=== PATIENT | male | born 1975 | race Caucasian/White ===

== ENCOUNTER 2017-04-06 12:29 | Inpatient (IN) ==
[2017-04-06 13:14] LABS: Basophils # 0.1 K/mcL (0.0-0.2); Basophils % 0.3 %; Eosinophils # 0.9 K/mcL (0.0-0.6); Eosinophils % 5.1 %; Hematocrit 31.3 % (37.5-50.1); Immature Granulocytes % 0.3 % (0-4); Lymphocytes # 0.6 K/mcL (0.6-4.6); Lymphocytes % 3.3 %; Mean Corpuscular HGB Conc 35.1 g/dL (31.6-35.5); Mean Corpuscular Hemoglobin 30.3 pg (28.0-33.3); Mean Corpuscular Volume 86.2 fL (83.0-100.0); Mean Platelet Volume 8.9 fL (9.4-12.4); Monocytes # 0.9 K/mcL (0.0-1.3); Monocytes % 5.2 %; Neutrophils # 14.6 K/mcL (1.6-8.9); Platelet Count 361 K/mcL (140-400); Red Blood Count 3.63 M/mcL (4.19-5.50); Segmented Neutrophils % 85.8 %
[2017-04-06 13:18] LABS: Bilirubin,Urine Negative (Negative); Blood,Urine Negative (Negative); Clarity,Urine Clear (Clear); Color,Urine Yellow (Yellow); Glucose,Urine (UA) Normal (Normal); Ketones,Urine Negative (Negative); Nitrite,Urine Negative (Negative); Protein,Urine 30 mg/dL (Neg-Trace); Specific Gravity,Urine 1.023 (1.010-1.025); Urobilinogen,Urine Normal (Normal)
[2017-04-06 13:19] LABS: Leukocyte Esterase,Urine Negative (Negative)
[2017-04-06] MEDS ORDERED: methylPREDNISolone 125 MG/2 ML VIAL IM ONE (13:25)
[2017-04-06 13:26] LABS: Hyaline Casts,Urine Few per lpf (None-Few)
[2017-04-06] MEDS ORDERED: Ipratropium/Albuterol Neb 3 ML IH ONE (13:26)
[2017-04-06 13:27] LABS: Alanine Aminotransferase 25 Units/L (0-55); Albumin 2.5 g/dL (3.5-5.0); Albumin/Globulin Ratio 0.7 (1.1-2.2); Alkaline Phosphatase 87 Units/L (38-126); Aspartate Amino Transferase 40 Units/L (5-34); BUN/Creatinine Ratio 19 (6-26); Bilirubin,Total 0.3 mg/dL (0.2-1.2); Blood Urea Nitrogen 21 mg/dL (8-26); Calcium 11.5 mg/dL (8.6-10.8); Carbon Dioxide 15 mEq/L (19-29); Chloride 114 mEq/L (98-109); Globulin 3.8 g/dL (2.4-3.5); Glucose 115 mg/dL (70-99); Osmolality,Calculated 290 (280-300); Potassium 2.6 mEq/L (3.5-4.5); Sodium 138 mEq/L (136-145); Total Protein 6.3 g/dL (6.0-8.3); eGFR For African Americans > 60 (> 60); eGFR For Non-African Americans > 60 (> 60)
[2017-04-06 13:27] LABS: Squamous Epithelial Cell,Urine Few per lpf (None-Few)
--- NOTE | 2017-04-06 13:28 | Emergency Department Note ---
Disposition Clinical Impression: Smoker, Wheezing, Dyspnea, Bilateral pneumonia, Hypoxemia, Hypokalemia, Anemia , Hypercalcemia, Abnormal EKG, Sepsis Disposition: Admitted As Inpatient Referrals: NONE,PCP [Primary Care Provider] - Forms: ED Satisfaction Letter General Adult HPI - General Chief complaint: ED Shortness of Breath/Dyspnea Stated complaint: LARS Time Seen by Provider: 04/06/17 13:13 Source: patient Limitations: no limitations - History of Present Illness HPI Narrative: 41-year-old male reports emergency department complaining of a cough and wheezing. The patient reports he feels weak and short of breath. He has had a sore throat runny nose and some slight ear pain and had productive sputum but no bloody sputum. 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 There is no history of leg swelling or pain or coughing up blood no syncope. No acute abdominal pain vomiting or diarrhea. There is no history of fever, no acute back pain. No chest pain. The patient denies a previous history of asthma but is a smoker. He states he had a heart attack in the past but never had any cardiac stents or particular evaluation. The patient has had no difficulty moving the arms or legs independently. He reports he has been working, he works physically, but has felt to poorly to go to work today. Pain Scale: 8 - Related Data Home Medications Medication Instructions Recorded Confirmed Ibuprofen [Motrin] 400 - 600 mg PO Q6H PRN 04/06/17 04/06/17 Allergies Allergy/AdvReac Type Severity Reaction Status Date / Time No Known Allergies Allergy Verified 04/06/17 12:49 All systems ED: reviewed and negative except as stated. Past Medical History - Past Medical History Medical history: Reports: no medical history Psychiatric history: Reports: anxiety, depression - Social History Smoking Status: Current every day smoker Smokeless Tobacco Status: Yes Alcohol use: Reports: none Drug use: Reports: marijuana Physical Exam - General Limitations: no limitations General appearance: alert, in no apparent distress - Head Head exam: atraumatic, normocephalic, normal inspection - Eye Eye exam: Present: normal appearance, PERRL, EOMI. Absent: scleral icterus - ENT ENT exam: normal exam, normal oropharynx, mucous membranes moist, TM's normal bilaterally, normal external ear exam, other (Light-colored material on the tongue, possibly thrush) - Neck Neck exam: Present: normal inspection, full ROM, trachea midline - Chest Chest inspection: Present: normal inspection, symmetric chest wall rise - Respiratory Respiratory exam: Present: wheezes, prolonged expiratory phase. Absent: respiratory distress, stridor, accessory muscle use - Cardiovascular Cardiovascular exam: Present: regular rate, normal rhythm, normal heart sounds - Abdominal Exam Abdominal exam: Present: soft, Non-Tender, normal bowel sounds. Absent: tenderness, distention, guarding, rebound, rigidity - Extremities Exam Extremities exam: Present: normal inspection, full ROM, normal capillary refill. Absent: tenderness, pedal edema, joint swelling, calf tenderness - Expanded Lower Extremity Exam Neurovascular/Tendon exam: Present: normal capillary refill. Absent: motor deficit, sensory deficit, tendon deficit, extremity cold to touch, pallor - Back Exam Back exam: Present: normal inspection, full ROM. Absent: tenderness, CVA tenderness (R), CVA tenderness (L), vertebral tenderness - Neurological Exam Neurological exam: Present: alert, oriented X3, CN II-XII intact. Absent: motor sensory deficit - Psychiatric Psychiatric exam: Present: normal affect, normal mood - Skin Skin exam: Present: warm, dry, intact, normal color. Absent: rash, cyanosis, diaphoresis, erythema, pallor, mottled Course Vital Signs Temperature 98.4 F 04/06/17 12:49 Pulse Rate 75 04/06/17 12:49 Respiratory Rate 24 04/06/17 12:49 Blood Pressure 105/49 04/06/17 12:49 O2 Sat by Pulse Oximetry 91 04/06/17 12:49 Temperature 98.4 F 04/06/17 12:49 Pulse Rate 75 04/06/17 12:49 Respiratory Rate 24 04/06/17 12:49 Blood Pressure 105/49 04/06/17 12:49 O2 Sat by Pulse Oximetry 91 04/06/17 12:49 Oxygen Delivery Oxygen Delivery Room Air Medical Decision Making - MDM Narrative Medical decision making narrative: Patient complains of dyspnea, his chest x-ray suggests bilateral pneumonitis, the patient's white blood cell count is significantly elevated, he was given a breathing treatment in the emergency department and his room air oxygen saturation remained about 89%, oxygen was ordered. Blood cultures were ordered as well as Levaquin. The patient has what appears to be some thrush on his tongue, HIV testing is been ordered. Solu-Medrol was given the ED. Based on the patient's hypoxemia, bilateral pneumonitis, symptomatic dyspnea, wheezing, notably elevated white count, hypokalemia, and general weakness, I thought it would be appropriate to admit the patient to hospital. D-dimer pending, urine tox pending. I discussed the case with the hospitalist on-call who has accepted the patient to their care. - Lab Data Lab results reviewed: Yes I reviewed the patient's lab results. Result diagrams: 04/06/17 13:05 04/06/17 13:05 Lab Results 04/06/17 04/06/17 04/06/17 Range/Units 12:38 13:05 13:05 WBC 17.0 H (4.3-11.1) K/mcL RBC 3.63 L (4.19-5.50) M/mcL Hgb 11.0 L (12.9-16.9) g/dL Hct 31.3 L (37.5-50.1) % MCV 86.2 (83.0-100.0) fL MCH 30.3 (28.0-33.3) pg MCHC 35.1 (31.6-35.5) g/dL RDW 15.0 H (11.5-14.5) % Plt Count 361 (140-400) K/mcL MPV 8.9 L (9.4-12.4) fL Immature Gran % 0.3 (0-4) % Seg Neutrophils % 85.8 % Lymphocytes % 3.3 % Monocytes % 5.2 % Eosinophils % 5.1 % Basophils % 0.3 % Neutrophils # 14.6 H (1.6-8.9) K/mcL Lymphocytes # 0.6 (0.6-4.6) K/mcL Monocytes # 0.9 (0.0-1.3) K/mcL Eosinophils # 0.9 H (0.0-0.6) K/mcL Basophils # 0.1 (0.0-0.2) K/mcL Platelet Estimate Normal (Normal) Sodium 138 (136-145) mEq/L Potassium 2.6 L (3.5-4.5) mEq/L Chloride 114 H (98-109) mEq/L Carbon Dioxide 15 L (19-29) mEq/L BUN 21 (8-26) mg/dL Creatinine 1.10 (0.72-1.25) mg/dL Est GFR ( Amer) > 60 (> 60) Est GFR (Non-Af Amer) > 60 (> 60) BUN/Creatinine Ratio 19 (6-26) Glucose 115 H (70-99) mg/dL Calculated Osmolality 290 (280-300) Lactic Acid (0.5-2.2) mmol/L Calcium 11.5 H (8.6-10.8) mg/dL Total Bilirubin 0.3 (0.2-1.2) mg/dL AST 40 H (5-34) Units/L ALT 25 (0-55) Units/L Alkaline Phosphatase 87 (38-126) Units/L Troponin I (0-0.03) ng/mL C-Reactive Protein (Less than 5) mg/L B-Natriuretic Peptide (0-100) pg/mL Serum Total Protein 6.3 (6.0-8.3) g/dL Albumin 2.5 L (3.5-5.0) g/dL Globulin 3.8 H (2.4-3.5) g/dL Albumin/Globulin Ratio 0.7 L (1.1-2.2) Urine Color Yellow (Yellow) Urine Clarity Clear (Clear) Urine pH 6.0 (5.0-8.0) pH Units Ur Specific [place] 1.023 (1.010-1.025) Urine Protein 30 H (Neg-Trace) mg/dL Urine Glucose (UA) Normal (Normal) mg/dL Urine Ketones Negative (Negative) mg/dL Urine Blood Negative (Negative) Urine Nitrite Negative (Negative) Urine Bilirubin Negative (Negative) Urine Urobilinogen Normal (Normal) mg/dL Ur Leukocyte Esterase Negative (Negative) Urine Microscopic RBC 0-3 (0-3) per hpf Urine Microscopic WBC 3-5 H (0-3) per hpf Ur Squamous Epith Cells Few (None-Few) per lpf Ur Renal Epithelial Cell Few (None-Few) per hpf Urine Bacteria Moderate H (None-Few) per hpf Hyaline Casts Few (None-Few) per lpf Ur Culture Indicated? NO (NO) HIV Ag/Ab Combo Qual (Nonreactive) 04/06/17 04/06/17 04/06/17 Range/Units 13:05 14:36 14:36 WBC (4.3-11.1) K/mcL RBC (4.19-5.50) M/mcL Hgb (12.9-16.9) g/dL Hct (37.5-50.1) % MCV (83.0-100.0) fL MCH (28.0-33.3) pg MCHC (31.6-35.5) g/dL RDW (11.5-14.5) % Plt Count (140-400) K/mcL MPV (9.4-12.4) fL Immature Gran % (0-4) % Seg Neutrophils % % Lymphocytes % % Monocytes % % Eosinophils % % Basophils % % Neutrophils # (1.6-8.9) K/mcL Lymphocytes # (0.6-4.6) K/mcL Monocytes # (0.0-1.3) K/mcL Eosinophils # (0.0-0.6) K/mcL Basophils # (0.0-0.2) K/mcL Platelet Estimate (Normal) Sodium (136-145) mEq/L Potassium (3.5-4.5) mEq/L Chloride (98-109) mEq/L Carbon Dioxide (19-29) mEq/L BUN (8-26) mg/dL Creatinine (0.72-1.25) mg/dL Est GFR ( Amer) (> 60) Est GFR (Non-Af Amer) (> 60) BUN/Creatinine Ratio (6-26) Glucose (70-99) mg/dL Calculated Osmolality (280-300) Lactic Acid 1.9 (0.5-2.2) mmol/L Calcium (8.6-10.8) mg/dL Total Bilirubin (0.2-1.2) mg/dL AST (5-34) Units/L ALT (0-55) Units/L Alkaline Phosphatase (38-126) Units/L Troponin I 0.00 (0-0.03) ng/mL C-Reactive Protein 225 H (Less than 5) mg/L B-Natriuretic Peptide (0-100) pg/mL Serum Total Protein (6.0-8.3) g/dL Albumin (3.5-5.0) g/dL Globulin (2.4-3.5) g/dL Albumin/Globulin Ratio (1.1-2.2) Urine Color (Yellow) Urine Clarity (Clear) Urine pH (5.0-8.0) pH Units Ur Specific [place] (1.010-1.025) Urine Protein (Neg-Trace) mg/dL Urine Glucose (UA) (Normal) mg/dL Urine Ketones (Negative) mg/dL Urine Blood (Negative) Urine Nitrite (Negative) Urine Bilirubin (Negative) Urine Urobilinogen (Normal) mg/dL Ur Leukocyte Esterase (Negative) Urine Microscopic RBC (0-3) per hpf Urine Microscopic WBC (0-3) per hpf Ur Squamous Epith Cells (None-Few) per lpf Ur Renal Epithelial Cell (None-Few) per hpf Urine Bacteria (None-Few) per hpf Hyaline Casts (None-Few) per lpf Ur Culture Indicated? (NO) HIV Ag/Ab Combo Qual (Nonreactive) 04/06/17 04/06/17 Range/Units 14:36 14:36 WBC (4.3-11.1) K/mcL RBC (4.19-5.50) M/mcL Hgb (12.9-16.9) g/dL Hct (37.5-50.1) % MCV (83.0-100.0) fL MCH (28.0-33.3) pg MCHC (31.6-35.5) g/dL RDW (11.5-14.5) % Plt Count (140-400) K/mcL MPV (9.4-12.4) fL Immature Gran % (0-4) % Seg Neutrophils % % Lymphocytes % % Monocytes % % Eosinophils % % Basophils % % Neutrophils # (1.6-8.9) K/mcL Lymphocytes # (0.6-4.6) K/mcL Monocytes # (0.0-1.3) K/mcL Eosinophils # (0.0-0.6) K/mcL Basophils # (0.0-0.2) K/mcL Platelet Estimate (Normal) Sodium (136-145) mEq/L Potassium (3.5-4.5) mEq/L Chloride (98-109) mEq/L Carbon Dioxide (19-29) mEq/L BUN (8-26) mg/dL Creatinine (0.72-1.25) mg/dL Est GFR ( Amer) (> 60) Est GFR (Non-Af Amer) (> 60) BUN/Creatinine Ratio (6-26) Glucose (70-99) mg/dL Calculated Osmolality (280-300) Lactic Acid (0.5-2.2) mmol/L Calcium (8.6-10.8) mg/dL Total Bilirubin (0.2-1.2) mg/dL AST (5-34) Units/L ALT (0-55) Units/L Alkaline Phosphatase (38-126) Units/L Troponin I (0-0.03) ng/mL C-Reactive Protein (Less than 5) mg/L B-Natriuretic Peptide 85 (0-100) pg/mL Serum Total Protein (6.0-8.3) g/dL Albumin (3.5-5.0) g/dL Globulin (2.4-3.5) g/dL Albumin/Globulin Ratio (1.1-2.2) Urine Color (Yellow) Urine Clarity (Clear) Urine pH (5.0-8.0) pH Units Ur Specific [place] (1.010-1.025) Urine Protein (Neg-Trace) mg/dL Urine Glucose (UA) (Normal) mg/dL Urine Ketones (Negative) mg/dL Urine Blood (Negative) Urine Nitrite (Negative) Urine Bilirubin (Negative) Urine Urobilinogen (Normal) mg/dL Ur Leukocyte Esterase (Negative) Urine Microscopic RBC (0-3) per hpf Urine Microscopic WBC (0-3) per hpf Ur Squamous Epith Cells (None-Few) per lpf Ur Renal Epithelial Cell (None-Few) per hpf Urine Bacteria (None-Few) per hpf Hyaline Casts (None-Few) per lpf Ur Culture Indicated? (NO) HIV Ag/Ab Combo Qual Nonreactive (Nonreactive) - Radiology Data Radiology results reviewed: Yes I reviewed the patient's radiology results. Critical Care Time Critical Care Time: Yes Total Critical Care Time: 31 Attestation: 10 minutes initial evaluation 10 minutes documenting the medical record and interpreting data 5 minutes reevaluation 6 minutes revealed with the hospitalist and arranging for admission
[2017-04-06 13:29] LABS: Bacteria,Urine Moderate per hpf (None-Few); Renal Epithelial Cells,Urine Few per hpf (None-Few)
[2017-04-06 13:30] LABS: Platelet Estimate Normal (Normal)
[2017-04-06 13:30] LABS: RBC,Urine 0-3 per hpf (0-3)
[2017-04-06] MEDS ORDERED: 0.9 % Sodium Chloride 1,000 ML IVC ONE (14:21)
[2017-04-06] MEDS ORDERED: Levofloxacin 750 MG/150 ML 750 MG/150 ML BAG IVPB ONE (14:22)
[2017-04-06] MEDS ORDERED: Naloxone 0.4 MG/ML INJ IVP PRN (21:01)
[2017-04-06] MEDS ORDERED: *HR* Morphine 2 MG/ML SYRINGE IVP PRN (21:01)
[2017-04-06] MEDS ORDERED: Ondansetron 4 MG/2 ML VIAL IVP PRN (21:01)
[2017-04-06] MEDS ORDERED: *HR* HYDROcodone/Acet 5/325 mg TABLET PO PRN (21:01)
[2017-04-06] MEDS ORDERED: Benzonatate 100 MG CAPSULE PO PRN (21:08)
[2017-04-06] MEDS ORDERED: D5% in Water 1,000 ML IVC PRN (21:12)
[2017-04-06] MEDS ORDERED: Dextrose Gel 15 GM PO PRN ×2 (21:12)
[2017-04-06] MEDS ORDERED: *HR* Dextrose 50 % in Water (Syg) 50 ML SYRINGE IVP PRN (21:12)
--- NOTE | 2017-04-06 21:13 | Electrocardiograph Report ---
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
[2017-04-06] MEDS ORDERED: Insulin LISPRO 300 UNITS/3 ML VIAL SQ SCH (21:15)
[2017-04-06] MEDS: Pantoprazole 40 MG VIAL IVP SCH (21:39)
[2017-04-06] MEDS: Aspirin Enteric Coated 81 MG Tablet PO SCH (21:42)
[2017-04-06] MEDS: Ipratropium/Albuterol Neb 3 ML IH SCH (22:24)
[2017-04-06] MEDS: *HR* Heparin 5,000 UNIT/ML VIAL SQ SCH (22:59)
--- NOTE | 2017-04-06 23:11 | Event Note ---
Date of Encounter: 04/06/17 Time of Encounter: 23:11 Patient seen and examined with nurse practitioner. Agree with assessment and plan
[2017-04-06 23:19] LABS: Magnesium 1.8 mg/dL (1.6-2.6)
[2017-04-06 23:28] LABS: Potassium 2.5 mEq/L (3.5-4.5)
[2017-04-06] MEDS ORDERED: Magnesium Sulfate 1 GM in D5% in Water 100 ML IVPB ONE (23:34)
--- NOTE | 2017-04-06 23:35 | Internal Med History&Physical ---
Date of Encounter: 04/07/17 Time of Encounter: 20:00 Assessment and Plan (1) Sepsis Current visit: Yes Status: Acute Patient presents with sepsis criteria of WBC of 17.0, respiratory rate of 24, and infection from suspected pneumonia from unknown organism. 2-View CXR today shows diffuse bilateral patchy interstitial opacities may represent multifocal pneumonia or pulmonary edema. Patient reports cough with sputum production. Blood cultures x2 and sputum culture ordered. Initial lactic acid 1.9. Repeat lactic acid. IV 0.9 NS bolus administered in ED followed by 100 mL/HR to continue. IVPB levaquin 750 mg daily ordered for infection coverage. Will adjust abx coverage based on culture results if needed. Supplemental O2 with titration and continuous SpO2 monitoring. Continuous cardiac telemetry. Monitor f/u labs for WBC. Monitor patient for signs of increasing infection, cardiac, and/or respiratory distress. Qualifiers: Sepsis type: sepsis due to unspecified organism Qualified Code(s): A41.9 - Sepsis, unspecified organism (2) Pneumonia Current visit: Yes Status: Acute 2-View CXR today shows diffuse bilateral patchy interstitial opacities may represent multifocal pneumonia or pulmonary edema. Patient reports SOB, nausea, vomiting, weakness, and dizziness over the past three days. Reports N/V has resolved. Also reports cough with white sputum production. Sputum culture ordered. IVPB levaquin 750 mg daily ordered for infection coverage. Supplemental O2 with titration and SpO2 monitoring. DuoNebs Q6 scheduled. Monitor f/u labs for infection status. Will adjust abx coverage based on blood/ sputum culture results. Qualifiers: Pneumonia type: due to unspecified organism Laterality: bilateral Lung location: unspecified part of lung Qualified Code(s): J18.9 - Pneumonia, unspecified organism (3) Dyspnea Current visit: Yes Status: Acute Patient presents with SOB related to current pneumonia status. Supplemental O2 with titration and continuous SpO2 monitoring. DuoNebs Q6 scheduled. Qualifiers: Qualified Code(s): R06.02 - Shortness of breath; R06.00 - Dyspnea, unspecified; R06.01 - Orthopnea (4) Anemia Current visit: Yes Status: Acute Hgb of 11.0 and Hct of 31.3 on admission. B12 and folic acid ordered daily. Fecal hemoccult ordered. Monitor H/H in f/u labs. Qualifiers: Anemia type: unspecified type Qualified Code(s): D64.9 - Anemia, unspecified (5) Hypercalcemia Current visit: Yes Status: Acute 11.5 calcium on admission. Patient receiving IV fluids per sepsis protocol. Monitor calcium status in f/u labs. Continuous cardiac telemetry. (6) Hypokalemia Current visit: Yes Status: Acute Potassium of 2.6 on admission. 40 mEq PO potassium and 10 mEq IVPB administered in ED. Will f/u with IVPB potassium 10 mEq x4 and monitor patient's potassium level during administration. (7) DVT prophylaxis Current visit: Yes Status: Acute Heparin 5,000 units SQ Q8 ordered for DVT prophylaxis. Monitor patient for signs of bleeding. Internal Medicine - H&P: HPI Chief complaint: SOB/Dyspnea Admitted From: Emergency Dept Plans for Post Hospital Care: Home History of present illness: Mr. Barlow is a 41 year old male with medical history of heart murmur since childhood presents from the ED with chief complaint of shortness of breath and dyspnea which began 3 days ago and was accompanied with nausea and vomiting. Patient reports weakness and dizziness accompanying symptoms which became worse. He also reports cough with white sputum production. Patient denies recent contact with sick people, fever, chills, chest pain, limitations, changes in vision, abdominal pain, diarrhea, constipation, unusual bleeding, presyncope, or syncope. Patient denies history of asthma, DVT, and PE. Patient reports he had a heart attack at the age of 32 but never sought treatment or had heart catheterization or stent placement. Patient reports he is occurring every day smoker smoking 2 packs per day and has no interest in quitting. Patient also has psychiatric history of anxiety and depression without pharmacologic intervention. He reports occasional marijuana use. 2- view CXR today shows diffuse bilateral patchy interstitial opacities which may represent multifocal pneumonia or pulmonary edema. On admission, patient's vital signs include temperature of 98.4F, heart rate 75 beats per minutes, respiratory rate of 24, repeat of 105 49, and SPO2 91% on room air. Abnormal lab values include WBC was 17.0, Hgb of 11.0, HCT of 31.3, potassium of 2.6, chloride of 114, CO2 of 15, glucose of 115, calcium of 11.5 AST of 40 and CRP at 225. Initial lactic acid is 1.9 and initial troponin 0.00. Upon assessment , patient is alert and oriented 3 and states he is mildly short of breath. HR is RRR and patient is mildly tachypneic with diminished breath sounds bilaterally on auscultation. Patient is hemodynamically stable and reports mild SOB. Information obtained from patient, chart reviewed previous medical records. Mr. Barlow currently meet sepsis criteria based on WBC of 17.0, respiratory rate of 24, and infection of unknown organism related to current pneumonia status and is at high risk for further morbidity based on current symptoms and will be placed as inpatient status. Time spent with patient >40 minutes. Past Med Surg Social Fam HX - Past Medical History Source: patient Medical history: no medical history, myocardial infarction (Patient states he had [place] at age 32 due to alcohol abuse w/o intervention, cath, or stents) Psychiatric history: anxiety, depression - Social History Smoking Status: Current every day smoker Packs per day: 2 PPD Smokeless Tobacco Status: Yes Alcohol use: none Drug use: marijuana Occupational status: employed Current living situation: Home Activity Level: Independent ambulation Recent Out of Country Travel Within the Last 8 Weeks: No Exposure or Possible Exposure to Illness During Travel: No - Family History Father Race: Family Member Ethnicity: Non- Living Status: Still Living Hx Family Medical Disorders: No Mother Race: Family Member Ethnicity: Non- Living Status: Still Living Hx Family Medical Disorders: No Internal Medicine - H&P: Meds Ibuprofen [Motrin] 400 - 600 mg PO Q6H PRN 04/06/17 [History] 3 Allergy/AdvReac Type Severity Reaction Status Date / Time No Known Allergies Allergy Verified 04/06/17 12:49 All Systems PM: A 10-system review of systems was performed and is negative for pertinent findings except as documented above in the HPI. - Constitutional Constitutional: as per HPI, weakness, no chills, no fever(s), no night sweats - EENT Eyes: no change in vision, no discharge, no pain, no photophobia Ears: no ear discharge, no ear pain, no tinnitus Nose, mouth and throat: no dysphagia, no nasal discharge, no neck pain, no sore throat - Breasts Breasts: as per HPI - Cardiovascular Cardiovascular ROS IM: dyspnea, dyspnea on exertion, no chest pain, no diaphoresis, no lightheadedness, no palpitations, no syncope - Respiratory Respiratory: as per HPI, cough, dyspnea, dyspnea on exertion - Gastrointestinal Gastrointestinal: no abdominal pain, no diarrhea, no hematemesis, no hematochezia, no melena, no nausea, no vomiting - Genitourinary Genitourinary ROS male: as per HPI - Musculoskeletal Musculoskeletal ROS IM: no numbness, no tingling - Integumentary Integumentary IM: no rash, no unusual bruising - Neurological Neurological ROS: no confusion, no convulsions, no focal weakness, no numbness, no tingling, no tremor(s) - Psychiatric Psychiatric: as per HPI - Endocrine Endocrine IM: as per HPI - Hematologic/Lymphatic Hematologic/Lymphatic: no easy bruising - Allergic/Immunologic Allergic/Immunologic: as per HPI - Constitutional Vitals: Temp Pulse Resp BP Pulse Ox 98.3 F 72 18 99/52 93 04/06/17 23:32 04/06/17 23:32 04/06/17 23:32 04/06/17 23:32 04/06/17 23:32 General appearance: Present: cooperative, mild distress, A&O X 3, pleasant, answers questions appropriately - Head Head exam: Present: atraumatic, normocephalic - Eye Eye exam: Present: PERRL, conjuntiva pink, sclera anicteric Pupils: Present: PERRL - ENT ENT exam: Present: normal exam, normal external ear exam - Neck Neck exam general surgery: Present: normal inspection, supple, trachea midline. Absent: lymphadenopathy - Respiratory Respiratory exam: Present: decreased breath sounds. Absent: accessory muscle use, rales, rhonchi, wheezes - Cardiovascular Cardiovascular exam: Present: RRR, +S1, +S2. Absent: diastolic murmur, gallop, rubs, systolic murmur - GI/Abdominal GI/Abdominal exam: Present: normal bowel sounds, soft, no peritoneal signs. Absent: distended, tenderness - Rectal Rectal exam: Present: deferred - Additional comments: exam deferred. - Extremities Exam Extremities exam: Present: warm, radial pulses palpable and symmetrical. Absent : calf tenderness, cyanotic, pedal edema - Back Exam Back exam: Present: normal inspection - Neurological Exam Neurological exam: Present: CN II-XII intact, oriented X3, no focal deficits. Absent: pronater drift, facial droop, speech deficit - Psychiatric Psychiatric exam: Present: normal affect, normal mood - Skin Skin exam: Present: dry, intact Internal Med - H&P Results - Labs CBC & Chem 7: 04/06/17 13:05 04/06/17 23:01 Labs: BMP 04/06/17 23:01 Potassium 2.5 L* - Impressions ITS Impressions Chest CTA 04/06/17 18:20 IMPRESSION: Mediastinal and right hilar lymphadenopathy. This may be reactive; however, the bulkiness of the lymph nodes does question underlying sarcoidosis despite asymmetry of hilar involvement or possible lymphoma. Bilateral ground-glass infiltrates, which are nonspecific. This may reflect pulmonary edema versus atypical pneumonia or hypersensitivity pneumonitis. Alveolar hemorrhage or eosinophilic pneumonia can give a similar radiographic appearance. D/ / 04/06/2017 20:24:12 Vimal Bonilla MD / ana Interpreting Provider: Vimal Bonilla MD - Diagnostic Studies Chest x-ray Additional comments: Impressions Chest X-Ray 04/06/17 13:14 IMPRESSION: Diffuse bilateral patchy interstitial opacities may represent multifocal pneumonia or pulmonary edema. D/ / Mikel Wood MD / Mikel Wood MD Interpreting Provider: Mikel Wood MD Other Images Additional comments: Impressions Chest CTA 04/06/17 18:20 IMPRESSION: Mediastinal and right hilar lymphadenopathy. This may be reactive; however, the bulkiness of the lymph nodes does question underlying sarcoidosis despite asymmetry of hilar involvement or possible lymphoma. Bilateral ground-glass infiltrates, which are nonspecific. This may reflect pulmonary edema versus atypical pneumonia or hypersensitivity pneumonitis. Alveolar hemorrhage or eosinophilic pneumonia can give a similar radiographic appearance. D/ / 04/06/2017 20:24:12 Vimal Bonilla MD / earnas Interpreting Provider: Vimal Bonilla MD
[2017-04-07] MEDS: 0.9 % Sodium Chloride 1,000 ML IVC SCH ×3 (00:10→19:31)
[2017-04-07] MEDS: Ipratropium/Albuterol Neb 3 ML IH SCH ×4 (03:43→21:14)
[2017-04-07 05:26] LABS: Hematocrit 28.6 % (37.5-50.1); Hemoglobin 10.3 g/dL (12.9-16.9); Mean Corpuscular Hemoglobin 30.7 pg (28.0-33.3); Mean Corpuscular Volume 85.1 fL (83.0-100.0); Platelet Count 370 K/mcL (140-400); Red Blood Count 3.36 M/mcL (4.19-5.50)
[2017-04-07 05:41] LABS: INR 1.1; Prothrombin Time 11.7 Seconds (9.4-12.1)
[2017-04-07 05:43] LABS: Activated Partial Thrombo Time 28.4 Seconds (26.0-36.0)
[2017-04-07 05:54] LABS: Hemoglobin A1C 4.7 %
[2017-04-07 05:57] LABS: Cholesterol 98 mg/dL (< 200); HDL Cholesterol 14 mg/dL (40-59); LDL Cholesterol,Calculated 59 mg/dL (0-99); Triglycerides 126 mg/dL (< 150)
[2017-04-07 06:12] LABS: Lymphocytes # 0.7 K/mcL (0.6-4.6); Monocytes # 2.5 K/mcL (0.0-1.3); Neutrophils # 14.5 K/mcL (1.6-8.9); Platelet Estimate Normal (Normal)
[2017-04-07 06:22] LABS: BUN/Creatinine Ratio 24 (6-26); Blood Urea Nitrogen 19 mg/dL (8-26); Calcium 10.7 mg/dL (8.6-10.8); Carbon Dioxide 13 mEq/L (19-29); Chloride 117 mEq/L (98-109); Glucose 127 mg/dL (70-99); Osmolality,Calculated 290 (280-300); Potassium 2.9 mEq/L (3.5-4.5); Sodium 138 mEq/L (136-145); eGFR For African Americans > 60 (> 60); eGFR For Non-African Americans > 60 (> 60)
[2017-04-07 07:05] LABS: Amphetamine Screen,Urine Negative ng/mL (Cutoff=1000); Barbiturate Screen,Urine Positive ng/mL (Cutoff=200); Benzodiazepines Screen,Urine Negative ng/mL (Cutoff=200); Cannabinoid Screen,Urine Positive ng/mL (Cutoff = 50); Cocaine Screen,Urine Negative ng/mL (Cutoff= 300); Opiate Screen,Urine Negative ng/mL (Cutoff=300); Phencyclidine Screen,Urine Negative ng/mL (Cutoff=25)
[2017-04-07] MEDS ORDERED: Insulin LISPRO 300 UNITS/3 ML VIAL SQ SCH (07:30)
[2017-04-07] MEDS: Folic Acid 1 MG TABLET PO SCH (08:29)
[2017-04-07] MEDS: *HR* Heparin 5,000 UNIT/ML VIAL SQ SCH ×2 (08:29→16:49)
[2017-04-07] MEDS: Aspirin Enteric Coated 81 MG Tablet PO SCH (08:29)
[2017-04-07] MEDS: Cyanocobalamin (B-12) 1,000 MCG TABLET PO SCH (08:29)
[2017-04-07] MEDS: Pantoprazole 40 MG VIAL IVP SCH (08:30)
[2017-04-07] MEDS: Levofloxacin 750 MG/150 ML 750 MG/150 ML BAG IVPB SCH (08:30)
--- NOTE | 2017-04-07 09:27 | Internal Med Progress Note ---
<Ham Neumann T - Last Filed: 04/07/17 13:00> Date of Encounter: 04/07/17 - Constitutional Vitals: Temp Pulse Resp BP Pulse Ox 98.2 F 76 12 124/72 97 04/07/17 10:39 04/07/17 10:39 04/07/17 11:05 04/07/17 10:39 04/07/17 11:05 Internal Medicine: Result - Labs CBC & Chem 7: 04/07/17 05:10 04/07/17 05:10 Labs: Short CBC 04/07/17 Range/Units 05:10 WBC 17.7 H (4.3-11.1) K/mcL Hgb 10.3 L (12.9-16.9) g/dL Hct 28.6 L (37.5-50.1) % Plt Count 370 (140-400) K/mcL Neutrophils # 14.5 H (1.6-8.9) K/mcL BMP 04/06/17 04/07/17 23:01 05:10 Sodium 138 Potassium 2.5 L* 2.9 L Chloride 117 H Carbon Dioxide 13 L BUN 19 Creatinine 0.80 Glucose 127 H Calcium 10.7 - ABG Interpretation ABG results: PT/INR, D-dimer PT 11.7 Seconds (9.4-12.1) 04/07/17 05:10 D-Dimer 2585 ng/mLFEU (0-500) H 04/06/17 15:20 - Impressions Impressions Echocardiogram 04/07/17 07:00 Impressions: Normal LV systolic function, LVEF 60-65%. Normal left ventricular diastolic function. Normal right ventricular size and function. No significant valvular dysfunction. Left Ventricular Wall Motion: Rest Echo Findings All wall segments showed normal motion. Findings: Study Quality * Technically adequate exam. ECG Findings * Normal sinus rhythm. Left Ventricle * Normal LV systolic function, LVEF 60-65%. * Normal LV chamber size and wall thickness. * Normal left ventricular diastolic function. Right Ventricle * Normal right ventricular size and function. Left Atrium * Normal left atrial size. Right Atrium * Normal right atrial size. Aorta * Normally sized aortic root. Pericardium * There is no pericardial effusion present. IVC * Normal IVC dimensions and inspiratory collapse. Aortic Valve * Trileaflet aortic valve. * No aortic stenosis. * No aortic regurgitation. Mitral Valve * Normal mitral valve structure. * No mitral stenosis. * No mitral regurgitation. Tricuspid Valve * Normal tricuspid valve structure. * No tricuspid stenosis. * Trace tricuspid regurgitation. * Unable to estimate RVSP due to lack of TR jet. Pulmonic Valve * Normal pulmonic valve structure. * No pulmonic stenosis. * Trace pulmonic regurgitation. Consult Discharge Plan - Plan Referrals: NONE,PCP [Primary Care Provider] - - Attending Attestation I independently saw and examined this patient on 04/07/2017, I have reviewed EMR. Diagnoses and management plan was discussed with the patient, and the resident physician. 41 M with PMH of Tobacco abuse with 2PPD use, THC use. He is admitted and being managed for hypoxia and Pneumonia, he also has a finding of Hilar adenopathy on CT scan Patient is seen sitting comfortably in bed, denies new complains, reports improvement in his breathing, he is still requiring O2 supplements On examination: VSS, speaks full sentences, flat affect. HEENT: Not cyanotic, moist oral mucosa. He has bilateral rhonchi and wheezing. He has no crackles. Abdomen is soft and not tender, no pedal edema, extremities are well perfused Labs and Imaging reviewed: Leukocytosis, hypokalemia, Chest CT with bilateral ground glass opacities and hilar adenopathy. ECHO is normal Assessment/Plan #Community acquired pneumonia: Organism unknown, atypical picture, continue Levaquin, send sputum culture #Hilar adenopathy suspicious for sarcoidosis: Send ALEXSANDRA, consult pulmonology, monitor closely #Hypoxia: Continue O2 supplementation, 4L per minute, continue same. ECHO is normal #Tobacco abuse: Declines NRT. Rest of details as in resident physician's documentation <Maricruz Das - Last Filed: 04/07/17 15:29> Date of Encounter: 04/07/17 Time of Encounter: 09:15 - Assessment and plan (1) Community acquired pneumonia Current Visit: Yes Status: Acute Assessment and plan: Patient reports that his breathing has improved. He is currently on room air 97 % O2, afebrile WBC increased, now 17.7. Admission it was 17.0 patient is a current smoker of 2ppd/ 20yr -Chest x-ray showed diffuse bilateral patchy opacities consistent with pneumonia or pulmonary edema -Chest CTA showed mediastinal and right hilar lymphadenopathy. May be reactive or underlined sarcoidosis or possible lymphoma. Bilateral ground glass infiltrates, either pulmonary edema versus atypical pneumonia or hypersensitivity pneumonitis. Alveolar hemorrhage or use an affiliate pneumonia can get a similar radiographic appearance. -Echocardiogram: normal LVEF 60-65%, normal diastolic function. HIV nonreactive -Continue Levaquin day 2 -patient has been tapered off oxygen in this tolerating room air -supplemental oxygen PRN -ALEXSANDRA ordered -blood culture pending -sputum culture pending -consulted pulmonology -ordering respiratory panel, legionella, strep pneumper Pulmonology Qualifiers: Qualified Code(s): J18.9 - Pneumonia, unspecified organism (2) Hilar adenopathy Current Visit: Yes Status: Acute Assessment and plan: Please see plan above (3) Smoker Current Visit: Yes Status: Acute Assessment and plan: Current smoker of 20ppd/20yr (4) Hypokalemia Current Visit: Yes Status: Acute Assessment and plan: Potassium is 2.9, improvement from admission magnesium is normal 2.0 -supplement potassium 80mg -continue to monitor (5) DVT prophylaxis Current Visit: Yes Status: Acute Assessment and plan: SQ heparin - Subjective Interval history: Patient is sitting up in bed watching television he stated that he is breathing has improved he is currently not on any oxygen he has no complaints at this time - Constitutional Vitals: Temp Pulse Resp BP Pulse Ox 98.2 F 69 17 112/64 96 04/07/17 07:03 04/07/17 07:03 04/07/17 07:03 04/07/17 07:03 04/07/17 07:03 General appearance: Present: cooperative, mild distress, A&O X 3, pleasant, answers questions appropriately Exam: Gen.: Vitals noted. No acute distress. AAOx3 HEENT: oropharynx clear, Normocephalic, atraumatic Neck: Supple. No adenopathy. Cardiac: RRR, systolic murmur, or rubs Pulmonary: bilaterally wheezes and rhonchi Abdomen: soft, nontender, Bowel sounds noted, no guarding MSK: ROM intact Extremities: no BLE edema, nontender calf, no cyanosis or clubbing Neuro: A&Ox3, moves all extremities Psych: Appropriate mood and behavior Internal Medicine: Result - Labs CBC & Chem 7: 04/07/17 05:10 04/07/17 05:10 Labs: Short CBC 04/07/17 Range/Units 05:10 WBC 17.7 H (4.3-11.1) K/mcL Hgb 10.3 L (12.9-16.9) g/dL Hct 28.6 L (37.5-50.1) % Plt Count 370 (140-400) K/mcL Neutrophils # 14.5 H (1.6-8.9) K/mcL BMP 04/06/17 04/07/17 23:01 05:10 Sodium 138 Potassium 2.5 L* 2.9 L Chloride 117 H Carbon Dioxide 13 L BUN 19 Creatinine 0.80 Glucose 127 H Calcium 10.7 - ABG Interpretation ABG results: PT/INR, D-dimer PT 11.7 Seconds (9.4-12.1) 04/07/17 05:10 D-Dimer 2585 ng/mLFEU (0-500) H 04/06/17 15:20
[2017-04-07] MEDS ORDERED: Potassium Chloride Elixir 20 MEQ/15 ML UDC PO ONE ×2 (09:36→10:20)
--- NOTE | 2017-04-07 14:47 | Pulmonology Consult Note ---
Date of Encounter: 04/07/17 Time of Encounter: 14:46 Assessment and Plan (1) Bilateral pneumonia Current Visit: Yes Status: Acute 41-year-old gentleman who is a relatively heavy smoker for his age who presents with acute hypoxic respiratory failure secondary to community acquired pneumonia. His chest x-ray and CT scan are notable for bilateral groundglass opacities which in this context I believe represent an infection (espcially given bandemia to 30%)possibly an atypical infection such as mycoplasma however viral pneumonia would also be in the differential. I suspect that this is triggered a flare of as of yet undiagnosed obstructive lung disease. With regards to the hilar adenopathy this may be reactive in nature related to acute infection however this will need radiographic follow-up to make sure that this is resolved. Clinically I have low suspicion for lymphoma however this remains in the differential diagnosis and would think that sarcoidosis is also less likely but would need further follow-up in both cases. 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 none of which are clearly present with discussion with the patient. Given the radiographic findings I think it would be safest to proceed with bronchoscopy with bronchoalveolar lavage however patient declined this procedure citing his fear of "being knocked out" I did reinforce that this was a very safe procedure and that the sedatives that were going to be used were very temporary in nature however this did not assuage his concern and he opted for a more conservative approach. Recs: -Please wean FiO2 to keep saturation greater than 88%. Looks like this has been achieved he will need a walking pulse oximetry study prior to discharge he may qualify for home-going oxygen although it doubt this would be the case -I agree with obtaining sputum and blood cultures and urine antigens for Legionella and strep pneumoniae if not obtained -Please send a respiratory infectious panel -Agree with antimicrobials the respiratory fluoroquinolone he is on for community-acquired pathogens is reasonable empiric treatment. I would treat for approximately 7 days potentially longer based upon clinical course -Recommend steroid burst start with by mouth prednisone 40 mg to complete 5 day course -Schedule bronchodilators every 4-6 hours -At discharge he should be sent home with at least a short acting beta agonist "rescue inhaler" -He will need follow-up pulmonary clinic in 4-6 weeks with repeat imaging at that time discussion can be had regarding the safety of bronchoscopy if this remains clinically necessary -I gave him tobacco cessation counseling in the room he is not actively having any cravings at present but may benefit from a nicotine patch and/or prescription at discharge -If patient changes his mind could keep nothing by mouth and consider bronchoscopy tomorrow when I will reevaluate his case Qualifiers: Pneumonia type: due to unspecified organism Lung location: unspecified part of lung Qualified Code(s): J18.9 - Pneumonia, unspecified organism (2) Smoker Current Visit: Yes Status: Acute (3) DVT prophylaxis Current Visit: Yes Status: Acute (4) Community acquired pneumonia Current Visit: Yes Status: Acute Qualifiers: Qualified Code(s): J18.9 - Pneumonia, unspecified organism (5) Hilar adenopathy Current Visit: Yes Status: Acute History of Present Illness Consult date: 04/07/17 Requesting physician: Maricruz Das Reason for consult: pneumonia Chief complaint: Shortness of Breath History of present illness: 41-year-old gentleman with with a history of tobacco abuse and formerly polysubstance abuse who presented with wheezing shortness of breath and cough found to have acute hypoxic respiratory failure. Per the patient he developed a flulike illness about a week ago that was manifested with fevers chills or malaise weight loss and back pain for which he was treating himself with over- the-counter ibuprofen. On presentation to the ED a CTA was performed after significantly elevated d-dimer was noted which was significant for bilateral groundglass opacities and a hilar adenopathy. There was no filling defect was seen. He has been treated with a respiratory fluoroquinolone since admission however he has had an oxygen requirement at least up until the time I talked with the patient when I was in the room he was not requiring oxygen therapy. Part of workup a echocardiogram was also obtained which was essentially normal. He is smoked for the last 20 years approximately 2 packs a day. 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 No exposure to birds including chickens no significant sick contacts although apparently when he was telling me there has been several cases like his in the community where he lives. He has not traveled recently. He does not have any relevant hobbies or other industrial exposures. Past Med Surg Social Fam HX - Past Medical History Medical history: no medical history, myocardial infarction (Patient states he had GA at age 32 due to alcohol abuse w/o intervention, cath, or stents) Psychiatric history: anxiety, depression - Social History Smoking Status: Current every day smoker Packs per day: 2 PPD Smokeless Tobacco Status: Yes Alcohol use: none Drug use: marijuana - Family History Father Race: Family Member Ethnicity: Non- Living Status: Still Living Hx Family Medical Disorders: No Mother Race: Family Member Ethnicity: Non- Living Status: Still Living Hx Family Medical Disorders: No Medications and Allergies Ibuprofen [Motrin] 400 - 600 mg PO Q6H PRN 04/06/17 [History] 3 Allergy/AdvReac Type Severity Reaction Status Date / Time No Known Allergies Allergy Verified 04/06/17 12:49 All Systems: A 10-system review of systems was performed and is negative for pertinent findings except as documented above in the HPI. Physical Examination Vital Signs: Vital Signs, Last 4 Hours Resp Pulse Ox 04/07/17 11:05 12 97 General appearance: no acute distress ENT: oropharynx dry Neck: no lymphadenopathy, no JVD Auscultation: bilateral: diminished breath sounds, wheezes (Faint expiratory), rhonchi (Scattered throughout lung moore) Cardiovascular: regular rate and rhythm Gastrointestinal: normoactive bowel sounds Integumentary: normal Extremities: no cyanosis Musculoskeletal: no deformities normal mental status, non-focal exam mood appropriate Results - Laboratory Findings CBC and BMP: 04/07/17 05:10 04/07/17 05:10 PT/INR, D-dimer PT 11.7 Seconds (9.4-12.1) 04/07/17 05:10 D-Dimer 2585 ng/mLFEU (0-500) H 04/06/17 15:20 Abnormal lab findings: Abnormal lab results WBC 17.7 K/mcL (4.3-11.1) H 04/07/17 05:10 RBC 3.36 M/mcL (4.19-5.50) L 04/07/17 05:10 Hgb 10.3 g/dL (12.9-16.9) L 04/07/17 05:10 Hct 28.6 % (37.5-50.1) L 04/07/17 05:10 MCHC 36.0 g/dL (31.6-35.5) H 04/07/17 05:10 RDW 15.0 % (11.5-14.5) H 04/07/17 05:10 MPV 9.0 fL (9.4-12.4) L 04/07/17 05:10 Band Neutrophils % 30.0 % (0-4) H 04/07/17 05:10 Neutrophils # 14.5 K/mcL (1.6-8.9) H 04/07/17 05:10 Monocytes # 2.5 K/mcL (0.0-1.3) H 04/07/17 05:10 Eosinophils # 0.9 K/mcL (0.0-0.6) H 04/06/17 13:05 D-Dimer 2585 ng/mLFEU (0-500) H 04/06/17 15:20 Potassium 2.9 mEq/L (3.5-4.5) L 04/07/17 05:10 Chloride 117 mEq/L (98-109) H 04/07/17 05:10 Carbon Dioxide 13 mEq/L (19-29) L 04/07/17 05:10 Glucose 127 mg/dL (70-99) H 04/07/17 05:10 POC Glucose 169 (58-89) H 04/06/17 21:46 AST 40 Units/L (5-34) H 04/06/17 13:05 C-Reactive Protein 225 mg/L (Less than 5) H 04/06/17 14:36 Albumin 2.5 g/dL (3.5-5.0) L 04/06/17 13:05 Globulin 3.8 g/dL (2.4-3.5) H 04/06/17 13:05 Albumin/Globulin Ratio 0.7 (1.1-2.2) L 04/06/17 13:05 HDL Cholesterol 14 mg/dL (40-59) L 04/07/17 05:10 Cholesterol/HDL Ratio 7.0 (0-4.9) H 04/07/17 05:10 Urine Protein 30 mg/dL (Neg-Trace) H 04/06/17 12:38 Urine Microscopic WBC 3-5 per hpf (0-3) H 04/06/17 12:38 Urine Bacteria Moderate per hpf (None-Few) H 04/06/17 12:38 Ur Barbiturates Screen Positive ng/mL (Zzdtgi=126) H 04/06/17 12:38 U Marijuana (THC) Screen Positive ng/mL (Cutoff = 50) H 04/06/17 12:38 - Diagnostic Findings Chest x-ray: report reviewed, image reviewed CT scan - chest: report reviewed, image reviewed - Clinical Findings Intake & Output: Intake & Output 04/06/17 04/07/17 04/07/17 23:59 07:59 15:59 Intake Total 150 / 370 1002 / 1002 1510 / 1510 Output Total 700 / 700 0 / 0 Balance 150 / 370 302 / 302 1510 / 1510 Weight 74.48 kg Consult Discharge Plan - Plan Referrals: NONE,PCP [Primary Care Provider] -
[2017-04-07] MEDS: Acetaminophen 325 MG TABLET PO PRN (19:29)
[2017-04-07 20:04] LABS: BUN/Creatinine Ratio 20 (6-26); Blood Urea Nitrogen 16 mg/dL (8-26); Carbon Dioxide 15 mEq/L (19-29); Chloride 118 mEq/L (98-109); Glucose 107 mg/dL (70-99); Potassium 2.8 mEq/L (3.5-4.5); Sodium 140 mEq/L (136-145); eGFR For African Americans > 60 (> 60); eGFR For Non-African Americans > 60 (> 60)
[2017-04-07 20:05] LABS: Calcium 10.8 mg/dL (8.6-10.8); Osmolality,Calculated 292 (280-300)
[2017-04-07] MEDS ORDERED: 0.9 % Sodium Chloride 500 ML IVC ONE ×2 (20:50→21:16)
[2017-04-08] MEDS: Ibuprofen 600 MG TABLET PO PRN ×2 (00:13→20:22)
[2017-04-08] MEDS: *HR* Heparin 5,000 UNIT/ML VIAL SQ SCH ×3 (00:13→16:40)
[2017-04-08] MEDS: Piperacillin/Tazobactam 3.375 GM in D5% in Water (Mini-Bag+) 100 ML IVPB SCH ×3 (00:14→16:40)
[2017-04-08] MEDS: Ipratropium/Albuterol Neb 3 ML IH SCH ×4 (04:28→22:45)
[2017-04-08] MEDS: 0.9 % Sodium Chloride 1,000 ML IVC SCH ×4 (05:06→21:44)
[2017-04-08 05:07] LABS: Basophils # 0.1 K/mcL (0.0-0.2); Basophils % 0.4 %; Eosinophils # 0.6 K/mcL (0.0-0.6); Eosinophils % 4.4 %; Hematocrit 27.9 % (37.5-50.1); Hemoglobin 9.8 g/dL (12.9-16.9); Immature Granulocytes % 1.5 % (0-4); Lymphocytes # 0.7 K/mcL (0.6-4.6); Lymphocytes % 5.3 %; Mean Corpuscular HGB Conc 35.1 g/dL (31.6-35.5); Mean Corpuscular Hemoglobin 30.2 pg (28.0-33.3); Mean Corpuscular Volume 86.1 fL (83.0-100.0); Mean Platelet Volume 8.9 fL (9.4-12.4); Monocytes # 0.9 K/mcL (0.0-1.3); Monocytes % 7.1 %; Neutrophils # 10.7 K/mcL (1.6-8.9); Platelet Count 335 K/mcL (140-400); Red Blood Count 3.24 M/mcL (4.19-5.50); Red Cell Distribution Width 15.1 % (11.5-14.5); Segmented Neutrophils % 81.3 %
[2017-04-08 05:18] LABS: BUN/Creatinine Ratio 20 (6-26); Blood Urea Nitrogen 17 mg/dL (8-26); Carbon Dioxide 15 mEq/L (19-29); Chloride 117 mEq/L (98-109); Glucose 94 mg/dL (70-99); Osmolality,Calculated 289 (280-300); Potassium 2.8 mEq/L (3.5-4.5); Sodium 139 mEq/L (136-145); eGFR For African Americans > 60 (> 60); eGFR For Non-African Americans > 60 (> 60)
[2017-04-08 05:24] LABS: Platelet Estimate Normal (Normal)
[2017-04-08 05:25] LABS: Polychromasia 1+ (Not Present)
[2017-04-08 07:59] LABS: Adenovirus Not Detected (Not Detect); Bordetella Pertussis Not Detected (Not Detect); Chlamydophila pneumoniae Not Detected (Not Detect); Coronavirus 229E Not Detected (Not Detect); Coronavirus HKU1 Not Detected (Not Detect); Coronavirus NL63 Not Detected (Not Detect); Coronavirus OC43 Not Detected (Not Detect); Human Metapneumovirus Not Detected (Not Detect); Human Rhinovirus/Enterovirus Not Detected (Not Detect); Influenza A Subtype 2009 H1 Not Detected (Not Detect); Influenza A Untypeable Not Detected (Not Detect); Influenza B Not Detected (Not Detect); Mycoplasma pneumoniae Not Detected (Not Detect); Parainfluenza Virus 1 Not Detected (Not Detect); Parainfluenza Virus 2 Not Detected (Not Detect); Parainfluenza Virus 3 Not Detected (Not Detect); Parainfluenza Virus 4 Not Detected (Not Detect); Respiratory Syncytial Virus Not Detected (Not Detect)
[2017-04-08] MEDS: Cyanocobalamin (B-12) 1,000 MCG TABLET PO SCH (08:05)
[2017-04-08] MEDS: Levofloxacin 750 MG/150 ML 750 MG/150 ML BAG IVPB SCH (08:05)
[2017-04-08] MEDS: Folic Acid 1 MG TABLET PO SCH (08:05)
[2017-04-08] MEDS: Aspirin Enteric Coated 81 MG Tablet PO SCH (08:05)
--- NOTE | 2017-04-08 08:59 | Internal Med Progress Note ---
<Ham Neumann T - Last Filed: 04/08/17 15:52> Date of Encounter: 04/08/17 - Assessment and plan (1) Hypoxemia Current Visit: Yes Status: Acute (2) Hypokalemia Current Visit: Yes Status: Acute (3) Sepsis Current Visit: Yes Status: Acute Qualifiers: Sepsis type: sepsis due to unspecified organism Qualified Code(s): A41.9 - Sepsis, unspecified organism (4) Community acquired pneumonia Current Visit: Yes Status: Acute Qualifiers: Qualified Code(s): J18.9 - Pneumonia, unspecified organism (5) Hilar adenopathy Current Visit: Yes Status: Acute - Constitutional Vitals: Temp Pulse Resp BP Pulse Ox 98.3 F 80 20 146/80 98 04/08/17 15:18 04/08/17 15:18 04/08/17 15:18 04/08/17 15:18 04/08/17 15:18 Internal Medicine: Result - Labs CBC & Chem 7: 04/08/17 04:58 04/08/17 04:58 Labs: Short CBC 04/08/17 Range/Units 04:58 WBC 13.2 H (4.3-11.1) K/mcL Hgb 9.8 L (12.9-16.9) g/dL Hct 27.9 L (37.5-50.1) % Plt Count 335 (140-400) K/mcL Neutrophils # 10.7 H (1.6-8.9) K/mcL BMP 04/07/17 04/08/17 19:45 04:58 Sodium 140 139 Potassium 2.8 L 2.8 L Chloride 118 H 117 H Carbon Dioxide 15 L 15 L BUN 16 17 Creatinine 0.81 0.83 Glucose 107 H 94 Calcium 10.8 10.0 Urine 04/08/17 Range/Units 15:25 Urine Color Yellow (Yellow) Urine Clarity Clear (Clear) Urine pH 7.0 (5.0-8.0) pH Units Ur Specific [place] 1.011 (1.010-1.025) Urine Protein Trace (Neg-Trace) mg/dL Urine Glucose (UA) Normal (Normal) mg/dL - ABG Interpretation ABG results: PT/INR, D-dimer PT 11.7 Seconds (9.4-12.1) 04/07/17 05:10 D-Dimer 2585 ng/mLFEU (0-500) H 04/06/17 15:20 Consult Discharge Plan - Plan Referrals: NONE,PCP [Primary Care Provider] - - Attending Attestation I independently saw and examined this patient on 04/08/2017, I have reviewed his chart as well. Diagnoses and management plan was discussed with the patient, and the resident physician. 41 M with PMH of Tobacco abuse with 2PPD use, THC use. He is admitted and being managed for hypoxia and Pneumonia, he also has a finding of Hilar adenopathy on CT scan Overnight, patient developed multiple episodes of fever with tachycardia and elevated blood pressure. EMR also reveals he was tachycardic and hypoxic at that time. He however reports clinical improvement in his breathing. He denies illicit drug use from which he may be withdrawing On examination: VSS, speaks full sentences, flat affect. HEENT: Not cyanotic, moist oral mucosa. He has bilateral rhonchi and wheezing. He has no crackles. Abdomen is soft and not tender, no pedal edema, extremities are well perfused Labs and Imaging reviewed: Leukocytosis improving, hypokalemia, Chest CT with bilateral ground glass opacities and hilar adenopathy. ECHO is normal Assessment/Plan #Sepsis: patient now meets sepsis criteria with his fever, tachycardia and leuocytosis: Source is possibly his pneumonia. We will send a new sepsis work up including Urineanalysis and culture, blood culture and repeat CXR for parapneumonic effusion. # Community acquired pneumonia: Organism unknown, atypical picture, continue Levaquin and Zosyn. Sputum culture is negative, respiratory panel is negative. #Hilar adenopathy suspicious for sarcoidosis: Follow ALEXSANDRA, Pulm eval appreciated , patient refused bronchoscopy. #Hypoxia: Improved.. ECHO is normal #Tobacco abuse: Declines NRT. Rest of details as in resident physician's documentation <Maricruz Das - Last Filed: 04/08/17 18:44> Date of Encounter: 04/08/17 Time of Encounter: 08:57 - Assessment and plan (1) Community acquired pneumonia Current Visit: Yes Status: Acute Assessment and plan: Patient reports that his breathing has improved. He is currently on room air 97 % O2, afebrile WBC increased, now 17.7. Admission it was 17.0 patient is a current smoker of 2ppd/ 20yr -Repeat Chest x-ray showed b/l pulmonary infiltrates and hilar and mediastinal adenopathy. -Chest CTA showed mediastinal and right hilar lymphadenopathy. May be reactive or underlined sarcoidosis or possible lymphoma. Bilateral ground glass infiltrates, either pulmonary edema versus atypical pneumonia or hypersensitivity pneumonitis. Alveolar hemorrhage or use an affiliate pneumonia can get a similar radiographic appearance. -Echocardiogram: normal LVEF 60-65%, normal diastolic function. HIV nonreactive Patient denied bronchoscopy -sputum culture- does not meet criteria -blood culture preliminary- no growth -legionella and strep pneum- no growth -Continue Levaquin day 3 (7 days total) -zosyn day 2 -prednisone 40mg day 1 (total 5 days) -patient has been tapered off oxygen in this tolerating room air -supplemental oxygen PRN -ALEXSANDRA ordered -pulmonology following -ordering respiratory panel Pulmonology -patient is to follow up with pulmonology outpatient and 46 weeks for repeat chest CT (2) Hilar adenopathy Current Visit: Yes Status: Acute Assessment and plan: Please see plan above (3) Smoker Current Visit: Yes Status: Acute Assessment and plan: Current smoker of 20ppd/20yr (4) Hypokalemia Current Visit: Yes Status: Acute Assessment and plan: Potassium is 2.8, improvement from admission magnesium is normal 2.0 -supplement potassium IV -continue to monitor (5) DVT prophylaxis Current Visit: Yes Status: Acute Assessment and plan: SQ heparin - Subjective Interval history: Patient is laying in bed comfortably he stated that his breathing has improved from yesterday however he was placed back on 2L oxygen due to shortness of breath while walking to the bathroom he has no complaints at this time - Constitutional Vitals: Temp Pulse Resp BP Pulse Ox 99.6 F 82 22 169/79 95 04/08/17 07:22 04/08/17 07:22 04/08/17 07:22 04/08/17 07:22 04/08/17 07:22 General appearance: Present: cooperative, mild distress, A&O X 3, pleasant, answers questions appropriately Exam: Gen.: Vitals noted. No acute distress. AAOx3 HEENT: PERRL/EOMI, oropharynx clear, Normocephalic, atraumatic Neck: Supple. No adenopathy. Cardiac: RRR, systolic murmur, +S1/S2 Pulmonary: course breath sounds, +rhonchi bilateral lower lobes, no wheezes, rales, equal chest expansion Abdomen: soft, nontender, Bowel sounds noted, no guarding MSK: ROM intact, no joint swelling noted Extremities: no BLE edema, nontender calf, no cyanosis or clubbing Neuro: A&Ox3, moves all extremities Psych: Appropriate mood and behavior Internal Medicine: Result - Labs CBC & Chem 7: 04/08/17 04:58 04/08/17 04:58 Labs: Short CBC 04/08/17 Range/Units 04:58 WBC 13.2 H (4.3-11.1) K/mcL Hgb 9.8 L (12.9-16.9) g/dL Hct 27.9 L (37.5-50.1) % Plt Count 335 (140-400) K/mcL Neutrophils # 10.7 H (1.6-8.9) K/mcL BMP 04/07/17 04/08/17 19:45 04:58 Sodium 140 139 Potassium 2.8 L 2.8 L Chloride 118 H 117 H Carbon Dioxide 15 L 15 L BUN 16 17 Creatinine 0.81 0.83 Glucose 107 H 94 Calcium 10.8 10.0 - ABG Interpretation ABG results: PT/INR, D-dimer PT 11.7 Seconds (9.4-12.1) 04/07/17 05:10 D-Dimer 2585 ng/mLFEU (0-500) H 04/06/17 15:20 - Impressions Impressions Echocardiogram 04/07/17 07:00 Impressions: Normal LV systolic function, LVEF 60-65%. Normal left ventricular diastolic function. Normal right ventricular size and function. No significant valvular dysfunction. Left Ventricular Wall Motion: Rest Echo Findings All wall segments showed normal motion. Findings: Study Quality * Technically adequate exam. ECG Findings * Normal sinus rhythm. Left Ventricle * Normal LV systolic function, LVEF 60-65%. * Normal LV chamber size and wall thickness. * Normal left ventricular diastolic function. Right Ventricle * Normal right ventricular size and function. Left Atrium * Normal left atrial size. Right Atrium * Normal right atrial size. Aorta * Normally sized aortic root. Pericardium * There is no pericardial effusion present. IVC * Normal IVC dimensions and inspiratory collapse. Aortic Valve * Trileaflet aortic valve. * No aortic stenosis. * No aortic regurgitation. Mitral Valve * Normal mitral valve structure. * No mitral stenosis. * No mitral regurgitation. Tricuspid Valve * Normal tricuspid valve structure. * No tricuspid stenosis. * Trace tricuspid regurgitation. * Unable to estimate RVSP due to lack of TR jet. Pulmonic Valve * Normal pulmonic valve structure. * No pulmonic stenosis. * Trace pulmonic regurgitation.
[2017-04-08] MEDS ORDERED: Potassium Chloride 40 MEQ, Lidocaine 1% 2 ML in D5% in Water 500 ML IVPB ONE (09:14)
--- NOTE | 2017-04-08 09:15 | Pulmonology Progress Note ---
Date of Encounter: 04/08/17 Time of Encounter: 09:12 Assessment and Plan (1) Bilateral pneumonia Current Visit: Yes Status: Acute 41-year-old [place] past medical history of tobacco abuse who presented with evidence of bilateral pneumonia hilar adenopathy and hypoxemia. Overall clinical course is improving with antimicrobials steroids. He continues to refuse bronchoscopy. Cultures as far negative including serological panel for respiratory infections Recs: Wean FiO2 to keep saturation greater than 89% Continue antimicrobials (respiratory fluoroquinolone) 7 days Steroid burst 5 days Bronchodilators as needed discharge with at least a short acting beta agonist Tobacco cessation Follow-up pulmonary clinic within [address] scan Pulmonary will sign off please call with any questions Qualifiers: Pneumonia type: due to unspecified organism Lung location: unspecified part of lung Qualified Code(s): J18.9 - Pneumonia, unspecified organism (2) Smoker Current Visit: Yes Status: Acute (3) DVT prophylaxis Current Visit: Yes Status: Acute (4) Community acquired pneumonia Current Visit: Yes Status: Acute Qualifiers: Qualified Code(s): J18.9 - Pneumonia, unspecified organism (5) Hilar adenopathy Current Visit: Yes Status: Acute Subjective Principal diagnosis: Pnemonia Interval history: Physical low but better. Still having some cough denies hemoptysis. Denies fevers chills or any body aches today. Blood pressures been on the higher side. Objective PUL Vital signs: Last Vital Signs Temp 99.6 F 04/08/17 07:22 Pulse 82 04/08/17 07:22 Resp 22 04/08/17 07:22 BP 169/79 04/08/17 07:22 Pulse Ox 95 04/08/17 07:22 General appearance: no acute distress ENT: oropharynx moist Auscultation: bilateral: rhonchi (He is a few scattered rhonchi otherwise lung moore are much more clear than yesterday) Cardiovascular: regular rate and rhythm Gastrointestinal: normoactive bowel sounds Extremities: no cyanosis, no edema, no clubbing Results - Laboratory Findings CBC and BMP: 04/08/17 04:58 04/08/17 04:58 PT/INR, D-dimer PT 11.7 Seconds (9.4-12.1) 04/07/17 05:10 D-Dimer 2585 ng/mLFEU (0-500) H 04/06/17 15:20 Abnormal lab findings: Abnormal lab results WBC 13.2 K/mcL (4.3-11.1) H 04/08/17 04:58 RBC 3.24 M/mcL (4.19-5.50) L 04/08/17 04:58 Hgb 9.8 g/dL (12.9-16.9) L 04/08/17 04:58 Hct 27.9 % (37.5-50.1) L 04/08/17 04:58 RDW 15.1 % (11.5-14.5) H 04/08/17 04:58 MPV 8.9 fL (9.4-12.4) L 04/08/17 04:58 Band Neutrophils % 30.0 % (0-4) H 04/07/17 05:10 Neutrophils # 10.7 K/mcL (1.6-8.9) H 04/08/17 04:58 Polychromasia 1+ (Not Present) A 04/08/17 04:58 D-Dimer 2585 ng/mLFEU (0-500) H 04/06/17 15:20 Potassium 2.8 mEq/L (3.5-4.5) L 04/08/17 04:58 Chloride 117 mEq/L (98-109) H 04/08/17 04:58 Carbon Dioxide 15 mEq/L (19-29) L 04/08/17 04:58 POC Glucose 169 (58-89) H 04/06/17 21:46 AST 40 Units/L (5-34) H 04/06/17 13:05 C-Reactive Protein 225 mg/L (Less than 5) H 04/06/17 14:36 Albumin 2.5 g/dL (3.5-5.0) L 04/06/17 13:05 Globulin 3.8 g/dL (2.4-3.5) H 04/06/17 13:05 Albumin/Globulin Ratio 0.7 (1.1-2.2) L 04/06/17 13:05 HDL Cholesterol 14 mg/dL (40-59) L 04/07/17 05:10 Cholesterol/HDL Ratio 7.0 (0-4.9) H 04/07/17 05:10 Urine Protein 30 mg/dL (Neg-Trace) H 04/06/17 12:38 Urine Microscopic WBC 3-5 per hpf (0-3) H 04/06/17 12:38 Urine Bacteria Moderate per hpf (None-Few) H 04/06/17 12:38 Ur Barbiturates Screen Positive ng/mL (Rvoydo=149) H 04/06/17 12:38 U Marijuana (THC) Screen Positive ng/mL (Cutoff = 50) H 04/06/17 12:38 - Microbiology Findings Microbiology Findings: Microbiology, Last 48 Hours 04/08/17 06:14 Sputum Culture - Final Sputum - Clinical Findings Intake & Output: Intake & Output 04/07/17 04/08/17 04/08/17 23:59 07:59 15:59 Intake Total 2232 / 2232 100 / 100 385 / 385 Output Total 600 / 600 800 / 800 Balance 1632 / 1632 -700 / -700 385 / 385 Weight 74.389 kg Consult Discharge Plan - Plan Referrals: NONE,PCP [Primary Care Provider] -
[2017-04-08] MEDS: predniSONE 20 MG TABLET PO SCH (10:02)
[2017-04-08] MEDS: Acetaminophen 325 MG TABLET PO PRN (10:44)
[2017-04-08 15:37] LABS: Bilirubin,Urine Negative (Negative); Blood,Urine Trace (Negative); Clarity,Urine Clear (Clear); Color,Urine Yellow (Yellow); Glucose,Urine (UA) Normal (Normal); Ketones,Urine Negative (Negative); Leukocyte Esterase,Urine Negative (Negative); Nitrite,Urine Negative (Negative); Protein,Urine Trace mg/dL (Neg-Trace); Specific Gravity,Urine 1.011 (1.010-1.025); Urobilinogen,Urine Normal (Normal)
[2017-04-08 15:40] LABS: Bacteria,Urine None Seen per hpf (None-Few); Hyaline Casts,Urine None Seen per lpf (None-Few); Squamous Epithelial Cell,Urine None Seen per lpf (None-Few); WBC,Urine 0-3 per hpf (0-3)
[2017-04-09] MEDS: *HR* Heparin 5,000 UNIT/ML VIAL SQ SCH ×3 (00:52→17:49)
[2017-04-09] MEDS: Piperacillin/Tazobactam 3.375 GM in D5% in Water (Mini-Bag+) 100 ML IVPB SCH ×3 (00:53→17:50)
[2017-04-09] MEDS: Ipratropium/Albuterol Neb 3 ML IH SCH ×4 (03:54→22:29)
[2017-04-09] MEDS: Ibuprofen 600 MG TABLET PO PRN ×2 (04:38→20:30)
[2017-04-09 04:53] LABS: Basophils % 0.4 %; Eosinophils # 0.9 K/mcL (0.0-0.6); Eosinophils % 8.4 %; Hemoglobin 9.2 g/dL (12.9-16.9); Immature Granulocytes % 4.5 % (0-4); Lymphocytes # 0.5 K/mcL (0.6-4.6); Lymphocytes % 4.7 %; Mean Corpuscular HGB Conc 35.4 g/dL (31.6-35.5); Mean Corpuscular Hemoglobin 30.6 pg (28.0-33.3); Mean Corpuscular Volume 86.4 fL (83.0-100.0); Monocytes # 0.6 K/mcL (0.0-1.3); Monocytes % 5.8 %; Neutrophils # 8.2 K/mcL (1.6-8.9); Platelet Count 289 K/mcL (140-400); Red Blood Count 3.01 M/mcL (4.19-5.50); Red Cell Distribution Width 14.8 % (11.5-14.5); Segmented Neutrophils % 76.2 %
[2017-04-09 05:04] LABS: BUN/Creatinine Ratio 19 (6-26); Blood Urea Nitrogen 14 mg/dL (8-26); Calcium 9.1 mg/dL (8.6-10.8); Carbon Dioxide 16 mEq/L (19-29); Chloride 114 mEq/L (98-109); Glucose 99 mg/dL (70-99); Magnesium 1.6 mg/dL (1.6-2.6); Osmolality,Calculated 285 (280-300); Potassium 2.7 mEq/L (3.5-4.5); Sodium 137 mEq/L (136-145); eGFR For African Americans > 60 (> 60); eGFR For Non-African Americans > 60 (> 60)
[2017-04-09] MEDS: Aspirin Enteric Coated 81 MG Tablet PO SCH (08:00)
[2017-04-09] MEDS: predniSONE 20 MG TABLET PO SCH (08:00)
[2017-04-09] MEDS: Cyanocobalamin (B-12) 1,000 MCG TABLET PO SCH (08:00)
[2017-04-09] MEDS: Folic Acid 1 MG TABLET PO SCH (08:01)
[2017-04-09] MEDS: Levofloxacin 750 MG/150 ML 750 MG/150 ML BAG IVPB SCH (08:02)
[2017-04-09] MEDS ORDERED: Potassium Chloride 40 MEQ, Lidocaine 1% 2 ML in D5% in Water 500 ML IVPB ONE (08:33)
[2017-04-09] MEDS ORDERED: Potassium Chloride Elixir 20 MEQ/15 ML UDC PO ONE (09:23)
[2017-04-09] MEDS ORDERED: Magnesium Sulfate 2 GM in D5% in Water 100 ML IVPB ONE (09:24)
--- NOTE | 2017-04-09 13:20 | Internal Med Progress Note ---
<Maricruz Das - Last Filed: 04/09/17 13:17> Date of Encounter: 04/09/17 Time of Encounter: 11:30 - Assessment and plan (1) Community acquired pneumonia Current Visit: Yes Status: Acute Assessment and plan: Patient reports that his breathing has improved. He is currently on room air 97 % O2, afebrile WBC increased, now 10.8 Admission it was 17.0 patient is a current smoker of 2ppd/ 20yr -Repeat Chest x-ray showed b/l pulmonary infiltrates and hilar and mediastinal adenopathy. -Chest CTA showed mediastinal and right hilar lymphadenopathy. May be reactive or underlined sarcoidosis or possible lymphoma. Bilateral ground glass infiltrates, either pulmonary edema versus atypical pneumonia or hypersensitivity pneumonitis. Alveolar hemorrhage or use an affiliate pneumonia can get a similar radiographic appearance. -Echocardiogram: normal LVEF 60-65%, normal diastolic function. HIV nonreactive Patient denied bronchoscopy -sputum culture- does not meet criteria due to contamination -blood culture preliminary- no growth -legionella and strep pneum- no growth -respiratory panel- was negative -Continue Levaquin day 3 (7 days total) -zosyn day 2 -prednisone 40mg day 1 (total 5 days) -patient has been tapered off oxygen in this tolerating room air -supplemental oxygen PRN -ALEXSANDRA ordered -pulmonology following -patient is to follow up with pulmonology outpatient and 4-6 weeks for repeat chest CT Qualifiers: Qualified Code(s): J18.9 - Pneumonia, unspecified organism (2) Anemia Current Visit: Yes Status: Acute Assessment and plan: Patient has a low hemoglobin of 9.2. Normocytic anemia most likely and anemia of chronic disease patient denies melena, hematochezia, hematemesis. There is no active bleeding. -Order ferritin, iron, B12 -fecal occult Qualifiers: Anemia type: unspecified type Qualified Code(s): D64.9 - Anemia, unspecified (3) Sepsis Current Visit: Yes Status: Acute Assessment and plan: Patient is no longer septic. His afebrile had a low-grade fever earlier this morning. His normotensive, not tachycardic. WBC 10.8 -Repeat chest x-ray was unchanged -continue Levaquin and zosyn Qualifiers: Sepsis type: sepsis due to unspecified organism Qualified Code(s): A41.9 - Sepsis, unspecified organism (4) Hilar adenopathy Current Visit: Yes Status: Acute Assessment and plan: Please see plan above (5) Smoker Current Visit: Yes Status: Acute Assessment and plan: Current smoker of 20ppd/20yr (6) Hypokalemia Current Visit: Yes Status: Acute Assessment and plan: Hypokalemia of unknown origin -patient does not have diarrhea or vomiting Potassium is 2.7 low magnesium is 1.6 low -Check spot urine potassium -check spot urine creatinine -supplement potassium IV and oral -supplement magnesium -continue to monitor -calculate TTC (7) DVT prophylaxis Current Visit: Yes Status: Acute Assessment and plan: SQ heparin - Subjective Interval history: Patient is laying in bed comfortably he stated that his breathing has improved from yesterday and is no longer on supplemental oxygen he has no complaints at this time he stated that he feels better today than he did yesterday - Constitutional Vitals: Temp Pulse Resp BP Pulse Ox 98.4 F 76 20 154/85 100 04/09/17 10:51 04/09/17 10:51 04/09/17 10:51 04/09/17 10:51 04/09/17 10:51 General appearance: Present: cooperative, mild distress, A&O X 3, pleasant, answers questions appropriately Exam: Gen.: Vitals noted. No acute distress. AAOx3 HEENT: oropharynx clear, Normocephalic, atraumatic Neck: Supple. No adenopathy. Cardiac: RRR, systolic murmur, +S1/S2 Pulmonary: CTA bilaterally, +wheezes and rhonchi, equal chest expansion Abdomen: soft, nontender, Bowel sounds noted, no guarding Extremities: no BLE edema, nontender calf, no cyanosis or clubbing Neuro: A&Ox3, moves all extremities, no focal deficits Psych: Appropriate mood and behavior Internal Medicine: Result - Labs CBC & Chem 7: 04/09/17 04:34 04/09/17 04:34 Labs: Short CBC 04/09/17 Range/Units 04:34 WBC 10.8 (4.3-11.1) K/mcL Hgb 9.2 L (12.9-16.9) g/dL Hct 26.0 L (37.5-50.1) % Plt Count 289 (140-400) K/mcL Neutrophils # 8.2 (1.6-8.9) K/mcL BMP 04/09/17 04:34 Sodium 137 Potassium 2.7 L Chloride 114 H Carbon Dioxide 16 L BUN 14 Creatinine 0.75 Glucose 99 Calcium 9.1 Urine 04/08/17 Range/Units 15:25 Urine Color Yellow (Yellow) Urine Clarity Clear (Clear) Urine pH 7.0 (5.0-8.0) pH Units Ur Specific [place] 1.011 (1.010-1.025) Urine Protein Trace (Neg-Trace) mg/dL Urine Glucose (UA) Normal (Normal) mg/dL - ABG Interpretation ABG results: PT/INR, D-dimer PT 11.7 Seconds (9.4-12.1) 04/07/17 05:10 D-Dimer 2585 ng/mLFEU (0-500) H 04/06/17 15:20 - Impressions Impressions Chest X-Ray 04/08/17 15:42 IMPRESSION: Bilateral pulmonary infiltrates with hilar and mediastinal adenopathy. D/ / Benigno Connell MD / Benigno Connell MD Interpreting Provider: Benigno Connell MD Consult Discharge Plan - Plan Referrals: NONE,PCP [Primary Care Provider] - <Ham Neumann T - Last Filed: 04/09/17 14:30> Date of Encounter: 04/09/17 - Assessment and plan (1) Hypoxemia Current Visit: Yes Status: Acute (2) Hypokalemia Current Visit: Yes Status: Acute (3) Sepsis Current Visit: Yes Status: Acute Qualifiers: Sepsis type: sepsis due to unspecified organism Qualified Code(s): A41.9 - Sepsis, unspecified organism (4) Community acquired pneumonia Current Visit: Yes Status: Acute Qualifiers: Qualified Code(s): J18.9 - Pneumonia, unspecified organism (5) Hilar adenopathy Current Visit: Yes Status: Acute - Constitutional Vitals: Temp Pulse Resp BP Pulse Ox 98.4 F 76 20 154/85 100 04/09/17 10:51 04/09/17 10:51 04/09/17 10:51 04/09/17 10:51 04/09/17 10:51 Internal Medicine: Result - Labs CBC & Chem 7: 04/09/17 04:34 04/09/17 04:34 Labs: Short CBC 04/09/17 Range/Units 04:34 WBC 10.8 (4.3-11.1) K/mcL Hgb 9.2 L (12.9-16.9) g/dL Hct 26.0 L (37.5-50.1) % Plt Count 289 (140-400) K/mcL Neutrophils # 8.2 (1.6-8.9) K/mcL BMP 04/09/17 04:34 Sodium 137 Potassium 2.7 L Chloride 114 H Carbon Dioxide 16 L BUN 14 Creatinine 0.75 Glucose 99 Calcium 9.1 Urine 04/08/17 Range/Units 15:25 Urine Color Yellow (Yellow) Urine Clarity Clear (Clear) Urine pH 7.0 (5.0-8.0) pH Units Ur Specific [place] 1.011 (1.010-1.025) Urine Protein Trace (Neg-Trace) mg/dL Urine Glucose (UA) Normal (Normal) mg/dL - ABG Interpretation ABG results: PT/INR, D-dimer PT 11.7 Seconds (9.4-12.1) 04/07/17 05:10 D-Dimer 2585 ng/mLFEU (0-500) H 04/06/17 15:20 - Impressions Impressions Chest X-Ray 04/08/17 15:42 IMPRESSION: Bilateral pulmonary infiltrates with hilar and mediastinal adenopathy. D/ / Benigno Connell MD / Benigno Connell MD Interpreting Provider: Benigno Connell MD - Attending Attestation I independently saw and examined this patient on 04/09/2017, I have reviewed his chart as well. Diagnoses and management plan was discussed with the patient, and the resident physician. 41 M with PMH of Tobacco abuse with 2PPD use, THC use. He is admitted and being managed for hypoxia and Pneumonia, he also has a finding of Hilar adenopathy on CT scan He developed sepsis in-patient with high grade fever with tachcyardia and tachypnea. Sepsis work up was sent 04/08. There is also concern for possible withdrawal Patient is seen at bedside this morning and is looking clinically improved He denies any complains and states he feels better He declined bronchoscopy by Pulm. On examination: VSS, speaks full sentences, flat affect. HEENT: Not cyanotic, moist oral mucosa. He has bilateral rhonchi, he is not wheezing today and his chest sounds better. He has no crackles. Abdomen is soft and not tender, no pedal edema, extremities are well perfused Labs and Imaging reviewed: Leukocytosis resolved. , Hb downtrending, persistent hypokalemia with normal Mag. CXR unchanged. Sputum culture unremarkable. Blood culture preliminary no growth.ECHO is normal Assessment/Plan #Sepsis: Improving, possibly secondary to Pneumonia, last fever 100.0 this morning, continue current antibiotics. BP is WNL, d/c IVF # Community acquired pneumonia: Organism unknown, atypical picture, continue Levaquin and Zosyn. Sputum culture is negative, respiratory panel is negative. #Hilar adenopathy suspicious for sarcoidosis: ALEXSANDRA negative, Pulm eval appreciated, patient refused bronchoscopy. #Hypoxia: Improved.. ECHO is normal #Tobacco abuse: Declines NRT. #Hypokalemia: Send urine work up, suspect potassium wasting from a renal source #Anemia: Send anemia work up, no evidence of bleeding Rest of details as in resident physician's documentation
[2017-04-09 14:31] LABS: % Iron Saturation 12 % (20-55); Iron 26 mcg/dL (65-175); Transferrin 150 mg/dL (174-364)
[2017-04-09 14:55] LABS: Folate 8.3 ng/mL (7.0-31.4)
[2017-04-09 15:10] LABS: Ferritin 1838 ng/ml (22-275)
[2017-04-09] MEDS: 0.9 % Sodium Chloride 1,000 ML IVC SCH (19:28)
[2017-04-10] MEDS: Piperacillin/Tazobactam 3.375 GM in D5% in Water (Mini-Bag+) 100 ML IVPB SCH ×2 (00:34→09:19)
[2017-04-10] MEDS: *HR* Heparin 5,000 UNIT/ML VIAL SQ SCH ×3 (00:35→17:49)
[2017-04-10] MEDS: Ipratropium/Albuterol Neb 3 ML IH SCH ×4 (03:29→22:00)
[2017-04-10 06:22] LABS: Hematocrit 27.1 % (37.5-50.1); Hemoglobin 9.5 g/dL (12.9-16.9); Lymphocytes # 0.6 K/mcL (0.6-4.6); Mean Corpuscular HGB Conc 35.1 g/dL (31.6-35.5); Mean Corpuscular Hemoglobin 30.1 pg (28.0-33.3); Mean Corpuscular Volume 85.8 fL (83.0-100.0); Mean Platelet Volume 9.2 fL (9.4-12.4); Platelet Count 325 K/mcL (140-400); Red Blood Count 3.16 M/mcL (4.19-5.50); Red Cell Distribution Width 14.6 % (11.5-14.5)
[2017-04-10 06:46] LABS: BUN/Creatinine Ratio 19 (6-26); Blood Urea Nitrogen 13 mg/dL (8-26); Calcium 8.6 mg/dL (8.6-10.8); Carbon Dioxide 18 mEq/L (19-29); Chloride 112 mEq/L (98-109); Glucose 95 mg/dL (70-99); Magnesium 1.8 mg/dL (1.6-2.6); Osmolality,Calculated 288 (280-300); Potassium 2.7 mEq/L (3.5-4.5); Sodium 139 mEq/L (136-145); eGFR For African Americans > 60 (> 60); eGFR For Non-African Americans > 60 (> 60)
[2017-04-10 06:50] LABS: Eosinophils # 2.4 K/mcL (0.0-0.6); Monocytes # 0.4 K/mcL (0.0-1.3); Neutrophils # 5.9 K/mcL (1.6-8.9)
[2017-04-10 06:51] LABS: Macrocytosis Present (Not Present); Platelet Estimate Normal (Normal); Polychromasia 1+ (Not Present)
[2017-04-10] MEDS ORDERED: Potassium Chloride 40 MEQ, Lidocaine 1% 2 ML in D5% in Water 500 ML IVPB ONE (08:04)
[2017-04-10] MEDS ORDERED: Magnesium Sulfate 2 GM in D5% in Water 100 ML IVPB ONE (08:05)
[2017-04-10] MEDS ORDERED: Potassium Chloride Elixir 20 MEQ/15 ML UDC GTUBE SCH (09:00)
[2017-04-10] MEDS: predniSONE 20 MG TABLET PO SCH (09:18)
[2017-04-10] MEDS: Folic Acid 1 MG TABLET PO SCH (09:18)
[2017-04-10] MEDS: Aspirin Enteric Coated 81 MG Tablet PO SCH (09:18)
[2017-04-10] MEDS: Cyanocobalamin (B-12) 1,000 MCG TABLET PO SCH (09:19)
[2017-04-10] MEDS: Levofloxacin 750 MG/150 ML 750 MG/150 ML BAG IVPB SCH (09:20)
--- NOTE | 2017-04-10 10:25 | Discharge Summary ---
<Maricruz Das - Last Filed: 04/10/17 10:34> Date of Encounter: 04/10/17 Time of Encounter: 10:23 - Discharge Diagnosis (1) Community acquired pneumonia Priority: Primary Status: Acute (2) Anemia Priority: Secondary Status: Acute Qualifiers: Anemia type: unspecified type Qualified Code(s): D64.9 - Anemia, unspecified (3) Sepsis Priority: Secondary Status: Acute Qualifiers: Sepsis type: sepsis due to unspecified organism Qualified Code(s): A41.9 - Sepsis, unspecified organism (4) Hilar adenopathy Priority: Secondary Status: Acute (5) Smoker Priority: Secondary Status: Acute (6) Hypokalemia Priority: Secondary Status: Acute (7) DVT prophylaxis Priority: Secondary Status: Acute - Discharge Medications Prescriptions: Calcium Carbonate [Tums] 1,000 mg PO Q4HR PRN #20 tab.chew PRN Reason: Heartburn Benzonatate [Tessalon] 200 mg PO TID #10 capsule Levofloxacin [Levaquin] 750 mg PO DAILY #4 tablet Potassium Chloride 40 meq PO DAILY #15 tab.er.prt predniSONE [PredniSONE] 40 mg PO DAILY #4 tablet Home Medications: Benzonatate [Tessalon] 200 mg PO TID #10 capsule 04/11/17 [Rx] Calcium Carbonate [Tums] 1,000 mg PO Q4HR PRN #20 tab.chew 04/11/17 [Rx] Levofloxacin [Levaquin] 750 mg PO DAILY #4 tablet 04/11/17 [Rx] Potassium Chloride 40 meq PO DAILY #15 tab.er.prt 04/11/17 [Rx] predniSONE [PredniSONE] 40 mg PO DAILY #4 tablet 04/11/17 [Rx] Allergies/Adverse Reactions: 3 Allergy/AdvReac Type Severity Reaction Status Date / Time No Known Allergies Allergy Verified 04/06/17 12:49 Procedures/tests Complete & Pending: Procedures Performed prior 72 hours Category Date Time Status EKG [ECG 12 lead ECG] [ECG] Routine Y 04/07/17 20:56 Ordered Date of admission: 04/06/17 21:01 Primary care physician: PCP NONE Consults: 04/07/17 07:57 Consult to Pulmonology [CONS] Routine Consulting Provider: Pulm [facility] [place] Reason for Consult: R hilar adenopathy, atypical pneumonia/pneumonitis Call Completed: No 04/10/17 07:44 Consult to Nephrology [CONS] Routine Consulting Provider: Kidney [facility] HTN Franchesca BRITO Reason for Consult: Persistent hypokalemia, suspect renal loss. Call Completed: No 04/10/17 08:49 Consult to Nutrition [CONS] Routine Comment: Consulting Provider: NUTRITION Reason for Dietary Consult: Other Other:: patient not eating, low potassium and magnesium Discharging clinician: Ham Neumann - Patient Status Disposition: Home, Self-Care Condition: Good - Discharge Instructions Follow Up With: NONE,PCP [Primary Care Provider] - Additional Instructions: COMPLETE YOUR ANTIBIOTICS AND STEROIDS AT HOME FOLLOW UP WITH DR. NOEL FOR YOUR HYPOKALEMIA WORK UP FOLLOW UP WITH PULMONOLOGY ESTABLISH PCP AND FOLLOW UP WITH THEM Hospital course: Mr. Barlow is a 41 year old male with medical history of heart murmur since childhood presents from the ED with chief complaint of shortness of breath and dyspnea which began 3 days ago and was accompanied with nausea and vomiting. Patient reports weakness and dizziness accompanying symptoms which became worse. He also reports cough with white sputum production. Patient denies recent contact with sick people, fever, chills, chest pain, limitations, changes in vision, abdominal pain, diarrhea, constipation, unusual bleeding, presyncope, or syncope. Patient denies history of asthma, DVT, and PE. Patient reports he had a heart attack at the age of 32 but never sought treatment or had heart catheterization or stent placement. Patient reports he is occurring every day smoker smoking 2 packs per day and has no interest in quitting. Patient also has psychiatric history of anxiety and depression without pharmacologic intervention. He reports occasional marijuana use. 2- view CXR today shows diffuse bilateral patchy interstitial opacities which may represent multifocal pneumonia or pulmonary edema. On admission, patient's vital signs include temperature of 98.4F, heart rate 75 beats per minutes, respiratory rate of 24, repeat of 105 49, and SPO2 91% on room air. Abnormal lab values include WBC was 17.0, Hgb of 11.0, HCT of 31.3, potassium of 2.6, chloride of 114, CO2 of 15, glucose of 115, calcium of 11.5 AST of 40 and CRP at 225. Initial lactic acid is 1.9 and initial troponin 0.00. The patient was admitted and started on Levaquin. Pump Technician consulted due to lymphadenopathy found on CT. Patient was started on supplemental oxygen is needed, prednisone was started. The patient later met sepsis criteria and Zosyn was added to the regimen. Chest x-ray was done and showed no change. - Time Spent with Patient Total time spent providing and/or coordinating discharge services: - Constitutional Vitals: Temp Pulse Resp BP Pulse Ox 98.5 F 54 16 142/74 100 04/10/17 06:58 04/10/17 06:58 04/10/17 06:58 04/10/17 06:58 04/10/17 06:58 General appearance: Present: cooperative, mild distress, A&O X 3, pleasant, answers questions appropriately Exam: Gen.: Vitals noted. No acute distress. AAOx3 HEENT: oropharynx clear, Normocephalic, atraumatic Cardiac: RRR, systolic murmur, no rubs her gallant Pulmonary: CTA bilaterally, no wheezes, rales or rhonchi, equal chest expansion Abdomen: soft, nontender, Bowel sounds noted, no guarding MSK: ROM intact, no joint swelling noted Extremities: no BLE edema, nontender calf, no cyanosis or clubbing Neuro: A&Ox3, moves all extremities, no focal deficits Psych: Appropriate mood and behavior <Ham Neumann - Last Filed: 04/11/17 13:30> Date of Encounter: 04/11/17 - Discharge Diagnosis (1) Hypoxemia Status: Resolved (2) Hypokalemia Status: Acute (3) Sepsis Status: Resolved Qualifiers: Sepsis type: sepsis due to unspecified organism Qualified Code(s): A41.9 - Sepsis, unspecified organism (4) Community acquired pneumonia Status: Acute Qualifiers: Laterality: unspecified laterality Qualified Code(s): J18.9 - Pneumonia, unspecified organism (5) Hilar adenopathy Status: Acute Procedures/tests Complete & Pending: Procedures Performed prior 72 hours Category Date Time Status CT abd pelvis wo no iv no oral [CT] Stat Cat Scan 04/10/17 11:46 Completed Date of admission: 04/06/17 21:01 Primary care physician: PCP NONE Consults: 04/07/17 07:57 Consult to Pulmonology [CONS] Routine Consulting Provider: Pulm Crit [facility] [place] Reason for Consult: R hilar adenopathy, atypical pneumonia/pneumonitis Call Completed: No 04/10/17 07:44 Consult to Nephrology [CONS] Routine Consulting Provider: Kidney [facility] HTN Spclst ALISHA Reason for Consult: Persistent hypokalemia, suspect renal loss. Call Completed: No 04/10/17 08:49 Consult to Nutrition [CONS] Routine Comment: Consulting Provider: NUTRITION Reason for Dietary Consult: Other Other:: patient not eating, low potassium and magnesium 04/10/17 16:09 Consult to Oncology Hematology [CONS] Routine Consulting Provider: Gwendolyn Burroughs Reason for Consult: Ct b/l hilar and mediastinal, retroperintoneal lymphadenopathy concerning for lymphoma. Anemia 9.5 Call Completed: Yes - Patient Status Functional capacity at discharge: independent ambulation - Diet and Activity Activity: resume usual activities as tolerated Diet: regular diet Hospital course: Mr. Barlow is a 41 year old male - Time Spent with Patient Total time spent providing and/or coordinating discharge services: - Constitutional Vitals: Temp Pulse Resp BP Pulse Ox 98.7 F 74 16 134/75 99 04/11/17 10:54 04/11/17 10:54 04/11/17 10:54 04/11/17 10:54 04/11/17 10:54 - Attending Attestation I have seen and independently examined this patient today 04/11/2017 41 M with PMH of Tobacco abuse with 2PPD use, THC use. He is admitted and managed for hypoxia and Pneumonia, he also has a finding of Hilar adenopathy on CT scan He developed sepsis in-patient with high grade fever with tachcyardia and tachypnea. Sepsis work up was sent 04/08. There is also concern for possible withdrawal Patient is seen at bedside this morning and is looking clinically improved. Sepsis has resolved He persistently had hypokalemia throughout this admission, suspected renal loss. Nephrology input appreciated with plan for more work up out-patient. He is seen and evaluated at bedside this morning, dressed and ready to be discharged home, I have persuaded him to await Oncology evaluation for his lymphadenopathyprior On examination: VSS, speaks full sentences, flat affect. HEENT: Not cyanotic, moist oral mucosa. Chest exam is CTAB. He has no crackles. Abdomen is soft and not tender, no pedal edema, extremities are well perfused Labs and Imaging reviewed Assessment/Plan #Sepsis: Resolved. Will d/c home on levaquin to complete 7 days , and prednisone # Community acquired pneumonia: as above. Sputum culture is negative, respiratory panel is negative, management as above. #Hilar adenopathy suspicious for sarcoidosis: ALEXSANDRA negative, Pulm eval appreciated, patient refused bronchoscopy. I have recommended Pulmonolgy follow up in clinic, patient is aware #Hypoxia: Resolved. ECHO is normal #Tobacco abuse: Declines NRT. #Hypokalemia: Renal work up in Dr. Noel's office on Friday 04/13. #Anemia: Iron deficient, FOBT positive, repeat work up after patient is at baseline #Lymphoproliferative disorder: patient with axiallry, hilar, pelvic, periiliac and retroperitoneal lymphadenopathy, suspsicious for lymphoma. Oncology plans to see patient today Plan of care discussed with patient, verbalised understanding
[2017-04-10] MEDS: Ibuprofen 600 MG TABLET PO PRN ×2 (11:03→20:59)
--- NOTE | 2017-04-10 11:36 | Nephrology Consult Note ---
Date of Encounter: 04/10/17 Time of Encounter: 10:50 Assessment and Plan (1) Hypokalemia Current Visit: Yes Status: Acute Hypokalemia, etiology unclear. May be in setting of odd nutritional entity/ dietary intake, primary Carrillo, sarcoid. Will start work up. Obtain labs, urine. CT Abd/Pelvis. Continue to replete K and Mg. After stat labs obtained will start spironolactone 25 mg daily History of Present Illness - Reason for Consult hypokalemia - History of Present Illness Mr. Barlow is a 41 year old male who presented to ER on Apr 06 with SOB with vomiting three days prior but had resolved by presentation to ER. CXR- diffuse bilateral patchy interstitial opacities may represent multifocal pneumonia or pulmonary edema. Labs potassium 2.6, Ca 11.5, Hgb 11.5. PMH- LA ten years ago in setting of energy drinks. Consulted for continued hypokalemia despite repletion. Mr. Barlow denies diuretic use, denies vomiting or diarrhea except for emesis for 3 days prior to admission. He denies prior hypokalemia and states has not seen doctor or had labs since LA ten years ago at [facility]. He denies hypertension, though BP elevated since admission. 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 He states entire adult life only eats every 4-5 days , confirmed by female plate preparer present in room. He states he drinks more than enough fluids, including energy drinks. He states when he does eat it is only wild game meat, eating only once the day he does eat. He rarely eats fruits or vegetables and then only potatoes. Past Med Surg Social Fam HX - Past Medical History Medical history: no medical history, myocardial infarction (Patient states he had LA at age 32 due to alcohol abuse w/o intervention, cath, or stents) Psychiatric history: anxiety, depression - Social History Smoking Status: Current every day smoker Packs per day: 2 PPD Smokeless Tobacco Status: Yes Alcohol use: none Drug use: marijuana - Family History Father Race: Family Member Ethnicity: Non- Living Status: Still Living Hx Family Medical Disorders: No Mother Race: Family Member Ethnicity: Non- Living Status: Still Living Hx Family Medical Disorders: No Medications and Allergies Ibuprofen [Motrin] 400 - 600 mg PO Q6H PRN 04/06/17 [History] 3 Allergy/AdvReac Type Severity Reaction Status Date / Time No Known Allergies Allergy Verified 04/06/17 12:49 Review of Systems All Systems: reviewed and no additional remarkable complaints except as stated Exam - Vital Signs Vital signs: Initial Vital Signs Temp Pulse Resp BP Pulse Ox 98.4 F 75 24 105/49 91 04/06/17 12:49 04/06/17 12:49 04/06/17 12:49 04/06/17 12:49 04/06/17 12:49 Vital Signs - Last 8 Hours Temp Pulse Resp BP Pulse Ox 04/10/17 10:50 98.6 F 73 14 144/81 93 04/10/17 10:30 16 100 04/10/17 06:58 98.5 F 54 16 142/74 100 04/10/17 04:39 98.7 F 66 18 157/83 99 Intake and Output 04/09/17 04/10/17 04/10/17 23:59 07:59 15:59 Intake Total 340 / 340 100 / 100 Output Total 400 / 400 400 / 400 300 / 300 Balance -60 / -60 -300 / -300 -300 / -300 Intake: IV Fluids 100 / 100 100 / 100 Zosyn 3.375 GM In Dextrose 5% ( 100 / 100 100 / 100 Minibag+) 100 ML 100 ML @ 25 mls/hr IVPB Q8H [facility] Rx#: [id number] Oral 240 / 240 0 / 0 Output: Urine 400 / 400 400 / 400 300 / 300 Other: Meal Dinner Percent of Meal Consumed 100% Weight 77.3 kg Patient Weight 04/10/17 23:59 Weight 77.3 kg - General Appearance General appearance: well-developed, well-nourished, appears started age EENT: mucous membranes moist Neck: no JVD Respiratory: clear Cardiology: no edema, regular rate, regular rhythm Gastrointestinal: normoactive bowel sounds, no tenderness Integumentary: warm and dry Neurologic: alert and oriented x3 Psychiatric: mood/affect appropriate, cooperative Results - Lab Results 04/10/17 05:45 04/10/17 05:45 Most recent lab results Calcium 8.6 mg/dL (8.6-10.8) 04/10/17 05:45 Magnesium 1.8 mg/dL (1.6-2.6) 04/10/17 05:45 Urine Creatinine 31 mg/dL 04/10/17 08:39 Consult Discharge Plan - Plan Referrals: NONE,PCP [Primary Care Provider] -
[2017-04-10] MEDS: Potassium Chloride Elixir 20 MEQ/15 ML UDC PO SCH ×2 (11:55→20:59)
[2017-04-10 12:43] LABS: Albumin 2.3 g/dL (3.5-5.0); BUN/Creatinine Ratio 18 (6-26); Blood Urea Nitrogen 12 mg/dL (8-26); Calcium 8.6 mg/dL (8.6-10.8); Carbon Dioxide 18 mEq/L (19-29); Chloride 109 mEq/L (98-109); Glucose 141 mg/dL (70-99); Osmolality,Calculated 282 (280-300); Phosphorous 3.2 mg/dL (2.3-4.7); Potassium 3.1 mEq/L (3.5-4.5); Sodium 135 mEq/L (136-145); eGFR For African Americans > 60 (> 60); eGFR For Non-African Americans > 60 (> 60)
--- NOTE | 2017-04-10 14:38 | Internal Med Progress Note ---
<Maricruz Das - Last Filed: 04/10/17 14:56> Date of Encounter: 04/10/17 Time of Encounter: 10:30 - Assessment and plan (1) Community acquired pneumonia Current Visit: Yes Status: Acute Assessment and plan: Patient reports that his breathing has improved. He is currently on room air 97 % O2, afebrile WBC increased, now 10.8 Admission it was 17.0 patient is a current smoker of 2ppd/ 20yr -Repeat Chest x-ray showed b/l pulmonary infiltrates and hilar and mediastinal adenopathy. -Chest CTA showed mediastinal and right hilar lymphadenopathy. May be reactive or underlined sarcoidosis or possible lymphoma. Bilateral ground glass infiltrates, either pulmonary edema versus atypical pneumonia or hypersensitivity pneumonitis. Alveolar hemorrhage or use an affiliate pneumonia can get a similar radiographic appearance. -Echocardiogram: normal LVEF 60-65%, normal diastolic function. HIV nonreactive Patient denied bronchoscopy -sputum culture- does not meet criteria due to contamination -blood culture preliminary- no growth -legionella and strep pneum- no growth -respiratory panel- was negative -ALEXSANDRA negative -Continue Levaquin day 4 (7 days total) -zosyn stopped -prednisone 40mg day 3 (total 5 days) -patient has been tapered off oxygen in this tolerating room air -supplemental oxygen PRN -pulmonology following -patient is to have a 6 minute walk prior to discharge -patient is to follow up with pulmonology outpatient and 4-6 weeks for repeat chest CT Qualifiers: Laterality: unspecified laterality Qualified Code(s): J18.9 - Pneumonia, unspecified organism (2) Anemia Current Visit: Yes Status: Acute Assessment and plan: Patient has a low hemoglobin of 9.5 Normocytic anemia. ferritin 1838, iron 26, B12- 476 most likely and anemia of chronic disease patient denies melena, hematochezia, hematemesis. Patient does report a history of hemorrhoids that is seen blood on the paper in the past but not at this time. He reports a history of anemia that was diagnosed as a child but not followed up on. He has never had a colonoscopy denies family history of colon cancer. There is no active bleeding. -fecal occult positive -GI consulted -continue to monitor H&H Qualifiers: Anemia type: unspecified type Qualified Code(s): D64.9 - Anemia, unspecified (3) Sepsis Current Visit: Yes Status: Acute Assessment and plan: Patient is no longer septic. His afebrile had a low-grade fever earlier this morning. His normotensive, not tachycardic. WBC 9.9 -Repeat chest x-ray was unchanged -continue Levaquin -stop zosyn Qualifiers: Sepsis type: sepsis due to unspecified organism Qualified Code(s): A41.9 - Sepsis, unspecified organism (4) Hypokalemia Current Visit: Yes Status: Acute Assessment and plan: Hypokalemia of unknown origin -patient does not have diarrhea or vomiting -patient is report that he has been eating less due to not liking the hospital food creatinine is 0.68 Potassium is 2.7 low magnesium is 1.8 low -Nephrology consulted and has ordered the panel of labs such as 24-hour urine potassium -nephrology's going to add Aldactone pending results of labs -Check spot urine potassium -check spot urine creatinine -supplement potassium IV and oral -supplement magnesium -continue to monitor potassium and magnesium -nutrition consultation -calculate TTC (5) Hilar adenopathy Current Visit: Yes Status: Acute Assessment and plan: Please see plan above (6) Smoker Current Visit: Yes Status: Acute Assessment and plan: Current smoker of 20ppd/20yr (7) DVT prophylaxis Current Visit: Yes Status: Acute Assessment and plan: SQ heparin - Subjective Interval history: Patient is laying in bed comfortably he stated that his breathing has improved from yesterday and is no longer on supplemental oxygen He is stating that he would like to go home but is compliant with staying another day he has no complaints at this time he denies fever, chills, shortness of breath, wheezing, hematochezia, melena - Constitutional Vitals: Temp Pulse Resp BP Pulse Ox 98.6 F 73 14 144/81 93 04/10/17 10:50 04/10/17 10:50 04/10/17 10:50 04/10/17 10:50 04/10/17 10:50 General appearance: Present: cooperative, mild distress, A&O X 3, pleasant, answers questions appropriately Exam: Gen.: Vitals noted. No acute distress. AAOx3 HEENT: oropharynx clear, Normocephalic, atraumatic Cardiac: RRR, systolic murmur, no rubs her gallant Pulmonary: CTA bilaterally, no wheezes, rales or rhonchi, equal chest expansion Abdomen: soft, nontender, Bowel sounds noted, no guarding MSK: ROM intact, no joint swelling noted Extremities: no BLE edema, nontender calf, no cyanosis or clubbing Neuro: A&Ox3, moves all extremities, no focal deficits Psych: Appropriate mood and behavior Internal Medicine: Result - Labs CBC & Chem 7: 04/10/17 05:45 04/10/17 12:13 Labs: Short CBC 04/10/17 Range/Units 05:45 WBC 9.9 (4.3-11.1) K/mcL Hgb 9.5 L (12.9-16.9) g/dL Hct 27.1 L (37.5-50.1) % Plt Count 325 (140-400) K/mcL Neutrophils # 5.9 (1.6-8.9) K/mcL BMP 04/10/17 04/10/17 05:45 12:13 Sodium 139 135 L Potassium 2.7 L 3.1 L Chloride 112 H 109 Carbon Dioxide 18 L 18 L BUN 13 12 Creatinine 0.70 L 0.68 L Glucose 95 141 H Calcium 8.6 8.6 Liver Function 04/10/17 Range/Units 12:13 Albumin 2.3 L (3.5-5.0) g/dL - ABG Interpretation ABG results: PT/INR, D-dimer PT 11.7 Seconds (9.4-12.1) 04/07/17 05:10 D-Dimer 2585 ng/mLFEU (0-500) H 04/06/17 15:20 - Impressions Impressions Abdomen/Pelvis CT 04/10/17 11:46 IMPRESSION: Retroperitoneal lymphadenopathy is identified bilaterally, with a chain of multiple enlarged lymph nodes seen in the left periaortic region with the short axis measuring 2 cm. Findings are concerning for a lymphoproliferative disorder such as lymphoma given presence of retroperitoneal lymphadenopathy, as well as hilar and axillary lymphadenopathy seen on the recent chest CT. Trace bilateral pleural effusions, a new finding. Mild improvement in patchy ground-glass infiltrates in the lung bases. D/ / Jose Neville MD / Jose Neville MD Interpreting Provider: Jose Neville MD Consult Discharge Plan - Plan Referrals: NONE,PCP [Primary Care Provider] - <Ham Neumann - Last Filed: 04/10/17 16:10> Date of Encounter: 04/10/17 - Assessment and plan (1) Hypoxemia Current Visit: Yes Status: Resolved (2) Hypokalemia Current Visit: Yes Status: Acute (3) Sepsis Current Visit: Yes Status: Resolved Qualifiers: Sepsis type: sepsis due to unspecified organism Qualified Code(s): A41.9 - Sepsis, unspecified organism (4) Community acquired pneumonia Current Visit: Yes Status: Acute Qualifiers: Laterality: unspecified laterality Qualified Code(s): J18.9 - Pneumonia, unspecified organism (5) Hilar adenopathy Current Visit: Yes Status: Acute - Constitutional Vitals: Temp Pulse Resp BP Pulse Ox 98.3 F 56 14 133/80 97 04/10/17 15:28 04/10/17 15:28 04/10/17 15:28 04/10/17 15:28 04/10/17 15:28 Internal Medicine: Result - Labs CBC & Chem 7: 04/10/17 05:45 04/10/17 12:13 Labs: Short CBC 04/10/17 Range/Units 05:45 WBC 9.9 (4.3-11.1) K/mcL Hgb 9.5 L (12.9-16.9) g/dL Hct 27.1 L (37.5-50.1) % Plt Count 325 (140-400) K/mcL Neutrophils # 5.9 (1.6-8.9) K/mcL BMP 04/10/17 04/10/17 05:45 12:13 Sodium 139 135 L Potassium 2.7 L 3.1 L Chloride 112 H 109 Carbon Dioxide 18 L 18 L BUN 13 12 Creatinine 0.70 L 0.68 L Glucose 95 141 H Calcium 8.6 8.6 Liver Function 04/10/17 Range/Units 12:13 Albumin 2.3 L (3.5-5.0) g/dL - ABG Interpretation ABG results: PT/INR, D-dimer PT 11.7 Seconds (9.4-12.1) 04/07/17 05:10 D-Dimer 2585 ng/mLFEU (0-500) H 04/06/17 15:20 - Impressions Impressions Abdomen/Pelvis CT 04/10/17 11:46 IMPRESSION: Retroperitoneal lymphadenopathy is identified bilaterally, with a chain of multiple enlarged lymph nodes seen in the left periaortic region with the short axis measuring 2 cm. Findings are concerning for a lymphoproliferative disorder such as lymphoma given presence of retroperitoneal lymphadenopathy, as well as hilar and axillary lymphadenopathy seen on the recent chest CT. Trace bilateral pleural effusions, a new finding. Mild improvement in patchy ground-glass infiltrates in the lung bases. D/ / Jose Neville MD / Jose Neville MD Interpreting Provider: Jose Neville MD - Attending Attestation I independently saw and examined this patient on 04/10/2017, I have reviewed his chart as well. Diagnoses and management plan was discussed with the patient, and the resident physician. 41 M with PMH of Tobacco abuse with 2PPD use, THC use. He is admitted and being managed for hypoxia and Pneumonia, he also has a finding of Hilar adenopathy on CT scan He developed sepsis in-patient with high grade fever with tachcyardia and tachypnea. Sepsis work up was sent 04/08. There is also concern for possible withdrawal Patient is seen at bedside this morning and is looking clinically improved He denies any complains and states he feels better He declined bronchoscopy by Pulm. His anemia work up is negative, he continues to have hyokalemia, we have sent urine work up and consulted nephrology On examination: VSS, speaks full sentences, flat affect. HEENT: Not cyanotic, moist oral mucosa. He has bilateral rhonchi, he is not wheezing today and his chest sounds better. He has no crackles. Abdomen is soft and not tender, no pedal edema, extremities are well perfused Labs and Imaging reviewed: Leukocytosis resolved. , Hb downtrending, persistent hypokalemia with normal Mag. CXR unchanged. Sputum culture unremarkable. Blood culture preliminary no growth.ECHO is normal. Abd/Pelvis CT: Multiple adenopathy, including retroperitoneal, splenic granulomas. FOBT positive Assessment/Plan #Sepsis: Resolved. Continue levaquin, D/C Zosyn # Community acquired pneumonia: Organism unknown, atypical picture, Sputum culture is negative, respiratory panel is negative, management as above. #Hilar adenopathy suspicious for sarcoidosis: ALEXSANDRA negative, Pulm eval appreciated, patient refused bronchoscopy. #Hypoxia: Improved.. ECHO is normal #Tobacco abuse: Declines NRT. #Hypokalemia: Send urine work up, suspect potassium wasting from a renal source , CT noted. Nephrology input appreciated #Anemia: Iron deficient, FOBT positive, #Lymphoproliferative disorder: patient with axiallry, hilar, pelvic, periiliac and retroperitoneal lymphadenopathy, suspsicious for lymphoma. Consult oncology. Rest of details as in resident physician's documentation
[2017-04-10] MEDS: Acetaminophen 325 MG TABLET PO PRN (17:49)
[2017-04-11] MEDS: *HR* Heparin 5,000 UNIT/ML VIAL SQ SCH ×2 (00:47→09:06)
[2017-04-11 03:45] LABS: Hematocrit 26.7 % (37.5-50.1); Hemoglobin 9.3 g/dL (12.9-16.9); Mean Corpuscular HGB Conc 34.8 g/dL (31.6-35.5); Mean Corpuscular Volume 86.1 fL (83.0-100.0); Mean Platelet Volume 9.3 fL (9.4-12.4); Platelet Count 359 K/mcL (140-400); Red Cell Distribution Width 14.7 % (11.5-14.5)
[2017-04-11 03:56] LABS: BUN/Creatinine Ratio 18 (6-26); Blood Urea Nitrogen 13 mg/dL (8-26); Calcium 8.7 mg/dL (8.6-10.8); Carbon Dioxide 19 mEq/L (19-29); Chloride 112 mEq/L (98-109); Glucose 99 mg/dL (70-99); Osmolality,Calculated 286 (280-300); Potassium 3.2 mEq/L (3.5-4.5); Sodium 138 mEq/L (136-145); eGFR For African Americans > 60 (> 60); eGFR For Non-African Americans > 60 (> 60)
[2017-04-11 04:33] LABS: Monocytes # 0.7 K/mcL (0.0-1.3); Neutrophils # 5.6 K/mcL (1.6-8.9); Platelet Estimate Normal (Normal)
[2017-04-11] MEDS: Ipratropium/Albuterol Neb 3 ML IH SCH ×2 (05:07→10:05)
[2017-04-11] MEDS: Ibuprofen 600 MG TABLET PO PRN (07:07)
--- NOTE | 2017-04-11 08:38 | Nephrology Progress Note ---
Date of Encounter: 04/11/17 Time of Encounter: 08:20 - Assessment and Plan (1) Hypokalemia Current Visit: Yes Status: Acute Hypokalemia-etiology unclear, workup in progress. Will order K rider for K+ 3.2. CT Abd/Pelvis-Adrenal's normal, scan concerning for lymphoproliferative disorder. Recommend Hem/Onc consult. Subjective Principal diagnosis: Pnemonia Interval history: Sitting up in bed, states breathing much easier. No new complaints. Wants to go home. Objective - Vital Signs Vital signs: Vital Signs Temp Pulse Resp BP Pulse Ox 04/11/17 06:47 97.5 F L 54 16 119/69 98 04/11/17 03:24 98.7 F 55 14 146/75 100 04/11/17 00:29 98.5 F 53 14 148/80 99 04/10/17 19:12 98.8 F 63 14 138/77 98 04/10/17 15:28 98.3 F 56 14 133/80 97 04/10/17 10:50 98.6 F 73 14 144/81 93 04/10/17 10:30 16 100 Intake and Output 04/10/17 04/11/17 04/11/17 23:59 07:59 15:59 Intake Total 0 / 0 200 / 200 Output Total 0 / 0 1100 / 1100 Balance 0 / 0 -900 / -900 Intake: Oral 0 / 0 200 / 200 Output: Urine 0 / 0 1100 / 1100 Other: Meal Dinner Percent of Meal Consumed 100% # Bowel Movements 0 Weight 72.665 kg Patient Weight 04/11/17 23:59 Weight 72.665 kg - General Appearance General appearance: Present: well-developed, well-nourished, appears started age EENT: Present: mucous membranes moist Neck: Present: no JVD Respiratory: Present: clear Cardiology: Present: no edema, regular rate, regular rhythm Gastrointestinal: Present: normoactive bowel sounds, no tenderness Integumentary: Present: warm and dry Neurologic: Present: alert and oriented x3 Psychiatric: Present: mood/affect appropriate, cooperative - Lab 04/11/17 03:21 04/11/17 03:21 Most recent lab results Calcium 8.7 mg/dL (8.6-10.8) 04/11/17 03:21 Phosphorus 3.2 mg/dL (2.3-4.7) 04/10/17 12:13 Magnesium 1.8 mg/dL (1.6-2.6) 04/10/17 05:45 Urine Creatinine 31 mg/dL 04/10/17 08:39 Consult Discharge Plan - Plan Referrals: NONE,PCP [Primary Care Provider] -
[2017-04-11] MEDS ORDERED: Potassium Chloride 40 MEQ, Lidocaine 1% 2 ML in D5% in Water 500 ML IVPB ONE (08:59)
[2017-04-11] MEDS: Levofloxacin 750 MG/150 ML 750 MG/150 ML BAG IVPB SCH (09:02)
[2017-04-11] MEDS: predniSONE 20 MG TABLET PO SCH (09:04)
[2017-04-11] MEDS: Folic Acid 1 MG TABLET PO SCH (09:04)
[2017-04-11] MEDS: Cyanocobalamin (B-12) 1,000 MCG TABLET PO SCH (09:04)
[2017-04-11] MEDS: Aspirin Enteric Coated 81 MG Tablet PO SCH (09:04)
[2017-04-11] MEDS: Potassium Chloride Elixir 20 MEQ/15 ML UDC PO SCH (09:10)
[2017-04-11 10:57] VITALS: BP 134/75
[2017-04-12 22:05] LABS: Alpha 2 Globulin (PEP) 1.15 g/dL (0.48-1.05); Beta Globulin (PEP) 0.74 g/dL (0.48-1.10)
[2017-04-13 09:00] LABS: IFE Reflexed NOT DONE
== END 2017-04-11 14:34 | disposition home or self-care (01) | DRG 871 ==
LOC: EMEROO 12:29 → 3ANU 12:29 → SUATTDRO 16:33 → 3ANU 17:14
PROVIDERS: ADMIT Registered Nurse; ATTEND Internal Medicine

== ENCOUNTER 2017-06-20 09:23 | Inpatient (IN) ==
[2017-06-20] MEDS ORDERED: Ketorolac 15 MG/ML VIAL IVP ONE (09:50)
--- NOTE | 2017-06-20 09:55 | Emergency Department Note ---
Disposition Clinical Impression: Perforated abdominal viscus Abdominal pain Qualifiers: Abdominal location: unspecified location Qualified Code(s): R10.9 - Unspecified abdominal pain Disposition: Admitted As Inpatient Condition: Fair Time of Disposition: 11:33 Abdominal Pain HPI - General Chief Complaint: ED Abdominal Pain Stated Complaint: abdominal pain Time Seen by Provider: 06/20/17 09:28 Source: patient, family (fiance) Mode of arrival: ambulatory Limitations: no limitations Nursing Notes Reviewed: Yes Vital Signs Reviewed: Yes - History of Present Illness HPI Narrative: 42-year-old male pack per day smoker presents with abdominal pain. Describes a sharp stabbing sensation mostly around the belly button and into the lower abdomen but appears more diffuse. Ongoing for the past 3-4 days. He has some relief yesterday but worse this morning after taking a shower and then drinking 3 cups of water. He has been taking tums with some minimal relief. He also takes Advil on a daily basis regardless of pain. He denies any nausea or vomiting. History of alcohol abuse sober for last 2 years. Denies any associated nausea vomiting. No radiation of the pain. Mostly in the mid- abdomen. Denies any chest pain or shortness of breath however it hurts/ difficult to take a large breath in. Denies any fever or recent illness. No blood in the stool, black tarry stool, hematuria. Denies any back pain. Denies any prior abdominal surgeries. Pt Subjective Complaint: abdominal pain Pain Scale: 10 - Related Data Home Medications Medication Instructions Recorded Confirmed No Known Home Drugs 06/20/17 06/20/17 Allergies Allergy/AdvReac Type Severity Reaction Status Date / Time No Known Allergies Allergy Verified 06/20/17 09:24 All systems ED: reviewed and negative except as stated. Review of Systems: As Per HPI Constitutional: Denies: fever, chills Cardiovascular: Denies: chest pain, dyspnea on exertion Respiratory: Denies: cough, dyspnea Gastrointestinal: Reports: abdominal pain. Denies: nausea, vomiting, diarrhea, melena, hematochezia Genitourinary: Denies: urgency, dysuria, hematuria Musculoskeletal: Denies: back pain, neck pain Integumentary: Denies: rash, abrasion, lesions Neurological: Denies: headache, weakness Abdominal Pain PMH - Past Medical History Medical history: Reports: myocardial infarction Male Surgical History: Reports: no surgical history Psychiatric history: Reports: anxiety, depression - Social History Smoking status: Current every day smoker Alcohol use: Reports: none Drug use: Reports: none Physical Exam - General Limitations: no limitations General appearance: alert, in no apparent distress - Head Head exam: atraumatic, normocephalic, normal inspection - Eye Eye exam: Present: normal appearance, PERRL, EOMI. Absent: scleral icterus - ENT ENT exam: normal exam, normal oropharynx, mucous membranes moist - Neck Neck exam: Present: normal inspection, full ROM, trachea midline - Chest Chest inspection: Present: normal inspection, symmetric chest wall rise - Respiratory Respiratory exam: Present: normal lung sounds bilaterally. Absent: respiratory distress, wheezes - Cardiovascular Cardiovascular exam: Present: regular rate, normal rhythm, normal heart sounds - Abdominal Exam Abdominal exam: Present: soft, tenderness, guarding (Voluntary and with flexion of legs softens), diminished bowel sounds, tenderness at McBurney's Point. Absent: Non-Tender, distention, rebound, rigidity, obturator sign, Herrmann's sign , Rovsing's sign Abdominal tenderness: Present: diffuse, moderate - Rectal Exam Inflated Ball Molder present during exam: Yes Rectal exam: Present: normal inspection, normal rectal tone, heme (-) stool. Absent: black stool, bloody stool, hemorrhoids - Extremities Exam Extremities exam: Present: normal inspection, full ROM, normal capillary refill. Absent: tenderness, pedal edema - Back Exam Back exam: Present: normal inspection, full ROM. Absent: tenderness, CVA tenderness (R), CVA tenderness (L) - Neurological Exam Neurological exam: Present: alert, oriented X3 - Skin Skin exam: Present: warm, dry, intact, normal color. Absent: rash, cyanosis, diaphoresis Course Course Narrative: 42-year-old male otherwise healthy presents with abdominal pain. In the nurses note it reports epigastric bonbon evaluation he points to the lower quadrants. Denies any radiation of the pain. Sharp in nature. No prior surgeries to the abdomen. Denies any nausea or vomiting. On examination his abdomen is soft and diffusely tender mostly in the lower quadrants. No focal tenderness. He does have some voluntary guarding but improves with flexion of his legs. I performed a bedside ultrasound to evaluate his gallbladder wish did not show any stones or wall thickening. He has some tenderness to McBurney's point. No peritoneal signs but with the guarding will evaluate with some basic labs a urinalysis and CT abd/pelvis. Concern for possible gastritis, unlikely obstruction with no prior surgeries and no active nausea/vomiting. Toradol for pain at this time. He is in agreement with plan. Reviewed his prior local record. He had a abdomen and pelvis 2 months ago with some lymphadenopathy in the retroperitoneum concern for lymphoproliferative disease. - Reevaluation(s) Reevaluation #1: Review the patients labs. He has a drop in his hemoglobin of 4 points down to 7.7. He denies any bloody stool, black tarry stool, hemoptysis or hematemesis. His MCV is normal. His platelet count is normal. He denies a history of blood transfusions. States a few months ago he was diagnosed with pneumonia and needed to replace is potassium. His potassium is low here at 3. Will check magnesium level and replete. Also will check stool hemoccult. Time: 10:51 Reevaluation #2: Hemoccult negative. Lactate 1.4. Type in screening ordered no transfusion pack red blood cells at this time. Patient continues to be tachycardic otherwise stable. Blood pressure remain stable. Patient will be started on Zosyn for antibiotic coverage. NG tube and alvarez to be placed. Patient admitted to intensive care unit under the surgical services of Dr. Meier. Impression is abdominal pain and perforated viscus Time: 11:33 - Consultations Consultation #1: Spoke with [place] Radiologist Dr. Rosa Landaverde, large fluid in abdomen and free air. Suspect likely from stomach for perforated bowel. Patient was given dose of Protonix earlier, will place on drip. Will speak to surgeon vocational training instructor Dr. Meier for other orders. Will obtain EKG, blood cultures, lactate. Patient remains hemodynamically stable, tachycardic but not hypotensive to require aggressive fluid resuscitation of 30 mL/kg. Will discuss antibiotic coverage such as Zosyn with Clindamycin. Patient is ok for admission. Type and screen ordered with blood on hold. Time: 10:54 Consultation #2: Patient admitted to surgical services for perforated viscus under Dr. Meier. No further orders. Time: 11:31 Vital Signs Temperature 99 F 06/20/17 09:24 Pulse Rate 115 06/20/17 09:24 Respiratory Rate 20 06/20/17 09:24 Blood Pressure 129/69 06/20/17 09:24 O2 Sat by Pulse Oximetry 98 06/20/17 09:24 Temperature 99 F 06/20/17 09:24 Pulse Rate 132 06/20/17 12:42 Respiratory Rate 18 06/20/17 12:40 Blood Pressure 158/95 06/20/17 12:40 O2 Sat by Pulse Oximetry 97 06/20/17 11:46 Oxygen Delivery Oxygen Delivery Room Air Abdominal Pain - MDM Narrative Medical decision making narrative: Patient was discussed with my attending physician who agrees with ED management and final disposition. They independently evaluated the patient. Please refer to their attestation to this encounter for additional information. This note was generated by [employer] voice recognition software and as a result grammatical or spelling errors may occur using this program. - Medical Records Medical records reviewed: Yes I reviewed the patient's medical records. - Lab Data Lab results reviewed: Yes I reviewed the patient's lab results. Result diagrams: 06/20/17 09:56 06/20/17 09:56 Lab Results 06/20/17 06/20/17 06/20/17 Range/Units 09:56 09:56 09:58 WBC 4.8 (4.3-11.1) K/mcL RBC 2.69 L (4.19-5.50) M/mcL Hgb 7.7 L (12.9-16.9) g/dL Hct 24.9 L (37.5-50.1) % MCV 92.6 (83.0-100.0) fL MCH 28.6 (28.0-33.3) pg MCHC 30.9 L (31.6-35.5) g/dL RDW 18.6 H (11.5-14.5) % Plt Count 530 H (140-400) K/mcL MPV 8.0 L (9.4-12.4) fL Immature Gran % 1.0 (0-4) % Seg Neutrophils % 75.0 % Lymphocytes % 7.3 % Monocytes % 7.3 % Eosinophils % 9.2 % Basophils % 0.2 % Neutrophils # 3.6 (1.6-8.9) K/mcL Lymphocytes # 0.4 L (0.6-4.6) K/mcL Monocytes # 0.4 (0.0-1.3) K/mcL Eosinophils # 0.4 (0.0-0.6) K/mcL Basophils # 0.0 (0.0-0.2) K/mcL PT (9.4-12.1) Seconds INR APTT (26.0-36.0) Seconds Sodium 138 (136-145) mEq/L Potassium 3.0 L (3.5-4.5) mEq/L Chloride 107 (98-109) mEq/L Carbon Dioxide 18 L (19-29) mEq/L BUN 16 (8-26) mg/dL Creatinine 1.25 (0.72-1.25) mg/dL Est GFR ( Amer) > 60 (> 60) Est GFR (Non-Af Amer) > 60 (> 60) BUN/Creatinine Ratio 13 (6-26) Glucose 106 H (70-99) mg/dL Calculated Osmolality 288 (280-300) Lactic Acid (0.5-2.2) mmol/L Calcium 11.0 H (8.6-10.8) mg/dL Total Bilirubin 0.2 (0.2-1.2) mg/dL Direct Bilirubin 0.2 (0.0-0.5) mg/dL Indirect Bilirubin 0.0 (0.0-1.2) mg/dL AST 11 (5-34) Units/L ALT 11 (0-55) Units/L Alkaline Phosphatase 94 (38-126) Units/L Serum Total Protein 7.1 (6.0-8.3) g/dL Albumin 2.9 L (3.5-5.0) g/dL Globulin 4.2 H (2.4-3.5) g/dL Albumin/Globulin Ratio 0.7 L (1.1-2.2) Lipase 22 (8-78) Units/L Urine Color Yellow (Yellow) Urine Clarity Clear (Clear) Urine pH 6.5 (5.0-8.0) pH Units Ur Specific Warren 1.025 (1.010-1.025) Urine Protein 100 H (Neg-Trace) mg/dL Urine Glucose (UA) Normal (Normal) mg/dL Urine Ketones Negative (Negative) mg/dL Urine Blood Negative (Negative) Urine Nitrite Negative (Negative) Urine Bilirubin Negative (Negative) Urine Urobilinogen Normal (Normal) mg/dL Ur Leukocyte Esterase Negative (Negative) Urine Microscopic RBC 3-5 H (0-3) per hpf Urine Microscopic WBC 5-15 H (0-3) per hpf Ur Squamous Epith Cells Many H (None-Few) per lpf Ur Transition Epith Cell Few (None-Few) per hpf Urine Bacteria None Seen (None-Few) per hpf Hyaline Casts Few (None-Few) per lpf Ur Culture Indicated? NO (NO) Stool Occult Blood (Negative) Blood Type Antibody Screen 06/20/17 06/20/17 06/20/17 Range/Units 10:36 11:00 11:03 WBC (4.3-11.1) K/mcL RBC (4.19-5.50) M/mcL Hgb (12.9-16.9) g/dL Hct (37.5-50.1) % MCV (83.0-100.0) fL MCH (28.0-33.3) pg MCHC (31.6-35.5) g/dL RDW (11.5-14.5) % Plt Count (140-400) K/mcL MPV (9.4-12.4) fL Immature Gran % (0-4) % Seg Neutrophils % % Lymphocytes % % Monocytes % % Eosinophils % % Basophils % % Neutrophils # (1.6-8.9) K/mcL Lymphocytes # (0.6-4.6) K/mcL Monocytes # (0.0-1.3) K/mcL Eosinophils # (0.0-0.6) K/mcL Basophils # (0.0-0.2) K/mcL PT 12.9 H (9.4-12.1) Seconds INR 1.2 APTT 29.3 (26.0-36.0) Seconds Sodium (136-145) mEq/L Potassium (3.5-4.5) mEq/L Chloride (98-109) mEq/L Carbon Dioxide (19-29) mEq/L BUN (8-26) mg/dL Creatinine (0.72-1.25) mg/dL Est GFR ( Amer) (> 60) Est GFR (Non-Af Amer) (> 60) BUN/Creatinine Ratio (6-26) Glucose (70-99) mg/dL Calculated Osmolality (280-300) Lactic Acid 1.4 (0.5-2.2) mmol/L Calcium (8.6-10.8) mg/dL Total Bilirubin (0.2-1.2) mg/dL Direct Bilirubin (0.0-0.5) mg/dL Indirect Bilirubin (0.0-1.2) mg/dL AST (5-34) Units/L ALT (0-55) Units/L Alkaline Phosphatase (38-126) Units/L Serum Total Protein (6.0-8.3) g/dL Albumin (3.5-5.0) g/dL Globulin (2.4-3.5) g/dL Albumin/Globulin Ratio (1.1-2.2) Lipase (8-78) Units/L Urine Color (Yellow) Urine Clarity (Clear) Urine pH (5.0-8.0) pH Units Ur Specific Warren (1.010-1.025) Urine Protein (Neg-Trace) mg/dL Urine Glucose (UA) (Normal) mg/dL Urine Ketones (Negative) mg/dL Urine Blood (Negative) Urine Nitrite (Negative) Urine Bilirubin (Negative) Urine Urobilinogen (Normal) mg/dL Ur Leukocyte Esterase (Negative) Urine Microscopic RBC (0-3) per hpf Urine Microscopic WBC (0-3) per hpf Ur Squamous Epith Cells (None-Few) per lpf Ur Transition Epith Cell (None-Few) per hpf Urine Bacteria (None-Few) per hpf Hyaline Casts (None-Few) per lpf Ur Culture Indicated? (NO) Stool Occult Blood Negative (Negative) Blood Type Antibody Screen 06/20/17 Range/Units 11:03 WBC (4.3-11.1) K/mcL RBC (4.19-5.50) M/mcL Hgb (12.9-16.9) g/dL Hct (37.5-50.1) % MCV (83.0-100.0) fL MCH (28.0-33.3) pg MCHC (31.6-35.5) g/dL RDW (11.5-14.5) % Plt Count (140-400) K/mcL MPV (9.4-12.4) fL Immature Gran % (0-4) % Seg Neutrophils % % Lymphocytes % % Monocytes % % Eosinophils % % Basophils % % Neutrophils # (1.6-8.9) K/mcL Lymphocytes # (0.6-4.6) K/mcL Monocytes # (0.0-1.3) K/mcL Eosinophils # (0.0-0.6) K/mcL Basophils # (0.0-0.2) K/mcL PT (9.4-12.1) Seconds INR APTT (26.0-36.0) Seconds Sodium (136-145) mEq/L Potassium (3.5-4.5) mEq/L Chloride (98-109) mEq/L Carbon Dioxide (19-29) mEq/L BUN (8-26) mg/dL Creatinine (0.72-1.25) mg/dL Est GFR ( Amer) (> 60) Est GFR (Non-Af Amer) (> 60) BUN/Creatinine Ratio (6-26) Glucose (70-99) mg/dL Calculated Osmolality (280-300) Lactic Acid (0.5-2.2) mmol/L Calcium (8.6-10.8) mg/dL Total Bilirubin (0.2-1.2) mg/dL Direct Bilirubin (0.0-0.5) mg/dL Indirect Bilirubin (0.0-1.2) mg/dL AST (5-34) Units/L ALT (0-55) Units/L Alkaline Phosphatase (38-126) Units/L Serum Total Protein (6.0-8.3) g/dL Albumin (3.5-5.0) g/dL Globulin (2.4-3.5) g/dL Albumin/Globulin Ratio (1.1-2.2) Lipase (8-78) Units/L Urine Color (Yellow) Urine Clarity (Clear) Urine pH (5.0-8.0) pH Units Ur Specific Warren (1.010-1.025) Urine Protein (Neg-Trace) mg/dL Urine Glucose (UA) (Normal) mg/dL Urine Ketones (Negative) mg/dL Urine Blood (Negative) Urine Nitrite (Negative) Urine Bilirubin (Negative) Urine Urobilinogen (Normal) mg/dL Ur Leukocyte Esterase (Negative) Urine Microscopic RBC (0-3) per hpf Urine Microscopic WBC (0-3) per hpf Ur Squamous Epith Cells (None-Few) per lpf Ur Transition Epith Cell (None-Few) per hpf Urine Bacteria (None-Few) per hpf Hyaline Casts (None-Few) per lpf Ur Culture Indicated? (NO) Stool Occult Blood (Negative) Blood Type O NEGATIVE Antibody Screen NEGATIVE - Radiology Data Radiology results reviewed: Yes I reviewed the patient's radiology results. Abdomen/Pelvis CT 06/20/17 09:51 IMPRESSION: Moderate amount of abdominopelvic ascites as well as upper abdominal mostly nondependent free intraperitoneal air findings are compatible with perforated viscus. The source is not completely clear but could be related to suspected wall thickening of the distal stomach. Small hiatal hernia. Fluid in the distal esophagus suggests reflux. Persistent retroperitoneal adenopathy. Correlation and follow-up again is recommended. Findings were called to the ordering service at 10:37 am on 06/20/2017. D/ / Rosa Ruiz Cha, MD / Rosa Ruiz Cha, MD Interpreting Provider: Rosa Ruiz Cha, MD X-Ray 06/20/17 11:34 IMPRESSION: Enteric tube in the stomach as above. No evidence of bowel obstruction. D/ / Saulo Pedraza MD / Saulo Pedraza MD Interpreting Provider: Saulo Pedraza MD - EKG Data EKG attestation: Yes I reviewed and interpreted this EKG. EKG results narrative: EKG performed 1105 sinus tachycardia 1 20 bpm, normal axis, no ST elevations or depression, no T wave inversion, good R wave progression, intervals within normal limits. Compared to old EKG performed 04/28/2017 shows sinus tachycardia 1 13 bpm with similar consistent findings. No acute ischemic changes. Critical Care Time Critical Care Time: Yes Total Critical Care Time: 35 Attestation: Critical care time managing patient's stomach perforation 35 minutes. Attestation Statement - Attestation Attestation: Patient was seen with resident physician. I reviewed the history, physical, assessment and plan, and agree with the findings. I also personally evaluated this patient and had [id number] time with this patient. 42-year-old male presents to emergency department with chief complaint of abdominal pain. Patient has history of same. Since the last 3 days she has had mid abdominal pain and epigastric abdominal pain that a been somewhat continuous. He has been unable to eat. He said he tried water and that caused the pain to get worse. She is not really anything for 3 days. No nausea vomiting. No diarrhea. Just pain. On examination vital signs tachycardic with stable blood pressure. Heart tachycardic regular rhythm. Lungs clear. Abdomen is diffusely tender throughout with some mild guarding no rigidity. Extremities unremarkable. Neurologically intact. ED course we will treat the patient's pain. We will also get a CT scan the abdomen and pelvis and check labs. Patient does appear relatively uncomfortable and has a lymphoproliferative issue from a CT scan 2 months ago. It is unclear the extent of the workup is had done at this point. Also noted that he has decreased blood counts from his last testing, which could be an indicator of a GI bleed. CT scan revealed what appeared to be a perforated abdominal viscus with fluid and free air in the abdomen. Patient was started on IV antibiotics and surgery was notified. Protonic strip was also started. Surgery agreed to accept patient with preference of ICU placement. This was arranged. Hemodynamically he remains stable in the emergency department. Critical care time was 35 minutes. Agree with resident physician assessment and plan.
[2017-06-20] MEDS ORDERED: Pantoprazole 40 MG VIAL IVP ONE (10:00)
[2017-06-20 10:04] LABS: Basophils % 0.2 %; Eosinophils # 0.4 K/mcL (0.0-0.6); Eosinophils % 9.2 %; Hematocrit 24.9 % (37.5-50.1); Lymphocytes # 0.4 K/mcL (0.6-4.6); Lymphocytes % 7.3 %; Mean Corpuscular HGB Conc 30.9 g/dL (31.6-35.5); Mean Corpuscular Hemoglobin 28.6 pg (28.0-33.3); Mean Corpuscular Volume 92.6 fL (83.0-100.0); Monocytes # 0.4 K/mcL (0.0-1.3); Monocytes % 7.3 %; Neutrophils # 3.6 K/mcL (1.6-8.9); Platelet Count 530 K/mcL (140-400); Red Blood Count 2.69 M/mcL (4.19-5.50); Red Cell Distribution Width 18.6 % (11.5-14.5)
[2017-06-20 10:11] LABS: Hemoglobin 7.7 g/dL (12.9-16.9)
[2017-06-20] MEDS ORDERED: 0.9 % Sodium Chloride 1,000 ML IVC ONE ×2 (10:17→11:17)
[2017-06-20 10:18] LABS: Alanine Aminotransferase 11 Units/L (0-55); Albumin 2.9 g/dL (3.5-5.0); Albumin/Globulin Ratio 0.7 (1.1-2.2); Alkaline Phosphatase 94 Units/L (38-126); Aspartate Amino Transferase 11 Units/L (5-34); BUN/Creatinine Ratio 13 (6-26); Bilirubin,Direct 0.2 mg/dL (0.0-0.5); Bilirubin,Total 0.2 mg/dL (0.2-1.2); Blood Urea Nitrogen 16 mg/dL (8-26); Carbon Dioxide 18 mEq/L (19-29); Chloride 107 mEq/L (98-109); Globulin 4.2 g/dL (2.4-3.5); Glucose 106 mg/dL (70-99); Lipase 22 Units/L (8-78); Osmolality,Calculated 288 (280-300); Sodium 138 mEq/L (136-145); Total Protein 7.1 g/dL (6.0-8.3); eGFR For African Americans > 60 (> 60); eGFR For Non-African Americans > 60 (> 60)
[2017-06-20 10:21] LABS: Bilirubin,Urine Negative (Negative); Blood,Urine Negative (Negative); Clarity,Urine Clear (Clear); Color,Urine Yellow (Yellow); Glucose,Urine (UA) Normal (Normal); Ketones,Urine Negative (Negative); Leukocyte Esterase,Urine Negative (Negative); Nitrite,Urine Negative (Negative); PH,Urine 6.5 pH Units (5.0-8.0); Protein,Urine 100 mg/dL (Neg-Trace); Specific Gravity,Urine 1.025 (1.010-1.025); Urobilinogen,Urine Normal (Normal)
[2017-06-20 10:25] LABS: Bacteria,Urine None Seen per hpf (None-Few); Squamous Epithelial Cell,Urine Many per lpf (None-Few)
[2017-06-20] MEDS ORDERED: Ondansetron 4 MG/2 ML VIAL IVP ONE (10:34)
[2017-06-20] MEDS ORDERED: *HR* Morphine 2 MG/ML SYRINGE IVP ONE ×3 (10:34→11:41)
[2017-06-20 10:38] LABS: Hyaline Casts,Urine Few per lpf (None-Few); Transitional Epi Cells,Urine Few per hpf (None-Few)
[2017-06-20] MEDS ORDERED: Potassium Chloride 40 MEQ, Lidocaine 1% 2 ML in D5% in Water 500 ML IVPB ONE (10:48)
[2017-06-20] MEDS ORDERED: Pantoprazole 40 MG in 0.9 % Sodium Chloride Mini Bag 100 ML IVC SCH (11:00)
[2017-06-20] MEDS ORDERED: Piperacillin/Tazobactam 4.5 GM in Water for inj. (sterile) 20 ML IVP ONE (11:06)
[2017-06-20] MEDS ORDERED: Pantoprazole 80 MG in 0.9 % Sodium Chloride 250 ML IVC SCH (11:15)
[2017-06-20 11:18] LABS: INR 1.2; Prothrombin Time 12.9 Seconds (9.4-12.1)
[2017-06-20 11:20] LABS: Activated Partial Thrombo Time 29.3 Seconds (26.0-36.0)
--- NOTE | 2017-06-20 12:15 | General Surg History&Physical ---
Date of Encounter: 06/20/17 Time of Encounter: 12:15 Assessment and Plan (1) Perforated abdominal viscus Current Visit: Yes Status: Acute The assessment and plan as outlined above was discussed with the patient and/or family members who expressed understanding and agreement. All questions were answered. Perforated stomach as evidence on CT scan in ED. Possibly related to NSAID use. Discussed with patient and he would like to go with conservative therapy at this time Plan: Protonix drip, Zofran IVF Dilaudid NPO Zosyn (2) Abdominal pain Current Visit: Yes Status: Acute The assessment and plan as outlined above was discussed with the patient and/or family members who expressed understanding and agreement. All questions were answered. Qualifiers: Abdominal location: generalized Qualified Code(s): R10.84 - Generalized abdominal pain (3) CARROLL (acute kidney injury) Current Visit: Yes Status: Acute The assessment and plan as outlined above was discussed with the patient and/or family members who expressed understanding and agreement. All questions were answered. Creatinine of 1.25 Baseline appears to be around 0.7 Possibly related to sepsis vs hypoperfusion vs chronic NSAID use Plan: Monitor, hydrate Repeat BMP for 1700 tonight (4) DVT prophylaxis Current Visit: Yes Status: Acute The assessment and plan as outlined above was discussed with the patient and/or family members who expressed understanding and agreement. All questions were answered. SCDs History of Present Illness Chief complaint: Abdominal pain HPI: Mr. Barlow is a 42 year old male who presents the spine with a chief complaint of abdominal pain 4 days. He states that it was sudden onset sharp in nature and is located in a band across his lower abdomen with radiation cephalad to the epigastric region. Pain is constant. He denies any associated nausea and vomiting. Most recent bowel movement was yesterday morning and he states that he was constipated but there was no evidence of blood or black stools. Admits to subjective fevers and chills. Also admits to shortness of breath on deep breathing secondary to pain in the abdomen. He has never had anything like this in the past. Still with gallbladder and appendix. He admits to previous [place] in his 30s which she states was secondary to alcohol abuse, he has no other past medical history. He does take Advil 200 mg 2-3 times per day for back pain for many years. He states he has been unable to eat secondary to the pain and is also exacerbated with movement. No relieving factors including antacids. In the emergency department, patient was notably tachycardic at 1:15, temperature of 99, respiratory rate 20. Labs significant for H/H at 7.7/24.9, noticeably down from 11 hemoglobin in April. Hypokalemia at 3.0, which is since been replenished with [address] showed moderate amount of ascites and nondependent free intraperitoneal air findings which is compatible with perforated viscus. He is admitted to surgical service to the ICU with suspected perforated stomach likely related to frequent NSAID use Past Med Surg Social Fam HX - Past Medical History Medical history: myocardial infarction Psychiatric history: anxiety, depression - Social History Smoking Status: Current every day smoker Smokeless Tobacco Status: Yes Alcohol use: none Drug use: none - Family History Father Family Member Ethnicity: Non- Living Status: Still Living Mother Family Member Ethnicity: Non- Living Status: Still Living Medications and Allergies No Known Home Drugs 06/20/17 [History] 3 Allergy/AdvReac Type Severity Reaction Status Date / Time No Known Allergies Allergy Verified 06/20/17 09:24 Review of Systems All systems PM: A 10-system review of systems was performed and is negative for pertinent findings except as documented above in the HPI. - Constitutional anorexia, fever(s) - Cardiovascular dyspnea, no chest pain, no dyspnea on exertion - Respiratory dyspnea, pain on inspiration, no cough - Gastrointestinal abdominal pain, constipation, dyspepsia, no change in bowel habits, no change in stool character, no coffee ground emesis, no diarrhea, no hematemesis, no hematochezia, no loose stools, no melena, no nausea, no vomiting General Surgery Exam Initial Vital Signs Temp Pulse Resp BP Pulse Ox 99 F 115 20 129/69 98 06/20/17 09:24 06/20/17 09:24 06/20/17 09:24 06/20/17 09:24 06/20/17 09:24 - General physical appearance well developed, well nourished, moderate distress, moderate pain - Respiratory normal expansion, normal respiratory effort, clear to auscultation - Cardiovascular Cardiovascular exam: Present: RRR, no murmurs/rubs/gallops - Abdomen Abdomen general surgery: Present: bowel sounds present, soft, tender. Absent: tympanic, distended, guarding, rebound, peritoneal Abdominal Tenderness: Present: diffusely Results - Labs 06/20/17 09:56 06/20/17 09:56 Abnormal lab results RBC 2.69 M/mcL (4.19-5.50) L 06/20/17 09:56 Hgb 7.7 g/dL (12.9-16.9) L 06/20/17 09:56 Hct 24.9 % (37.5-50.1) L 06/20/17 09:56 MCHC 30.9 g/dL (31.6-35.5) L 06/20/17 09:56 RDW 18.6 % (11.5-14.5) H 06/20/17 09:56 Plt Count 530 K/mcL (140-400) H 06/20/17 09:56 MPV 8.0 fL (9.4-12.4) L 06/20/17 09:56 Lymphocytes # 0.4 K/mcL (0.6-4.6) L 06/20/17 09:56 PT 12.9 Seconds (9.4-12.1) H 06/20/17 11:00 Potassium 3.0 mEq/L (3.5-4.5) L 06/20/17 09:56 Carbon Dioxide 18 mEq/L (19-29) L 06/20/17 09:56 Glucose 106 mg/dL (70-99) H 06/20/17 09:56 Calcium 11.0 mg/dL (8.6-10.8) H 06/20/17 09:56 Albumin 2.9 g/dL (3.5-5.0) L 06/20/17 09:56 Globulin 4.2 g/dL (2.4-3.5) H 06/20/17 09:56 Albumin/Globulin Ratio 0.7 (1.1-2.2) L 06/20/17 09:56 Urine Protein 100 mg/dL (Neg-Trace) H 06/20/17 09:58 Urine Microscopic RBC 3-5 per hpf (0-3) H 06/20/17 09:58 Urine Microscopic WBC 5-15 per hpf (0-3) H 06/20/17 09:58 Ur Squamous Epith Cells Many per lpf (None-Few) H 06/20/17 09:58 All other labs normal.
[2017-06-20] MEDS: *HR* HYDROmorphone (PF) 1 MG/ML SYRINGE IVP PRN ×2 (13:08→15:00)
[2017-06-20] MEDS: 0.9 % Sodium Chloride 1,000 ML IVC SCH ×2 (14:36→19:19)
[2017-06-20] MEDS ORDERED: *HR* HYDROmorphone (PF) 1 MG/ML SYRINGE ONE (16:11)
[2017-06-20] MEDS: Ondansetron 4 MG/2 ML VIAL IVP SCH ×3 (16:15→23:39)
[2017-06-20 17:20] LABS: Calcium 9.2 mg/dL (8.6-10.8); Potassium 2.8 mEq/L (3.5-4.5)
[2017-06-20] MEDS: *HR* HYDROmorphone 2 MG/ML SYRINGE IVP PRN ×7 (17:27→23:39)
[2017-06-20] MEDS: Piperacillin/Tazobactam 3.375 GM/200 ML BAG IVPB SCH (17:56)
[2017-06-20 18:48] LABS: Hematocrit 18.1 % (37.5-50.1); Immature Platelets 0.7 % (1.1-6.1); Mean Corpuscular HGB Conc 32.6 g/dL (31.6-35.5); Mean Corpuscular Hemoglobin 29.6 pg (28.0-33.3); Mean Platelet Volume 8.4 fL (9.4-12.4); Platelet Count 446 K/mcL (140-400); Red Blood Count 1.99 M/mcL (4.19-5.50); Red Cell Distribution Width 18.3 % (11.5-14.5)
[2017-06-20 18:54] LABS: Hemoglobin 5.9 g/dL (12.9-16.9)
[2017-06-20 19:35] LABS: Anisocytosis 1+ (Not Present); Lymphocytes # 0.8 K/mcL (0.6-4.6); Monocytes # 0.2 K/mcL (0.0-1.3); Neutrophils # 6.7 K/mcL (1.6-8.9)
[2017-06-20] MEDS: Pantoprazole 80 MG in 0.9 % Sodium Chloride 250 ML IVC SCH (21:43)
[2017-06-21] MEDS: *HR* HYDROmorphone 2 MG/ML SYRINGE IVP PRN ×4 (00:41→03:41)
[2017-06-21] MEDS: Piperacillin/Tazobactam 3.375 GM/200 ML BAG IVPB SCH ×3 (02:39→18:22)
[2017-06-21] MEDS: Ondansetron 4 MG/2 ML VIAL IVP SCH ×6 (03:40→23:20)
[2017-06-21] MEDS: *HR* HYDROmorphone (PF) 1 MG/ML SYRINGE IVP PRN ×7 (04:54→13:42)
[2017-06-21 06:22] LABS: Calcium 8.5 mg/dL (8.6-10.8); Potassium 4.1 mEq/L (3.5-4.5)
[2017-06-21 06:32] LABS: Hematocrit 20.2 % (37.5-50.1); Hemoglobin 6.3 g/dL (12.9-16.9); Mean Corpuscular HGB Conc 31.2 g/dL (31.6-35.5); Mean Corpuscular Hemoglobin 28.8 pg (28.0-33.3); Mean Corpuscular Volume 92.2 fL (83.0-100.0); Mean Platelet Volume 8.7 fL (9.4-12.4); Platelet Count 415 K/mcL (140-400); Red Blood Count 2.19 M/mcL (4.19-5.50); Red Cell Distribution Width 18.3 % (11.5-14.5)
[2017-06-21 06:50] LABS: Anisocytosis 1+ (Not Present); Hypochromasia Present (Not Present); Lymphocytes # 0.9 K/mcL (0.6-4.6); Monocytes # 0.6 K/mcL (0.0-1.3); Neutrophils # 13.7 K/mcL (1.6-8.9); Polychromasia 1+ (Not Present)
[2017-06-21] MEDS: Pantoprazole 80 MG in 0.9 % Sodium Chloride 250 ML IVC SCH ×2 (08:37→18:23)
--- NOTE | 2017-06-21 10:24 | General Surgery Progress Note ---
Date of Encounter: 06/21/17 Time of Encounter: 07:30 - Assessment and Plan (1) Perforated abdominal viscus Current Visit: Yes Status: Acute Possibly secondary to chronic NSAID use for back pain Have been opting for conservative management at this time NG tube in place with 500 mL output Increase in WBC this morning at 15.2, possibly reactive. Receiving antibiotics Heart rate initially was in 130s around presentation, currently in 90s indicating improvement. 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 pump, Protonix, Zosyn,NG NPO (2) Abdominal pain Current Visit: Yes Status: Acute Secondary to perforation of stomach as above Qualifiers: Abdominal location: generalized Qualified Code(s): R10.84 - Generalized abdominal pain (3) CARROLL (acute kidney injury) Current Visit: Yes Status: Acute BUN/creatinine of 26/1.83 Slight increase of yesterday with a creatinine of 1.61 Possibly secondary to NSAID use, dehydration, and organ damage due to sepsis We will continue conservative measures at this time Fluids, close monitoring (4) Anemia Current Visit: No Status: Acute H/H of 6.3/20.2 this AM, decreased from 7 yesterday Will transfuse 2 units today Continue to monitor with daily CBC Qualifiers: Anemia type: unspecified type Qualified Code(s): D64.9 - Anemia, unspecified (5) DVT prophylaxis Current Visit: Yes Status: Acute SCDs Subjective Patient reports: feels better, still having pain, pain is less, no flatus, no bowel movement Narrative: Pt seen and examined at bedside. He states he is feeling a little bit better than yesterday. Pain still present but medications take the edge off. No nausea or vomiting. NG tube in place with 500 mL output. Objective Vital Signs - Last 8 Hours Temp Pulse Resp BP Pulse Ox 06/21/17 09:49 87 20 92/49 100 06/21/17 08:38 94 20 96/53 97 06/21/17 07:12 87 16 91/55 95 06/21/17 06:00 89 24 98/55 96 06/21/17 05:00 87 14 96/54 96 06/21/17 04:21 98.5 F 06/21/17 04:00 89 16 87/58 96 06/21/17 03:00 88 16 106/57 97 Intake and Output 06/20/17 06/21/1706/21/17 23:59 07:59 15:59 Intake Total 1500 / 1500 1850 / 1850 Output Total 50 / 50 500 / 500 Balance 1450 / 1450 1350 / 1350 Intake: IV Fluids 1500 / 1500 1850 / 1850 0.9 % Sodium Chloride 1,000 ML 1000 / 1000 1000 / 1000 @ 125 mls/hr IVC .Q8H [facility] Rx#: [id number] Protonix 80 MG In 0.9 % Sodium 250 / 250 Chloride 250 ML @ 25 mls/hr IVC .Q10H [facility] Rx#:[id number] Zosyn Premix 3.375 GM/200 ML 3. 200 / 200 200 / 200 375 gm In 200 ml @ 50 mls/hr IVPB Q8H [facility] Rx#:[id number] Potassium Chloride 10 mEq/100mL 300 / 300 400 / 400 10 meq In 100 ml @ 100 mls/hr IVPB Q1H [facility] Rx#:[id number] Output: Catheter 50 / 50 350 / 350 Gastric Drainage 150 / 150 Other: Weight 76.7 kg Blood Glucose* 113 107 Patient Weight 06/21/17 23:59 Weight 76.7 kg - General physical appearance well developed, well nourished, no distress - Respiratory normal expansion, normal respiratory effort, clear to auscultation - Abdomen Abdomen: Present: bowel sounds present, soft, tender. Absent: distended Abdominal Tenderness: diffusely - Labs 06/21/17 05:49 06/21/17 05:49 Diabetes panel 06/20/17 06/21/17 Range/Units 17:00 05:49 Sodium 138 138 (136-145) mEq/L Potassium 2.8 L 4.1 D (3.5-4.5) mEq/L Chloride 112 H 114 H (98-109) mEq/L Carbon Dioxide 15 L 14 L (19-29) mEq/L BUN 19 26 (8-26) mg/dL Creatinine 1.61 H 1.83 H (0.72-1.25) mg/dL Glucose 102 H 82 (70-99) mg/dL Calcium 9.2 D 8.5 L (8.6-10.8) mg/dL Calcium panel 06/20/17 06/21/17 Range/Units 17:00 05:49 Calcium 9.2 D 8.5 L (8.6-10.8) mg/dL Pituitary panel 06/20/17 06/21/17 Range/Units 17:00 05:49 Sodium 138 138 (136-145) mEq/L Potassium 2.8 L 4.1 D (3.5-4.5) mEq/L Chloride 112 H 114 H (98-109) mEq/L Carbon Dioxide 15 L 14 L (19-29) mEq/L BUN 19 26 (8-26) mg/dL Creatinine 1.61 H 1.83 H (0.72-1.25) mg/dL Glucose 102 H 82 (70-99) mg/dL Calcium 9.2 D 8.5 L (8.6-10.8) mg/dL Adrenal panel 06/20/17 06/21/17 Range/Units 17:00 05:49 Sodium 138 138 (136-145) mEq/L Potassium 2.8 L 4.1 D (3.5-4.5) mEq/L Chloride 112 H 114 H (98-109) mEq/L Carbon Dioxide 15 L 14 L (19-29) mEq/L BUN 19 26 (8-26) mg/dL Creatinine 1.61 H 1.83 H (0.72-1.25) mg/dL Glucose 102 H 82 (70-99) mg/dL Calcium 9.2 D 8.5 L (8.6-10.8) mg/dL Consult Discharge Plan - Plan Referrals: NONE,PCP [Primary Care Provider] -
[2017-06-21] MEDS ORDERED: 0.9 % Sodium Chloride 250 ML ONE (14:22)
[2017-06-21] MEDS ORDERED: 0.9 % Sodium Chloride 500 ML ONE (14:57)
[2017-06-21] MEDS: *HR* HYDROmorphone 20 MG/20 ML PCA IVC PRN (15:19)
[2017-06-22] MEDS: Piperacillin/Tazobactam 3.375 GM/200 ML BAG IVPB SCH ×3 (03:10→19:01)
[2017-06-22] MEDS: Pantoprazole 80 MG in 0.9 % Sodium Chloride 250 ML IVC SCH ×2 (03:10→16:32)
[2017-06-22] MEDS: Ondansetron 4 MG/2 ML VIAL IVP SCH ×5 (03:11→21:07)
[2017-06-22 05:47] LABS: Hematocrit 21.1 % (37.5-50.1); Hemoglobin 6.9 g/dL (12.9-16.9); Lymphocytes # 0.3 K/mcL (0.6-4.6); Mean Corpuscular HGB Conc 32.7 g/dL (31.6-35.5); Mean Corpuscular Hemoglobin 29.1 pg (28.0-33.3); Mean Platelet Volume 8.9 fL (9.4-12.4); Platelet Count 376 K/mcL (140-400); Red Blood Count 2.37 M/mcL (4.19-5.50); Red Cell Distribution Width 18.1 % (11.5-14.5)
[2017-06-22 05:56] LABS: Calcium 8.3 mg/dL (8.6-10.8); Potassium 3.4 mEq/L (3.5-4.5)
[2017-06-22 06:49] LABS: Anisocytosis 1+ (Not Present); Hypochromasia Present (Not Present); Monocytes # 0.3 K/mcL (0.0-1.3); Neutrophils # 16.2 K/mcL (1.6-8.9); Platelet Estimate Normal (Normal)
--- NOTE | 2017-06-22 08:56 | General Surgery Progress Note ---
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 Plan as above. Qualifiers: Abdominal location: generalized Qualified Code(s): R10.84 - Generalized abdominal pain (3) Anemia Current Visit: Yes Status: Acute Transfused 2 units pRBCs yesterday H/H of 6.9/21.1 this AM, some improvement over previous day Plan: Checking H/H this afternoon (15:00) Continue to monitor with daily CBC Qualifiers: Anemia type: unspecified type Qualified Code(s): D64.9 - Anemia, unspecified (4) CARROLL (acute kidney injury) Current Visit: Yes Status: Acute BUN/creatinine of 36/1.81 Slight improvement in creatinine over yesterday (1.83) Possibly d/t NSAID use, dehydration, and organ damage due to sepsis Plan: Continue conservative measures for now NS 1,000 mL over 3 hours to replace current losses, followed by maintenance fluid (NS @ 125 mL/hr) Continue to monitor kidney function/Cr with daily AM labs Subjective Patient reports: no new complaints, still having pain, pain is less, voiding w/ o difficulty (alvarez catheter), no bowel movement, afebrile Narrative: Patient seen and examined this morning at bedside. He was alert and watching TV. Patient states he feels a little better than yesterday. NG tube hooked to suction, dark green gastric drainage in suction cannister. No bowel movements. Objective Vital Signs - Last 8 Hours Temp Pulse Resp BP Pulse Ox 06/22/17 07:50 87 06/22/17 07:12 97.9 F 06/22/17 06:00 81 18 113/66 95 06/22/17 05:00 91 22 117/62 93 06/22/17 04:30 93 18 114/60 96 06/22/17 03:24 96.8 F L 06/22/17 03:00 90 14 112/62 94 06/22/17 02:00 90 16 108/61 96 06/22/17 01:30 92 18 109/61 96 Intake and Output 06/21/17 06/22/17 06/22/17 23:59 07:59 15:59 Intake Total 1300 / 1300 250 / 250 Output Total 800 / 800 1250 / 1250 Balance 500 / 500 -1000 / -1000 Intake: IV Fluids 650 / 650 250 / 250 Protonix 80 MG In 0.9 % Sodium 250 / 250 250 / 250 Chloride 250 ML @ 25 mls/hr IVC .Q10H [facility] Rx#:[id number] Zosyn Premix 3.375 GM/200 ML 3. 400 / 400 375 gm In 200 ml @ 50 mls/hr IVPB Q8H [facility] [place] Rx#:[id number] Blood Product 650 / 650 Rbcs Leuko Poor As-3 2nd Unit 300 / 300 [id number] Rbcs Leuko Poor As-3 Ph Unit 350 / 350 [id number] Output: Catheter 350 / 350 950 / 950 Gastric Drainage 450 / 450 300 / 300 Other: Weight 78.1 kg Blood Glucose* 100 99 Patient Weight 06/22/17 23:59 Weight 78.1 kg - General physical appearance no distress (f) - Eyes normal ocular movement - ENT normal nares (NG tube secured in place), atraumatic, normocephalic - Neck Neck exam: no masses - Respiratory normal expansion, normal respiratory effort, clear to auscultation (dd) - Cardiovascular Cardiovascular exam: Present: RRR, no murmurs/rubs/gallops (f) - Abdomen Abdomen: Present: bowel sounds present, soft, tender (epigastric, RLQ, RUQ). Absent: rigid Abdominal Tenderness: epigastic, RUQ, RLQ - Neurologic CN 2-12 grossly intact, normal sensation - Psychiatric oriented to time, oriented to person, oriented to place, speech is normal, memory intact - Labs 06/22/17 05:15 06/22/17 05:15 Diabetes panel 06/22/17 Range/Units 05:15 Sodium 142 (136-145) mEq/L Potassium 3.4 L (3.5-4.5) mEq/L Chloride 116 H (98-109) mEq/L Carbon Dioxide 15 L (19-29) mEq/L BUN 36 H D (8-26) mg/dL Creatinine 1.81 H (0.72-1.25) mg/dL Glucose 85 (70-99) mg/dL Calcium 8.3 L (8.6-10.8) mg/dL Calcium panel 06/22/17 Range/Units 05:15 Calcium 8.3 L (8.6-10.8) mg/dL Pituitary panel 06/22/17 Range/Units 05:15 Sodium 142 (136-145) mEq/L Potassium 3.4 L (3.5-4.5) mEq/L Chloride 116 H (98-109) mEq/L Carbon Dioxide 15 L (19-29) mEq/L BUN 36 H D (8-26) mg/dL Creatinine 1.81 H (0.72-1.25) mg/dL Glucose 85 (70-99) mg/dL Calcium 8.3 L (8.6-10.8) mg/dL Adrenal panel 06/22/17 Range/Units 05:15 Sodium 142 (136-145) mEq/L Potassium 3.4 L (3.5-4.5) mEq/L Chloride 116 H (98-109) mEq/L Carbon Dioxide 15 L (19-29) mEq/L BUN 36 H D (8-26) mg/dL Creatinine 1.81 H (0.72-1.25) mg/dL Glucose 85 (70-99) mg/dL Calcium 8.3 L (8.6-10.8) mg/dL Consult Discharge Plan - Plan Referrals: NONE,PCP [Primary Care Provider] -
[2017-06-22] MEDS ORDERED: 0.9 % Sodium Chloride 1,000 ML IVC ONE (10:18)
[2017-06-22] MEDS: 0.9 % Sodium Chloride 1,000 ML IVC SCH ×2 (15:15→22:44)
[2017-06-22 15:17] LABS: Hematocrit 24.3 % (37.5-50.1); Hemoglobin 8.1 g/dL (12.9-16.9)
--- NOTE | 2017-06-22 17:26 | Electrocardiograph Report ---
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
[2017-06-22] MEDS ORDERED: Acetaminophen IV 1,000 MG/100 ML INFUS..BTL IVPB PRN (19:52)
[2017-06-22] MEDS: *HR* HYDROmorphone 20 MG/20 ML PCA IVC PRN (21:07)
[2017-06-23] MEDS: Ondansetron 4 MG/2 ML VIAL IVP SCH ×3 (00:12→07:38)
[2017-06-23] MEDS: Pantoprazole 80 MG in 0.9 % Sodium Chloride 250 ML IVC SCH (02:38)
[2017-06-23] MEDS: Piperacillin/Tazobactam 3.375 GM/200 ML BAG IVPB SCH ×3 (03:46→18:04)
[2017-06-23] MEDS: 0.9 % Sodium Chloride 1,000 ML IVC SCH (05:06)
[2017-06-23 05:33] LABS: Basophils % 0.2 %; Eosinophils # 0.4 K/mcL (0.0-0.6); Eosinophils % 2.6 %; Hematocrit 25.8 % (37.5-50.1); Lymphocytes # 0.5 K/mcL (0.6-4.6); Lymphocytes % 3.6 %; Mean Corpuscular Hemoglobin 29.1 pg (28.0-33.3); Mean Corpuscular Volume 93.8 fL (83.0-100.0); Mean Platelet Volume 9.3 fL (9.4-12.4); Monocytes # 0.6 K/mcL (0.0-1.3); Monocytes % 3.7 %; Neutrophils # 13.1 K/mcL (1.6-8.9); Platelet Count 405 K/mcL (140-400); Red Blood Count 2.75 M/mcL (4.19-5.50); Red Cell Distribution Width 18.4 % (11.5-14.5); Segmented Neutrophils % 87.9 %
[2017-06-23 05:40] LABS: BUN/Creatinine Ratio 18 (6-26); Calcium 8.8 mg/dL (8.6-10.8); Chloride 123 mEq/L (98-109); Glucose 65 mg/dL (70-99); Magnesium 1.6 mg/dL (1.6-2.6); Osmolality,Calculated 305 (280-300); Phosphorous 4.1 mg/dL (2.3-4.7); Potassium 3.9 mEq/L (3.5-4.5); Sodium 146 mEq/L (136-145); eGFR For African Americans > 60 (> 60); eGFR For Non-African Americans 57 (> 60)
[2017-06-23 05:43] LABS: Blood Urea Nitrogen 25 mg/dL (8-26)
[2017-06-23 05:44] LABS: Carbon Dioxide 10 mEq/L (19-29)
[2017-06-23 06:18] LABS: Anisocytosis 1+ (Not Present); Burr Cells 1+ (Not Present); Poikilocytosis 1+ (Not Present)
[2017-06-23] MEDS ORDERED: Ondansetron 4 MG/2 ML VIAL IVP PRN ×2 (08:00→14:13)
--- NOTE | 2017-06-23 08:19 | General Surgery Progress Note ---
Date of Encounter: 06/23/17 Time of Encounter: 07:30 - Assessment and Plan (1) Perforated abdominal viscus Current Visit: Yes Status: Acute Possibly d/t chronic NSAID use for back pain Opting for conservative management at this time NG tube in place with 350 mL output so far today WBC 14.9 this AM, possibly reactive, Zosyn (day 4) Upper GI series 06/22/17--"No evidence of contrast leak, with findings suspicious for an ulceration involving the distal stomach at the junction with the proximal duodenum" CT abdomen/pelvis 06/23/17--no intra-abdominal free air (seen on previous CT), moderate amt free fluid in abd/pelvis is non-specific and unchanged Plan: Carafate 1gm PO QID AC IVF changed to LR @ 75mL/h Dilaudid [employer]OR [employer]OMC[employer]RESHING pump Protonix 40mg IVP Q12H Continue Zosyn (day 4) d/c NG tube Clear liquid diet Stable to transfer to (2) Abdominal pain Current Visit: Yes Status: Acute Likely the result of gastric perforation. Plan as above. Qualifiers: Abdominal location: generalized Qualified Code(s): R10.84 - Generalized abdominal pain (3) Anemia Current Visit: Yes Status: Acute Received 2 units pRBCs 06/21/17 H/H of 8/25.8 on AM labs Plan: Continue to monitor with daily CBC Qualifiers: Anemia type: unspecified type Qualified Code(s): D64.9 - Anemia, unspecified (4) CARROLL (acute kidney injury) Current Visit: Yes Status: Acute BUN/creatinine of 25/1.38 Kidney function improving with creatinine decreased over yesterday (1.81) Possibly d/t NSAID use, dehydration, and organ damage due to sepsis Plan: Continue conservative measures for now Maintenance fluid (LR @ 75 mL/hr) Continue to monitor kidney function/Cr with daily AM labs Subjective Patient reports: still having pain (worse with leaning forward and laying down flat; has been sipping water stating it helps his abdominal pain), bowel movement (3-4 non-bloody) Narrative: Seen and examined this morning at bedside. Overnight, patient had Tmax 102.1 F and was given Ofirmev, since then has been afebrile. Patient is awake and sitting in bed. NG tube in place, hooked to suction. States he still has abdominal pain. He is upset that he hasn't been able to eat or drink anything for the last 4 days, especially since sipping water helps his stomach pain. Objective Vital Signs - Last 8 Hours Temp Pulse Resp BP Pulse Ox 06/23/17 07:46 89 06/23/17 07:26 98.9 F 06/23/17 07:00 87 15 142/78 95 06/23/17 06:00 85 16 141/83 97 06/23/17 05:00 92 24 138/79 98 06/23/17 04:17 97.4 F L 06/23/17 04:00 83 16 123/73 98 06/23/17 03:00 80 16 119/65 98 06/23/17 02:00 76 14 121/64 95 06/23/17 01:00 87 16 117/67 96 Intake and Output 06/22/17 06/23/17 06/23/17 23:59 07:59 15:59 Intake Total 1500 / 1500 1450 / 1450 Output Total 800 / 800 800 / 800 Balance 700 / 700 650 / 650 Intake: IV Fluids 1500 / 1500 1450 / 1450 0.9 % Sodium Chloride 1,000 ML 1000 / 1000 1000 / 1000 @ 125 mls/hr IVC .Q8H [facility] Rx#: [id number] Protonix 80 MG In 0.9 % Sodium 250 / 250 Chloride 250 ML @ 25 mls/hr IVC .Q10H [facility] Rx#:[id number] Ofirmev 1,000 mg/100 ml 1,000 100 / 100 mg In 100 ml @ 400 mls/hr IVPB Q8HR [facility] Rx#:[id number] Zosyn Premix 3.375 GM/200 ML 3. 400 / 400 200 / 200 375 gm In 200 ml @ 50 mls/hr IVPB Q8H [facility] Rx#:[id number] Output: Urine 300 / 300 450 / 450 Gastric Drainage 500 / 500 350 / 350 Other: Stool Size Large Large Stool Consistency liquid liquid Stool Color Brown Brown # Voids 1 1 # Bowel Movements 1 Weight 79.3 kg Blood Glucose* 78 70 Patient Weight 06/23/17 23:59 Weight 79.3 kg - General physical appearance well developed, well nourished, no distress - Eyes normal ocular movement - ENT atraumatic, normocephalic, Other (NG tube) - Neck Neck exam: no masses - Respiratory clear to auscultation (will not take deep breaths d/t abdominal pain) - Cardiovascular Cardiovascular exam: Present: RRR, no murmurs/rubs/gallops Addtional Comments: No LE edema; DP pulses equal - Abdomen Abdomen: Present: bowel sounds present, soft, tender (mid-epigastric and RUQ). Absent: distended, masses, rebound, rigid - Neurologic CN 2-12 grossly intact, normal coordination - Psychiatric oriented to time, oriented to person, oriented to place, speech is normal, memory intact - Labs 06/23/17 05:16 06/23/17 05:16 Diabetes panel 06/23/17 Range/Units 05:16 Sodium 146 H (136-145) mEq/L Potassium 3.9 (3.5-4.5) mEq/L Chloride 123 H (98-109) mEq/L Carbon Dioxide 10 L* (19-29) mEq/L BUN 25 D (8-26) mg/dL Creatinine 1.38 H (0.72-1.25) mg/dL Glucose 65 L (70-99) mg/dL Calcium 8.8 (8.6-10.8) mg/dL Calcium panel 06/23/17 06/23/17 Range/Units 05:16 05:16 Calcium 8.8 (8.6-10.8) mg/dL Phosphorus 4.1 (2.3-4.7) mg/dL Pituitary panel 06/23/17 Range/Units 05:16 Sodium 146 H (136-145) mEq/L Potassium 3.9 (3.5-4.5) mEq/L Chloride 123 H (98-109) mEq/L Carbon Dioxide 10 L* (19-29) mEq/L BUN 25 D (8-26) mg/dL Creatinine 1.38 H (0.72-1.25) mg/dL Glucose 65 L (70-99) mg/dL Calcium 8.8 (8.6-10.8) mg/dL Adrenal panel 06/23/17 Range/Units 05:16 Sodium 146 H (136-145) mEq/L Potassium 3.9 (3.5-4.5) mEq/L Chloride 123 H (98-109) mEq/L Carbon Dioxide 10 L* (19-29) mEq/L BUN 25 D (8-26) mg/dL Creatinine 1.38 H (0.72-1.25) mg/dL Glucose 65 L (70-99) mg/dL Calcium 8.8 (8.6-10.8) mg/dL - VTE Documentation of Mechanical Device: Intermittent pneumatic compression device Consult Discharge Plan - Plan Referrals: NONE,PCP [Primary Care Provider] -
[2017-06-23] MEDS ORDERED: Ringers Solution, Lactated 1,000 ML IVC SCH ×2 (10:30→13:16)
[2017-06-23] MEDS ORDERED: Dextrose Gel 15 GM/37.5 ML TUBE PO PRN ×4 (10:31→14:13)
[2017-06-23] MEDS ORDERED: D5% in Water 1,000 ML IVC PRN ×2 (10:31→14:13)
[2017-06-23] MEDS ORDERED: *HR* Dextrose 50 % in Water (Syg) 50 ML SYRINGE IVP PRN ×2 (10:31→14:13)
[2017-06-23] MEDS ORDERED: Ringers Solution, Lactated 1,000 ML ONE (10:39)
[2017-06-23] MEDS ORDERED: Sucralfate 1 GM TABLET PO SCH (13:15)
[2017-06-23] MEDS ORDERED: Acetaminophen IV 1,000 MG/100 ML INFUS..BTL IVPB PRN (14:13)
[2017-06-23] MEDS: Sucralfate 1 GM TABLET PO SCH ×2 (16:22→20:28)
[2017-06-23] MEDS ORDERED: Pantoprazole 40 MG VIAL IVP SCH (18:00)
[2017-06-23] MEDS: Pantoprazole 40 MG VIAL IVP SCH (18:04)
[2017-06-23] MEDS: Ringers Solution, Lactated 1,000 ML IVC SCH ×2 (20:01→20:35)
[2017-06-23] MEDS ORDERED: 0.9 % Sodium Chloride 250 ML ONE (20:30)
[2017-06-24] MEDS: Piperacillin/Tazobactam 3.375 GM/200 ML BAG IVPB SCH ×3 (03:07→20:09)
[2017-06-24] MEDS: *HR* HYDROmorphone 20 MG/20 ML PCA IVC PRN (03:15)
[2017-06-24] MEDS: Pantoprazole 40 MG VIAL IVP SCH ×2 (04:57→17:50)
[2017-06-24 05:18] LABS: Hematocrit 23.8 % (37.5-50.1); Hemoglobin 7.8 g/dL (12.9-16.9); Mean Corpuscular HGB Conc 32.8 g/dL (31.6-35.5); Mean Corpuscular Hemoglobin 29.2 pg (28.0-33.3); Mean Corpuscular Volume 89.1 fL (83.0-100.0); Mean Platelet Volume 9.1 fL (9.4-12.4); Platelet Count 353 K/mcL (140-400); Red Blood Count 2.67 M/mcL (4.19-5.50); Red Cell Distribution Width 18.1 % (11.5-14.5)
[2017-06-24 05:36] LABS: BUN/Creatinine Ratio 13 (6-26); Blood Urea Nitrogen 15 mg/dL (6-20); Calcium 8.4 mg/dL (8.6-10.3); Carbon Dioxide 15 mEq/L (23-29); Chloride 115 mEq/L (98-107); Glucose 88 mg/dL (70-105); Osmolality,Calculated 286 (280-300); Potassium 2.8 mEq/L (3.5-5.1); Sodium 138 mEq/L (136-145); eGFR For African Americans > 60 (> 60); eGFR For Non-African Americans > 60 (> 60)
[2017-06-24 06:06] LABS: Eosinophils # 0.6 K/mcL (0.0-0.6); Hypochromasia Present (Not Present); Lymphocytes # 0.9 K/mcL (0.6-4.6); Monocytes # 0.6 K/mcL (0.0-1.3); Neutrophils # 13.2 K/mcL (1.6-8.9); Platelet Estimate Normal (Normal)
[2017-06-24 06:07] LABS: Burr Cells 1+ (Not Present); Polychromasia 1+ (Not Present)
[2017-06-24] MEDS: Sucralfate 1 GM TABLET PO SCH ×4 (08:15→22:11)
--- NOTE | 2017-06-24 09:10 | General Surgery Progress Note ---
Date of Encounter: 06/24/17 Time of Encounter: 09:00 - Assessment and Plan (1) Perforated abdominal viscus Current Visit: Yes Status: Acute Continue Clear liquid diet with protein supplements TID IV fluids- 75ml/hour IV antibiotics- Zosyn Supportive care and pain control- Dilaudid PREHEMMER PPI therapy twice daily Carafate every 6 hours NG tube removed 06/23/17 IS every [address] scan complete 06/23/[address] Meier- no organized fluid collection identified May transfer to when bed available Repeat am labs (2) Hypokalemia Current Visit: No Status: Acute Replace potassium Repeat am labs (3) Anemia Current Visit: Yes Status: Acute Stable 8.0>7.8 Qualifiers: Anemia type: unspecified type Qualified Code(s): D64.9 - Anemia, unspecified (4) CARROLL (acute kidney injury) Current Visit: Yes Status: Resolved Improving Cr- 1.38>1.13 UOP improving Strict I&Os (5) DVT prophylaxis Current Visit: Yes Status: Acute EPCDs to bilateral lower extremities for DVT prophylaxis Increase activity- out of bed to chair TID and ambulate TID with assistance Subjective Patient reports: no new complaints, still having pain (unchanged), tolerating liquids well, voiding w/o difficulty, flatus, bowel movement (last evening and this morning), fever (Tmax 100.1 at 1100 yesterday, Tcurrent- 98.3), other ( Denies nausea but does feel more bloated today) Objective Vital Signs - Last 8 Hours Temp Pulse Resp BP Pulse Ox 06/24/17 07:00 79 16 136/84 06/24/17 04:56 98.3 F 06/24/17 04:52 78 24 140/83 99 06/24/17 03:00 78 18 128/77 96 Intake and Output 06/23/17 06/24/17 06/24/17 23:59 07:59 15:59 Intake Total 680 / 680 0 / 0 200 / 200 Output Total 1000 / 1000 425 / 425 Balance -320 / -320 -425 / -425 200 / 200 Intake: IV Fluids 200 / 200 200 / 200 Zosyn Premix 3.375 GM/200 ML 3. 200 / 200 200 / 200 375 gm In 200 ml @ 50 mls/hr IVPB Q8H [facility] Rx#:[id number] Oral 480 / 480 0 / 0 Output: Urine 1000 / 1000 425 / 425 Other: Meal Dinner Weight 80.1 kg Blood Glucose* 89 Patient Weight 06/24/17 23:59 Weight 80.1 kg - General physical appearance well developed, well nourished, no distress, moderate pain - Eyes normal ocular movement - ENT normal mucosa, atraumatic, normocephalic - Neck Neck exam: trachea midline - Respiratory normal respiratory effort, clear to auscultation, other (diminished bibasilar bases) - Cardiovascular Cardiovascular exam: Present: RRR - Abdomen Abdomen: Present: distended, tender (unchanged) - Neurologic CN 2-12 grossly intact - Psychiatric oriented to time, oriented to person, oriented to place, speech is normal, memory intact - Labs 06/24/17 04:47 06/24/17 04:47 Diabetes panel 06/24/17 Range/Units 04:47 Sodium 138 (136-145) mEq/L Potassium 2.8 L (3.5-5.1) mEq/L Chloride 115 H (98-107) mEq/L Carbon Dioxide 15 L (23-29) mEq/L BUN 15 (6-20) mg/dL Creatinine 1.13 (0.70-1.30) mg/dL Glucose 88 (70-105) mg/dL Calcium 8.4 L (8.6-10.3) mg/dL Calcium panel 06/24/17 Range/Units 04:47 Calcium 8.4 L (8.6-10.3) mg/dL Pituitary panel 06/24/17 Range/Units 04:47 Sodium 138 (136-145) mEq/L Potassium 2.8 L (3.5-5.1) mEq/L Chloride 115 H (98-107) mEq/L Carbon Dioxide 15 L (23-29) mEq/L BUN 15 (6-20) mg/dL Creatinine 1.13 (0.70-1.30) mg/dL Glucose 88 (70-105) mg/dL Calcium 8.4 L (8.6-10.3) mg/dL Adrenal panel 06/24/17 Range/Units 04:47 Sodium 138 (136-145) mEq/L Potassium 2.8 L (3.5-5.1) mEq/L Chloride 115 H (98-107) mEq/L Carbon Dioxide 15 L (23-29) mEq/L BUN 15 (6-20) mg/dL Creatinine 1.13 (0.70-1.30) mg/dL Glucose 88 (70-105) mg/dL Calcium 8.4 L (8.6-10.3) mg/dL - VTE Documentation of Mechanical Device: Intermittent pneumatic compression device Consult Discharge Plan - Plan Referrals: NONE,PCP [Primary Care Provider] - - Attending Attestation For this encounter, I have reviewed the MANAGER PRINT or PA documentation, treatment plan, and medical decision making; and I have had face to face time with this patient.
[2017-06-24] MEDS: Ipratropium/Albuterol Neb 3 ML IH SCH ×4 (11:29→23:50)
[2017-06-24] MEDS: Potassium Chloride 40 MEQ, Lidocaine 1% 2 ML in D5% in Water 500 ML IVPB SCH ×2 (11:33→16:13)
[2017-06-24] MEDS: Ringers Solution, Lactated 1,000 ML IVC SCH (11:38)
[2017-06-24] MEDS: Pantoprazole 80 MG in 0.9 % Sodium Chloride 250 ML IVC SCH (19:42)
[2017-06-25] MEDS: Ringers Solution, Lactated 1,000 ML IVC SCH (01:00)
[2017-06-25] MEDS: Ipratropium/Albuterol Neb 3 ML IH SCH ×6 (03:35→23:14)
[2017-06-25] MEDS: Piperacillin/Tazobactam 3.375 GM/200 ML BAG IVPB SCH ×3 (03:41→20:09)
[2017-06-25] MEDS: *HR* HYDROmorphone 20 MG/20 ML PCA IVC PRN (05:21)
[2017-06-25 05:40] LABS: Hematocrit 23.6 % (37.5-50.1); Hemoglobin 7.7 g/dL (12.9-16.9); Mean Corpuscular HGB Conc 32.6 g/dL (31.6-35.5); Mean Corpuscular Hemoglobin 28.7 pg (28.0-33.3); Mean Corpuscular Volume 88.1 fL (83.0-100.0); Platelet Count 362 K/mcL (140-400); Red Blood Count 2.68 M/mcL (4.19-5.50); Red Cell Distribution Width 17.6 % (11.5-14.5)
[2017-06-25 06:06] LABS: BUN/Creatinine Ratio 9 (6-26); Blood Urea Nitrogen 9 mg/dL (6-20); Calcium 8.1 mg/dL (8.6-10.3); Carbon Dioxide 17 mEq/L (23-29); Chloride 112 mEq/L (98-107); Glucose 108 mg/dL (70-105); Osmolality,Calculated 289 (280-300); Potassium 2.8 mEq/L (3.5-5.1); Sodium 140 mEq/L (136-145); eGFR For African Americans > 60 (> 60); eGFR For Non-African Americans > 60 (> 60)
[2017-06-25 06:24] LABS: Eosinophils # 0.5 K/mcL (0.0-0.6); Lymphocytes # 0.7 K/mcL (0.6-4.6); Monocytes # 0.7 K/mcL (0.0-1.3); Neutrophils # 10.2 K/mcL (1.6-8.9); Platelet Estimate Normal (Normal)
[2017-06-25 06:25] LABS: Anisocytosis 1+ (Not Present)
[2017-06-25] MEDS: Pantoprazole 40 MG VIAL IVP SCH ×2 (06:25→17:28)
[2017-06-25] MEDS: Sucralfate 1 GM TABLET PO SCH ×4 (06:25→22:57)
--- NOTE | 2017-06-25 10:40 | General Surgery Progress Note ---
Date of Encounter: 06/25/17 Time of Encounter: 10:40 - Assessment and Plan (1) Perforated abdominal viscus Current Visit: Yes Status: Acute Pt reports no BM today but endorses flatus. He states increased abdominal and new right flank discomfort as well as scrotal, penile, and lower extremity edema today. Denies n/v. One episode of fever 99.9 at 2300 06/24/2017. 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 Will continue to closely monitor and repeat serial abdominal exams. repeat a.m. Above reviewed with Dr Meier (2) Edema Current Visit: Yes Status: Acute He was noted to have an acute kidney injury upon admission appears to have resolved (creatinine 1.83>>1.81>>1.38>>1.13>>1.05). He was fluid resuscitated, and has notably received 18.4 L of total IV fluid this admission. His total fluid balance is over by 7.6 L. He is hypokalemic despite replacement. He is slighly Hypertensive 136/83 He appears fluid overloaded; however, his edema is worse on the right. Fluid OV vs thirdspacing vs LE DVT Plan: Will obtain a 2-view CXR and replace potassium. Complete BLLE dopplers r/o DVT Add heparin SubQ injecitons for DVT prophylaxis Lasix pending results above Will stop IVF at this time given above 1249: CXR consistent with fluid overload and is noted to also have consolidation. Will treat with IV Lasix and consider cardiology given edema and cardiomegaly in the setting of previously undisclosed history of ASHD Qualifiers: Edema type: unspecified Qualified Code(s): R60.9 - Edema, unspecified (3) DVT prophylaxis Current Visit: Yes Status: Acute EPCDs while in bed Ambulation Add heparin subQ BID BL LE dopplers to r/o DVT (4) Abdominal pain Current Visit: Yes Status: Acute See above Qualifiers: Abdominal location: generalized Qualified Code(s): R10.84 - Generalized abdominal pain (5) CARROLL (acute kidney injury) Current Visit: Yes Status: Resolved He was noted to have an acute kidney injury upon admission appears to have resolved (creatinine 1.83>>1.81>>1.38>>1.13>>1.05). He was fluid resuscitated, and has notably received 18.4 L of total IV fluid this admission. His total fluid balance is over by 7.6 L. Plan: Continue to monitor (6) Smoking history Current Visit: Yes Status: Acute (7) Hypokalemia Current Visit: Yes Status: Acute replace K as indicated. Repeat am labs (8) Difficulty urinating Current Visit: Yes Status: Acute Obtain clean catch you a with reflux to culture obtain post void residual given his complaints of difficulty maintaining a stream after he begins urinating out of bed to use urinal. Do not urinate in the urinal while in bed. Further recommendations pending. Subjective Patient reports: still having pain, flatus, no bowel movement (Last BM 2016), shortness of breath, afebrile, other Narrative: Gio complains of lower extremity edema, right hip edema, scrotal and lower pelvis edema, and difficulty urinating (he states he does not have trouble initiating a stream however after he urinates a little it begins to burn and "hurts"). He reports that he also has increased abdominal discomfort and right flank discomfort over the last 24 hours. He reports feelings of mild shortness of breath with activity. He denies nausea or vomiting. He reports a history of AMI when he was 32 (not previously disclosed), but denies a history of heart failure. Objective Vital Signs - Last 8 Hours Temp Pulse Resp BP Pulse Ox 06/25/17 07:47 18 93 06/25/17 07:10 98.6 F 85 18 136/83 93 06/25/17 04:29 98.7 F 83 15 127/78 97 06/25/17 03:37 16 99 Intake and Output 06/24/17 06/25/17 06/25/17 23:59 07:59 15:59 Intake Total 1544 / 1544 1340 / 1340 560 / 560 Output Total 400 / 400 500 / 500 Balance 1144 / 1144 840 / 840 560 / 560 Intake: IV Fluids 1244 / 1244 1300 / 1300 200 / 200 Lactated Ringers 1,000 ML @ 75 1000 / 1000 mls/hr IVC .[id number] [facility] Rx#: [id number] Ofirmev 1,000 mg/100 ml 1,000 100 / 100 mg In 100 ml @ 400 mls/hr IVPB Q8HR [facility] Rx#:[id number] Zosyn Premix 3.375 GM/200 ML 3. 200 / 200 200 / 200 200 / 200 375 gm In 200 ml @ 50 mls/hr IVPB Q8H [facility] Rx#:[id number] KCl 40 MEQ Xylocaine 2 ML In 1044 / 1044 Dextrose 5% 500 ML @ 130.5 mls/ hr IVPB Q4H [facility] Rx#:[id number] Oral 300 / 300 40 / 40 360 / 360 Output: Urine 400 / 400 500 / 500 Other: Weight 82.645 kg Patient Weight 06/25/17 23:59 Weight 82.645 kg - General physical appearance no distress, moderate pain - Eyes normal ocular movement - ENT atraumatic, normocephalic - Neck Neck exam: trachea midline, other (Mild JVD) - Respiratory other (Decreased bilateral breath sounds, bilateral crackles in the bases, otherwise tight) crackles: bilateral - Cardiovascular Cardiovascular exam: Present: RRR, murmurs - Abdomen Abdomen: Present: bowel sounds present (Hyperactive) Abdominal Tenderness: RUQ, RLQ, LLQ Hernia: none Additional Comments: Involuntary guarding noted. There is generalized edema in the pelvic area, the penis and scrotum are demitasse, the right hip is edematous with 1+ pitting edema. - Genitourinary other (See additional comments under abdomen above) - Integumentary no abnormal pigmentation - Neurologic normal coordination, normal sensation - Musculoskeletal other (Garding posture) - Psychiatric oriented to time, oriented to person, memory intact - Labs 06/25/17 05:24 06/25/17 05:24 Diabetes panel 06/25/17 Range/Units 05:24 Sodium 140 (136-145) mEq/L Potassium 2.8 L (3.5-5.1) mEq/L Chloride 112 H (98-107) mEq/L Carbon Dioxide 17 L (23-29) mEq/L BUN 9 (6-20) mg/dL Creatinine 1.05 (0.70-1.30) mg/dL Glucose 108 H (70-105) mg/dL Calcium 8.1 L (8.6-10.3) mg/dL Calcium panel 06/25/17 Range/Units 05:24 Calcium 8.1 L (8.6-10.3) mg/dL Pituitary panel 06/25/17 Range/Units 05:24 Sodium 140 (136-145) mEq/L Potassium 2.8 L (3.5-5.1) mEq/L Chloride 112 H (98-107) mEq/L Carbon Dioxide 17 L (23-29) mEq/L BUN 9 (6-20) mg/dL Creatinine 1.05 (0.70-1.30) mg/dL Glucose 108 H (70-105) mg/dL Calcium 8.1 L (8.6-10.3) mg/dL Adrenal panel 06/25/17 Range/Units 05:24 Sodium 140 (136-145) mEq/L Potassium 2.8 L (3.5-5.1) mEq/L Chloride 112 H (98-107) mEq/L Carbon Dioxide 17 L (23-29) mEq/L BUN 9 (6-20) mg/dL Creatinine 1.05 (0.70-1.30) mg/dL Glucose 108 H (70-105) mg/dL Calcium 8.1 L (8.6-10.3) mg/dL - VTE Documentation of Mechanical Device: Intermittent pneumatic compression device Consult Discharge Plan - Plan Referrals: NONE,PCP [Primary Care Provider] -
[2017-06-25] MEDS ORDERED: Potassium Chloride 40 MEQ, Lidocaine 1% 2 ML in D5% in Water 500 ML IVPB ONE ×2 (10:50→18:41)
[2017-06-25] MEDS ORDERED: Furosemide 20 MG/2 ML VIAL IVP ONE (12:50)
[2017-06-25 13:03] LABS: Bilirubin,Urine Negative (Negative); Blood,Urine Trace-intact (Negative); Clarity,Urine Clear (Clear); Color,Urine Yellow (Yellow); Glucose,Urine (UA) Normal (Normal); Ketones,Urine Negative (Negative); Leukocyte Esterase,Urine Negative (Negative); Nitrite,Urine Negative (Negative); Protein,Urine 30 mg/dL (Neg-Trace); Urobilinogen,Urine Normal (Normal)
[2017-06-25 13:19] LABS: Mucus,Urine Few (Few)
[2017-06-25 13:21] LABS: Bacteria,Urine Few per hpf (None-Few); RBC,Urine 0-3 per hpf (0-3); Squamous Epithelial Cell,Urine Few per lpf (None-Few)
[2017-06-25] MEDS: Levofloxacin 750 MG/150 ML 750 MG/150 ML BAG IVPB SCH (14:22)
[2017-06-25] MEDS ORDERED: *HR* HYDROmorphone (PF) 1 MG/ML SYRINGE IVP PRN (14:41)
--- NOTE | 2017-06-25 14:58 | Event Note ---
Date of Encounter: 06/25/17 Time of Encounter: 14:40 Notified per bedside RN of post-void residual of 450 ml (after urinating 350 ml) . We will add Flomax. If urinary retention continues after Flomax, he will need alvarez catheter placed. Stopped IV fluids. May run carrier IVF at 25 ml/hr when giving ATBX. 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 Replacing K currently. Will need rechecked at 1700 following replacement and IV lasix x1 dose for fluid overload. Strict I/Os, daily standing scale weights
[2017-06-25] MEDS ORDERED: 0.9 % Sodium Chloride 1,000 ML IVC SCH ×2 (15:00)
[2017-06-25] MEDS: *HR* OxyCODONE/APAP 10/325 TABLET PO PRN ×2 (16:28→20:33)
[2017-06-25] MEDS: Ketorolac 15 MG/ML VIAL IVP SCH (17:29)
[2017-06-25] MEDS: *HR* Heparin 5,000 UNIT/ML VIAL SQ SCH (17:29)
[2017-06-26] MEDS: Ketorolac 15 MG/ML VIAL IVP SCH ×2 (00:06→05:31)
[2017-06-26] MEDS: Piperacillin/Tazobactam 3.375 GM/200 ML BAG IVPB SCH ×3 (03:09→17:55)
[2017-06-26] MEDS: Ipratropium/Albuterol Neb 3 ML IH SCH ×5 (03:27→20:45)
[2017-06-26] MEDS: Pantoprazole 40 MG VIAL IVP SCH (05:31)
[2017-06-26] MEDS: *HR* Heparin 5,000 UNIT/ML VIAL SQ SCH ×2 (05:31→17:55)
[2017-06-26 05:49] LABS: BUN/Creatinine Ratio 6 (6-26); Blood Urea Nitrogen 6 mg/dL (6-20); Calcium 8.2 mg/dL (8.6-10.3); Carbon Dioxide 19 mEq/L (23-29); Chloride 111 mEq/L (98-107); Glucose 105 mg/dL (70-105); Magnesium 1.6 mg/dL (1.6-2.6); Osmolality,Calculated 284 (280-300); Phosphorous 3.8 mg/dL (2.7-4.5); Potassium 2.9 mEq/L (3.5-5.1); Sodium 138 mEq/L (136-145); eGFR For African Americans > 60 (> 60); eGFR For Non-African Americans > 60 (> 60)
[2017-06-26 05:57] LABS: Hematocrit 27.1 % (37.5-50.1); Hemoglobin 8.6 g/dL (12.9-16.9); Mean Corpuscular HGB Conc 31.7 g/dL (31.6-35.5); Mean Corpuscular Hemoglobin 27.8 pg (28.0-33.3); Mean Corpuscular Volume 87.7 fL (83.0-100.0); Mean Platelet Volume 9.3 fL (9.4-12.4); Platelet Count 483 K/mcL (140-400); Red Blood Count 3.09 M/mcL (4.19-5.50); Red Cell Distribution Width 17.5 % (11.5-14.5)
[2017-06-26 05:58] LABS: Eosinophils # 0.7 K/mcL (0.0-0.6); Monocytes # 0.7 K/mcL (0.0-1.3)
[2017-06-26 07:01] LABS: Anisocytosis 1+ (Not Present); Neutrophils # 9.4 K/mcL (1.6-8.9); Platelet Estimate Increased (Normal)
[2017-06-26 07:02] LABS: Macrocytosis Present (Not Present); Microcytosis Present (Not Present); Poikilocytosis 1+ (Not Present); Schistocytes 1+ (Not Present)
[2017-06-26] MEDS: Levofloxacin 750 MG/150 ML 750 MG/150 ML BAG IVPB SCH (07:36)
[2017-06-26] MEDS: *HR* OxyCODONE/APAP 10/325 TABLET PO PRN ×4 (07:36→20:26)
[2017-06-26] MEDS: Sucralfate 1 GM TABLET PO SCH ×4 (07:36→20:26)
[2017-06-26] MEDS ORDERED: Acetaminophen 325 MG TABLET PO PRN (14:00)
--- NOTE | 2017-06-26 14:48 | General Surgery Progress Note ---
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 Meier- no organized fluid collection identified Repeat am labs (2) Hypokalemia Current Visit: Yes Status: Acute Replace potassium Repeat am labs (3) Anemia Current Visit: Yes Status: Acute Stable 8.0>7.8>7.7>8.6 Qualifiers: Anemia type: unspecified type Qualified Code(s): D64.9 - Anemia, unspecified (4) CARROLL (acute kidney injury) Current Visit: Yes Status: Resolved Improving Cr- 1.38>1.13>1.05>0.97 UOP improving Strict I&Os (5) Pneumonia Current Visit: No Status: Acute IS every 1 hour while awake Duonebs as scheduled Levaquin daily Qualifiers: Pneumonia type: due to unspecified organism Laterality: bilateral Lung location: unspecified part of lung Qualified Code(s): J18.9 - Pneumonia, unspecified organism (6) DVT prophylaxis Current Visit: Yes Status: Acute Heparin 5,000 units SQ twice daily for DVT prophylaxis EPCDs to bilateral lower extremities for DVT prophylaxis Increase activity- out of bed to chair TID and ambulate TID with assistance Subjective Patient reports: no new complaints, feels better, still having pain, pain is less, tolerating liquids well, voiding w/o difficulty, flatus, bowel movement, afebrile, other (Bloating after eating which resolves, denies nausea/vomiting) Objective Vital Signs - Last 8 Hours Temp Pulse Resp BP Pulse Ox 06/26/17 12:30 98.7 F 90 18 123/81 100 06/26/17 11:54 14 99 06/26/17 07:47 98.1 F 86 14 143/87 99 Intake and Output 06/25/17 06/26/17 06/26/17 23:59 07:59 15:59 Intake Total 870 / 870 320 / 320 200 / 200 Output Total 350 / 350 1250 / 1250 Balance 520 / 520 -930 / -930 200 / 200 Intake: IV Fluids 350 / 350 200 / 200 200 / 200 Levaquin Premix 750mg/150 mL 150 / 150 750 mg In 150 ml @ 100 mls/hr IVPB DAILY [facility] Rx#:[id number] Zosyn Premix 3.375 GM/200 ML 3. 200 / 200 200 / 200 200 / 200 375 gm In 200 ml @ 50 mls/hr IVPB Q8H [facility] Rx#:[id number] Oral 520 / 520 120 / 120 0 / 0 Output: Urine 350 / 350 1250 / 1250 Other: Meal Dinner Weight 83.461 kg Patient Weight 06/26/17 23:59 Weight 83.461 kg - General physical appearance well developed, well nourished, no distress - Eyes normal ocular movement - ENT normal mucosa, atraumatic, normocephalic - Neck Neck exam: trachea midline - Respiratory normal respiratory effort, clear to auscultation - Cardiovascular Cardiovascular exam: Present: RRR - Abdomen Abdomen: Present: bowel sounds present, soft, tender (generalized (improving)) - Neurologic CN 2-12 grossly intact - Musculoskeletal normal gait, normal posture - Psychiatric oriented to time, oriented to person, oriented to place, speech is normal, memory intact - Labs 06/26/17 05:12 06/26/17 05:12 Diabetes panel 06/25/17 06/26/17 Range/Units 16:41 05:12 Sodium 138 (136-145) mEq/L Potassium 2.8 L 2.9 L (3.5-5.1) mEq/L Chloride 111 H (98-107) mEq/L Carbon Dioxide 19 L (23-29) mEq/L BUN 6 (6-20) mg/dL Creatinine 0.97 (0.70-1.30) mg/dL Glucose 105 (70-105) mg/dL Calcium 8.2 L (8.6-10.3) mg/dL Calcium panel 06/26/17 Range/Units 05:12 Calcium 8.2 L (8.6-10.3) mg/dL Phosphorus 3.8 (2.7-4.5) mg/dL Pituitary panel 06/25/17 06/26/17 Range/Units 16:41 05:12 Sodium 138 (136-145) mEq/L Potassium 2.8 L 2.9 L (3.5-5.1) mEq/L Chloride 111 H (98-107) mEq/L Carbon Dioxide 19 L (23-29) mEq/L BUN 6 (6-20) mg/dL Creatinine 0.97 (0.70-1.30) mg/dL Glucose 105 (70-105) mg/dL Calcium 8.2 L (8.6-10.3) mg/dL Adrenal panel 06/25/17 06/26/17 Range/Units 16:41 05:12 Sodium 138 (136-145) mEq/L Potassium 2.8 L 2.9 L (3.5-5.1) mEq/L Chloride 111 H (98-107) mEq/L Carbon Dioxide 19 L (23-29) mEq/L BUN 6 (6-20) mg/dL Creatinine 0.97 (0.70-1.30) mg/dL Glucose 105 (70-105) mg/dL Calcium 8.2 L (8.6-10.3) mg/dL - VTE Documentation of Mechanical Device: Intermittent pneumatic compression device Consult Discharge Plan - Plan Referrals: NONE,PCP [Primary Care Provider] - - Attending Attestation For this encounter, I have reviewed the WOODS SUPERINTENDENT or PA documentation, treatment plan, and medical decision making; and I have had face to face time with this patient.
--- NOTE | 2017-06-26 15:12 | Discharge Summary ---
<Dina Andre Linette - Last Filed: 06/26/17 15:20> Date of Encounter: 06/26/17 Time of Encounter: 14:56 - Discharge Diagnosis (1) Perforated abdominal viscus Priority: Primary Status: Resolved (2) Hypokalemia Priority: Secondary Status: Acute (3) Anemia Priority: Secondary Status: Acute Qualifiers: Anemia type: unspecified type Qualified Code(s): D64.9 - Anemia, unspecified (4) CARROLL (acute kidney injury) Priority: Secondary Status: Resolved (5) Pneumonia Priority: Secondary Status: Acute Qualifiers: Pneumonia type: due to unspecified organism Laterality: bilateral Lung location: unspecified part of lung Qualified Code(s): J18.9 - Pneumonia, unspecified organism - Discharge Medications Prescriptions: Albuterol Sulfate [Albuterol Inhaler] 2 puff IH Q4HR PRN #1 hfa.aer.ad PRN Reason: Shortness Of Breath OxyCODONE/APAP 10/325 [Percocet 10/325 MG] 1 each PO Q4HR PRN #30 tablet PRN Reason: Pain Ipratropium [ATROVENT Inhaler] 2 puff IH Q6HR #1 hfa.aer.ad Ondansetron ODT [Zofran ODT] 4 mg SL Q6HR PRN #40 tab.rapdis PRN Reason: Nausea Amoxicillin/Clavulanate [Augmentin] 875 mg PO BIDWM #14 tablet levoFLOXacin [Levaquin] 750 mg PO DAILY #5 tablet Omeprazole [PriLOSEC] 20 mg PO BIDAC #60 capsule. Sucralfate [Carafate] 1 gm PO QIDAC #120 tablet Tamsulosin [Flomax] 0.4 mg PO DAILY #7 capsule Home Medications: Albuterol Sulfate [Albuterol Inhaler] 2 puff IH Q4HR PRN #1 hfa.aer.ad 06/26/17 [Rx] Amoxicillin/Clavulanate [Augmentin] 875 mg PO BIDWM #14 tablet 06/26/17 [Rx] Ipratropium [ATROVENT Inhaler] 2 puff IH Q6HR #1 hfa.aer.paul 06/26/17 [Rx] Omeprazole [PriLOSEC] 20 mg PO BIDAC #60 capsule. 06/26/17 [Rx] Ondansetron ODT [Zofran ODT] 4 mg SL Q6HR PRN #40 tab.mitchel 06/26/17 [Rx] OxyCODONE/APAP 10/325 [Percocet 10/325 MG] 1 each PO Q4HR PRN #30 tablet [Rx] Sucralfate [Carafate] 1 gm PO QIDAC #120 tablet 06/26/17 [Rx] Tamsulosin [Flomax] 0.4 mg PO DAILY #7 capsule 06/26/17 [Rx] levoFLOXacin [Levaquin] 750 mg PO DAILY #5 tablet 06/26/17 [Rx] Allergies/Adverse Reactions: 3 Allergy/AdvReac Type Severity Reaction Status Date / Time No Known Allergies Allergy Verified 06/20/17 09:24 General Surgery Exam Initial Vital Signs Temp Pulse Resp BP Pulse Ox 99 F 115 20 129/69 98 06/20/17 09:24 06/20/17 09:24 06/20/17 09:24 06/20/17 09:24 06/20/17 09:24 Date of admission: 06/20/17 11:45 Primary care physician: PCP NONE Consults: 06/20/17 12:49 Consult to Nutrition [CONS] Routine Comment: Consulting Provider: NUTRITION Reason for Dietary Consult: MST Score 06/25/17 14:59 Consult to Respiratory Therapy [CONS] Stat Reason for Consult: Aggressive pulmonary toileting and Sputum culture given BL infiltrates Call Completed: No Discharging clinician: Yoko Lynn ([facility]) Anticipated date of discharge: 06/27/17 - Patient Status Disposition: Home, Self-Care Condition: Good Functional capacity at discharge: independent ambulation Overall status at discharge: patient is progressing back to baseline - Discharge Instructions Instructions: Acute Kidney Injury (GEN) Follow Up With: Flaco Meier DO [Partnered Physician] - 07/13/17 9:10 am (Hospital follow-up) NONE,PCP [Primary Care Provider] - (Please set patient up with PCP prior to discharge and schedule for f/u in 1 week) Additional Instructions: Incentive spirometer every 1 hour while awake No NSAIDS, ibuprofen, aleve, motrin, etc ok for tylenol once off pain medication (narcotics) obtain wbc on 07/01/17 (prescription given) - Diet and Activity Activity: increase activity as tolerated Diet: other (full liquid diet for the next 2 weeks; protein supplements ( carnation instant breakfast- 3 bottles per day)) - Hospital Course Hospital course: Mr. Barlow is a 42 year old male who presented to the emergency department with acute onset abdominal pain. He was found to have a perforated viscus most consistent with a perforated gastric ulcer. The patient also had a significant acute kidney injury. He was admitted to the intensive care unit and started on conservative measures. The conservative measures included bowel rest with NG tube to low intermittent wall suction, IV antibiotics, supportive care and hydration, ppi therapy. The patient has slowly improved with conservative measures. He did have a repeat CAT scan evaluation which shows no organized fluid collection and no evidence of an ongoing leak from the gastric perforation. He has been started on a clear liquid diet and is tolerating this without difficulty. He does report occasional bloating after eating but states that he has no nausea or vomiting. His bloating does resolve between meals. He has had a chest x-ray which shows evidence of bilateral infiltrates. He has been started on Levaquin IV for treatment of pneumonia. He has received scheduled DuoNeb and has been encouraged to complete his incentive spirometer every 1 hour while awake. His acute kidney injury has resolved with hydration. The patient did complain of urinary retention and was started on Flomax 0.4 mg daily. He states that his symptoms have significantly improved with the start of Flomax. His vital signs are stable and he has remained afebrile. His white count has returned to normal. We will begin discharge planning to home in the next 24-48 hours and plan for outpatient follow-up in the next 2 weeks. The patient will require outpatient endoscopy procedure in the upcoming weeks with Dr. Meier. - Time Spent with Patient Total time spent providing and/or coordinating discharge services: Less than 30 minutes Labs on day of discharge: Labs from last 24 hours 06/26/17 06/26/17 06/25/17 05:12 05:12 16:41 WBC 10.9 RBC 3.09 L Hgb 8.6 L Hct 27.1 L MCV 87.7 MCH 27.8 L MCHC 31.7 RDW 17.5 H Plt Count 483 H MPV 9.3 L Seg Neutrophils % 82.0 Band Neutrophils % 4.0 Lymphocytes % Test Not Performed Monocytes % 6.0 Eosinophils % 6.0 Myelocytes % 2.0 H Neutrophils # 9.4 H Lymphocytes # [employer] Monocytes # 0.7 Eosinophils # 0.7 H Platelet Estimate Increased H Poikilocytosis 1+ A Anisocytosis 1+ A Microcytosis Present A Macrocytosis Present A Schistocytes 1+ A Sodium 138 Potassium 2.9 L 2.8 L Chloride 111 H Carbon Dioxide 19 L BUN 6 Creatinine 0.97 Est GFR ( Amer) > 60 Est GFR (Non-Af Amer) > 60 BUN/Creatinine Ratio 6 Glucose 105 Calculated Osmolality 284 Calcium 8.2 L Phosphorus 3.8 Magnesium 1.6 - Impressions ITS Impressions Upper GI Series 06/22/17 12:09 IMPRESSION: No evidence of contrast leak, with findings suspicious for an ulceration involving the distal stomach at the junction with the proximal duodenum seen best on the 2nd and 4th fluoroscopic image obtained, as well as coronal image on and around [address] scan performed on 06/20/2017. D/ / Jose Neville MD / Jose Neville MD Interpreting Provider: Jose Neville MD Abdomen/Pelvis CT 06/23/17 09:29 IMPRESSION: 1. Interval development of bibasilar opacities, which are favored to represent atelectasis. Small amount of aspiration or superimposed pneumonia is a consideration, and cannot be excluded. Small left pleural effusion. 2. Tip of the nasogastric tube is within the proximal stomach, with the side port likely within the distal esophagus. Recommend advancement. 3. Moderate amount of free fluid within abdomen or pelvis is nonspecific but unchanged. Mildly dilated and distended fluid-filled small bowel loops, without evidence of mechanical bowel obstruction. Mild thickening of the rectosigmoid colon is likely secondary to underdistention. No intra-abdominal free air is identified on current examination. Previously seen intra-abdominal free air is no longer identified. 4. Punctate nonobstructing left renal calculus. No ureteral calculus or hydronephrosis. 5. Extensive retroperitoneal lymphadenopathy within the abdomen or pelvis, as detailed above. Metastatic lymphadenopathy or lymphoma is a consideration. The findings were sent to the Radiology [facility] to be communicated to a licensed caregiver. D/ / 06/23/2017 12:32:39 Mike Beebe MD / [facility] Interpreting Provider: Mike Beebe MD Chest X-Ray 06/25/17 10:51 IMPRESSION: Bilateral lower lobe infiltrates and small left effusion. Cardiomegaly and congestion. D/ / 06/25/2017 11:55:00 Jeri Arias MD / [email or web address] Interpreting Provider: Jeri Arias MD <Yoko Lynn - Last Filed: 06/27/17 14:20> Date of Encounter: 06/27/17 - Discharge Diagnosis (1) Bilateral pneumonia Priority: Secondary Status: Acute Qualifiers: Pneumonia type: due to unspecified organism Lung location: unspecified part of lung Qualified Code(s): J18.9 - Pneumonia, unspecified organism (2) Perforated abdominal viscus Priority: Primary Status: Resolved General Surgery Exam Initial Vital Signs Temp Pulse Resp BP Pulse Ox 99 F 115 20 129/69 98 06/20/17 09:24 06/20/17 09:24 06/20/17 09:24 06/20/17 09:24 06/20/17 09:24 - General physical appearance well nourished, no distress, moderate pain - Eyes PERRL, normal ocular movement - ENT normal mucosa, normocephalic - Neck trachea midline - Respiratory normal expansion, clear to auscultation - Cardiovascular Cardiovascular exam: Present: RRR - Abdomen Abdomen general surgery: Present: bowel sounds present, soft, tender. Absent: distended, guarding, rebound Abdominal Tenderness: Present: epigastic - Integumentary Integumentary general surgery: Present: warm and dry - Neurologic Present: CN 2-12 grossly intact - Musculoskeletal Present: normal posture - Psychiatric Psychiatric general surgery: Present: A&Ox3, speech is normal Date of admission: 06/20/17 11:45 Primary care physician: PCP NONE Consults: 06/20/17 12:49 Consult to Nutrition [CONS] Routine Comment: Consulting Provider: NUTRITION Reason for Dietary Consult: MST Score 06/25/17 14:59 Consult to Respiratory Therapy [CONS] Stat Reason for Consult: Aggressive pulmonary toileting and Sputum culture given BL infiltrates Call Completed: No Discharging clinician: Yoko Lynn - Diet and Activity Diet: other - Hospital Course Hospital course: Mr. Barlow is a 42 year old male - Time Spent with Patient Total time spent providing and/or coordinating discharge services: Labs on day of discharge: Labs from last 24 hours 06/27/17 06/27/17 05:24 05:24 WBC 11.2 H RBC 3.08 L Hgb 8.9 L Hct 27.1 L MCV 88.0 MCH 28.9 MCHC 32.8 RDW 17.7 H Plt Count 538 H MPV 9.4 Seg Neutrophils % 66.0 Band Neutrophils % 2.0 Lymphocytes % 12.0 Monocytes % 12.0 Eosinophils % 4.0 Myelocytes % 4.0 H Neutrophils # 7.6 Lymphocytes # 1.3 Monocytes # 1.3 Eosinophils # 0.5 Platelet Estimate Increased H Polychromasia 1+ A Anisocytosis 1+ A Microcytosis Present A Sodium 139 Potassium 3.4 L Chloride 113 H Carbon Dioxide 18 L BUN 5 L Creatinine 0.88 Est GFR ( Amer) > 60 Est GFR (Non-Af Amer) > 60 BUN/Creatinine Ratio 6 Glucose 89 Calculated Osmolality 285 Calcium 8.3 L - Impressions ITS Impressions Upper GI Series 06/22/17 12:09 IMPRESSION: No evidence of contrast leak, with findings suspicious for an ulceration involving the distal stomach at the junction with the proximal duodenum seen best on the 2nd and 4th fluoroscopic image obtained, as well as coronal image on and around [address] scan performed on 06/20/2017. D/ / Jose Neville MD / Jose Neville MD Interpreting Provider: Jose Neville MD Abdomen/Pelvis CT 06/23/17 09:29 IMPRESSION: 1. Interval development of bibasilar opacities, which are favored to represent atelectasis. Small amount of aspiration or superimposed pneumonia is a consideration, and cannot be excluded. Small left pleural effusion. 2. Tip of the nasogastric tube is within the proximal stomach, with the side port likely within the distal esophagus. Recommend advancement. 3. Moderate amount of free fluid within abdomen or pelvis is nonspecific but unchanged. Mildly dilated and distended fluid-filled small bowel loops, without evidence of mechanical bowel obstruction. Mild thickening of the rectosigmoid colon is likely secondary to underdistention. No intra-abdominal free air is identified on current examination. Previously seen intra-abdominal free air is no longer identified. 4. Punctate nonobstructing left renal calculus. No ureteral calculus or hydronephrosis. 5. Extensive retroperitoneal lymphadenopathy within the abdomen or pelvis, as detailed above. Metastatic lymphadenopathy or lymphoma is a consideration. The findings were sent to the Radiology Results Communication Center to be communicated to a licensed caregiver. D/ / 06/23/2017 12:32:39 Mike Beebe MD / [facility] Interpreting Provider: Mike Beebe MD Chest X-Ray 06/25/17 10:51 IMPRESSION: Bilateral lower lobe infiltrates and small left effusion. Cardiomegaly and congestion. D/ / 06/25/2017 11:55:00 Jeri Arias MD / [facility] Interpreting Provider: Jeri Arias MD - Attending Attestation I have personally performed a face to face evaluation on this patient. I have reviewed and agree with the care plan. History and Exam by me shows:
[2017-06-27] MEDS: Ipratropium/Albuterol Neb 3 ML IH SCH ×4 (00:12→11:04)
[2017-06-27] MEDS: *HR* OxyCODONE/APAP 10/325 TABLET PO PRN ×3 (01:02→09:09)
[2017-06-27] MEDS: Piperacillin/Tazobactam 3.375 GM/200 ML BAG IVPB SCH (04:34)
[2017-06-27] MEDS: *HR* Heparin 5,000 UNIT/ML VIAL SQ SCH (05:03)
[2017-06-27 06:00] LABS: Hematocrit 27.1 % (37.5-50.1); Hemoglobin 8.9 g/dL (12.9-16.9); Mean Corpuscular HGB Conc 32.8 g/dL (31.6-35.5); Mean Corpuscular Hemoglobin 28.9 pg (28.0-33.3); Mean Platelet Volume 9.4 fL (9.4-12.4); Platelet Count 538 K/mcL (140-400); Red Blood Count 3.08 M/mcL (4.19-5.50); Red Cell Distribution Width 17.7 % (11.5-14.5)
[2017-06-27 06:18] LABS: BUN/Creatinine Ratio 6 (6-26); Blood Urea Nitrogen 5 mg/dL (6-20); Calcium 8.3 mg/dL (8.6-10.3); Carbon Dioxide 18 mEq/L (23-29); Chloride 113 mEq/L (98-107); Glucose 89 mg/dL (70-105); Osmolality,Calculated 285 (280-300); Potassium 3.4 mEq/L (3.5-5.1); Sodium 139 mEq/L (136-145); eGFR For African Americans > 60 (> 60); eGFR For Non-African Americans > 60 (> 60)
[2017-06-27 06:44] LABS: Anisocytosis 1+ (Not Present); Eosinophils # 0.5 K/mcL (0.0-0.6); Lymphocytes # 1.3 K/mcL (0.6-4.6); Microcytosis Present (Not Present); Monocytes # 1.3 K/mcL (0.0-1.3); Neutrophils # 7.6 K/mcL (1.6-8.9); Platelet Estimate Increased (Normal); Polychromasia 1+ (Not Present)
[2017-06-27 07:01] VITALS: BP 144/89
[2017-06-27] MEDS: Levofloxacin 750 MG/150 ML 750 MG/150 ML BAG IVPB SCH (08:03)
[2017-06-27] MEDS: Sucralfate 1 GM TABLET PO SCH (08:03)
== END 2017-06-27 11:17 | disposition home or self-care (01) | DRG 241 ==
LOC: EMEROO 09:23 → ICNU 11:45 → 3ANU 06-24 16:58
PROVIDERS: ADMIT Surgery; ATTEND Surgery

== ENCOUNTER 2017-07-31 07:48 | Inpatient (IN) ==
[2017-07-31] MEDS ORDERED: Ondansetron 4 MG/2 ML VIAL IVP ONE (08:14)
[2017-07-31] MEDS ORDERED: *HR* HYDROmorphone (PF) 1 MG/ML SYRINGE IVP ONE ×2 (08:14→09:48)
--- NOTE | 2017-07-31 08:20 | Emergency Department Note ---
Disposition Clinical Impression: Small bowel obstruction, Hypokalemia Disposition: Admitted As Inpatient Condition: Fair Time of Disposition: 11:53 Abdominal Pain HPI - General Chief Complaint: ED Abdominal Pain Stated Complaint: Perferated Ulcer Time Seen by Provider: 07/31/17 08:04 Source: patient Nursing Notes Reviewed: Yes Vital Signs Reviewed: Yes - History of Present Illness HPI Narrative: Presents with generalized severe abdominal pain which started gradually 3 days ago and he has used acetaminophen. Has not had anything to eat in the last 3 days. Does have associated vomiting with emesis which is blood streaked. No diarrhea. Denies any fever. I did review the previous record the patient states he has a history of perforated ulcer. Social history: Smoker, has not drank any alcohol in the last 2 years Pain Scale: 10 - Related Data Home Medications Medication Instructions Recorded Confirmed No Known Home Drugs 07/31/17 07/31/17 Allergies Allergy/AdvReac Type Severity Reaction Status Date / Time No Known Allergies Allergy Verified 06/20/17 09:24 Review of Systems: Constitutional: No fever Vision: No blurred vision ENT: + rhinorrhea Respiratory: No cough Allergic: No allergies : No blood in urine GI: No blood in stool Hematologic: No bruising Dermatologic: No skin rash Musculoskeletal: No pain in the extremities Neuro: No numbness of the extremities Abdominal Pain PMH - Past Medical History Medical history: Reports: myocardial infarction Male Surgical History: Reports: no surgical history Psychiatric history: Reports: anxiety, depression - Social History Smoking status: Current every day smoker Alcohol use: Reports: none Drug use: Reports: none Physical Exam CONSTITUTIONAL: Alert and oriented X3, well-nourished, well appearing, in no apparent distress HEAD: Normocephalic; atraumatic. EYES: PERRL, no scleral icterus. NOSE: The nose is normal in appearance without rhinorrhea RESP: Normal chest excursion with respiration; breath sounds clear and equal bilaterally; no wheezes, rhonchi, or rales CARD: Regular rhythm, without murmurs, rub or gallop ABD: Non-distended; normal appearance, generalized severe discomfort with positive guarding his previous perforated ulcer SKIN: Normal for age and race; warm and dry; no apparent lesions normal appearance, generalized severe was never evidenc - General Limitations: no limitations General appearance: alert Course Vital Signs Temperature 98.0 F 07/31/17 07:56 Pulse Rate 113 01/26/18 07:56 Respiratory Rate 18 07/31/17 07:56 Blood Pressure 127/88 07/31/17 07:56 O2 Sat by Pulse Oximetry 100 07/31/17 07:56 Temperature 98.0 F 07/31/17 07:56 Pulse Rate 98 07/31/17 10:19 Respiratory Rate 18 07/31/17 10:19 Blood Pressure 140/95 07/31/17 10:19 O2 Sat by Pulse Oximetry 97 07/31/17 10:19 Oxygen Delivery Oxygen Delivery Room Air Abdominal Pain - MDM Narrative Medical decision making narrative: Patient does have an acute abdomen based on my exam and does have labs ordered including hepatic profile, lipase, IV fluids, pain medicine and Zofran, lactate level and a IV contrast CT scan which we should be able to do quickly. He has had pain for 3 days. At this point is hemodynamically stable & does have extremely concerning presentation. 0826 I did review the patient's labs. CT scan does show small bowel obstruction. Patient will be admitted. He has received a second dose of Dilaudid and then I just wrote for morphine 8 mg IV. This hopefully will improve his pain. 1152 Surgery has accepted the patient for admission - Medical Records Medical records reviewed: Yes I reviewed the patient's medical records. - Lab Data Lab results reviewed: Yes I reviewed the patient's lab results. Result diagrams: 07/31/17 08:30 07/31/17 08:30 Lab Results 07/31/17 07/31/17 07/31/17 Range/Units 08:30 08:30 09:04 WBC 11.2 H (4.3-11.1) K/mcL RBC 4.24 (4.19-5.50) M/mcL Hgb 11.2 L (12.9-16.9) g/dL Hct 34.8 L (37.5-50.1) % MCV 82.1 L (83.0-100.0) fL MCH 26.4 L (28.0-33.3) pg MCHC 32.2 (31.6-35.5) g/dL RDW 18.2 H (11.5-14.5) % Plt Count 555 H (140-400) K/mcL MPV 8.3 L (9.4-12.4) fL Sodium 131 L (136-145) mEq/L Potassium 3.1 L (3.5-5.1) mEq/L Chloride 93 L (98-107) mEq/L Carbon Dioxide 25 (23-29) mEq/L BUN 22 H (6-20) mg/dL Creatinine 1.04 (0.70-1.30) mg/dL Est GFR ( Amer) > 60 (> 60) Est GFR (Non-Af Amer) > 60 (> 60) BUN/Creatinine Ratio 21 (6-26) Glucose 109 H (70-105) mg/dL Calculated Osmolality 276 L (280-300) Lactic Acid 2.4 H (0.5-2.2) mmol/L Calcium 9.9 (8.6-10.3) mg/dL Total Bilirubin 0.3 (0.3-1.0) mg/dL Direct Bilirubin 0.1 (0.0-0.2) mg/dL Indirect Bilirubin 0.2 (0.0-1.2) mg/dL AST 6 L (13-39) Units/L ALT 5 L (7-52) Units/L Alkaline Phosphatase 147 H (34-104) Units/L Serum Total Protein 8.6 (6.4-8.9) g/dL Albumin 4.1 (3.5-5.7) g/dL Globulin 4.5 H (2.4-3.5) g/dL Albumin/Globulin Ratio 0.9 L (1.1-2.2) Lipase 6 L (11-82) Units/L - Radiology Data Radiology results reviewed: Yes I reviewed the patient's radiology results. Critical Care Time Critical Care Time: No
[2017-07-31] MEDS: 0.9 % Sodium Chloride 1,000 ML IVC SCH ×7 (08:33→21:28)
[2017-07-31 08:40] LABS: Hematocrit 34.8 % (37.5-50.1); Hemoglobin 11.2 g/dL (12.9-16.9); Mean Corpuscular HGB Conc 32.2 g/dL (31.6-35.5); Mean Corpuscular Hemoglobin 26.4 pg (28.0-33.3); Mean Corpuscular Volume 82.1 fL (83.0-100.0); Mean Platelet Volume 8.3 fL (9.4-12.4); Platelet Count 555 K/mcL (140-400); Red Blood Count 4.24 M/mcL (4.19-5.50); Red Cell Distribution Width 18.2 % (11.5-14.5)
[2017-07-31 09:06] LABS: Alanine Aminotransferase 5 Units/L (7-52); Albumin 4.1 g/dL (3.5-5.7); Albumin/Globulin Ratio 0.9 (1.1-2.2); Alkaline Phosphatase 147 Units/L (34-104); Aspartate Amino Transferase 6 Units/L (13-39); BUN/Creatinine Ratio 21 (6-26); Bilirubin,Direct 0.1 mg/dL (0.0-0.2); Bilirubin,Indirect 0.2 mg/dL (0.0-1.2); Bilirubin,Total 0.3 mg/dL (0.3-1.0); Blood Urea Nitrogen 22 mg/dL (6-20); Calcium 9.9 mg/dL (8.6-10.3); Carbon Dioxide 25 mEq/L (23-29); Chloride 93 mEq/L (98-107); Globulin 4.5 g/dL (2.4-3.5); Glucose 109 mg/dL (70-105); Lipase 6 Units/L (11-82); Osmolality,Calculated 276 (280-300); Potassium 3.1 mEq/L (3.5-5.1); Sodium 131 mEq/L (136-145); Total Protein 8.6 g/dL (6.4-8.9); eGFR For African Americans > 60 (> 60); eGFR For Non-African Americans > 60 (> 60)
[2017-07-31] MEDS ORDERED: Metoclopramide 10 MG/2 ML VIAL IVP ONE (10:21)
[2017-07-31] MEDS ORDERED: *HR* Morphine 2 MG/ML SYRINGE IVP ONE (11:46)
[2017-07-31] MEDS ORDERED: Naloxone 0.4 MG/ML INJ IVP PRN ×2 (13:35→14:05)
[2017-07-31] MEDS ORDERED: Ondansetron 4 MG/2 ML VIAL IVP PRN (13:35)
[2017-07-31] MEDS ORDERED: 0.9 % Sodium Chloride w KCl 20 MEQ/1,000 ML MLS IVC SCH (13:45)
[2017-07-31] MEDS ORDERED: *HR* HYDROmorphone (PF) 1 MG/ML SYRINGE IVP PRN (13:45)
[2017-07-31] MEDS ORDERED: Chloraseptic Spray 177 ML BOTTLE MM PRN (13:45)
[2017-07-31] MEDS ORDERED: Acetaminophen IV 1,000 MG/100 ML INFUS..BTL IVPB PRN (13:46)
--- NOTE | 2017-07-31 14:22 | General Surg History&Physical ---
<Dina Andre - Last Filed: 07/31/17 15:45> Date of Encounter: 07/31/17 Time of Encounter: 14:00 Assessment and Plan (1) Small bowel obstruction Current Visit: Yes Status: Acute The assessment and plan as outlined above was discussed with the patient and/or family members who expressed understanding and agreement. All questions were answered. Conservative measures including: Bowel rest Nothing by mouth with NG tube to low intermittent wall suction IV fluids- 0.9 normal saline with 20 mEq of KCl at 100 mL's per hour Supportive care and pain control Serial abdominal exams Ambulatory hallways 3 times a day Incentive spirometer every 1 hour while awake PPI therapy twice daily Repeat a.m. labs- CBC, BMP, Lactic acid (2) Constipation Current Visit: Yes Status: Acute The assessment and plan as outlined above was discussed with the patient and/or family members who expressed understanding and agreement. All questions were answered. NPO IV fluids Milk and Molasses enema now Qualifiers: Constipation type: unspecified constipation type Qualified Code(s): K59.00 - Constipation, unspecified (3) Retroperitoneal lymphadenopathy Current Visit: Yes Status: Acute The assessment and plan as outlined above was discussed with the patient and/or family members who expressed understanding and agreement. All questions were answered. Etiology unclear Repeat CT scan 6-8 weeks for follow-up and comparison (4) Hypokalemia Current Visit: Yes Status: Acute The assessment and plan as outlined above was discussed with the patient and/or family members who expressed understanding and agreement. All questions were answered. Replace potassium MIV- 0.9NS with 20meq at 100ml/hour Repeat am labs (5) Smoking history Current Visit: No Status: Chronic The assessment and plan as outlined above was discussed with the patient and/or family members who expressed understanding and agreement. All questions were answered. Smoking cessation education Nicotine patch prn for nicotine cravings (6) DVT prophylaxis Current Visit: No Status: Acute The assessment and plan as outlined above was discussed with the patient and/or family members who expressed understanding and agreement. All questions were answered. History of Present Illness Chief complaint: Abdominal pain HPI: Mr. Barlow is a 42 year old male who is known to the surgical practice and was recently admitted for a perforated viscous in June 2017. He was treated with conservative measures and did not require surgical intervention. The patient states that his symptoms did not completely resolve and he was feeling much better. He states that 3 days ago he had sudden onset of lower abdominal discomfort. He states that the pain waxes and wanes and is mostly located and the lower abdomen and left lower quadrant region. He describes it as a sharp and stabbing pain. He states that it is improved after vomiting. He states that he has been vomiting every evening for the last 3 days. He states that after vomiting the pain is relieved and he is able to rest for the evening. He does report some blood in his emesis this morning. He denies any bloating. He does admit to a 50 pound weight loss since his last admission to the hospital in June 2017. He states that his appetite was had returned to normal up until the last 3 days. He does report severe constipation and states that he is not been able to have a normal bowel movement for the last 4 days. He states that he is passing very hard stools. Denies any melena or hematochezia. He states that he has not passed flatus for the last 3 days. He denies any history with constipation. He has not tried to take any medication over-the- counter to treat his constipation. He denies any fevers or chills. He denies any shortness of breath or chest pains. He denies any difficulty with urination. He has had a CAT scan evaluation which shows evidence of small bowel dilation without a transition point and retroperitoneal adneopathy. The patient has been admitted to the hospital for further workup and treatment. Past Med Surg Social Fam HX - Past Medical History Source: patient, old records reviewed Medical history: GERD, myocardial infarction, other (Pneumonia, Perforated viscous 06/2017) Psychiatric history: anxiety, depression - Past Surgical History Surgical History: no surgical history - Social History Smoking Status: Current every day smoker Packs per day: 0.5 Smokeless Tobacco Status: Yes Alcohol use: none Drug use: none Current living situation: Home - Independent Activity Level: Independent ambulation - Family History Father Family Member Ethnicity: Non- Living Status: Still Living Mother Family Member Ethnicity: Non- Living Status: Still Living Medications and Allergies No Known Home Drugs 07/31/17 [History] 3 Allergy/AdvReac Type Severity Reaction Status Date / Time No Known Allergies Allergy Verified 06/20/17 09:24 Review of Systems All systems PM: reviewed and no additional remarkable complaints except as stated (in the HPI) All systems PM: A 10-system review of systems was performed and is negative for pertinent findings except as documented above in the HPI. General Surgery Exam Initial Vital Signs Temp Pulse Resp BP Pulse Ox 98.0 F 113 18 127/88 100 07/31/17 07:56 07/31/17 07:56 07/31/17 07:56 07/31/17 07:56 07/31/17 07:56 - General physical appearance well developed, well nourished, moderate distress, moderate pain - Eyes PERRL, normal ocular movement - ENT normal mucosa, atraumatic, normocephalic - Neck trachea midline - Respiratory normal respiratory effort, clear to auscultation - Cardiovascular Cardiovascular exam: Present: tachycardia - Abdomen Abdomen general surgery: Present: bowel sounds present, soft, tender, wound (NG tube to LIWS with (1100ml of bilious drainage)) Abdominal Tenderness: Present: LLQ, suprapubic - Integumentary Integumentary general surgery: Present: warm and dry - Neurologic Present: CN 2-12 grossly intact - Psychiatric Psychiatric general surgery: Present: appropriate, oriented to person, oriented to place, oriented to time, speech is normal, memory intact Results - Labs 07/31/17 08:30 07/31/17 08:30 Abnormal lab results WBC 11.2 K/mcL (4.3-11.1) H 07/31/17 08:30 Hgb 11.2 g/dL (12.9-16.9) L 07/31/17 08:30 Hct 34.8 % (37.5-50.1) L 07/31/17 08:30 MCV 82.1 fL (83.0-100.0) L 07/31/17 08:30 MCH 26.4 pg (28.0-33.3) L 07/31/17 08:30 RDW 18.2 % (11.5-14.5) H 07/31/17 08:30 Plt Count 555 K/mcL (140-400) H 07/31/17 08:30 MPV 8.3 fL (9.4-12.4) L 07/31/17 08:30 Sodium 131 mEq/L (136-145) L 07/31/17 08:30 Potassium 3.1 mEq/L (3.5-5.1) L 07/31/17 08:30 Chloride 93 mEq/L (98-107) L 07/31/17 08:30 BUN 22 mg/dL (6-20) H 07/31/17 08:30 Glucose 109 mg/dL (70-105) H 07/31/17 08:30 Calculated Osmolality 276 (280-300) L 07/31/17 08:30 Lactic Acid 2.4 mmol/L (0.5-2.2) H 07/31/17 09:04 AST 6 Units/L (13-39) L 07/31/17 08:30 ALT 5 Units/L (7-52) L 07/31/17 08:30 Alkaline Phosphatase 147 Units/L (34-104) H 07/31/17 08:30 Globulin 4.5 g/dL (2.4-3.5) H 07/31/17 08:30 Albumin/Globulin Ratio 0.9 (1.1-2.2) L 07/31/17 08:30 Lipase 6 Units/L (11-82) L 07/31/17 08:30 All other labs normal. - Imaging CT scan - abdomen: report reviewed CT scan - pelvis: report reviewed Additional studies: Abdomen/Pelvis CT 07/31/17 08:22 IMPRESSION: 1. Findings most suggestive of a small bowel obstruction. The transition point is not identified on this CT. However, there are decompressed loops of distal small bowel. Therefore, the point of obstruction most likely is in the distal jejunum or proximal ileum. 2. No extraluminal gas is seen to suggest a perforation. 3. Normal appearing gallbladder. 4. No obstructive uropathy. 5. Again noted is extensive retroperitoneal adenopathy. Lymphoma could give this appearance. D/ / 07/31/2017 11:12:43 Terry Burdick MD / ana Interpreting Provider: Terry Burdick MD [facility] X-Ray 07/31/17 13:11 IMPRESSION: Tip of the nasogastric tube is within the stomach. Multiple dilated bowel loops. Please see separate CT abdomen report from same day. D/ / Mike Beebe MD / Mike Beebe MD Interpreting Provider: Mike Beebe MD - Attending Attestation For this encounter, I have reviewed the STEM CUTTER or PA documentation, treatment plan, and medical decision making; and I have had face to face time with this patient. <Yoko Lynn - Last Filed: 07/31/17 19:31> Date of Encounter: 07/31/17 Assessment and Plan (1) Small bowel obstruction due to adhesions Current Visit: Yes Status: Acute The assessment and plan as outlined above was discussed with the patient and/or family members who expressed understanding and agreement. All questions were answered. patients small bowel obstruction likely due to adhesions, no transition point on ct will continue conservative measures currently ngt to liws ivf hydration prn pain control gi/dvt prophylaxis serial abdomina exams (2) Smoker Current Visit: No Status: Acute The assessment and plan as outlined above was discussed with the patient and/or family members who expressed understanding and agreement. All questions were answered. (3) Constipation Current Visit: Yes Status: Acute The assessment and plan as outlined above was discussed with the patient and/or family members who expressed understanding and agreement. All questions were answered. MOM enema Qualifiers: Constipation type: unspecified constipation type Qualified Code(s): K59.00 - Constipation, unspecified (4) History of gastric ulcer Current Visit: Yes Status: Acute The assessment and plan as outlined above was discussed with the patient and/or family members who expressed understanding and agreement. All questions were answered. recent admission for perforated gastric ulcer treated with conservative therapy protonix BID History of Present Illness HPI: Mr. Barlow is a 42 year old male Past Med Surg Social Fam HX - Past Medical History Source: patient Medical history: other (Pneumonia, Perforated viscous 06/2017 - healed without surgery) Review of Systems All systems PM: A 10-system review of systems was performed and is negative for pertinent findings except as documented above in the HPI. General Surgery Exam Initial Vital Signs Temp Pulse Resp BP Pulse Ox 98.0 F 113 18 127/88 100 07/31/17 07:56 07/31/17 07:56 07/31/17 07:56 07/31/17 07:56 07/31/17 07:56 - General physical appearance well developed, well nourished, moderate distress, moderate pain - Eyes PERRL, normal ocular movement - ENT normal mucosa, normocephalic - Neck trachea midline - Respiratory normal expansion, clear to auscultation - Cardiovascular Cardiovascular exam: Present: RRR - Abdomen Abdomen general surgery: Present: bowel sounds present, soft, tender Abdominal Tenderness: Present: LLQ, suprapubic - Integumentary Integumentary general surgery: Present: warm and dry, no abnormal pigmentation - Neurologic Present: CN 2-12 grossly intact - Musculoskeletal Present: normal posture - Psychiatric Psychiatric general surgery: Present: A&Ox3, oriented to time Results - Labs 07/31/17 08:30 07/31/17 08:30 Abnormal lab results WBC 11.2 K/mcL (4.3-11.1) H 07/31/17 08:30 Hgb 11.2 g/dL (12.9-16.9) L 07/31/17 08:30 Hct 34.8 % (37.5-50.1) L 07/31/17 08:30 MCV 82.1 fL (83.0-100.0) L 07/31/17 08:30 MCH 26.4 pg (28.0-33.3) L 07/31/17 08:30 RDW 18.2 % (11.5-14.5) H 07/31/17 08:30 Plt Count 555 K/mcL (140-400) H 07/31/17 08:30 MPV 8.3 fL (9.4-12.4) L 07/31/17 08:30 Sodium 131 mEq/L (136-145) L 07/31/17 08:30 Potassium 3.1 mEq/L (3.5-5.1) L 07/31/17 08:30 Chloride 93 mEq/L (98-107) L 07/31/17 08:30 BUN 22 mg/dL (6-20) H 07/31/17 08:30 Glucose 109 mg/dL (70-105) H 07/31/17 08:30 POC Glucose 123 (58-89) H 07/31/17 16:36 Calculated Osmolality 276 (280-300) L 07/31/17 08:30 Lactic Acid 2.4 mmol/L (0.5-2.2) H 07/31/17 09:04 AST 6 Units/L (13-39) L 07/31/17 08:30 ALT 5 Units/L (7-52) L 07/31/17 08:30 Alkaline Phosphatase 147 Units/L (34-104) H 07/31/17 08:30 Globulin 4.5 g/dL (2.4-3.5) H 07/31/17 08:30 Albumin/Globulin Ratio 0.9 (1.1-2.2) L 07/31/17 08:30 Lipase 6 Units/L (11-82) L 07/31/17 08:30 All other labs normal. - Imaging CT scan - abdomen: report reviewed, image reviewed CT scan - pelvis: report reviewed, image reviewed - Attending Attestation I have personally performed a face to face evaluation on this patient. I have reviewed and agree with the care plan. History and Exam by me shows:
[2017-07-31] MEDS ORDERED: Nicotine 14 MG PATCH.TD24 TD PRN (15:46)
[2017-07-31] MEDS ORDERED: Milk and Molasses Enema 200 ML RC ONE (15:47)
[2017-07-31] MEDS: *HR* Morphine 2 MG/ML SYRINGE IVP PRN ×2 (15:59→21:06)
[2017-07-31] MEDS: *HR* Heparin 5,000 UNIT/ML VIAL SQ SCH (18:21)
[2017-07-31] MEDS: Pantoprazole 40 MG VIAL IVP SCH (21:06)
[2017-08-01 04:34] LABS: Basophils % 0.3 %; Eosinophils # 0.6 K/mcL (0.0-0.6); Eosinophils % 9.6 %; Lymphocytes # 0.3 K/mcL (0.6-4.6); Lymphocytes % 5.3 %; Mean Corpuscular HGB Conc 31.9 g/dL (31.6-35.5); Mean Corpuscular Hemoglobin 26.5 pg (28.0-33.3); Mean Corpuscular Volume 83.1 fL (83.0-100.0); Mean Platelet Volume 8.4 fL (9.4-12.4); Monocytes # 0.7 K/mcL (0.0-1.3); Monocytes % 11.2 %; Neutrophils # 4.2 K/mcL (1.6-8.9); Platelet Count 442 K/mcL (140-400); Red Blood Count 3.13 M/mcL (4.19-5.50); Red Cell Distribution Width 18.1 % (11.5-14.5); Segmented Neutrophils % 72.6 %
[2017-08-01 04:59] LABS: BUN/Creatinine Ratio 20 (6-26); Blood Urea Nitrogen 16 mg/dL (6-20); Calcium 8.2 mg/dL (8.6-10.3); Carbon Dioxide 28 mEq/L (23-29); Chloride 97 mEq/L (98-107); Glucose 89 mg/dL (70-105); Magnesium 2.2 mg/dL (1.6-2.6); Osmolality,Calculated 277 (280-300); Phosphorous 2.4 mg/dL (2.7-4.5); Sodium 133 mEq/L (136-145); eGFR For African Americans > 60 (> 60); eGFR For Non-African Americans > 60 (> 60)
[2017-08-01 05:00] LABS: Hemoglobin 8.3 g/dL (12.9-16.9)
[2017-08-01] MEDS: *HR* Heparin 5,000 UNIT/ML VIAL SQ SCH ×2 (06:04→18:12)
[2017-08-01] MEDS: *HR* Morphine 2 MG/ML SYRINGE IVP PRN ×4 (06:07→19:49)
[2017-08-01] MEDS: 0.9 % Sodium Chloride 1,000 ML IVC SCH (06:08)
--- NOTE | 2017-08-01 06:18 | General Surgery Progress Note ---
<Judith Esqueda - Last Filed: 08/01/17 14:02> Date of Encounter: 08/01/17 Time of Encounter: 06:16 - Assessment and Plan (1) Small bowel obstruction Current Visit: Yes Status: Acute 08/01 CBC, BMP, Lactic acid reviewed. Repeat CBC, BMP in AM. Abdominal series obtained -Essentially stable distended proximal to distal small bowel gas pattern. No free intraperitoneal air. -NG tube retraction noted - communicated to RN to advance approx 9-10 cm. Conservative measures including: Bowel rest NG tube to low intermittent wall suction. May have popsicle x 1. Restricted amount of ice chips IVF Supportive care and pain control Serial abdominal exams Ambulatory hallways 3 times a day Incentive spirometer every 1 hour while awake PPI therapy twice daily (2) Constipation Current Visit: Yes Status: Acute Pt endorsed SBO ssx, including constipation s/p Milk and Molasses enema yesterday, which he tolerated Endorsed BM this morning Continue monitoring I/O Qualifiers: Constipation type: unspecified constipation type Qualified Code(s): K59.00 - Constipation, unspecified (3) Retroperitoneal lymphadenopathy Current Visit: Yes Status: Acute CT demonstrating extensive lymphadenopathy, with impression concerning for lymphadenopathy as possible etiology Review for weight loss: Pt's weight approx. 74 kg as of Apr.21, per EMR review Plan for repeat CT as outpatient Dr. Lynn discussed findings with patient, plan and stressed importance of follow-up on 07/31 Pt verbalized understanding and amenable to plan (4) Smoker Current Visit: No Status: Acute Nicotine patch prn for nicotine cravings (5) DVT prophylaxis Current Visit: No Status: Acute Heparin SubQ Subjective Patient reports: no new complaints, flatus, bowel movement, afebrile Narrative: No acute events overnight. Objective Vital Signs - Last 8 Hours Temp Pulse Resp BP Pulse Ox 08/01/17 04:20 99.6 F 97 15 115/69 97 08/01/17 00:15 99.5 F 92 16 123/67 97 Intake and Output 07/31/17 07/31/17 08/01/17 15:59 23:59 07:59 Intake Total 1250 / 1250 1000 / 1000 Output Total 1450 / 1450 3500 / 3500 1600 / 1600 Balance -1450 / -250 -2250 / -2250 -600 / -600 Intake: IV Fluids 1250 / 1250 1000 / 1000 0.9 % Sodium Chloride 1,000 ML 1250 / 1250 1000 / 1000 @ 110 mls/hr IVC .Q9H6M [facility] Rx# :[id number] Oral 0 / 0 0 / 0 Output: Urine 0 / 0 0 / 0 Gastric Drainage 1450 / 1450 3500 / 3500 1600 / 1600 Other: Meal NPO Percent of Meal Consumed 0% Stool Size Copious Stool Consistency loose formed Stool Color Brown Weight 68.9 kg Blood Glucose* 123 92 Patient Weight 08/01/17 23:59 Weight 68.9 kg - General physical appearance no distress, no pain - Eyes normal ocular movement - ENT Other (NG tube in place. Suctioning -bilious-appearance) - Respiratory normal expansion, normal respiratory effort, clear to auscultation - Cardiovascular Cardiovascular exam: Present: regular rhythm, no murmurs/rubs/gallops - Abdomen Abdomen: Present: bowel sounds present, soft, non tender - Labs 08/01/17 04:14 08/01/17 04:14 Diabetes panel 08/01/17 Range/Units 04:14 Sodium 133 L (136-145) mEq/L Potassium 3.0 L (3.5-5.1) mEq/L Chloride 97 L (98-107) mEq/L Carbon Dioxide 28 (23-29) mEq/L BUN 16 (6-20) mg/dL Creatinine 0.79 (0.70-1.30) mg/dL Glucose 89 (70-105) mg/dL Calcium 8.2 L (8.6-10.3) mg/dL Calcium panel 08/01/17 Range/Units 04:14 Calcium 8.2 L (8.6-10.3) mg/dL Phosphorus 2.4 L (2.7-4.5) mg/dL Pituitary panel 08/01/17 Range/Units 04:14 Sodium 133 L (136-145) mEq/L Potassium 3.0 L (3.5-5.1) mEq/L Chloride 97 L (98-107) mEq/L Carbon Dioxide 28 (23-29) mEq/L BUN 16 (6-20) mg/dL Creatinine 0.79 (0.70-1.30) mg/dL Glucose 89 (70-105) mg/dL Calcium 8.2 L (8.6-10.3) mg/dL Adrenal panel 08/01/17 Range/Units 04:14 Sodium 133 L (136-145) mEq/L Potassium 3.0 L (3.5-5.1) mEq/L Chloride 97 L (98-107) mEq/L Carbon Dioxide 28 (23-29) mEq/L BUN 16 (6-20) mg/dL Creatinine 0.79 (0.70-1.30) mg/dL Glucose 89 (70-105) mg/dL Calcium 8.2 L (8.6-10.3) mg/dL Consult Discharge Plan - Plan Referrals: NONE,PCP [Primary Care Provider] - <Yoko Lynn - Last Filed: 08/01/17 14:42> Date of Encounter: 08/01/17 - Assessment and Plan (1) Small bowel obstruction due to adhesions Current Visit: Yes Status: Acute patient although passing flatus and had bm's axr still show dilated loops of small bowel with stairstepping and dilation ngt will remain at LIWS he is allowed ice chips and three popcicles per day OOB to ambulate gi/dvt prophylaxis will change ivf to D5 1/2 ns w 20 kcl continue conservative therapy (2) Smoker Current Visit: No Status: Acute (3) Constipation Current Visit: Yes Status: Resolved Qualifiers: Constipation type: unspecified constipation type Qualified Code(s): K59.00 - Constipation, unspecified (4) History of gastric ulcer Current Visit: Yes Status: Acute continue PPI therapy Subjective Patient reports: afebrile Narrative: patient states milk of molasses enemas helped and he is passing stool and flatus no nausea he wants food Objective Vital Signs - Last 8 Hours Temp Pulse Resp BP Pulse Ox 08/01/17 08:14 98.6 F 98 16 107/65 98 Intake and Output 07/31/17 08/01/17 08/01/17 23:59 07:59 15:59 Intake Total 1250 / 1250 1000 / 1000 0 / 0 Output Total 3500 / 3500 1600 / 1600 1150 / 1150 Balance -2250 / -2250 -600 / -600 -1150 / -1150 Intake: IV Fluids 1250 / 1250 1000 / 1000 0.9 % Sodium Chloride 1,000 ML 1250 / 1250 1000 / 1000 @ 110 mls/hr IVC .Q9H6M [facility] Rx# :[id number] Oral 0 / 0 0 / 0 0 / 0 Output: Urine 0 / 0 200 / 200 Gastric Drainage 3500 / 3500 1600 / 1600 950 / 950 Other: Meal NPO NPO Percent of Meal Consumed 0% Stool Size Copious Stool Consistency loose formed Stool Color Brown Weight 68.9 kg Blood Glucose* 123 92 Patient Weight 08/01/17 23:59 Weight 68.9 kg - General physical appearance well developed, well nourished, no distress - Eyes PERRL, normal ocular movement - ENT normal mucosa, normocephalic - Neck Neck exam: trachea midline - Respiratory normal expansion, clear to auscultation - Cardiovascular Cardiovascular exam: Present: RRR - Abdomen Abdomen: Present: bowel sounds present, soft, non tender - Integumentary no rash, no growths - Neurologic CN 2-12 grossly intact - Musculoskeletal normal gait, normal posture - Psychiatric oriented to time, oriented to person, oriented to place, speech is normal, memory intact - Labs 08/01/17 04:14 08/01/17 04:14 Diabetes panel 08/01/17 Range/Units 04:14 Sodium 133 L (136-145) mEq/L Potassium 3.0 L (3.5-5.1) mEq/L Chloride 97 L (98-107) mEq/L Carbon Dioxide 28 (23-29) mEq/L BUN 16 (6-20) mg/dL Creatinine 0.79 (0.70-1.30) mg/dL Glucose 89 (70-105) mg/dL Calcium 8.2 L (8.6-10.3) mg/dL Calcium panel 08/01/17 Range/Units 04:14 Calcium 8.2 L (8.6-10.3) mg/dL Phosphorus 2.4 L (2.7-4.5) mg/dL Pituitary panel 08/01/17 Range/Units 04:14 Sodium 133 L (136-145) mEq/L Potassium 3.0 L (3.5-5.1) mEq/L Chloride 97 L (98-107) mEq/L Carbon Dioxide 28 (23-29) mEq/L BUN 16 (6-20) mg/dL Creatinine 0.79 (0.70-1.30) mg/dL Glucose 89 (70-105) mg/dL Calcium 8.2 L (8.6-10.3) mg/dL Adrenal panel 08/01/17 Range/Units 04:14 Sodium 133 L (136-145) mEq/L Potassium 3.0 L (3.5-5.1) mEq/L Chloride 97 L (98-107) mEq/L Carbon Dioxide 28 (23-29) mEq/L BUN 16 (6-20) mg/dL Creatinine 0.79 (0.70-1.30) mg/dL Glucose 89 (70-105) mg/dL Calcium 8.2 L (8.6-10.3) mg/dL - Imaging Abdominal x-ray: report reviewed, image reviewed - Attending Attestation I examined this patient and my medical decision-making was reviewed with the Resident Physician. I agree with the documented findings, disposition and treatment plan as described except to the extent set forth below.
[2017-08-01] MEDS: Pantoprazole 40 MG VIAL IVP SCH ×2 (08:18→19:49)
[2017-08-01] MEDS ORDERED: Pantoprazole 40 MG VIAL IVP SCH ×2 (09:00)
[2017-08-01] MEDS: Ondansetron 4 MG/2 ML VIAL IVP PRN (10:59)
[2017-08-01] MEDS: D5% in 0.45% NACL w KCl 20 MEQ/1,000 ML MLS IVC SCH ×2 (15:28→23:13)
[2017-08-01] MEDS: *HR* Promethazine 25 MG/ML VIAL IVP PRN (15:28)
[2017-08-02] MEDS: *HR* Heparin 5,000 UNIT/ML VIAL SQ SCH ×2 (05:08→18:05)
[2017-08-02] MEDS: *HR* Morphine 2 MG/ML SYRINGE IVP PRN ×5 (05:08→23:32)
[2017-08-02 06:36] LABS: Basophils % 0.3 %; Eosinophils # 0.6 K/mcL (0.0-0.6); Hematocrit 26.7 % (37.5-50.1); Hemoglobin 8.3 g/dL (12.9-16.9); Immature Granulocytes % 1.5 % (0-4); Lymphocytes # 0.3 K/mcL (0.6-4.6); Lymphocytes % 4.9 %; Mean Corpuscular HGB Conc 31.1 g/dL (31.6-35.5); Mean Corpuscular Volume 83.7 fL (83.0-100.0); Mean Platelet Volume 8.5 fL (9.4-12.4); Monocytes # 0.7 K/mcL (0.0-1.3); Neutrophils # 4.4 K/mcL (1.6-8.9); Platelet Count 417 K/mcL (140-400); Red Blood Count 3.19 M/mcL (4.19-5.50); Red Cell Distribution Width 17.6 % (11.5-14.5); Segmented Neutrophils % 72.3 %
[2017-08-02 06:54] LABS: Magnesium 1.9 mg/dL (1.6-2.6); Phosphorous 2.2 mg/dL (2.7-4.5)
[2017-08-02 06:55] LABS: BUN/Creatinine Ratio 13 (6-26); Blood Urea Nitrogen 10 mg/dL (6-20); Calcium 8.2 mg/dL (8.6-10.3); Carbon Dioxide 26 mEq/L (23-29); Chloride 97 mEq/L (98-107); Glucose 106 mg/dL (70-105); Osmolality,Calculated 269 (280-300); Potassium 3.1 mEq/L (3.5-5.1); Sodium 130 mEq/L (136-145); eGFR For African Americans > 60 (> 60); eGFR For Non-African Americans > 60 (> 60)
[2017-08-02] MEDS: Pantoprazole 40 MG VIAL IVP SCH ×2 (07:55→19:57)
[2017-08-02] MEDS: D5% in 0.45% NACL w KCl 20 MEQ/1,000 ML MLS IVC SCH ×2 (07:55→16:34)
--- NOTE | 2017-08-02 09:53 | General Surgery Progress Note ---
<Judith Esqueda - Last Filed: 08/02/17 13:40> Date of Encounter: 08/02/17 Time of Encounter: 09:51 - Assessment and Plan (1) Small bowel obstruction Current Visit: Yes Status: Acute Abdominal series obtained -Essentially stable distended proximal to distal small bowel gas pattern. No free intraperitoneal air. -NG tube retraction noted - communicated to RN to advance approx 9-10 cm. Repeat CBC, BMP in AM. Conservative measures including: Bowel rest NG tube to low intermittent wall suction. May have popsicle x 3/ day Restricted amount of ice chips IVF Supportive care and pain control Serial abdominal exams Ambulatory hallways 3 times a day Incentive spirometer every 1 hour while awake PPI therapy twice daily (2) Constipation Current Visit: Yes Status: Resolved s/p Milk and Molasses enema, which he tolerated Qualifiers: Constipation type: unspecified constipation type Qualified Code(s): K59.00 - Constipation, unspecified (3) Retroperitoneal lymphadenopathy Current Visit: Yes Status: Acute CT demonstrating extensive lymphadenopathy, with impression concerning for lymphadenopathy as possible etiology Review for weight loss: Pt's weight approx. 74 kg as of Apr.21, per EMR review Plan for repeat CT as outpatient Dr. Lynn discussed findings with patient, plan and stressed importance of follow-up on 07/31 Pt verbalized understanding and amenable to plan (4) Smoker Current Visit: No Status: Acute Nicotine patch prn for nicotine cravings (5) DVT prophylaxis Current Visit: No Status: Acute Heparin SubQ Subjective Patient reports: no new complaints, tolerating liquids well (popsicles, endorses strong appetite. ), flatus, no bowel movement, nausea, afebrile Narrative: No acute events overnight. Symptoms per ROS above. Pt states NG canister has not needed changing out - approx. 300 mL overnight. Objective Vital Signs - Last 8 Hours Temp Pulse Resp BP Pulse Ox 08/02/17 08:11 99 F 89 16 118/78 100 08/02/17 03:40 99.7 F H 98 14 113/69 96 Intake and Output 08/01/17 08/02/17 08/02/17 23:59 07:59 15:59 Intake Total 1000 / 1000 1000 / 1000 0 / 0 Output Total 2400 / 2400 400 / 400 Balance -1400 / -1400 600 / 600 0 / 0 Intake: IV Fluids 1000 / 1000 1000 / 1000 KCl 20mEq IN D5%-0.45 NACL 20 1000 / 1000 1000 / 1000 meq In 1,000 ml @ 75 mls/hr IVC .[id number] [facility] Rx#:[id number] Oral 0 / 0 0 / 0 0 / 0 Output: Urine 200 / 200 400 / 400 Gastric Drainage 2200 / 2200 Other: # Voids 0 Weight 68.99 kg Blood Glucose* 119 103 Patient Weight 08/02/17 23:59 Weight 68.99 kg - General physical appearance no distress, other (thin) - Eyes normal ocular movement - ENT Other (NG tube suctioning, bile colored material.) - Respiratory normal expansion, normal respiratory effort crackles: bilateral (lower bases) - Labs 08/02/17 06:00 08/02/17 06:00 Diabetes panel 08/02/17 Range/Units 06:00 Sodium 130 L (136-145) mEq/L Potassium 3.1 L (3.5-5.1) mEq/L Chloride 97 L (98-107) mEq/L Carbon Dioxide 26 (23-29) mEq/L BUN 10 (6-20) mg/dL Creatinine 0.75 (0.70-1.30) mg/dL Glucose 106 H (70-105) mg/dL Calcium 8.2 L (8.6-10.3) mg/dL Calcium panel 08/02/17 08/02/17 Range/Units 06:00 06:00 Calcium 8.2 L (8.6-10.3) mg/dL Phosphorus 2.2 L (2.7-4.5) mg/dL Pituitary panel 08/02/17 Range/Units 06:00 Sodium 130 L (136-145) mEq/L Potassium 3.1 L (3.5-5.1) mEq/L Chloride 97 L (98-107) mEq/L Carbon Dioxide 26 (23-29) mEq/L BUN 10 (6-20) mg/dL Creatinine 0.75 (0.70-1.30) mg/dL Glucose 106 H (70-105) mg/dL Calcium 8.2 L (8.6-10.3) mg/dL Adrenal panel 08/02/17 Range/Units 06:00 Sodium 130 L (136-145) mEq/L Potassium 3.1 L (3.5-5.1) mEq/L Chloride 97 L (98-107) mEq/L Carbon Dioxide 26 (23-29) mEq/L BUN 10 (6-20) mg/dL Creatinine 0.75 (0.70-1.30) mg/dL Glucose 106 H (70-105) mg/dL Calcium 8.2 L (8.6-10.3) mg/dL Consult Discharge Plan - Plan Referrals: NONE,PCP [Primary Care Provider] - <Yoko Lynn - Last Filed: 08/02/17 13:49> Date of Encounter: 08/02/17 - Assessment and Plan (1) Small bowel obstruction due to adhesions Current Visit: Yes Status: Acute discussed with patient that he has a large amount of ngt output he is passing gas and may now have a partial small bowel obstruction but it is not resolving currently discussed giving him until tues to resolve on his own and it has not will plan ex lap he has a uti - enterococcus species, no sensitivites present, start ampillin ok to amulate continue conservative therapy with npo/ice/popcicles x 3 daily ngt to liws (2) Smoker Current Visit: No Status: Acute ok for nicotine patch but patient currently refusing prn ativan for agitation (3) History of gastric ulcer Current Visit: Yes Status: Acute continue PPI therpay (4) UTI (urinary tract infection) due to Enterococcus Current Visit: Yes Status: Acute await sensitivities but start iv ampicillin currently Subjective Patient reports: no new complaints, tolerating liquids well, voiding w/o difficulty, flatus, no bowel movement, afebrile Objective Vital Signs - Last 8 Hours Temp Pulse Resp BP Pulse Ox 08/02/17 11:55 100.4 F H 97 15 112/67 99 08/02/17 08:11 99 F 89 16 118/78 100 Intake and Output 08/01/17 08/02/17 08/02/17 23:59 07:59 15:59 Intake Total 1000 / 1000 1000 / 1000 0 / 0 Output Total 2400 / 2400 400 / 400 Balance -1400 / -1400 600 / 600 0 / 0 Intake: IV Fluids 1000 / 1000 1000 / 1000 KCl 20mEq IN D5%-0.45 NACL 20 1000 / 1000 1000 / 1000 meq In 1,000 ml @ 75 mls/hr IVC .[id number] [facility] Rx#:[id number] Oral 0 / 0 0 / 0 0 / 0 Output: Urine 200 / 200 400 / 400 Gastric Drainage 2200 / 2200 Other: Meal NPO Percent of Meal Consumed 0% # Voids 0 Weight 68.99 kg Blood Glucose* 119 103 102 Patient Weight 08/02/17 23:59 Weight 68.99 kg - General physical appearance well nourished, no distress, other - Eyes PERRL, normal ocular movement - ENT normal mucosa, normocephalic - Neck Neck exam: trachea midline - Respiratory normal expansion, clear to auscultation - Cardiovascular Cardiovascular exam: Present: RRR - Abdomen Abdomen: Present: bowel sounds present (high pitched tinkling), soft, non tender. Absent: distended, guarding, rebound - Integumentary no rash, no growths - Neurologic CN 2-12 grossly intact - Musculoskeletal normal posture - Psychiatric oriented to time, oriented to person, oriented to place, speech is normal, memory intact - Labs 08/02/17 06:00 08/02/17 06:00 Diabetes panel 08/02/17 Range/Units 06:00 Sodium 130 L (136-145) mEq/L Potassium 3.1 L (3.5-5.1) mEq/L Chloride 97 L (98-107) mEq/L Carbon Dioxide 26 (23-29) mEq/L BUN 10 (6-20) mg/dL Creatinine 0.75 (0.70-1.30) mg/dL Glucose 106 H (70-105) mg/dL Calcium 8.2 L (8.6-10.3) mg/dL Calcium panel 08/02/17 08/02/17 Range/Units 06:00 06:00 Calcium 8.2 L (8.6-10.3) mg/dL Phosphorus 2.2 L (2.7-4.5) mg/dL Pituitary panel 08/02/17 Range/Units 06:00 Sodium 130 L (136-145) mEq/L Potassium 3.1 L (3.5-5.1) mEq/L Chloride 97 L (98-107) mEq/L Carbon Dioxide 26 (23-29) mEq/L BUN 10 (6-20) mg/dL Creatinine 0.75 (0.70-1.30) mg/dL Glucose 106 H (70-105) mg/dL Calcium 8.2 L (8.6-10.3) mg/dL Adrenal panel 08/02/17 Range/Units 06:00 Sodium 130 L (136-145) mEq/L Potassium 3.1 L (3.5-5.1) mEq/L Chloride 97 L (98-107) mEq/L Carbon Dioxide 26 (23-29) mEq/L BUN 10 (6-20) mg/dL Creatinine 0.75 (0.70-1.30) mg/dL Glucose 106 H (70-105) mg/dL Calcium 8.2 L (8.6-10.3) mg/dL - Attending Attestation I examined this patient and my medical decision-making was reviewed with the Resident Physician. I agree with the documented findings, disposition and treatment plan as described except to the extent set forth below.
[2017-08-02] MEDS ORDERED: Potassium Phosphate 44 MEQ in 0.9 % Sodium Chloride 250 ML IVPB ONE (11:45)
[2017-08-02] MEDS ORDERED: Ampicillin 2 GM in 0.9 % Sodium Chloride Mini Bag 100 ML IVPB SCH ×2 (12:00→19:00)
[2017-08-02] MEDS: *HR* LORazepam 2 MG/ML VIAL IVP PRN ×3 (13:27→23:32)
[2017-08-02] MEDS: Ondansetron 4 MG/2 ML VIAL IVP PRN ×2 (13:40→23:31)
[2017-08-02] MEDS: *HR* Promethazine 25 MG/ML VIAL IVP PRN (16:34)
[2017-08-02] MEDS: Ampicillin 2 GM in 0.9 % Sodium Chloride Mini Bag 100 ML IVPB SCH (23:55)
[2017-08-03] MEDS ORDERED: Ketorolac 30 MG/ML VIAL IVP ONE (05:02)
[2017-08-03] MEDS: *HR* Heparin 5,000 UNIT/ML VIAL SQ SCH ×2 (05:12→17:19)
[2017-08-03] MEDS: D5% in 0.45% NACL w KCl 20 MEQ/1,000 ML MLS IVC SCH ×2 (05:13→20:01)
[2017-08-03 06:00] LABS: BUN/Creatinine Ratio 12 (6-26); Blood Urea Nitrogen 10 mg/dL (6-20); Carbon Dioxide 24 mEq/L (23-29); Chloride 98 mEq/L (98-107); Glucose 100 mg/dL (70-105); Magnesium 1.8 mg/dL (1.6-2.6); Osmolality,Calculated 265 (280-300); Phosphorous 2.6 mg/dL (2.7-4.5); Potassium 3.5 mEq/L (3.5-5.1); Sodium 128 mEq/L (136-145); eGFR For African Americans > 60 (> 60); eGFR For Non-African Americans > 60 (> 60)
[2017-08-03] MEDS: *HR* LORazepam 2 MG/ML VIAL IVP PRN ×3 (07:02→20:04)
[2017-08-03] MEDS: Pantoprazole 40 MG VIAL IVP SCH ×2 (08:00→20:03)
[2017-08-03] MEDS: Ampicillin 2 GM in 0.9 % Sodium Chloride Mini Bag 100 ML IVPB SCH ×3 (08:01→20:03)
[2017-08-03] MEDS: *HR* Morphine 2 MG/ML SYRINGE IVP PRN (09:07)
[2017-08-03] MEDS: Ondansetron 4 MG/2 ML VIAL IVP PRN ×2 (09:07→20:03)
[2017-08-03] MEDS ORDERED: D5% in Water 1,000 ML IVC PRN (11:24)
[2017-08-03] MEDS ORDERED: Dextrose Gel 15 GM/37.5 ML TUBE PO PRN ×2 (11:24)
[2017-08-03] MEDS ORDERED: *HR* Dextrose 50 % in Water (Syg) 50 ML SYRINGE IVP PRN (11:24)
--- NOTE | 2017-08-03 11:58 | General Surgery Progress Note ---
<Dina Andre Linette - Last Filed: 08/03/17 12:08> Date of Encounter: 08/03/17 Time of Encounter: 11:30 - Assessment and Plan (1) Small bowel obstruction Current Visit: Yes Status: Acute Advance to clear liquid diet with NG tube to gravity NG tube to gravity drain (alvarez bag) IV fluids Abdominal x-rays from this morning improved with mild dilation of small bowel loops and air within the rectum Supportive care IS every 1 hour while awake PPI therapy twice daily Serial abdominal exams Ambulatory hallways 3 times per day Consider surgical intervention for exploratory laparotomy if the patient fails conservative management (2) Constipation Current Visit: Yes Status: Resolved Qualifiers: Constipation type: unspecified constipation type Qualified Code(s): K59.00 - Constipation, unspecified (3) Retroperitoneal lymphadenopathy Current Visit: Yes Status: Acute Etiology unclear Repeat CT scan 6-8 weeks for follow-up and comparison (4) Hypokalemia Current Visit: Yes Status: Resolved K-3.5 today (5) Smoking history Current Visit: No Status: Chronic Smoking cessation education Nicotine patch prn for nicotine cravings (6) Hypoglycemia Current Visit: Yes Status: Acute Initiate hypoglycemia protocol (7) DVT prophylaxis Current Visit: No Status: Acute Heparin 5000 units subcutaneous twice daily for DVT prophylaxis Ambulatory hallways 3 times per day with assistance Subjective Patient reports: no new complaints, feels better, still having pain, pain is less, voiding w/o difficulty, flatus, no bowel movement (last BM 07/31/17), fever (Tmax 101.5; Tcurrent 97.5) Objective Vital Signs - Last 8 Hours Temp Pulse Resp BP Pulse Ox 08/03/17 10:51 97.5 F L 93 14 113/73 96 08/03/17 07:56 98.8 F 95 16 102/65 100 08/03/17 04:41 101.5 F H 91 14 105/65 98 Intake and Output 08/02/17 08/03/17 08/03/17 23:59 07:59 15:59 Intake Total 1340 / 1340 1160 / 1160 Output Total 2832 / 2832 1900 / 1900 Balance -1492 / -1492 -740 / -740 Intake: IV Fluids 1100 / 1100 1100 / 1100 KCl 20mEq IN D5%-0.45 NACL 20 1000 / 1000 1000 / 1000 meq In 1,000 ml @ 75 mls/hr IVC .[id number] [facility] Rx#:[id number] Ampicillin 2 GM In 0.9 % Sodium 100 / 100 100 / 100 Chloride (Mini-Bag +) 100 ML @ 200 mls/hr IVPB Q6H [facility] Rx#: [id number] Oral 240 / 240 60 / 60 Output: Urine 400 / 400 600 / 600 Gastric Drainage 2432 / 2432 1300 / 1300 Other: Weight 68.99 kg Blood Glucose* 102 110 55 Patient Weight 08/03/17 23:59 Weight 68.99 kg - General physical appearance well developed, well nourished, no distress - Eyes normal ocular movement - ENT normal mucosa, atraumatic, normocephalic - Neck Neck exam: trachea midline - Respiratory normal respiratory effort, clear to auscultation - Cardiovascular Cardiovascular exam: Present: RRR - Abdomen Abdomen: Present: bowel sounds present, soft, tender (minimal generalized tenderness), wound (NG tube to LIWS with 1300ml documented since midnight) - Integumentary no rash, no growths, no abnormal pigmentation - Neurologic CN 2-12 grossly intact - Psychiatric oriented to time, oriented to person, oriented to place, speech is normal, memory intact - Labs 08/02/17 06:00 08/03/17 05:27 Diabetes panel 08/03/17 Range/Units 05:27 Sodium 128 L (136-145) mEq/L Potassium 3.5 (3.5-5.1) mEq/L Chloride 98 (98-107) mEq/L Carbon Dioxide 24 (23-29) mEq/L BUN 10 (6-20) mg/dL Creatinine 0.81 (0.70-1.30) mg/dL Glucose 100 (70-105) mg/dL Calcium 8.0 L (8.6-10.3) mg/dL Calcium panel 08/03/17 Range/Units 05:27 Calcium 8.0 L (8.6-10.3) mg/dL Phosphorus 2.6 L (2.7-4.5) mg/dL Pituitary panel 08/03/17 Range/Units 05:27 Sodium 128 L (136-145) mEq/L Potassium 3.5 (3.5-5.1) mEq/L Chloride 98 (98-107) mEq/L Carbon Dioxide 24 (23-29) mEq/L BUN 10 (6-20) mg/dL Creatinine 0.81 (0.70-1.30) mg/dL Glucose 100 (70-105) mg/dL Calcium 8.0 L (8.6-10.3) mg/dL Adrenal panel 08/03/17 Range/Units 05:27 Sodium 128 L (136-145) mEq/L Potassium 3.5 (3.5-5.1) mEq/L Chloride 98 (98-107) mEq/L Carbon Dioxide 24 (23-29) mEq/L BUN 10 (6-20) mg/dL Creatinine 0.81 (0.70-1.30) mg/dL Glucose 100 (70-105) mg/dL Calcium 8.0 L (8.6-10.3) mg/dL Consult Discharge Plan - Plan Referrals: NONE,PCP [Primary Care Provider] - - Attending Attestation For this encounter, I have reviewed the COMPENSATION ASSOCIATE or PA documentation, treatment plan, and medical decision making; and I have had face to face time with this patient. <Yoko Lynn - Last Filed: 08/04/17 08:47> Date of Encounter: 08/03/17 Time of Encounter: 18:00 - Assessment and Plan (1) Small bowel obstruction due to adhesions Current Visit: Yes Status: Acute small bowel obstruction appears to be resolving, patient with significant flatus ngt placed to alvarez earlier in day and patient tolerating clears without incident ngt removed continue clears (2) Smoker Current Visit: No Status: Acute nicotine patch offered (3) History of gastric ulcer Current Visit: Yes Status: Acute continue ppi therapy (4) UTI (urinary tract infection) due to Enterococcus Current Visit: Yes Status: Acute continue ampicillin for uti Subjective Patient reports: feels better, pain is less, tolerating liquids well, voiding w/ o difficulty, flatus, bowel movement, fever Objective Vital Signs - Last 8 Hours Temp Pulse Resp BP Pulse Ox 08/04/17 06:59 98.4 F 90 16 114/75 100 08/04/17 01:26 98.9 F 87 14 107/64 98 Intake and Output 08/03/17 08/04/17 08/04/17 23:59 07:59 15:59 Intake Total 1460 / 1460 200 / 200 Output Total 0 / 0 0 / 0 Balance 1460 / 1460 200 / 200 Intake: IV Fluids 1100 / 1100 200 / 200 KCl 20mEq IN D5%-0.45 NACL 20 1000 / 1000 meq In 1,000 ml @ 75 mls/hr IVC .[id number] [facility] Rx#:[id number] Ampicillin 2 GM In 0.9 % Sodium 100 / 100 200 / 200 Chloride (Mini-Bag +) 100 ML @ 200 mls/hr IVPB Q6H [facility] Rx#: [id number] Oral 360 / 360 0 / 0 Output: Urine 0 / 0 0 / 0 Other: Stool Size Large Small Stool Consistency loose liquid Stool Color Brown # Voids 1 # Urine Diapers 1 - General physical appearance well developed, well nourished, no distress - Eyes PERRL, normal ocular movement - ENT normal mucosa, normocephalic - Neck Neck exam: trachea midline - Respiratory normal expansion, normal respiratory effort - Cardiovascular Cardiovascular exam: Present: RRR - Abdomen Abdomen: Present: bowel sounds present, soft, non tender - Integumentary no rash, no growths - Neurologic CN 2-12 grossly intact - Musculoskeletal normal posture - Psychiatric oriented to time, oriented to person, oriented to place, speech is normal, memory intact - Labs 08/02/17 06:00 08/04/17 06:22 Diabetes panel 08/04/17 Range/Units 06:22 Sodium 131 L (136-145) mEq/L Potassium 4.1 (3.5-5.1) mEq/L Chloride 102 (98-107) mEq/L Carbon Dioxide 22 L (23-29) mEq/L BUN 10 (6-20) mg/dL Creatinine 0.87 (0.70-1.30) mg/dL Glucose 105 (70-105) mg/dL Calcium 8.7 (8.6-10.3) mg/dL Calcium panel 08/04/17 Range/Units 06:22 Calcium 8.7 (8.6-10.3) mg/dL Pituitary panel 08/04/17 Range/Units 06:22 Sodium 131 L (136-145) mEq/L Potassium 4.1 (3.5-5.1) mEq/L Chloride 102 (98-107) mEq/L Carbon Dioxide 22 L (23-29) mEq/L BUN 10 (6-20) mg/dL Creatinine 0.87 (0.70-1.30) mg/dL Glucose 105 (70-105) mg/dL Calcium 8.7 (8.6-10.3) mg/dL Adrenal panel 08/04/17 Range/Units 06:22 Sodium 131 L (136-145) mEq/L Potassium 4.1 (3.5-5.1) mEq/L Chloride 102 (98-107) mEq/L Carbon Dioxide 22 L (23-29) mEq/L BUN 10 (6-20) mg/dL Creatinine 0.87 (0.70-1.30) mg/dL Glucose 105 (70-105) mg/dL Calcium 8.7 (8.6-10.3) mg/dL - Attending Attestation I have personally performed a face to face evaluation on this patient. I have reviewed and agree with the care plan. History and Exam by me shows:
[2017-08-03] MEDS: *HR* OxyCODONE Immed Rel 5 MG TABLET PO PRN ×3 (13:03→21:56)
[2017-08-03] MEDS ORDERED: Acetaminophen 325 MG TABLET PO PRN (21:05)
[2017-08-04] MEDS: Ampicillin 2 GM in 0.9 % Sodium Chloride Mini Bag 100 ML IVPB SCH ×3 (02:00→14:04)
[2017-08-04] MEDS: *HR* OxyCODONE Immed Rel 5 MG TABLET PO PRN ×2 (04:56→09:34)
[2017-08-04] MEDS: *HR* Heparin 5,000 UNIT/ML VIAL SQ SCH ×2 (04:57→17:21)
[2017-08-04 06:53] LABS: BUN/Creatinine Ratio 11 (6-26); Blood Urea Nitrogen 10 mg/dL (6-20); Calcium 8.7 mg/dL (8.6-10.3); Carbon Dioxide 22 mEq/L (23-29); Chloride 102 mEq/L (98-107); Glucose 105 mg/dL (70-105); Osmolality,Calculated 271 (280-300); Potassium 4.1 mEq/L (3.5-5.1); Sodium 131 mEq/L (136-145); eGFR For African Americans > 60 (> 60); eGFR For Non-African Americans > 60 (> 60)
[2017-08-04] MEDS: *HR* LORazepam 2 MG/ML VIAL IVP PRN ×2 (08:06→14:32)
[2017-08-04] MEDS: Ondansetron 4 MG/2 ML VIAL IVP PRN ×2 (08:06→16:03)
[2017-08-04] MEDS: Pantoprazole 40 MG VIAL IVP SCH (08:06)
[2017-08-04] MEDS: D5% in 0.45% NACL w KCl 20 MEQ/1,000 ML MLS IVC SCH (09:34)
--- NOTE | 2017-08-04 09:38 | General Surgery Progress Note ---
<Dina Andre - Last Filed: 08/04/17 10:11> Date of Encounter: 08/04/17 Time of Encounter: 09:30 - Assessment and Plan (1) Small bowel obstruction Current Visit: Yes Status: Acute Clear liquid diet NG tube removed last evening Check SBFT with gastrograffin today IV fluids- 75ml/hour Supportive care IS every 1 hour while awake PPI therapy twice daily Serial abdominal exams Ambulatory hallways 3 times per day AM labs Consider surgical intervention for exploratory laparotomy if the patient fails conservative management (2) Retroperitoneal lymphadenopathy Current Visit: Yes Status: Acute Etiology unclear Repeat CT scan 6-8 weeks for follow-up and comparison (3) Hypokalemia Current Visit: Yes Status: Resolved K-4.1 today (4) Smoking history Current Visit: No Status: Chronic Smoking cessation education Nicotine patch prn for nicotine cravings (5) Hypoglycemia Current Visit: Yes Status: Resolved Continue hypoglycemia protocol (6) Pyrexia Current Visit: Yes Status: Acute Check 2V chest x-ray today Qualifiers: Fever type: unspecified Qualified Code(s): R50.9 - Fever, unspecified (7) DVT prophylaxis Current Visit: No Status: Acute Heparin 5,000 units subcutaneous twice daily for DVT prophylaxis Ambulatory hallways 3 times per day with assistance Subjective Patient reports: no new complaints, still having pain (states that abdominal pain seems to increase after eating (generalized)), tolerating liquids well, voiding w/o difficulty, flatus, bowel movement, nausea (occasional with bloating ), fever (Tmax 100.9; Tcurrent- 98.4) Objective Vital Signs - Last 8 Hours Temp Pulse Resp BP Pulse Ox 08/04/17 06:59 98.4 F 90 16 114/75 100 Intake and Output 08/03/17 08/04/17 08/04/17 23:59 07:59 15:59 Intake Total 1460 / 1460 200 / 200 1000 / 1000 Output Total 0 / 0 0 / 0 Balance 1460 / 1460 200 / 200 1000 / 1000 Intake: IV Fluids 1100 / 1100 200 / 200 1000 / 1000 KCl 20mEq IN D5%-0.45 NACL 20 1000 / 1000 1000 / 1000 meq In 1,000 ml @ 75 mls/hr IVC .[id number] [facility] Rx#:[id number] Ampicillin 2 GM In 0.9 % Sodium 100 / 100 200 / 200 Chloride (Mini-Bag +) 100 ML @ 200 mls/hr IVPB Q6H [facility] Rx#: [id number] Oral 360 / 360 0 / 0 Output: Urine 0 / 0 0 / 0 Other: Stool Size Large Small Stool Consistency loose liquid Stool Color Brown # Voids 1 # Urine Diapers 1 - General physical appearance well developed, no distress, moderate pain - Eyes normal ocular movement - ENT normal mucosa, atraumatic, normocephalic - Neck Neck exam: trachea midline - Respiratory normal respiratory effort, other (diminished bibasilar bases) rales: bilateral - Cardiovascular Cardiovascular exam: Present: RRR - Abdomen Abdomen: Present: bowel sounds present, soft, distended, tender (generalized) - Neurologic CN 2-12 grossly intact - Musculoskeletal normal gait, normal posture - Psychiatric oriented to time, oriented to person, oriented to place, speech is normal, memory intact - Labs 08/02/17 06:00 08/04/17 06:22 Diabetes panel 08/04/17 Range/Units 06:22 Sodium 131 L (136-145) mEq/L Potassium 4.1 (3.5-5.1) mEq/L Chloride 102 (98-107) mEq/L Carbon Dioxide 22 L (23-29) mEq/L BUN 10 (6-20) mg/dL Creatinine 0.87 (0.70-1.30) mg/dL Glucose 105 (70-105) mg/dL Calcium 8.7 (8.6-10.3) mg/dL Calcium panel 08/04/17 Range/Units 06:22 Calcium 8.7 (8.6-10.3) mg/dL Pituitary panel 08/04/17 Range/Units 06:22 Sodium 131 L (136-145) mEq/L Potassium 4.1 (3.5-5.1) mEq/L Chloride 102 (98-107) mEq/L Carbon Dioxide 22 L (23-29) mEq/L BUN 10 (6-20) mg/dL Creatinine 0.87 (0.70-1.30) mg/dL Glucose 105 (70-105) mg/dL Calcium 8.7 (8.6-10.3) mg/dL Adrenal panel 08/04/17 Range/Units 06:22 Sodium 131 L (136-145) mEq/L Potassium 4.1 (3.5-5.1) mEq/L Chloride 102 (98-107) mEq/L Carbon Dioxide 22 L (23-29) mEq/L BUN 10 (6-20) mg/dL Creatinine 0.87 (0.70-1.30) mg/dL Glucose 105 (70-105) mg/dL Calcium 8.7 (8.6-10.3) mg/dL Consult Discharge Plan - Plan Referrals: NONE,PCP [Primary Care Provider] - - Attending Attestation For this encounter, I have reviewed the ROLLER MACHINE OPERATOR or PA documentation, treatment plan, and medical decision making; and I have had face to face time with this patient. <Yoko Lynn - Last Filed: 08/04/17 11:49> Date of Encounter: 08/04/17 Time of Encounter: 11:40 - Assessment and Plan (1) Small bowel obstruction due to adhesions Current Visit: Yes Status: Acute patient still passing flatus but is very distended and having significant abdominal pain throughout his entire abdomen. Discussed with patient that due to his distention and his pain he will not tolerate a small bowel follow through and will cancel, will order abd xray npo, ivf hydration discussed with patient that he is not resolving his obstruction on his own, will plan exploratory laparotomy today for small bowel obstruction, risks and benefits discussed and he wishes to proceed ngt to liws prn pain control (2) Smoker Current Visit: No Status: Acute (3) History of gastric ulcer Current Visit: Yes Status: Acute (4) UTI (urinary tract infection) due to Enterococcus Current Visit: Yes Status: Acute continue iv antibiotics Objective Vital Signs - Last 8 Hours Temp Pulse Resp BP Pulse Ox 08/04/17 10:44 98.9 F 77 16 131/78 100 08/04/17 06:59 98.4 F 90 16 114/75 100 Intake and Output 08/03/17 08/04/17 08/04/17 23:59 07:59 15:59 Intake Total 1460 / 1460 200 / 200 1720 / 1720 Output Total 0 / 0 0 / 0 Balance 1460 / 1460 200 / 200 1720 / 1720 Intake: IV Fluids 1100 / 1100 200 / 200 1000 / 1000 KCl 20mEq IN D5%-0.45 NACL 20 1000 / 1000 1000 / 1000 meq In 1,000 ml @ 75 mls/hr IVC .[id number] [facility] Rx#:[id number] Ampicillin 2 GM In 0.9 % Sodium 100 / 100 200 / 200 Chloride (Mini-Bag +) 100 ML @ 200 mls/hr IVPB Q6H [facility] Rx#: [id number] Oral 360 / 360 0 / 0 720 / 720 Output: Urine 0 / 0 0 / 0 Other: Meal Clears Percent of Meal Consumed 0% Stool Size Large Small Stool Consistency loose liquid Stool Color Brown # Voids 1 # Urine Diapers 1 - Labs 08/02/17 06:00 08/04/17 06:22 Diabetes panel 08/04/17 Range/Units 06:22 Sodium 131 L (136-145) mEq/L Potassium 4.1 (3.5-5.1) mEq/L Chloride 102 (98-107) mEq/L Carbon Dioxide 22 L (23-29) mEq/L BUN 10 (6-20) mg/dL Creatinine 0.87 (0.70-1.30) mg/dL Glucose 105 (70-105) mg/dL Calcium 8.7 (8.6-10.3) mg/dL Calcium panel 08/04/17 Range/Units 06:22 Calcium 8.7 (8.6-10.3) mg/dL Pituitary panel 08/04/17 Range/Units 06:22 Sodium 131 L (136-145) mEq/L Potassium 4.1 (3.5-5.1) mEq/L Chloride 102 (98-107) mEq/L Carbon Dioxide 22 L (23-29) mEq/L BUN 10 (6-20) mg/dL Creatinine 0.87 (0.70-1.30) mg/dL Glucose 105 (70-105) mg/dL Calcium 8.7 (8.6-10.3) mg/dL Adrenal panel 08/04/17 Range/Units 06:22 Sodium 131 L (136-145) mEq/L Potassium 4.1 (3.5-5.1) mEq/L Chloride 102 (98-107) mEq/L Carbon Dioxide 22 L (23-29) mEq/L BUN 10 (6-20) mg/dL Creatinine 0.87 (0.70-1.30) mg/dL Glucose 105 (70-105) mg/dL Calcium 8.7 (8.6-10.3) mg/dL
[2017-08-04] MEDS: Ipratropium/Albuterol Neb 3 ML IH SCH ×3 (10:32→22:52)
[2017-08-04] MEDS ORDERED: Lidocaine -MPF 1% 2 ML VIAL INFILT ONE (12:19)
[2017-08-04] MEDS ORDERED: D5% in 0.45% NACL w KCl 20 MEQ/1,000 ML MLS IVC SCH (12:22)
[2017-08-04] MEDS ORDERED: D10% in Water 500 ML IVC PRN (12:59)
[2017-08-04 14:02] LABS: INR 1.4; Prothrombin Time 15.3 Seconds (9.4-12.1)
[2017-08-04] MEDS: MORPHINE SUL Oral CONC 10 MG/0.5 ML ORAL.SYG SL PRN ×2 (14:04→18:17)
[2017-08-04 14:05] LABS: Activated Partial Thrombo Time 32.4 Seconds (26.0-36.0)
[2017-08-04] MEDS ORDERED: Lidocaine Jelly 11 ml Syringe MM ONE (14:30)
[2017-08-04] MEDS ORDERED: Clinimix E 5%-15% SOLUTION 2,000 ML with MVI, adult with vitamin K 10 ML IVC SCH (17:00)
[2017-08-04] MEDS: Insulin LISPRO 300 UNITS/3 ML VIAL SQ SCH (18:12)
[2017-08-04] MEDS: *HR* Promethazine 25 MG/ML VIAL IVP PRN (18:17)
--- NOTE | 2017-08-04 19:00 | Anesthesia Evaluation PreOp ---
Date of Encounter: 08/04/17 Time of Encounter: 18:56 - Past History Planned Operation: Exp. Lap. Cardiac History: Denies any Significant Hx ( patient, old records reviewed Medical history: GERD, myocardial infarction, other (Pneumonia, Perforated viscous 06/2017) Psychiatric history: anxiety, depression - Past Surgical History Surgical History: no surgical history - Social History Smoking Status: Current every day smoker Packs per day: 0.5), [place] (@ 32 y/o) Pulmonary History: Smoker SHAREPOINT MANAGER History: Other (Anxiety/Depression) Other Medical History: GERD, Other (retroperitoneal lymphadenopathy) Anesthesia History: No Prior Anesthetic Complications, Past Anesthesia (Perf. Viscous 06/2017) Alcohol Use: none Drug use: none Medications and Allergies No Known Home Drugs 07/31/17 [History] 3 Allergy/AdvReac Type Severity Reaction Status Date / Time No Known Allergies Allergy Verified 06/20/17 09:24 - Meds/Allergy Pre-op Review Medications Reviewed: Yes Allergies Reviewed: Yes Beta Blockers on Current Med List: No Anesthesia Results - Labs 08/02/17 06:00 08/04/17 06:22 - Imaging EKG: report reviewed (SINUS TACHYCARDIA ABNORMAL RHYTHM ECG) Anesthesia Exam Vital Signs/O2 Sat, Most Current Temp Pulse Resp BP Pulse Ox 98.8 F 95 20 125/78 100 08/04/17 15:32 08/04/17 15:32 08/04/17 15:32 08/04/17 15:32 08/04/17 15:32 NPO (# of Hours): > 8 hrs Pain Scale: 0 Pain Scale Used: Numeric (1 - 10) - HEENT Pupil (Motor): Pupils equal, EOMI - SHAREPOINT MANAGER LOC: Oriented SHAREPOINT MANAGER Motor: Normal RUE, Normal LUE, Normal RLE, Normal LLE, Normal Face SHAREPOINT MANAGER Sensory: Normal: RUE, LUE, RLE, LLE, Face - Cardiac Rhythm: Regular Murmur: None JVD: No Carotid Bruit: No - Pulmonary Breath Sounds: bilateral Clear Respiratory Effort: Symmetrical Anesthesia Assess/Plan ASA Score: 2 Modified Remy Scale for Level of Consciousness: Cooperative, oriented, and tranquil Anesthetic Plan: General, Regional Autologous Blood: Yes Monitoring Plan: Standard Monitors Recovery Plan: PACU
[2017-08-04] MEDS ORDERED: *HR* Midazolam HCl 2 MG/2 ML VIAL ONE ×2 (19:37→21:47)
--- NOTE | 2017-08-04 20:12 | Anesthesia Procedures ---
Date of Encounter: 08/04/17 Time of Encounter: 19:43 Procedures: Anesthesia - Epidural/Spinal Patient ID/Chart reviewed: Yes Patient examined: Yes Consent Obtained: Yes Supplemental Oxygen: None/Room Air Sedation: Versed (mg): 2 Site Prep: Aseptic Technique, Sterile prep and drape, 0.5% Chlorhexidine/Alcohol Patient position: upright Local Anesthetic: Lidocaine 1% Amount of Local Anesthetic used: 2 Touhy Needle Gauge: 18 Touhy Needle Depth (cm): 5 Catheter Depth at Skin (cm): 11 Test Dose (1.5% Lido + Epi): Volume given (mls): 5 Test Dose Result: Negative Loading Dose Administered: Thru Catheter Catheter Secured in Place: Tegaderm, Tape Interspace Used: Other (L1-L2) Loss of Resistance (ELÍAS): Yes (saline) Blood: No CSF: No Paresthesia: No Procedure: vss though out, henrique well. strict aseptic tech though out,
[2017-08-04] MEDS ORDERED: Epidural Premix (fent/bupiv) 110 ML EP ONE (20:49)
[2017-08-04] MEDS ORDERED: *HR* Propofol 200 MG/20 ML VIAL IVP ONE (21:47)
[2017-08-04] MEDS ORDERED: *HR* FentaNYL (PF) 100 MCG/2 ML VIAL ONE ×2 (21:47→23:11)
[2017-08-04] MEDS ORDERED: Ondansetron 4 MG/2 ML VIAL ONE (21:50)
[2017-08-04] MEDS ORDERED: *HR* Succinylcholine 200 MG/10 ML VIAL IVP ONE (21:50)
[2017-08-04] MEDS ORDERED: *HR* Rocuronium Bromide 50 MG/5 ML VIAL ONE (21:50)
[2017-08-04] MEDS ORDERED: Dexamethasone 4 MG/ML VIAL ONE (21:50)
[2017-08-04] MEDS ORDERED: Lidocaine -MPF 2% 2 ML VIAL ONE ×2 (21:50→22:44)
[2017-08-04] MEDS ORDERED: BUPIV EP SCH (23:00)
[2017-08-04] MEDS ORDERED: FENT EP SCH (23:00)
[2017-08-05] MEDS ORDERED: CefOXitin 2,000 MG VIAL ONE (00:06)
--- NOTE | 2017-08-05 00:37 | Operative Note ---
Date of procedure: 08/05/17 Pre-op diagnosis: small bowel obstruction, retroperitoneal lymphadenopathy Post-op diagnosis: same Procedure: Exploratory laparotomy, lysis of adhesions, biopsy left para-external iliac lymph node, incidental appedectomy Complications: none immediate Anesthesia: GETA Surgeon: Yoko Lynn Was there an assistant associate full professor present: Yes Hostel Parent: Lisa Polo Estimated blood loss (cc): 10 Specimen: see op report Condition: stable Disposition: PACU Procedure in Detail: specimens: small bowel adhesion, appendix, left para-external iliac lymph node biopsy Patient was brought to the operating suite and placed supine on the operating table. Sign was performed and everyone was in agreement. Anesthesia was induced the patient was under strictly intubated by anesthesia without incident. The NG tube was removed by anesthesia and replaced. A Howard catheter was placed by the circulating nurse. His abdomen shaved and then prepped and draped in the usual sterile fashion. Timeout was performed again everyone was in agreement. Midline incision was made through the skin and the subcutaneous tissue with a 15 blade. We dissected through the subcutaneous tissue to the anterior abdominal wall hernia with fashion with the Bovie. Trochars are placed on either side of the fascia for retraction and the abdomen was entered with the Bovie and the incision elongated. A Bookwalter was placed for retraction and exposure. Multiple large dilated loops of small bowel were immediately evident. The small bowel was run up to the ligament of Treitz. The small bowel was then run from the ligament of Treitz down to the area of obstruction due to several different adhesions. The adhesions were taken down with Metzenbaum scissors and the Bovie. The small bowel was continued run in a proximal to distal direction. Several loops of small bowel were adherent to the anterior abdominal wall in the pelvis and these adhesions were taken down with Metzenbaum scissors. The bowel was then followed down to the terminal ileum and all small bowel was free at this point. We then ran the small bowel from the terminal ileum up to the ligament of Treitz evaluating the bowel for any injuries, none were evident. The patient was placed in Trendelenburg position and the small bowel was packed with a wet towel in the right upper quadrant. Manual palpation revealed the enlarged left external iliac lymphadenopathy. Due to patient's thin body habitus we are able to locate the ureter which was immediately overlying the lymphadenopathy. Using a right angle and the Bovie the peritoneum was opened overlying the lymphadenopathy and the ureter gently moved medially. After noting the location of the external iliac artery, a biopsy of the para-external iliac lymph node was performed with the Bovie. The specimen was placed off to the back table for pathology. The cut surface of the lymph node was cauterized with the Bovie. A small piece of Surgicel was placed over the cut surface of the lymph node and gentle pressure held for several minutes. The Surgicel was removed and there was no bleeding from the lymph node. The appendix was located at the cecum. Babcocks were placed on the appendix for retraction. A right angle was used to dissect between the base of the cecum and the appendix. The appendix was transected with a linear OUSMANE-75 stapler blue load. The appendix was taken off the cecum with gentle blunt dissection and cautery. The appendiceal artery was ligated and transected with the impact LigaSure. The abdomen was copiously irrigated with sterile saline. The NG tube was palpated to be within the body of the stomach in appropriate position. [place]'s are placed on either side of the fascia for retraction and one piece of Surgicel was placed beneath the midline on the small bowel. The fascia was closed with 2 separate #1 non-looped PDS running stitches meeting in the middle. The subcutaneous tissue is irrigated with sterile saline with 1 g of cefoxitin. The subcutaneous tissue was reapproximated with 3-0 Vicryl interrupted stitches. The skin was closed with franchesca. 4 x 4 gauze and Medipore tape were applied as a dressing. All lap and instrument counts were correct at the end of the case. The patient tolerated the procedure well. The Howard catheter and NG tube remained with the patient. The patient was awoken in the operating suite and taken to PACU in stable condition.
[2017-08-05] MEDS ORDERED: *HR* Promethazine 25 MG/ML VIAL IVP PRN (00:53)
[2017-08-05] MEDS ORDERED: Acetaminophen IV 1,000 MG/100 ML INFUS..BTL IVPB ONE (00:53)
[2017-08-05] MEDS ORDERED: MORPHINE SUL Oral CONC 10 MG/0.5 ML ORAL.SYG SL PRN (00:53)
[2017-08-05] MEDS ORDERED: Ondansetron 4 MG/2 ML VIAL IVP ONE (00:53)
[2017-08-05] MEDS ORDERED: *HR* Labetalol 20 MG/4 ML SYRINGE IVP PRN (00:53)
[2017-08-05] MEDS ORDERED: D10% in Water 500 ML IVC PRN (01:23)
[2017-08-05] MEDS ORDERED: Naloxone 0.4 MG/ML INJ IVP PRN (01:23)
[2017-08-05] MEDS ORDERED: Clinimix E 5%-15% SOLUTION 2,000 ML with MVI, adult with vitamin K 10 ML IVC SCH ×2 (01:23→17:00)
[2017-08-05] MEDS ORDERED: Nicotine 14 MG PATCH.TD24 TD PRN (01:23)
[2017-08-05] MEDS ORDERED: *HR* Dextrose 50 % in Water (Syg) 50 ML SYRINGE IVP PRN (01:23)
[2017-08-05] MEDS ORDERED: D5% in Water 1,000 ML IVC PRN (01:23)
[2017-08-05] MEDS ORDERED: Dextrose Gel 15 GM/37.5 ML TUBE PO PRN ×2 (01:23)
--- NOTE | 2017-08-05 01:29 | Anesthesia Evaluation Post Op ---
Date of Encounter: 08/05/17 Time of Encounter: 01:28 - Vital Signs Vital Signs: Vital Signs/O2 Sat, Most Current Temp Pulse Resp BP Pulse Ox 98.9 F 99 18 138/85 97 08/05/17 01:15 08/05/17 01:25 08/05/17 01:25 08/05/17 01:25 08/05/17 01:25 - Lungs Lungs: Clear Ascult./Percussion - Airway Airway: Non-obstructed - Cardiovascular Regular Rate - Mental Status Mental Status: Alert & Oriented, Answers Appropriately - Pain Pain Scale: 5 Pain Scale used: Numeric (1 - 10) - Nausea Vomiting Nausea Vomiting: Not Present - Hydration Hydration: NPO, Howard catheter - Discharge PostOp Status: Transfer Patient to floor
[2017-08-05] MEDS: MORPHINE SUL Oral CONC 10 MG/0.5 ML ORAL.SYG SL PRN ×4 (02:01→17:37)
[2017-08-05] MEDS: 0.9 % Sodium Chloride 1,000 ML IVC SCH ×2 (02:19→20:57)
[2017-08-05] MEDS: Ondansetron 4 MG/2 ML VIAL IVP PRN (02:35)
[2017-08-05] MEDS: Ipratropium/Albuterol Neb 3 ML IH SCH ×4 (04:05→21:58)
[2017-08-05 06:04] LABS: Hematocrit 29.1 % (37.5-50.1); Hemoglobin 9.1 g/dL (12.9-16.9); Mean Corpuscular HGB Conc 31.3 g/dL (31.6-35.5); Mean Corpuscular Hemoglobin 26.1 pg (28.0-33.3); Mean Corpuscular Volume 83.4 fL (83.0-100.0); Mean Platelet Volume 8.6 fL (9.4-12.4); Nucleated Red Blood Cells 0.4 /100 WBC (0); Platelet Count 496 K/mcL (140-400); Red Blood Count 3.49 M/mcL (4.19-5.50); Red Cell Distribution Width 17.4 % (11.5-14.5)
[2017-08-05 06:18] LABS: Magnesium 1.7 mg/dL (1.6-2.6)
[2017-08-05 06:50] LABS: BUN/Creatinine Ratio 15 (6-26); Blood Urea Nitrogen 12 mg/dL (6-20); Calcium 8.5 mg/dL (8.6-10.3); Carbon Dioxide 21 mEq/L (23-29); Chloride 102 mEq/L (98-107); Glucose 126 mg/dL (70-105); Osmolality,Calculated 275 (280-300); Potassium 4.2 mEq/L (3.5-5.1); Sodium 132 mEq/L (136-145); eGFR For African Americans > 60 (> 60); eGFR For Non-African Americans > 60 (> 60)
[2017-08-05] MEDS: Insulin LISPRO 300 UNITS/3 ML VIAL SQ SCH ×3 (07:45→17:10)
[2017-08-05] MEDS: Acetaminophen IV 1,000 MG/100 ML INFUS..BTL IVPB SCH ×2 (08:11→16:25)
[2017-08-05] MEDS: Pantoprazole 40 MG VIAL IVP SCH ×2 (08:12→16:26)
[2017-08-05] MEDS: Ampicillin 2 GM in 0.9 % Sodium Chloride Mini Bag 100 ML IVPB SCH ×3 (08:12→20:57)
[2017-08-05 08:25] LABS: Eosinophils # 0.3 K/mcL (0.0-0.6); Lymphocytes # 0.5 K/mcL (0.6-4.6); Monocytes # 0.3 K/mcL (0.0-1.3); Neutrophils # 5.6 K/mcL (1.6-8.9); Platelet Estimate Increased (Normal)
--- NOTE | 2017-08-05 10:57 | Anesthesia Progress Note ---
Date of Encounter: 08/05/17 Time of Encounter: 10:55 Anesthesia Note - Note Note: 08/05/17 10:55 Pt seen and evaluated post op day 1 and post op epidural placement. Pt states doing well and "no pain." Pt has no complaints or questions at this time and says thanks for placing epidural. Pt told to contact the anesthesia department if any issues come up. thank you for the opportunity to care for this patient.
--- NOTE | 2017-08-05 11:02 | General Surgery Progress Note ---
<Dina Andre - Last Filed: 08/05/17 13:29> Date of Encounter: 08/05/17 Time of Encounter: 10:45 - Assessment and Plan (1) Small bowel obstruction Current Visit: Yes Status: Acute POD #1 Exploratory laparotomy, lysis of adhesions, biopsy left para-external iliac lymph node, incidental appedectomy with Dr. Lynn Continue bowel rest while awaiting return of bowel function NG tube to low intermittent wall suction IV fluids- total fluid rate 100 mL's per hour (MIV + TPN) Continue TPN therapy at goal rate Dietitian consult to manage TPN Supportive care and pain control per anesthesia Epidural management per anesthesia- NO heparin, continuous pulse oximetry, continuous cardiac monitoring Incentive spirometer every 1 hour while awake Continue Alvarez catheter for strict I&O's PPI therapy twice daily Out of bed to chair starting 08/06/17 Repeat am labs (2) Retroperitoneal lymphadenopathy Current Visit: Yes Status: Acute POD #1 Exploratory laparotomy, lysis of adhesions, biopsy left para-external iliac lymph node, incidental appedectomy with Dr. Lynn Pathology pending (3) Hypokalemia Current Visit: Yes Status: Resolved K- 4.2 today (4) Smoking history Current Visit: No Status: Chronic Smoking cessation education Nicotine patch prn for nicotine cravings (5) Hypoglycemia Current Visit: Yes Status: Resolved Continue hypoglycemia protocol (6) Pyrexia Current Visit: Yes Status: Acute CXR- atelectasis 08/04/17 Qualifiers: Fever type: unspecified Qualified Code(s): R50.9 - Fever, unspecified (7) DVT prophylaxis Current Visit: No Status: Acute Heparin discontinued due to epidural and risk of bleeding EPCDs to bilateral lower extremities for DVT prophylaxis Out of bed to chair and ambulation starting 08/06/17 Subjective Patient reports: feels better, still having pain (post-surgical and states that it is controlled at this time), pain is less (pre-surgical pain resolved), no flatus, no bowel movement, fever (Tmax 100.1; Tcurrent 99.1) Objective Vital Signs - Last 8 Hours Temp Pulse Resp BP Pulse Ox 08/05/17 10:21 99.1 F 85 16 128/81 98 08/05/17 05:13 98.6 F 95 16 137/86 99 08/05/17 04:39 98 08/05/17 04:01 98.2 F 84 16 143/87 99 Intake and Output 08/04/17 08/05/17 08/05/17 23:59 07:59 15:59 Intake Total 100 / 100 0 / 0 200 / 200 Output Total 1000 / 1000 360 / 360 350 / 350 Balance -900 / -900 -360 / -360 -150 / -150 Intake: IV Fluids 100 / 100 200 / 200 Ofirmev 1,000 mg/100 ml 1,000 100 / 100 mg In 100 ml @ 400 mls/hr IVPB Q8HR [facility] Rx#:[id number] Ampicillin 2 GM In 0.9 % Sodium 100 / 100 100 / 100 Chloride (Mini-Bag +) 100 ML @ 200 mls/hr IVPB Q6H [facility] Rx#: [id number] Oral 0 / 0 0 / 0 0 / 0 Output: Estimated Blood Loss 10 Catheter 0 / 0 0 / 0 Gastric Drainage 1000 / 1000 350 / 350 350 / 350 Other: Meal NPO NPO Percent of Meal Consumed 0% 0% Weight 68.901 kg Blood Glucose* 105 121 Patient Weight 08/05/17 23:59 Weight 68.901 kg - General physical appearance well developed, no distress, moderate pain - Eyes PERRL, normal ocular movement - ENT dry mucosa, atraumatic, normocephalic - Respiratory normal respiratory effort, clear to auscultation, other (diminished bibasilar bases) - Cardiovascular Cardiovascular exam: Present: RRR - Abdomen Abdomen: Present: soft, tender (Expected postoperative tenderness), wound (NG tube to low intermittent wall suction with bilious drainage noted (700ml since midnight)) - Incision Incision: Present: clean and dry, intact - Genitourinary other (Alvarez catheter to straight drain with clear, yellow urine noted) - Integumentary no rash, no growths, no abnormal pigmentation - Neurologic CN 2-12 grossly intact - Psychiatric oriented to time, oriented to person, oriented to place, speech is normal, memory intact - Labs 08/05/17 05:34 08/05/17 05:34 Diabetes panel 08/05/17 08/05/17 Range/Units 05:34 05:34 Sodium 132 L (136-145) mEq/L Potassium 4.2 (3.5-5.1) mEq/L Chloride 102 (98-107) mEq/L Carbon Dioxide 21 L (23-29) mEq/L BUN 12 (6-20) mg/dL Creatinine 0.81 (0.70-1.30) mg/dL Glucose 126 H (70-105) mg/dL Calcium 8.5 L (8.6-10.3) mg/dL Triglycerides 93 (< 150) mg/dL Calcium panel 08/05/17 08/05/17 08/05/17 Range/Units 05:34 05:34 09:03 Calcium 8.5 L (8.6-10.3) mg/dL Phosphorus 5.0 H 4.7 H (2.7-4.5) mg/dL Pituitary panel 08/05/17 Range/Units 05:34 Sodium 132 L (136-145) mEq/L Potassium 4.2 (3.5-5.1) mEq/L Chloride 102 (98-107) mEq/L Carbon Dioxide 21 L (23-29) mEq/L BUN 12 (6-20) mg/dL Creatinine 0.81 (0.70-1.30) mg/dL Glucose 126 H (70-105) mg/dL Calcium 8.5 L (8.6-10.3) mg/dL Adrenal panel 08/05/17 Range/Units 05:34 Sodium 132 L (136-145) mEq/L Potassium 4.2 (3.5-5.1) mEq/L Chloride 102 (98-107) mEq/L Carbon Dioxide 21 L (23-29) mEq/L BUN 12 (6-20) mg/dL Creatinine 0.81 (0.70-1.30) mg/dL Glucose 126 H (70-105) mg/dL Calcium 8.5 L (8.6-10.3) mg/dL - VTE Documentation of Mechanical Device: Intermittent pneumatic compression device Consult Discharge Plan - Plan Referrals: NONE,PCP [Primary Care Provider] - - Attending Attestation For this encounter, I have reviewed the MASH FILTER CLOTH CHANGER or PA documentation, treatment plan, and medical decision making; and I have had face to face time with this patient. <Yoko Lynn - Last Filed: 08/07/17 12:40> Date of Encounter: 08/05/17 - Assessment and Plan (1) Small bowel obstruction due to adhesions Current Visit: Yes Status: Acute pod#1 from ex lap, shawn, appectomy and lymph node biopsy await return of bowel function ngt to LIWS, HOB 30" no flatus or bm tpn/ivf alvarez for accurate I/O's pain controlled with epidural, MS sublingual, iv tylenol (2) Smoker Current Visit: No Status: Acute (3) History of gastric ulcer Current Visit: Yes Status: Acute continue PPI therapy (4) UTI (urinary tract infection) due to Enterococcus Current Visit: Yes Status: Acute abx for uti Subjective Patient reports: no new complaints, still having pain, no flatus, no bowel movement Objective Vital Signs - Last 8 Hours Temp Pulse Resp BP Pulse Ox 08/07/17 10:47 98.8 F 97 14 135/89 99 08/07/17 05:19 98.2 F 93 16 147/84 99 Intake and Output 08/06/17 08/07/17 08/07/17 23:59 07:59 15:59 Intake Total 200 / 200 200 / 200 60 / 60 Output Total 1350 / 1350 1950 / 1950 550 / 550 Balance -1150 / -1150 -1750 / -1750 -490 / -490 Intake: IV Fluids 200 / 200 200 / 200 Ofirmev 1,000 mg/100 ml 1,000 100 / 100 100 / 100 mg In 100 ml @ 400 mls/hr IVPB Q8HR [facility] Rx#:[id number] Ampicillin 2 GM In 0.9 % Sodium 100 / 100 100 / 100 Chloride (Mini-Bag +) 100 ML @ 200 mls/hr IVPB Q6H [facility] Rx#: [id number] Oral 0 / 0 60 / 60 Output: Urine 1600 / 1600 250 / 250 Straight Cath 300 / 300 Catheter 150 / 150 300 / 300 Urethral (Alvarez) 300 / 300 Gastric Drainage 1050 / 1050 200 / 200 Other: Meal ice chips Weight 68.74 kg Blood Glucose* 112 116 Patient Weight 08/07/17 23:59 Weight 68.74 kg - General physical appearance no distress, moderate pain, cachectic - Eyes PERRL, normal ocular movement - ENT normal mucosa, normocephalic - Neck Neck exam: trachea midline - Respiratory normal expansion, clear to auscultation - Cardiovascular Cardiovascular exam: Present: RRR - Abdomen Abdomen: Present: soft, tender, wound. Absent: bowel sounds present - Incision Incision: Present: clean and dry, intact - Integumentary no rash, no growths - Neurologic CN 2-12 grossly intact - Musculoskeletal normal posture - Psychiatric oriented to time, oriented to person, oriented to place, speech is normal, memory intact - Labs 08/07/17 04:32 08/07/17 04:32 Diabetes panel 08/07/17 Range/Units 04:32 Sodium 137 (136-145) mEq/L Potassium 4.0 (3.5-5.1) mEq/L Chloride 107 (98-107) mEq/L Carbon Dioxide 22 L (23-29) mEq/L BUN 11 (6-20) mg/dL Creatinine 0.58 L (0.70-1.30) mg/dL Glucose 94 (70-105) mg/dL Calcium 8.0 L (8.6-10.3) mg/dL Calcium panel 08/07/17 Range/Units 04:32 Calcium 8.0 L (8.6-10.3) mg/dL Phosphorus 4.4 (2.7-4.5) mg/dL Pituitary panel 08/07/17 Range/Units 04:32 Sodium 137 (136-145) mEq/L Potassium 4.0 (3.5-5.1) mEq/L Chloride 107 (98-107) mEq/L Carbon Dioxide 22 L (23-29) mEq/L BUN 11 (6-20) mg/dL Creatinine 0.58 L (0.70-1.30) mg/dL Glucose 94 (70-105) mg/dL Calcium 8.0 L (8.6-10.3) mg/dL Adrenal panel 08/07/17 Range/Units 04:32 Sodium 137 (136-145) mEq/L Potassium 4.0 (3.5-5.1) mEq/L Chloride 107 (98-107) mEq/L Carbon Dioxide 22 L (23-29) mEq/L BUN 11 (6-20) mg/dL Creatinine 0.58 L (0.70-1.30) mg/dL Glucose 94 (70-105) mg/dL Calcium 8.0 L (8.6-10.3) mg/dL - Attending Attestation I have personally performed a face to face evaluation on this patient. I have reviewed and agree with the care plan. History and Exam by me shows:
[2017-08-05] MEDS: *HR* Promethazine 25 MG/ML VIAL IVP PRN (12:56)
[2017-08-05] MEDS: *HR* LORazepam 2 MG/ML VIAL IVP PRN (16:29)
[2017-08-05] MEDS: FENT EP SCH (17:09)
[2017-08-05] MEDS: BUPIV EP SCH (17:09)
--- NOTE | 2017-08-05 23:57 | Anesthesia Progress Note ---
Date of Encounter: 08/05/17 Time of Encounter: 11:20 Anesthesia Note - Note Note: 08/05/17 23:54 Epidural Running at 7cc/hr. Pain control adequate. No S/S infection. Continue At current rate Re-evaluate in tomorrow.
[2017-08-06] MEDS: Insulin LISPRO 300 UNITS/3 ML VIAL SQ SCH ×4 (00:42→19:04)
[2017-08-06] MEDS: Acetaminophen IV 1,000 MG/100 ML INFUS..BTL IVPB SCH ×3 (00:59→16:48)
[2017-08-06] MEDS: MORPHINE SUL Oral CONC 10 MG/0.5 ML ORAL.SYG SL PRN ×5 (01:00→22:08)
[2017-08-06] MEDS: *HR* LORazepam 2 MG/ML VIAL IVP PRN ×4 (01:11→22:11)
[2017-08-06] MEDS: Ampicillin 2 GM in 0.9 % Sodium Chloride Mini Bag 100 ML IVPB SCH ×4 (02:37→18:00)
[2017-08-06] MEDS: BUPIV EP SCH (02:40)
[2017-08-06] MEDS: FENT EP SCH (02:40)
[2017-08-06] MEDS: Ipratropium/Albuterol Neb 3 ML IH SCH ×4 (04:04→21:51)
[2017-08-06 05:03] LABS: BUN/Creatinine Ratio 18 (6-26); Blood Urea Nitrogen 12 mg/dL (6-20); Calcium 7.9 mg/dL (8.6-10.3); Carbon Dioxide 20 mEq/L (23-29); Chloride 106 mEq/L (98-107); Glucose 110 mg/dL (70-105); Magnesium 1.9 mg/dL (1.6-2.6); Osmolality,Calculated 280 (280-300); Phosphorous 3.9 mg/dL (2.7-4.5); Potassium 4.1 mEq/L (3.5-5.1); Sodium 135 mEq/L (136-145); eGFR For African Americans > 60 (> 60); eGFR For Non-African Americans > 60 (> 60)
[2017-08-06] MEDS: Pantoprazole 40 MG VIAL IVP SCH ×2 (08:05→16:53)
[2017-08-06] MEDS: Ondansetron 4 MG/2 ML VIAL IVP PRN ×2 (08:14→16:53)
--- NOTE | 2017-08-06 12:23 | General Surgery Progress Note ---
Date of Encounter: 08/06/17 Time of Encounter: 12:20 - Assessment and Plan (1) Small bowel obstruction Current Visit: Yes Status: Acute POD#2 s/p ex lap, MILLIE, lymphadenectomy; cont with current pain regimen epidural in place; will wait for anesthesia to remove epidural, wait ~ 6hrs, then remove alvarez; cont NG tube; await return of bowel function cont TPN cont abx regimen for UTI hold on chemical dvt prophylaxis while epidural is in place replete lytes in TPN; reassess in AM encourage OOBTC Subjective Patient reports: no new complaints, still having pain, pain is less Objective Vital Signs - Last 8 Hours Temp Pulse Resp BP Pulse Ox 08/06/17 08:20 99.1 F 86 18 135/84 100 Intake and Output 08/05/17 08/06/17 08/06/17 23:59 07:59 15:59 Intake Total 1200 / 1200 650 / 650 100 / 100 Output Total 0 / 0 1800 / 1800 Balance 1200 / 1200 -1150 / -1150 100 / 100 Intake: IV Fluids 1200 / 1200 650 / 650 100 / 100 0.9 % Sodium Chloride 1,000 ML 1000 / 1000 @ 50 mls/hr IVC .Q20H [facility] Rx#: [id number] Ofirmev 1,000 mg/100 ml 1,000 100 / 100 100 / 100 100 / 100 mg In 100 ml @ 400 mls/hr IVPB Q8HR [facility] Rx#:[id number] Ampicillin 2 GM In 0.9 % Sodium 100 / 100 300 / 300 Chloride (Mini-Bag +) 100 ML @ 200 mls/hr IVPB Q6H [facility] Rx#: [id number] Intralipid 20% 250 ML @ 21 mls/ 250 / 250 hr IVPB DAILY@1700 [facility] Rx#: [id number] Oral 0 / 0 0 / 0 Output: Catheter 0 / 0 900 / 900 Gastric Drainage 900 / 900 Other: Meal NPO NPO for breakfast Weight 68.674 kg Blood Glucose* 117 97 Patient Weight 08/06/17 23:59 Weight 68.674 kg - General physical appearance no distress - Respiratory normal expansion, normal respiratory effort - Cardiovascular Cardiovascular exam: Present: RRR - Abdomen Abdomen: Present: soft, tender (appropriately tender to palpation) - Incision Incision: Present: clean and dry, intact - Integumentary no rash - Neurologic CN 2-12 grossly intact - Psychiatric oriented to time, oriented to person - Labs 08/05/17 05:34 08/06/17 04:05 Diabetes panel 08/06/17 Range/Units 04:05 Sodium 135 L (136-145) mEq/L Potassium 4.1 (3.5-5.1) mEq/L Chloride 106 (98-107) mEq/L Carbon Dioxide 20 L (23-29) mEq/L BUN 12 (6-20) mg/dL Creatinine 0.68 L (0.70-1.30) mg/dL Glucose 110 H (70-105) mg/dL Calcium 7.9 L (8.6-10.3) mg/dL Calcium panel 08/06/17 Range/Units 04:05 Calcium 7.9 L (8.6-10.3) mg/dL Phosphorus 3.9 (2.7-4.5) mg/dL Pituitary panel 08/06/17 Range/Units 04:05 Sodium 135 L (136-145) mEq/L Potassium 4.1 (3.5-5.1) mEq/L Chloride 106 (98-107) mEq/L Carbon Dioxide 20 L (23-29) mEq/L BUN 12 (6-20) mg/dL Creatinine 0.68 L (0.70-1.30) mg/dL Glucose 110 H (70-105) mg/dL Calcium 7.9 L (8.6-10.3) mg/dL Adrenal panel 08/06/17 Range/Units 04:05 Sodium 135 L (136-145) mEq/L Potassium 4.1 (3.5-5.1) mEq/L Chloride 106 (98-107) mEq/L Carbon Dioxide 20 L (23-29) mEq/L BUN 12 (6-20) mg/dL Creatinine 0.68 L (0.70-1.30) mg/dL Glucose 110 H (70-105) mg/dL Calcium 7.9 L (8.6-10.3) mg/dL - VTE Documentation of Mechanical Device: Intermittent pneumatic compression device Consult Discharge Plan - Plan Referrals: NONE,PCP [Primary Care Provider] -
[2017-08-06] MEDS ORDERED: Nicotine 2 MG GUM BC PRN (13:44)
[2017-08-06] MEDS ORDERED: Clinimix E 5%-20% SOLUTION 2,000 ML with MVI, adult with vitamin K 10 ML IVC SCH (17:00)
[2017-08-06] MEDS: Nicotine 14 MG PATCH.TD24 TD PRN (18:01)
--- NOTE | 2017-08-06 23:08 | Anesthesia Progress Note ---
Date of Encounter: 08/05/17 Time of Encounter: 10:30 Anesthesia Note - Note Note: 08/06/17 23:06 Epidural intact infusing A 7cc/hr. Pain control Adequate. Continue at current rate.
[2017-08-07] MEDS: Acetaminophen IV 1,000 MG/100 ML INFUS..BTL IVPB SCH ×3 (00:01→20:17)
[2017-08-07] MEDS: Ondansetron 4 MG/2 ML VIAL IVP PRN ×2 (00:01→19:37)
[2017-08-07] MEDS: Ampicillin 2 GM in 0.9 % Sodium Chloride Mini Bag 100 ML IVPB SCH ×4 (00:01→19:24)
[2017-08-07] MEDS: FENT EP SCH (00:09)
[2017-08-07] MEDS: BUPIV EP SCH (00:09)
[2017-08-07] MEDS: Insulin LISPRO 300 UNITS/3 ML VIAL SQ SCH ×5 (00:12→19:21)
[2017-08-07] MEDS: Ipratropium/Albuterol Neb 3 ML IH SCH ×4 (04:27→22:38)
[2017-08-07 04:52] LABS: Basophils % 0.3 %; Eosinophils # 0.6 K/mcL (0.0-0.6); Eosinophils % 8.4 %; Hematocrit 27.2 % (37.5-50.1); Hemoglobin 8.3 g/dL (12.9-16.9); Immature Granulocytes % 3.7 % (0-4); Lymphocytes # 0.5 K/mcL (0.6-4.6); Lymphocytes % 6.8 %; Mean Corpuscular HGB Conc 30.5 g/dL (31.6-35.5); Mean Corpuscular Hemoglobin 25.9 pg (28.0-33.3); Mean Corpuscular Volume 84.7 fL (83.0-100.0); Mean Platelet Volume 8.5 fL (9.4-12.4); Monocytes # 0.7 K/mcL (0.0-1.3); Monocytes % 9.1 %; Neutrophils # 5.4 K/mcL (1.6-8.9); Platelet Count 476 K/mcL (140-400); Red Blood Count 3.21 M/mcL (4.19-5.50); Red Cell Distribution Width 17.6 % (11.5-14.5); Segmented Neutrophils % 71.7 %
[2017-08-07 05:00] LABS: BUN/Creatinine Ratio 19 (6-26); Blood Urea Nitrogen 11 mg/dL (6-20); Carbon Dioxide 22 mEq/L (23-29); Chloride 107 mEq/L (98-107); Glucose 94 mg/dL (70-105); Magnesium 2.1 mg/dL (1.6-2.6); Osmolality,Calculated 283 (280-300); Phosphorous 4.4 mg/dL (2.7-4.5); Sodium 137 mEq/L (136-145); eGFR For African Americans > 60 (> 60); eGFR For Non-African Americans > 60 (> 60)
[2017-08-07] MEDS: MORPHINE SUL Oral CONC 10 MG/0.5 ML ORAL.SYG SL PRN ×4 (05:18→19:33)
[2017-08-07] MEDS: *HR* LORazepam 2 MG/ML VIAL IVP PRN ×4 (05:18→20:46)
[2017-08-07] MEDS: Pantoprazole 40 MG VIAL IVP SCH ×3 (08:43→19:22)
--- NOTE | 2017-08-07 14:05 | General Surgery Progress Note ---
Date of Encounter: 08/07/17 Time of Encounter: 07:45 - Assessment and Plan (1) Small bowel obstruction due to adhesions Current Visit: Yes Status: Acute post op ex lap, shawn, appectomy and lymph node biopsy await return of bowel function, no flatus or bm, faint bs ngt to LIWS, HOB 30" tpn/ivf alvarez dc OOB to chair/ambulate pain controlled with epidural, MS sublingual, iv tylenol no heparin while patient on epidural, continue EPCD's, ambulation (2) Smoker Current Visit: No Status: Acute nicotine patch offered (3) History of gastric ulcer Current Visit: Yes Status: Resolved continue PPI therapy discussed with patient that he will need a follow up EGD as outpatient (4) UTI (urinary tract infection) due to Enterococcus Current Visit: Yes Status: Resolved DC antibiotics (5) Retroperitoneal lymphadenopathy Current Visit: Yes Status: Acute biopsy of left external iliac lymph node - pathology pending Subjective Patient reports: no new complaints, feels better, still having pain, pain is less, no flatus, no bowel movement, afebrile (no complaints) Objective Vital Signs - Last 8 Hours Temp Pulse Resp BP Pulse Ox 08/07/17 10:47 98.8 F 97 14 135/89 99 Intake and Output 08/06/17 08/07/17 08/07/17 23:59 07:59 15:59 Intake Total 200 / 200 200 / 200 60 / 60 Output Total 1350 / 1350 1950 / 1950 550 / 550 Balance -1150 / -1150 -1750 / -1750 -490 / -490 Intake: IV Fluids 200 / 200 200 / 200 Ofirmev 1,000 mg/100 ml 1,000 100 / 100 100 / 100 mg In 100 ml @ 400 mls/hr IVPB Q8HR [facility] Rx#:[id number] Ampicillin 2 GM In 0.9 % Sodium 100 / 100 100 / 100 Chloride (Mini-Bag +) 100 ML @ 200 mls/hr IVPB Q6H [facility] Rx#: [id number] Oral 0 / 0 60 / 60 Output: Urine 1600 / 1600 250 / 250 Straight Cath 300 / 300 Catheter 150 / 150 300 / 300 Urethral (Alvarez) 300 / 300 Gastric Drainage 1050 / 1050 200 / 200 Other: Meal ice chips Weight 68.74 kg Blood Glucose* 112 116 Patient Weight 08/07/17 23:59 Weight 68.74 kg - General physical appearance well nourished, no distress, moderate pain - Eyes normal ocular movement - ENT normal mucosa, normocephalic - Neck Neck exam: trachea midline - Respiratory normal expansion, normal respiratory effort - Cardiovascular Cardiovascular exam: Present: RRR - Abdomen Abdomen: Present: bowel sounds present (faint), soft, tender (appropriate post op tenderness). Absent: distended, guarding, rebound - Incision Incision: Present: clean and dry, intact - Genitourinary other (alvarez with clear yellow urine) - Integumentary no rash, no growths - Neurologic CN 2-12 grossly intact - Musculoskeletal normal posture - Psychiatric oriented to time, oriented to person, oriented to place, speech is normal, memory intact - Labs 08/07/17 04:32 08/07/17 04:32 Diabetes panel 08/07/17 Range/Units 04:32 Sodium 137 (136-145) mEq/L Potassium 4.0 (3.5-5.1) mEq/L Chloride 107 (98-107) mEq/L Carbon Dioxide 22 L (23-29) mEq/L BUN 11 (6-20) mg/dL Creatinine 0.58 L (0.70-1.30) mg/dL Glucose 94 (70-105) mg/dL Calcium 8.0 L (8.6-10.3) mg/dL Calcium panel 08/07/17 Range/Units 04:32 Calcium 8.0 L (8.6-10.3) mg/dL Phosphorus 4.4 (2.7-4.5) mg/dL Pituitary panel 08/07/17 Range/Units 04:32 Sodium 137 (136-145) mEq/L Potassium 4.0 (3.5-5.1) mEq/L Chloride 107 (98-107) mEq/L Carbon Dioxide 22 L (23-29) mEq/L BUN 11 (6-20) mg/dL Creatinine 0.58 L (0.70-1.30) mg/dL Glucose 94 (70-105) mg/dL Calcium 8.0 L (8.6-10.3) mg/dL Adrenal panel 08/07/17 Range/Units 04:32 Sodium 137 (136-145) mEq/L Potassium 4.0 (3.5-5.1) mEq/L Chloride 107 (98-107) mEq/L Carbon Dioxide 22 L (23-29) mEq/L BUN 11 (6-20) mg/dL Creatinine 0.58 L (0.70-1.30) mg/dL Glucose 94 (70-105) mg/dL Calcium 8.0 L (8.6-10.3) mg/dL - VTE Documentation of Mechanical Device: Intermittent pneumatic compression device Consult Discharge Plan - Plan Referrals: NONE,PCP [Primary Care Provider] -
[2017-08-07] MEDS ORDERED: *HR* FentaNYL (PF) 100 MCG/2 ML VIAL ONE (15:23)
[2017-08-07] MEDS ORDERED: Bupivacaine-MPF 0.25% 10 ML VIAL ONE (15:23)
--- NOTE | 2017-08-07 16:25 | Anesthesia Progress Note ---
Date of Encounter: 08/07/17 Time of Encounter: 16:13 Anesthesia Note - Note Note: 08/07/17 16:13 called to BS, epidural pump alarming distal occ, pt bolus post neg aspiration...with 100mcg fent and 3ml of 0.25% bup plain without resistance, but when pump started alarming when pt move around abit... and it alarmed distal occ, aseptic removed dressing and withdraw cath 1cm with kink under SQ removed, reprep with chloraprep and sterile dressing reapplied, rebolus 15 min later with 4ml from pump. informed patient to call out when getting up from bed. I personally remained with RN at BS for 30min, pt states he is feeling better. spoke with pt about concerns with prolonged epidural.
[2017-08-07] MEDS ORDERED: Clinimix E 5%-20% SOLUTION 2,000 ML with MVI, adult with vitamin K 10 ML IVC SCH (17:00)
--- NOTE | 2017-08-07 18:59 | Oncology Inp Consult Note ---
Date of Encounter: 08/07/17 Time of Encounter: 16:00 Assessment and Plan (1) Lymphoma Status: Acute Assessment and plan: Mr. Barlow appears to have a stage IIIB Hodgkin lymphoma. This is by preliminary pathology report and final pathology is pending. Patient has constitutional symptoms of fever or chills and weight loss. In addition he has pelvic adenopathy as well as palpable adenopathy in his neck. 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 He requires multi agent chemotherapy usually administered as an outpatient. The regimen would be ABVD administered every 2 weeks likely for a duration of 6 months. Final staging studies will help determine this. Side effects were briefly discussed. Information regarding the diagnosis of Hodgkin lymphoma was provided to the patient and his significant other to review. It appears his small bowel obstruction is related to adhesions. I like for him to recover from the surgery prior to initiation of therapy. In preparation for therapy, he has had an echocardiogram April 2017 that was normal with an ejection fraction of 60-65%. I have ordered pulmonary function testing and DLCO. Outpatient PET CT scan will be arranged. I will be by tomorrow morning to meet with his family. My card was provided and we will arrange for out patient follow up in the near future. Qualifiers: Hodgkin lymphoma type: unspecified type Lymphoma site: multiple regions Qualified Code(s): C81.98 - Hodgkin lymphoma, unspecified, lymph nodes of multiple sites - Data of Consult Requesting Physician: Yoko Lnyn MD Primary Care Provider: PCP NONE - Consult Narrative Reason for consult: New lymphoma History of present illness: Mr. Barlow is a 42 year old male who has had a convoluted past 4 months. Patient was admitted for vena cava pneumonia in April 2017. At that juncture , he had bilateral pulmonary infiltrates as well as mediastinal adenopathy by CT imaging. He was again seen 04/28/2017 in the emergency department for shortness of breath. Repeat CT scan showed resolution of the bilateral opacities as well as improvement is muse towel adenopathy. He was then admitted June 20 through 06/26/2017 for perforated gastric ulcer. This was managed conservatively. He did have a brief stay in the ICU. He did not require surgery during his hospital stay. Outpatient endoscopy was recommended. Approximately 3 days prior to admission on July 28, he developed acute onset abdominal pain nausea and vomiting. He presented to the emergency department again were CT scan of the abdomen was concerning for a small bowel obstruction. Retroperitneal, pelvic and inguinal lymphadenopathy was identified. On August 03, he underwent exploratory laparotomy under the care of Dr. Lynn. At time of surgery, he is found to have multiple large dilated loops of small bowel. There was obstruction due to several different adhesions. The adhesions were taken down with Metzenbaum scissors and the Bovie. Several loops of small bowel were adherent to the anterior abdominal wall in the pelvis and these adhesions were taken down with Metzenbaum scissors. Manual palpation revealed the enlarged left external iliac lymphadenopathy which was biopsied. By preliminary report, this was c/w Hodgkin lymphoma. In speaking with the patient today, he has felt poorly for the past 4-5 months as echoed above. He has lost nearly 60 pounds during this period of time. He has had low-grade fevers chills and sweats as well. Energy is greatly diminished. He has not yet passed flatus or stool since his surgery. He has multiple other complaints involving his muscles and joints which are chronic in nature. He did state he has a swollen lymph node about his neck which have since resolved. Past Med Surg Social Fam HX - Past Medical History Medical history: other (Pneumonia, Perforated viscous 06/2017 - healed without surgery) Psychiatric history: anxiety, depression - Past Surgical History Surgical History: no surgical history - Social History Smoking Status: Current every day smoker Packs per day: 0.5 Smokeless Tobacco Status: Yes Alcohol use: none Drug use: none - Family History Father Family Member Ethnicity: Non- Living Status: Still Living Mother Family Member Ethnicity: Non- Living Status: Still Living Medications and Allergies No Known Home Drugs 07/31/17 [History] 3 Allergy/AdvReac Type Severity Reaction Status Date / Time No Known Allergies Allergy Verified 06/20/17 09:24 All systems: reviewed and no additional remarkable complaints except as stated Constitutional: Present: anorexia, fatigue, fever(s), malaise, night sweats, weight loss Eyes: Present: as per HPI Ears: Present: as per HPI Nose, mouth and throat: Present: as per HPI Cardiovascular: Present: as per HPI Respiratory: Present: dyspnea on exertion Gastrointestinal: Present: abdominal pain, belching, early satiety, nausea, vomiting Genitourinary: as per HPI Musculoskeletal: Present: muscle weakness Neurological: Present: as per HPI Endocrine: Present: as per HPI Hematologic/Lymphatic: Present: lymphadenopathy Oncology - Exam - Constitutional Vitals: Temp Pulse Resp BP Pulse Ox 98.8 F 97 14 135/89 99 08/07/17 10:47 08/07/17 10:47 08/07/17 10:47 08/07/17 10:47 08/07/17 10:47 General appearance: cooperative, disheveled, thin - Head Head exam: Present: atraumatic, normal inspection, normocephalic - Eye Eye exam: Present: EOMI, normal appearance, conjuntiva pink, sclera anicteric - ENT ENT exam: Present: mucous membranes moist, normal exam - Neck Neck exam: Present: full ROM, lymphadenopathy - Respiratory Respiratory exam: Present: decreased breath sounds - Cardiovascular Cardiovascular exam: Present: tachycardia - GI/Abdominal GI/Abdominal exam: Present: diminished bowel sounds, tenderness - Extremities Exam Extremities exam: Present: normal inspection - Back Exam Back exam: Present: normal inspection - Neurological Exam Neurological exam: Present: alert, CN II-XII intact, oriented X3, no focal deficits - Skin Skin exam: Present: normal color Oncology - Results Labs: Short CBC 08/07/17 Range/Units 04:32 WBC 7.5 (4.3-11.1) K/mcL Hgb 8.3 L (12.9-16.9) g/dL Hct 27.2 L (37.5-50.1) % Plt Count 476 H (140-400) K/mcL Neutrophils # 5.4 (1.6-8.9) K/mcL BMP 08/07/17 04:32 Sodium 137 Potassium 4.0 Chloride 107 Carbon Dioxide 22 L BUN 11 Creatinine 0.58 L Glucose [address] OF THE ABDOMEN AND PELVIS WITH CONTRAST 07/31/2017 11:00 am FINDINGS: Lower Chest: No acute airspace disease. No pleural or pericardial effusion. Organs: The liver and gallbladder appear normal. The kidneys, adrenal glands, spleen and pancreas appear normal. GI/Bowel: The stomach is dilated. The duodenum is dilated. The colon is not dilated. There are distal loops of small bowel that are not dilated. No final transition point is identified. Pelvis: The bladder appears unremarkable. No bladder stones or ureteral stones are evident. Peritoneum/Retroperitoneum: Retroperitoneal adenopathy is again noted and is similar in appearance to the previous exam. Adenopathy extends into the pelvis and there appears to be bilateral inguinal adenopathy. Bones/Soft Tissues: No soft tissue hernia. No acute fractures or focal bony lesions. CT/CT abd pelvis w iv no oral IMPRESSION: 1. Findings most suggestive of a small bowel obstruction. The transition point is not identified on this CT. However, there are decompressed loops of distal small bowel. Therefore, the point of obstruction most likely is in the distal jejunum or proximal ileum. 2. No extraluminal gas is seen to suggest a perforation. 3. Normal appearing gallbladder. 4. No obstructive uropathy. 5. Again noted is extensive retroperitoneal adenopathy. Lymphoma could give this appearance. Consult Discharge Plan - Plan Referrals: NONE,PCP [Primary Care Provider] -
[2017-08-07] MEDS: 0.9 % Sodium Chloride 1,000 ML IVC SCH (19:23)
[2017-08-08] MEDS: MORPHINE SUL Oral CONC 10 MG/0.5 ML ORAL.SYG SL PRN ×5 (02:17→20:31)
[2017-08-08] MEDS: *HR* LORazepam 2 MG/ML VIAL IVP PRN ×5 (02:18→20:31)
[2017-08-08] MEDS: 0.9 % Sodium Chloride 1,000 ML IVC SCH ×2 (03:12→23:44)
[2017-08-08] MEDS: Insulin LISPRO 300 UNITS/3 ML VIAL SQ SCH ×4 (03:15→19:24)
[2017-08-08] MEDS: BUPIV EP SCH (03:16)
[2017-08-08] MEDS: FENT EP SCH (03:16)
[2017-08-08] MEDS: Ipratropium/Albuterol Neb 3 ML IH SCH ×4 (04:11→22:19)
[2017-08-08] MEDS: Acetaminophen IV 1,000 MG/100 ML INFUS..BTL IVPB SCH ×3 (04:44→20:31)
[2017-08-08 06:23] LABS: BUN/Creatinine Ratio 21 (6-26); Blood Urea Nitrogen 12 mg/dL (6-20); Calcium 8.3 mg/dL (8.6-10.3); Carbon Dioxide 23 mEq/L (23-29); Chloride 107 mEq/L (98-107); Glucose 97 mg/dL (70-105); Magnesium 2.1 mg/dL (1.6-2.6); Osmolality,Calculated 280 (280-300); Phosphorous 4.6 mg/dL (2.7-4.5); Potassium 3.9 mEq/L (3.5-5.1); Sodium 135 mEq/L (136-145); eGFR For African Americans > 60 (> 60); eGFR For Non-African Americans > 60 (> 60)
[2017-08-08] MEDS: Pantoprazole 40 MG VIAL IVP SCH ×2 (06:42→16:17)
--- NOTE | 2017-08-08 07:51 | General Surgery Progress Note ---
<Judith Esqueda - Last Filed: 08/08/17 12:21> Date of Encounter: 08/08/17 Time of Encounter: 07:48 - Assessment and Plan (1) Small bowel obstruction due to adhesions Current Visit: Yes Status: Acute POD 3 s/p Exploratory laparotomy, lysis of adhesions, biopsy left para-external iliac lymph node, incidental appedectomy Continue monitoring for return of bowel function. Ngt to LIWS, HOB 30" Tpn/IVF alvarez dc OOB to chair/ambulate Continue supportive pain control No heparin while patient on epidural, continue EPCD's, ambulation (2) Lymphoma Current Visit: Yes Status: Acute HemeONc on Consult and has seen patient Current presumptive diagnosis of stage IIIB Hodgkin lymphoma, mostly likely 2/2 to classical nodular sclerosing Hodgkin lymphoma, yet final pathology still pending Will likely require multi agent chemotherapy as outpatient, ABVD q2 weeks x 6 months, this is pending on final staging studies Will need to complete pulmonary function testing and DLCO and Outpatient PET CT scan Family meeting with Heme Onc planned for today We greatly appreciate recs by Oncology Qualifiers: Lymphoma type: Hodgkin Hodgkin lymphoma type: unspecified type Lymphoma site: multiple regions Qualified Code(s): C81.98 - Hodgkin lymphoma, unspecified, lymph nodes of multiple sites (3) History of gastric ulcer Current Visit: Yes Status: Resolved continue PPI therapy Plan for follow-up EGD as outpatient, discussed with Dr. Lynn (4) UTI (urinary tract infection) due to Enterococcus Current Visit: Yes Status: Resolved D/c Abx. (5) DVT prophylaxis Current Visit: No Status: Acute As Above. (6) Smoker Current Visit: No Status: Acute Nicotine patch prn for nicotine cravings Subjective Patient reports: afebrile Narrative: Per notes, pt took news of stage IIIB Hodgkin lymphoma with great distress yesterday. No acute events overnight. Reports passing small amount of flatus. Objective Physical exam performed by Chidi Anguiano MD and dictated as stated below: Vital Signs - Last 8 Hours Temp Pulse Resp BP Pulse Ox 08/08/17 03:12 99.2 F 86 14 115/44 95 08/08/17 00:06 98.7 F 72 16 122/77 99 Intake and Output 08/07/17 08/07/17 08/08/17 15:59 23:59 07:59 Intake Total 160 / 160 0 / 0 100 / 100 Output Total 550 / 550 1150 / 1150 1100 / 1100 Balance -390 / -390 -1150 / -1150 -1000 / -1000 Intake: IV Fluids 100 / 100 100 / 100 Ofirmev 1,000 mg/100 ml 1,000 100 / 100 100 / 100 mg In 100 ml @ 400 mls/hr IVPB Q8HR [facility] Rx#:[id number] Oral 60 / 60 0 / 0 0 / 0 Output: Urine 250 / 250 1150 / 1150 1100 / 1100 Catheter 300 / 300 Urethral (Alvarez) 300 / 300 Other: Meal NPO Lunch Weight 68.77 kg Blood Glucose* 116 107 99 Patient Weight 08/08/17 23:59 Weight 68.77 kg - General physical appearance no distress - Respiratory normal respiratory effort, clear to auscultation - Abdomen Abdomen: Absent: bowel sounds present (hypoactive) - Incision Incision: Present: clean and dry - Labs 08/07/17 04:32 08/08/17 05:45 Diabetes panel 08/08/17 Range/Units 05:45 Sodium 135 L (136-145) mEq/L Potassium 3.9 (3.5-5.1) mEq/L Chloride 107 (98-107) mEq/L Carbon Dioxide 23 (23-29) mEq/L BUN 12 (6-20) mg/dL Creatinine 0.57 L (0.70-1.30) mg/dL Glucose 97 (70-105) mg/dL Calcium 8.3 L (8.6-10.3) mg/dL Calcium panel 08/08/17 Range/Units 05:45 Calcium 8.3 L (8.6-10.3) mg/dL Phosphorus 4.6 H (2.7-4.5) mg/dL Pituitary panel 08/08/17 Range/Units 05:45 Sodium 135 L (136-145) mEq/L Potassium 3.9 (3.5-5.1) mEq/L Chloride 107 (98-107) mEq/L Carbon Dioxide 23 (23-29) mEq/L BUN 12 (6-20) mg/dL Creatinine 0.57 L (0.70-1.30) mg/dL Glucose 97 (70-105) mg/dL Calcium 8.3 L (8.6-10.3) mg/dL Adrenal panel 08/08/17 Range/Units 05:45 Sodium 135 L (136-145) mEq/L Potassium 3.9 (3.5-5.1) mEq/L Chloride 107 (98-107) mEq/L Carbon Dioxide 23 (23-29) mEq/L BUN 12 (6-20) mg/dL Creatinine 0.57 L (0.70-1.30) mg/dL Glucose 97 (70-105) mg/dL Calcium 8.3 L (8.6-10.3) mg/dL - VTE Documentation of Mechanical Device: Intermittent pneumatic compression device Consult Discharge Plan - Plan Referrals: NONE,PCP [Primary Care Provider] - <Chidi Anguiano - Last Filed: 08/08/17 19:24> Date of Encounter: 08/08/17 Objective Vital Signs - Last 8 Hours Temp Pulse Resp BP Pulse Ox 08/08/17 19:19 99.5 F 89 14 131/85 100 Intake and Output 08/08/17 08/08/17 08/08/17 07:59 15:59 23:59 Intake Total 450 / 450 220 / 220 0 / 0 Output Total 1825 / 1825 300 / 300 550 / 550 Balance -1375 / -1375 -80 / -80 -550 / -550 Intake: IV Fluids 450 / 450 100 / 100 Ofirmev 1,000 mg/100 ml 1,000 200 / 200 100 / 100 mg In 100 ml @ 400 mls/hr IVPB Q8H [facility] Rx#:[id number] Intralipid 20% 250 ML @ 21 mls/ 250 / 250 hr IVPB DAILY@1700 [facility] Rx#: [id number] Oral 0 / 0 0 / 0 Other 120 / 120 Output: Urine 1825 / 1825 0 / 0 Gastric Drainage 300 / 300 550 / 550 Other: Weight 68.77 kg Blood Glucose* 99 98 Patient Weight 08/08/17 23:59 Weight 68.77 kg - Labs 08/07/17 04:32 08/08/17 05:45 Diabetes panel 08/08/17 Range/Units 05:45 Sodium 135 L (136-145) mEq/L Potassium 3.9 (3.5-5.1) mEq/L Chloride 107 (98-107) mEq/L Carbon Dioxide 23 (23-29) mEq/L BUN 12 (6-20) mg/dL Creatinine 0.57 L (0.70-1.30) mg/dL Glucose 97 (70-105) mg/dL Calcium 8.3 L (8.6-10.3) mg/dL Calcium panel 08/08/17 Range/Units 05:45 Calcium 8.3 L (8.6-10.3) mg/dL Phosphorus 4.6 H (2.7-4.5) mg/dL Pituitary panel 08/08/17 Range/Units 05:45 Sodium 135 L (136-145) mEq/L Potassium 3.9 (3.5-5.1) mEq/L Chloride 107 (98-107) mEq/L Carbon Dioxide 23 (23-29) mEq/L BUN 12 (6-20) mg/dL Creatinine 0.57 L (0.70-1.30) mg/dL Glucose 97 (70-105) mg/dL Calcium 8.3 L (8.6-10.3) mg/dL Adrenal panel 08/08/17 Range/Units 05:45 Sodium 135 L (136-145) mEq/L Potassium 3.9 (3.5-5.1) mEq/L Chloride 107 (98-107) mEq/L Carbon Dioxide 23 (23-29) mEq/L BUN 12 (6-20) mg/dL Creatinine 0.57 L (0.70-1.30) mg/dL Glucose 97 (70-105) mg/dL Calcium 8.3 L (8.6-10.3) mg/dL - Attending Attestation I examined this patient and my medical decision-making was reviewed with the Resident Physician. I agree with the documented findings, disposition and treatment plan as described except to the extent set forth below. The patient is seen and evaluated on morning rounds with the resident. He is progressing well from lysis of adhesions for small bowel obstruction. He also had biopsy of retroperitoneal lymph nodes that demonstrate Hodgkin's lymphoma. Oncology is following. We will continue with the nasogastric tube today and hopefully we can remove this tomorrow if he develops good bowel sounds and flatus Chidi Anguiano MD FACS
--- NOTE | 2017-08-08 07:52 | Anesthesia Progress Note ---
Date of Encounter: 08/08/17 Time of Encounter: 07:49 Anesthesia Note - Note Note: 08/08/17 07:49 New epidural bag placed. Epidural infusing well at 10 cc hr, no s/s infection. will continue at current rate. Check in AM 08/09/2017
--- NOTE | 2017-08-08 08:01 | Oncology Inp Progress Note ---
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 Of note, his father states neck adenopathy has been present since he was young boy, so clinical significance of this unclear. I reviewed the above with the patient, SO and father today. Discussed that to finalize treatment will need outpatient PET/CT and PFTs with DLCO. TTE normal in 04/21. We will discuss the ins and outs of therapy in more detail after discharge. All questions answered to the best of my ability. I will schedule f/u with me next week to work out staging studies and details. He will need a single lumen powerport placed. I will sign off, but please call me with questions at [phone] I spent 35 minutes counseling the patient and his family today. Qualifiers: Lymphoma type: Hodgkin Hodgkin lymphoma type: unspecified type Lymphoma site: multiple regions Qualified Code(s): C81.98 - Hodgkin lymphoma, unspecified, lymph nodes of multiple sites (2) Anemia Current Visit: No Status: Acute Assessment and plan: Indices in 04/21 c/w with chronic disease. I will repeat iron studies tomorrow AM and f/u as an outpatient. Qualifiers: Anemia type: unspecified type Qualified Code(s): D64.9 - Anemia, unspecified Oncology: Subj Interval history: Feeling a bit better today. Passing flatus. No BM as of yet. Abdominal discomfort improved. Still has epidural. Significant other at bedside. No acute issues overnight, and he is in a better place emotionally today. - Constitutional Vitals: Vital Signs Temp Pulse Resp BP Pulse Ox 08/08/17 03:12 99.2 F 86 14 115/44 95 08/08/17 00:06 98.7 F 72 16 122/77 99 08/07/17 20:52 99.2 F 92 15 138/86 100 08/07/17 10:47 98.8 F 97 14 135/89 99 Intake and Output 08/07/17 08/08/17 08/08/17 16:59 00:59 08:59 Intake Total 160 / 160 100 / 100 0 / 0 Output Total 250 / 250 1450 / 1450 800 / 800 Balance -90 / -90 -1350 / -1350 -800 / -800 Intake: IV Fluids 100 / 100 100 / 100 Ofirmev 1,000 mg/100 ml 1,000 100 / 100 100 / 100 mg In 100 ml @ 400 mls/hr IVPB Q8HR [facility] Rx#:[id number] Oral 60 / 60 0 / 0 0 / 0 Output: Urine 250 / 250 1450 / 1450 800 / 800 Other: Meal NPO Lunch Weight 68.77 kg Blood Glucose* 116 116 99 Patient Weight 08/09/17 00:59 Weight 68.77 kg General appearance: cooperative, thin - Head Head exam: Present: atraumatic, normal inspection, normocephalic - Eye Eye exam: Present: normal appearance, conjuntiva pink, sclera anicteric - ENT ENT exam: Present: mucous membranes moist, normal exam, normal oropharynx - Neck Neck exam: Present: lymphadenopathy - Respiratory Respiratory exam: Present: CTAB - Cardiovascular Cardiovascular exam: Present: RRR - GI/Abdominal GI/Abdominal exam: Present: diminished bowel sounds - Extremities Exam Extremities exam: Present: normal inspection - Back Exam Back exam: Present: normal inspection Additional comments: Epidural in place - Neurological Exam Neurological exam: Present: alert, CN II-XII intact, oriented X3, no focal deficits Oncology: Obj Data - Labs CBC & Chem 7: 08/07/17 04:32 08/08/17 05:45 Labs: Laboratory Results - last 24 hr 08/07/17 08/07/17 08/08/17 10:51 16:59 05:45 Sodium 135 L Potassium 3.9 Chloride 107 Carbon Dioxide 23 BUN 12 Creatinine 0.57 L Est GFR ( Amer) > 60 Est GFR (Non-Af Amer) > 60 BUN/Creatinine Ratio 21 Glucose 97 POC Glucose 116 H 114 H Calculated Osmolality 280 Calcium 8.3 L Phosphorus 4.6 H Magnesium 2.1 - Impressions Impressions Abdomen X-Ray 08/04/17 11:41 IMPRESSION: 1. Enteric tube has been removed. 2. Probable slight interval progression of small bowel obstruction. Several loops of small bowel demonstrate increased wall thickening which may be related to underlying infectious or inflammatory process. However ischemia cannot be excluded. 3. No free air. The findings were sent to the Radiology Results Communication Center at 12:47 pm on 08/04/2017to be communicated to a licensed caregiver. D/ / 08/04/2017 13:11:37 Lizz Beebe MD / [email or web address] Interpreting Provider: Lizz Beebe MD - ABG Interpretation ABG results: PT/INR, D-dimer PT 15.3 Seconds (9.4-12.1) H 08/04/17 13:40 Consult Discharge Plan - Plan Referrals: NONE,PCP [Primary Care Provider] -
[2017-08-08] MEDS: Ondansetron 4 MG/2 ML VIAL IVP PRN ×2 (09:59→16:18)
[2017-08-08] MEDS: Nicotine 14 MG PATCH.TD24 TD PRN (10:05)
[2017-08-08] MEDS ORDERED: Clinimix E 5%-20% SOLUTION 2,000 ML with MVI, adult with vitamin K 10 ML IVC SCH (17:00)
[2017-08-08] MEDS: FENTANYL EP SCH ×2 (19:00→19:25)
[2017-08-08] MEDS: BUPIVACAINE MPF EP SCH ×2 (19:00→19:25)
[2017-08-08] MEDS: [UNRECOGNIZED DRUG - OTHER] EP SCH ×2 (19:00→19:25)
[2017-08-08] MEDS: *HR* Promethazine 25 MG/ML VIAL IVP PRN (19:39)
--- NOTE | 2017-08-08 22:56 | Anesthesia Procedures ---
Date of Encounter: 08/08/17 Time of Encounter: 22:50 Procedures: Anesthesia - Epidural Rounding Post Op Day #: 4 Pain Control: Good Vital Signs: Vital Signs/O2 Sat, Most Current Temp Pulse Resp BP Pulse Ox 99.5 F 89 14 131/85 100 08/08/17 19:19 08/08/17 19:19 08/08/17 19:19 08/08/17 19:19 08/08/17 19:19 Mental Status: awake Catheter Site Dressing Intact: Yes Erythema: No Signs of Infection At Catheter Site: No Plan: Continue current rate
[2017-08-09] MEDS: Insulin LISPRO 300 UNITS/3 ML VIAL SQ SCH ×5 (00:10→20:22)
[2017-08-09] MEDS: MORPHINE SUL Oral CONC 10 MG/0.5 ML ORAL.SYG SL PRN ×6 (00:30→22:25)
[2017-08-09] MEDS: *HR* LORazepam 2 MG/ML VIAL IVP PRN ×6 (00:31→22:26)
[2017-08-09] MEDS: Ipratropium/Albuterol Neb 3 ML IH SCH ×4 (03:25→22:24)
[2017-08-09] MEDS: Acetaminophen IV 1,000 MG/100 ML INFUS..BTL IVPB SCH ×3 (04:00→21:25)
[2017-08-09] MEDS: 0.9 % Sodium Chloride 1,000 ML IVC SCH (04:02)
[2017-08-09 04:09] LABS: BUN/Creatinine Ratio 24 (6-26); Blood Urea Nitrogen 16 mg/dL (6-20); Calcium 8.3 mg/dL (8.6-10.3); Carbon Dioxide 21 mEq/L (23-29); Chloride 105 mEq/L (98-107); Glucose 104 mg/dL (70-105); Osmolality,Calculated 279 (280-300); Potassium 3.8 mEq/L (3.5-5.1); Sodium 134 mEq/L (136-145); eGFR For African Americans > 60 (> 60); eGFR For Non-African Americans > 60 (> 60)
[2017-08-09] MEDS: Ondansetron 4 MG/2 ML VIAL IVP PRN ×3 (04:36→20:25)
[2017-08-09 05:25] LABS: Iron < 10 mcg/dL (65-175); Transferrin 176 mg/dL (203-362)
[2017-08-09 05:43] LABS: Ferritin 589 ng/ml (20-250)
[2017-08-09] MEDS: Pantoprazole 40 MG VIAL IVP SCH ×2 (08:29→17:50)
[2017-08-09] MEDS: FENTANYL EP SCH (10:51)
[2017-08-09] MEDS: BUPIVACAINE MPF EP SCH (10:51)
[2017-08-09] MEDS: [UNRECOGNIZED DRUG - OTHER] EP SCH (10:51)
--- NOTE | 2017-08-09 12:37 | General Surgery Progress Note ---
<Judith Esqueda - Last Filed: 08/09/17 12:35> Date of Encounter: 08/09/17 Time of Encounter: 12:35 - Assessment and Plan (1) Small bowel obstruction due to adhesions Current Visit: Yes Status: Acute POD 4 s/p Exploratory laparotomy, lysis of adhesions, biopsy left para-external iliac lymph node, incidental appendectomy Continue monitoring for return of bowel function. 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, yet final pathology still pending Will likely require multi agent chemotherapy as outpatient, ABVD q2 weeks x 6 months, this is pending on final staging studies Will need to complete pulmonary function testing and DLCO and Outpatient PET CT scan Family meeting with Heme Onc yesterday We greatly appreciate recs by Oncology Qualifiers: Lymphoma type: Hodgkin Hodgkin lymphoma type: unspecified type Lymphoma site: multiple regions Qualified Code(s): C81.98 - Hodgkin lymphoma, unspecified, lymph nodes of multiple sites (3) History of gastric ulcer Current Visit: Yes Status: Resolved Continue PPI therapy Plan for follow-up EGD as outpatient, discussed with Dr. Lynn (4) UTI (urinary tract infection) due to Enterococcus Current Visit: Yes Status: Resolved D/c Abx. (5) DVT prophylaxis Current Visit: No Status: Acute As Above. (6) Smoker Current Visit: No Status: Acute Nicotine patch prn for nicotine cravings Subjective Patient reports: afebrile Narrative: No nausea. Endorses gas. No bowel movements. Per RN, NG output overnight approx. 250 mL Objective Physical exam performed by Chidi Anguiano MD and dictated and seen as noted: Vital Signs - Last 8 Hours Temp Pulse Resp BP Pulse Ox 08/09/17 12:20 98.4 F 105 16 118/76 100 08/09/17 07:39 98.5 F 93 16 131/73 99 Intake and Output 08/08/17 08/09/17 08/09/17 23:59 07:59 15:59 Intake Total 2199 / 2199 1524.0 / 1524.0 0 / 0 Output Total 875 / 875 875 / 875 800 / 800 Balance 1324 / 1324 649.0 / 649.0 -800 / -800 Intake: IV Fluids 2199 / 2199 1524.0 / 1524.0 0.9 % Sodium Chloride 1,000 ML 366 / 366 @ 50 mls/hr IVC .Q20H [facility] Rx#: [id number] Clinimix E 5%-20% SOLUTION , 1998 808 / 808 000 ML @ 83.3 mls/hr IVC .Q24H [facility] with M.v.i. Adult 10 ml Rx# :[id number] Ofirmev 1,000 mg/100 ml 1,000 100 / 100 100 / 100 mg In 100 ml @ 400 mls/hr IVPB Q8H [facility] Rx#:[id number] Intralipid 20% 250 ML @ 21 mls/ 250.0 / 250.0 hr IVPB DAILY@1700 [facility] Rx#: [id number] Oral 0 / 0 0 / 0 0 / 0 Output: Urine 225 / 225 775 / 775 800 / 800 Gastric Drainage 650 / 650 100 / 100 Left Nare 100 / 100 Other: Meal NPO Percent of Meal Consumed 0% Blood Glucose* 111 110 115 - General physical appearance no distress - Respiratory normal expansion, normal respiratory effort, clear to auscultation - Abdomen Abdomen: Present: soft, tender (mild post-op tenderness). Absent: bowel sounds present - Psychiatric oriented to person, oriented to place, speech is normal - Labs 08/07/17 04:32 08/09/17 03:45 Diabetes panel 08/09/17 Range/Units 03:45 Sodium 134 L (136-145) mEq/L Potassium 3.8 (3.5-5.1) mEq/L Chloride 105 (98-107) mEq/L Carbon Dioxide 21 L (23-29) mEq/L BUN 16 (6-20) mg/dL Creatinine 0.67 L (0.70-1.30) mg/dL Glucose 104 (70-105) mg/dL Calcium 8.3 L (8.6-10.3) mg/dL Calcium panel 08/09/17 Range/Units 03:45 Calcium 8.3 L (8.6-10.3) mg/dL Pituitary panel 08/09/17 Range/Units 03:45 Sodium 134 L (136-145) mEq/L Potassium 3.8 (3.5-5.1) mEq/L Chloride 105 (98-107) mEq/L Carbon Dioxide 21 L (23-29) mEq/L BUN 16 (6-20) mg/dL Creatinine 0.67 L (0.70-1.30) mg/dL Glucose 104 (70-105) mg/dL Calcium 8.3 L (8.6-10.3) mg/dL Adrenal panel 08/09/17 Range/Units 03:45 Sodium 134 L (136-145) mEq/L Potassium 3.8 (3.5-5.1) mEq/L Chloride 105 (98-107) mEq/L Carbon Dioxide 21 L (23-29) mEq/L BUN 16 (6-20) mg/dL Creatinine 0.67 L (0.70-1.30) mg/dL Glucose 104 (70-105) mg/dL Calcium 8.3 L (8.6-10.3) mg/dL - VTE Documentation of Mechanical Device: Intermittent pneumatic compression device Consult Discharge Plan - Plan Referrals: Wilber Srinivasan MD [Partnered Physician] - 08/17/17 8:45 am NONE,PCP [Primary Care Provider] - <Chidi Anguiano - Last Filed: 08/11/17 08:34> Date of Encounter: 08/09/17 Objective Vital Signs - Last 8 Hours Temp Pulse Resp BP Pulse Ox 08/11/17 06:54 98.9 F 97 16 100/66 100 08/11/17 04:45 99 F 90 16 112/67 99 Intake and Output 08/10/17 08/11/17 08/11/17 23:59 07:59 15:59 Intake Total 370 / 370 1403 / 1403 Output Total 200 / 200 2075 / 2075 Balance 170 / 170 -672 / -672 Intake: IV Fluids 370 / 370 1403 / 1403 Clinimix E 5%-20% SOLUTION 2, 370 / 370 1153 / 1153 000 ML @ 83.3 mls/hr IVC .Q24H [facility] with M.v.i. Adult 10 ml Rx# :[id number] Intralipid 20% 250 ML @ 21 mls/ 250 / 250 hr IVPB DAILY@1700 [facility] Rx#: [id number] Oral 0 / 0 Output: Urine 200 / 200 2074 / 2074 Other: # Bowel Movements 0 Blood Glucose* 97 101 - Labs 08/11/17 04:47 08/11/17 04:47 Diabetes panel 08/11/17 Range/Units 04:47 Sodium 134 L (136-145) mEq/L Potassium 4.0 (3.5-5.1) mEq/L Chloride 105 (98-107) mEq/L Carbon Dioxide 23 (23-29) mEq/L BUN 17 (6-20) mg/dL Creatinine 0.65 L (0.70-1.30) mg/dL Glucose 88 (70-105) mg/dL Calcium 8.7 (8.6-10.3) mg/dL Calcium panel 08/11/17 Range/Units 04:47 Calcium 8.7 (8.6-10.3) mg/dL Phosphorus 3.9 (2.7-4.5) mg/dL Pituitary panel 08/11/17 Range/Units 04:47 Sodium 134 L (136-145) mEq/L Potassium 4.0 (3.5-5.1) mEq/L Chloride 105 (98-107) mEq/L Carbon Dioxide 23 (23-29) mEq/L BUN 17 (6-20) mg/dL Creatinine 0.65 L (0.70-1.30) mg/dL Glucose 88 (70-105) mg/dL Calcium 8.7 (8.6-10.3) mg/dL Adrenal panel 08/11/17 Range/Units 04:47 Sodium 134 L (136-145) mEq/L Potassium 4.0 (3.5-5.1) mEq/L Chloride 105 (98-107) mEq/L Carbon Dioxide 23 (23-29) mEq/L BUN 17 (6-20) mg/dL Creatinine 0.65 L (0.70-1.30) mg/dL Glucose 88 (70-105) mg/dL Calcium 8.7 (8.6-10.3) mg/dL - Attending Attestation I examined this patient and my medical decision-making was reviewed with the Resident Physician. I agree with the documented findings, disposition and treatment plan as described except to the extent set forth below. The patient is seen and evaluated on morning rounds with rest. He is doing well after lysis of adhesions however he has no bowel sounds at this point. I would maintain the nasogastric tube until develops flatus and bowel sounds. Chidi Anguiano MD FACS
[2017-08-09] MEDS ORDERED: Clinimix E 5%-20% SOLUTION 2,000 ML with MVI, adult with vitamin K 10 ML IVC SCH (17:00)
[2017-08-09] MEDS: Nicotine 14 MG PATCH.TD24 TD PRN (18:09)
--- NOTE | 2017-08-09 19:35 | Anesthesia Procedures ---
Date of Encounter: 08/09/17 Time of Encounter: 19:34 Procedures: Anesthesia - Epidural Rounding Post Op Day #: 4 Pain Control: Good Vital Signs: Vital Signs/O2 Sat, Most Current Temp Pulse Resp BP Pulse Ox 98.5 F 99 15 124/78 99 08/09/17 16:35 08/09/17 16:35 08/09/17 16:35 08/09/17 16:35 08/09/17 16:35 Mental Status: awake Catheter Site Dressing Intact: Yes Erythema: No Pruritus: not present Signs of Infection At Catheter Site: No Plan: Continue current rate
[2017-08-09] MEDS: *HR* Promethazine 25 MG/ML VIAL IVP PRN (22:31)
[2017-08-10] MEDS: Insulin LISPRO 300 UNITS/3 ML VIAL SQ SCH ×6 (00:34→20:32)
[2017-08-10] MEDS: *HR* LORazepam 2 MG/ML VIAL IVP PRN ×5 (03:32→20:25)
[2017-08-10] MEDS: MORPHINE SUL Oral CONC 10 MG/0.5 ML ORAL.SYG SL PRN ×5 (03:32→20:10)
[2017-08-10] MEDS: Acetaminophen IV 1,000 MG/100 ML INFUS..BTL IVPB SCH ×2 (03:38→11:41)
[2017-08-10] MEDS: Ipratropium/Albuterol Neb 3 ML IH SCH ×4 (04:14→21:21)
[2017-08-10 04:33] LABS: BUN/Creatinine Ratio 29 (6-26); Blood Urea Nitrogen 20 mg/dL (6-20); Calcium 8.5 mg/dL (8.6-10.3); Carbon Dioxide 22 mEq/L (23-29); Chloride 106 mEq/L (98-107); Glucose 80 mg/dL (70-105); Osmolality,Calculated 282 (280-300); Potassium 3.9 mEq/L (3.5-5.1); Sodium 135 mEq/L (136-145); eGFR For African Americans > 60 (> 60); eGFR For Non-African Americans > 60 (> 60)
[2017-08-10] MEDS: 0.9 % Sodium Chloride 1,000 ML IVC SCH (05:30)
[2017-08-10] MEDS: Pantoprazole 40 MG VIAL IVP SCH ×2 (07:52→15:57)
--- NOTE | 2017-08-10 09:33 | General Surgery Progress Note ---
<Dina Andre - Last Filed: 08/10/17 09:31> Date of Encounter: 08/10/17 Time of Encounter: 09:15 - Assessment and Plan (1) Small bowel obstruction Current Visit: Yes Status: Acute POD #5 Exploratory laparotomy, lysis of adhesions, biopsy left para-external iliac lymph node, incidental appedectomy with Dr. Lynn Pathology- Mixed cellularity classical Hodgkin lymphoma Remove NG tube Clear liquid diet with protein supplements IV fluids- stop, total fluid rate will be TPN goal 83.3ml/hour Continue TPN therapy at goal rate Dietitian consult to manage TPN Supportive care and pain control per anesthesia Epidural management per anesthesia- NO heparin, continuous pulse oximetry, continuous cardiac monitoring Incentive spirometer every 1 hour while awake PPI therapy twice daily Out of bed to chair and ambulate TID with assistance Repeat am labs (2) Lymphoma Current Visit: Yes Status: Acute POD #5 Exploratory laparotomy, lysis of adhesions, biopsy left para-external iliac lymph node, incidental appedectomy with Dr. Lynn Pathology- Mixed cellularity classical Hodgkin lymphoma Oncology consulted for recommendations Qualifiers: Lymphoma type: Hodgkin Hodgkin lymphoma type: mixed cellularity Lymphoma site: multiple regions Qualified Code(s): C81.28 - Mixed cellularity Hodgkin lymphoma, lymph nodes of multiple sites (3) Retroperitoneal lymphadenopathy Current Visit: Yes Status: Acute POD #5 Exploratory laparotomy, lysis of adhesions, biopsy left para-external iliac lymph node, incidental appedectomy with Dr. Lynn Pathology- Mixed cellularity classical Hodgkin lymphoma Oncology consulted for recommendations (4) Smoking history Current Visit: No Status: Chronic Smoking cessation education Nicotine patch prn for nicotine cravings (5) History of gastric ulcer Current Visit: Yes Status: Resolved Continue PPI therapy (6) DVT prophylaxis Current Visit: No Status: Acute Heparin discontinued due to epidural and risk of bleeding EPCDs to bilateral lower extremities for DVT prophylaxis Out of bed to chair and ambulation TID with assistance Subjective Patient reports: no new complaints, feels better, still having pain, pain is less, voiding w/o difficulty, flatus (large amount of flatus this morning), no bowel movement, afebrile Objective Vital Signs - Last 8 Hours Temp Pulse Resp BP Pulse Ox 08/10/17 07:57 98.2 F 96 18 121/63 99 08/10/17 03:13 98.6 F 91 15 118/69 99 Intake and Output 08/09/17 08/10/17 08/10/17 23:59 07:59 15:59 Intake Total 100 / 100 1620 / 1620 Output Total 1050 / 1050 1350 / 1350 Balance -950 / -950 270 / 270 Intake: IV Fluids 100 / 100 1560 / 1560 0.9 % Sodium Chloride 1,000 ML 440 / 440 @ 50 mls/hr IVC .Q20H [facility] Rx#: [id number] Clinimix E 5%-20% SOLUTION 2, 770 / 770 000 ML @ 83.3 mls/hr IVC .Q24H [facility] with M.v.i. Adult 10 ml Rx# :[id number] Ofirmev 1,000 mg/100 ml 1,000 100 / 100 100 / 100 mg In 100 ml @ 400 mls/hr IVPB Q8H [facility] Rx#:[id number] Intralipid 20% 250 ML @ 21 mls/ 250 / 250 hr IVPB DAILY@1700 [facility] Rx#: [id number] Oral 0 / 0 60 / 60 Output: Urine 500 / 500 1300 / 1300 Gastric Drainage 550 / 550 50 / 50 Other: Meal NPO for supper icechips NPO Blood Glucose* 91 108 - General physical appearance well developed, no distress - Eyes PERRL, normal ocular movement - ENT dry mucosa, atraumatic, normocephalic - Neck Neck exam: trachea midline - Respiratory normal respiratory effort, clear to auscultation - Cardiovascular Cardiovascular exam: Present: RRR - Abdomen Abdomen: Present: bowel sounds present, soft, tender (expected post-operative tenderness), wound (NG tube to LIWS with scant amount of bilious drainage noted) - Incision Incision: Present: clean and dry, intact - Integumentary no rash, no growths, no abnormal pigmentation - Neurologic CN 2-12 grossly intact - Psychiatric oriented to time, oriented to person, oriented to place, speech is normal, memory intact - Labs 08/07/17 04:32 08/10/17 03:50 Diabetes panel 08/10/17 Range/Units 03:50 Sodium 135 L (136-145) mEq/L Potassium 3.9 (3.5-5.1) mEq/L Chloride 106 (98-107) mEq/L Carbon Dioxide 22 L (23-29) mEq/L BUN 20 (6-20) mg/dL Creatinine 0.68 L (0.70-1.30) mg/dL Glucose 80 (70-105) mg/dL Calcium 8.5 L (8.6-10.3) mg/dL Calcium panel 08/10/17 Range/Units 03:50 Calcium 8.5 L (8.6-10.3) mg/dL Pituitary panel 08/10/17 Range/Units 03:50 Sodium 135 L (136-145) mEq/L Potassium 3.9 (3.5-5.1) mEq/L Chloride 106 (98-107) mEq/L Carbon Dioxide 22 L (23-29) mEq/L BUN 20 (6-20) mg/dL Creatinine 0.68 L (0.70-1.30) mg/dL Glucose 80 (70-105) mg/dL Calcium 8.5 L (8.6-10.3) mg/dL Adrenal panel 08/10/17 Range/Units 03:50 Sodium 135 L (136-145) mEq/L Potassium 3.9 (3.5-5.1) mEq/L Chloride 106 (98-107) mEq/L Carbon Dioxide 22 L (23-29) mEq/L BUN 20 (6-20) mg/dL Creatinine 0.68 L (0.70-1.30) mg/dL Glucose 80 (70-105) mg/dL Calcium 8.5 L (8.6-10.3) mg/dL - VTE Documentation of Mechanical Device: Intermittent pneumatic compression device Consult Discharge Plan - Plan Referrals: Wilber Srinivasan MD [Partnered Physician] - 08/17/17 8:45 am NONE,PCP [Primary Care Provider] - <Yoko Lynn - Last Filed: 08/10/17 16:43> Date of Encounter: 08/10/17 Time of Encounter: 14:45 - Assessment and Plan (1) Small bowel obstruction due to adhesions Current Visit: Yes Status: Resolved patients small bowel obstruction is resolved ngt removed today as passing flatus and has had 2 bms continue clears today (npo midnight for port placement tomorrow) (2) Smoker Current Visit: No Status: Chronic nicotine patch prn (3) History of gastric ulcer Current Visit: Yes Status: Resolved will plan EGD as outpatient (4) Retroperitoneal lymphadenopathy Current Visit: Yes Status: Acute (5) Hodgkin lymphoma Current Visit: Yes Status: Acute appreciate oncology input will place Aport tomorrow while patient is still inpatient, risks and benefits discussed and he wishes to proceed. npo midnight, continue TPN Qualifiers: Hodgkin lymphoma type: mixed cellularity Lymphoma site: intra-abdominal nodes Qualified Code(s): C81.23 - Mixed cellularity Hodgkin lymphoma, intra- abdominal lymph nodes Subjective Patient reports: feels better, still having pain, pain is less, voiding w/o difficulty, flatus, bowel movement (x2), afebrile Objective Vital Signs - Last 8 Hours Temp Pulse Resp BP Pulse Ox 08/10/17 15:29 99.2 F 101 18 133/79 100 08/10/17 10:36 98.8 F 78 18 115/70 100 Intake and Output 08/10/17 08/10/17 08/10/17 07:59 15:59 23:59 Intake Total 1620 / 1620 465 / 465 370 / 370 Output Total 1350 / 1350 600 / 600 Balance 270 / 270 -135 / -135 370 / 370 Intake: IV Fluids 1560 / 1560 465 / 465 370 / 370 0.9 % Sodium Chloride 1,000 ML 440 / 440 64 / 64 @ 50 mls/hr IVC .Q20H [facility] Rx#: [id number] Clinimix E 5%-20% SOLUTION 2, 770 / 770 301 / 301 370 / 370 000 ML @ 83.3 mls/hr IVC .Q24H [facility] with M.v.i. Adult 10 ml Rx# :[id number] Ofirmev 1,000 mg/100 ml 1,000 100 / 100 100 / 100 mg In 100 ml @ 400 mls/hr IVPB Q8H [facility] Rx#:[id number] Intralipid 20% 250 ML @ 21 mls/ 250 / 250 hr IVPB DAILY@1700 [facility] Rx#: [id number] Oral 60 / 60 0 / 0 Output: Urine 1300 / 1300 600 / 600 Gastric Drainage 50 / 50 Other: Meal icechips NPO Stool Size Moderate Stool Consistency liquid Stool Color Brown Blood Glucose* 108 86 - General physical appearance well developed, no distress - Eyes PERRL, normal ocular movement - ENT normal mucosa, normocephalic - Neck Neck exam: trachea midline - Respiratory normal expansion, clear to auscultation - Cardiovascular Cardiovascular exam: Present: RRR - Abdomen Abdomen: Present: soft, tender, wound - Incision Incision: Present: clean and dry, intact - Integumentary no rash, no growths - Neurologic CN 2-12 grossly intact - Musculoskeletal normal posture - Psychiatric oriented to time, oriented to person, oriented to place, speech is normal, memory intact - Labs 08/07/17 04:32 08/10/17 03:50 Diabetes panel 08/10/17 Range/Units 03:50 Sodium 135 L (136-145) mEq/L Potassium 3.9 (3.5-5.1) mEq/L Chloride 106 (98-107) mEq/L Carbon Dioxide 22 L (23-29) mEq/L BUN 20 (6-20) mg/dL Creatinine 0.68 L (0.70-1.30) mg/dL Glucose 80 (70-105) mg/dL Calcium 8.5 L (8.6-10.3) mg/dL Calcium panel 08/10/17 Range/Units 03:50 Calcium 8.5 L (8.6-10.3) mg/dL Pituitary panel 08/10/17 Range/Units 03:50 Sodium 135 L (136-145) mEq/L Potassium 3.9 (3.5-5.1) mEq/L Chloride 106 (98-107) mEq/L Carbon Dioxide 22 L (23-29) mEq/L BUN 20 (6-20) mg/dL Creatinine 0.68 L (0.70-1.30) mg/dL Glucose 80 (70-105) mg/dL Calcium 8.5 L (8.6-10.3) mg/dL Adrenal panel 08/10/17 Range/Units 03:50 Sodium 135 L (136-145) mEq/L Potassium 3.9 (3.5-5.1) mEq/L Chloride 106 (98-107) mEq/L Carbon Dioxide 22 L (23-29) mEq/L BUN 20 (6-20) mg/dL Creatinine 0.68 L (0.70-1.30) mg/dL Glucose 80 (70-105) mg/dL Calcium 8.5 L (8.6-10.3) mg/dL
[2017-08-10] MEDS: *HR* Promethazine 25 MG/ML VIAL IVP PRN ×2 (11:55→20:10)
[2017-08-10] MEDS: [UNRECOGNIZED DRUG - OTHER] EP SCH (13:00)
[2017-08-10] MEDS: FENTANYL EP SCH (13:00)
[2017-08-10] MEDS: BUPIVACAINE MPF EP SCH (13:00)
--- NOTE | 2017-08-10 14:18 | Anesthesia Procedures ---
Date of Encounter: 08/10/17 Time of Encounter: 14:15 Procedures: Anesthesia - Epidural Rounding Post Op Day #: 6 Procedure: Small Bowel Resection Pain Control: Adequate Breakthrough Pain Meds: Yes Vital Signs: Vital Signs/O2 Sat/Glucose, Most Current Temp Pulse Resp BP Pulse Ox 08/10/17 10:36 98.8 F 78 18 115/70 100 Mental Status: awake Catheter Site Dressing Intact: Yes Erythema: No Pruritus: not present Signs of Infection At Catheter Site: No Plan: Remove Epidural Catheter Epidural Catheter removed; Tip Intact: Yes
[2017-08-10] MEDS ORDERED: Clinimix E 5%-20% SOLUTION 2,000 ML with MVI, adult with vitamin K 10 ML IVC SCH (17:00)
--- NOTE | 2017-08-10 17:06 | Anesthesia Evaluation PreOp ---
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: Denies Any Significant HX Other Medical History: GERD, Other (Anxiety Depression) Anesthesia History: No Prior Anesthetic Complications Alcohol Use: none Drug use: none Medications and Allergies No Known Home Drugs 07/31/17 [History] 3 Allergy/AdvReac Type Severity Reaction Status Date / Time No Known Allergies Allergy Verified 06/20/17 09:24 - Meds/Allergy Pre-op Review Medications Reviewed: Yes Allergies Reviewed: Yes Beta Blockers on Current Med List: No Anesthesia Results - Labs 08/07/17 04:32 08/10/17 03:50 Laboratory Tests 08/04/17 08/07/17 08/09/17 13:40 04:32 03:45 Hgb 8.3 L Hct 27.2 L Plt Count 476 H INR 1.4 Sodium Potassium BUN Creatinine Iron < 10 L 08/10/17 03:50 Hgb Hct Plt Count INR Sodium 135 L Potassium 3.9 BUN 20 Creatinine 0.68 L Iron - Imaging EKG: report reviewed (Sinus Tach) Additional studies: ECHO 2017 normal EF 60% Anesthesia Exam Vital Signs/O2 Sat/Glucose, Most Current Temp Pulse Resp BP Pulse Ox 08/10/17 15:29 99.2 F 101 18 133/79 100 Height: 6'0 Weight: 151 lbs NPO (# of Hours): MN Pain Scale: 1 - HEENT Pupil (Motor): Pupils equal, EOMI Mallampati: II Teeth: Missing Oral Opening: Greater than 3 - ADMINISTRATIVE PROCESSOR LOC: Oriented ADMINISTRATIVE PROCESSOR Motor: Normal RUE, Normal LUE, Normal RLE, Normal LLE, Normal Face ADMINISTRATIVE PROCESSOR Sensory: Normal: RUE, LUE, RLE, LLE, Face - Cardiac Rhythm: Regular Murmur: None JVD: No Carotid Bruit: No - Pulmonary Breath Sounds: bilateral Clear Respiratory Effort: Symmetrical Anesthesia Assess/Plan ASA Score: 3 (Tobacco Anemia Gerd Anxiety Depression) Modified [place] Scale for Level of Consciousness: Cooperative, oriented, and tranquil Anesthetic Plan: MAC Autologous Blood: No Monitoring Plan: Standard Monitors Recovery Plan: Other (Discussed MAC, possible GA, agrees to proceed)
[2017-08-11] MEDS: *HR* Promethazine 25 MG/ML VIAL IVP PRN ×2 (00:20→05:08)
[2017-08-11] MEDS: MORPHINE SUL Oral CONC 10 MG/0.5 ML ORAL.SYG SL PRN ×3 (00:24→09:53)
[2017-08-11] MEDS: *HR* LORazepam 2 MG/ML VIAL IVP PRN ×6 (00:26→22:07)
[2017-08-11] MEDS: Insulin LISPRO 300 UNITS/3 ML VIAL SQ SCH ×6 (00:27→20:35)
[2017-08-11] MEDS: Ipratropium/Albuterol Neb 3 ML IH SCH ×4 (03:28→21:55)
[2017-08-11 05:10] LABS: Basophils % 0.4 %; Eosinophils # 0.2 K/mcL (0.0-0.6); Eosinophils % 4.2 %; Hematocrit 25.3 % (37.5-50.1); Immature Granulocytes % 4.7 % (0-4); Lymphocytes # 0.5 K/mcL (0.6-4.6); Lymphocytes % 8.1 %; Mean Corpuscular HGB Conc 31.6 g/dL (31.6-35.5); Mean Corpuscular Hemoglobin 26.2 pg (28.0-33.3); Mean Platelet Volume 8.5 fL (9.4-12.4); Monocytes # 0.7 K/mcL (0.0-1.3); Monocytes % 11.8 %; Neutrophils # 3.9 K/mcL (1.6-8.9); Platelet Count 499 K/mcL (140-400); Red Blood Count 3.05 M/mcL (4.19-5.50); Red Cell Distribution Width 17.8 % (11.5-14.5); Segmented Neutrophils % 70.8 %
[2017-08-11 05:21] LABS: BUN/Creatinine Ratio 26 (6-26); Blood Urea Nitrogen 17 mg/dL (6-20); Calcium 8.7 mg/dL (8.6-10.3); Carbon Dioxide 23 mEq/L (23-29); Chloride 105 mEq/L (98-107); Glucose 88 mg/dL (70-105); Osmolality,Calculated 279 (280-300); Phosphorous 3.9 mg/dL (2.7-4.5); Sodium 134 mEq/L (136-145); eGFR For African Americans > 60 (> 60); eGFR For Non-African Americans > 60 (> 60)
[2017-08-11] MEDS: Pantoprazole 40 MG VIAL IVP SCH (07:09)
[2017-08-11] MEDS: Ondansetron 4 MG/2 ML VIAL IVP PRN (07:09)
[2017-08-11] MEDS ORDERED: Ketamine *HR* 500 MG/10 ML MDV ONE (07:27)
[2017-08-11] MEDS ORDERED: *HR* Midazolam HCl 2 MG/2 ML VIAL ONE (07:27)
[2017-08-11] MEDS ORDERED: Lidocaine -MPF 2% 2 ML VIAL ONE (07:29)
[2017-08-11] MEDS ORDERED: *HR* Propofol 200 MG/20 ML VIAL IVP ONE (07:29)
[2017-08-11] MEDS ORDERED: Lidocaine 1% 20 ML MDV ONE (07:31)
[2017-08-11] MEDS ORDERED: Heparin 1,000 UNITS/500 mL 500 ML ONE (07:31)
[2017-08-11] MEDS ORDERED: Ringers Solution, Lactated 1,000 ML IVC SCH (07:45)
[2017-08-11] MEDS ORDERED: ceFAZolin 2,000 MG in Water for inj. (sterile) 20 ML IVP ONE (08:30)
[2017-08-11] MEDS ORDERED: Ketorolac 30 MG/ML VIAL ONE (09:13)
--- NOTE | 2017-08-11 09:20 | Operative Note ---
Date of procedure: 08/11/17 Pre-op diagnosis: Hodgkin Lymphoma Post-op diagnosis: same Procedure: Left subclavian A port placement Anesthesia: MAC, local Local Anesthetics: 0.5% Sensorcaine HCL SubQ (cc) Surgeon: Yoko Lynn Was there an bakery assistant present: No Estimated blood loss (cc): 5 Specimen: none Condition: stable Disposition: PACU Procedure in Detail: Patient was brought to the operating suite and placed supine on the operating table. Sign-in was performed and everyone was in agreement. Anesthesia was induced and patient whad MAC anesthesia administered. The bilateral arms were tucked at the patient's side. The left neck, chest, shoulder and upper arm were prepped and draped in the usual sterile fashion. Another timeout was performed and everyone was in agreement. Patient was placed in slight Trendelenburg position. A 5 mL of 0.5% Marcaine was injected subcutaneously. The finder needle was used to access the left subclavian vein. Blood return was dark and nonpulsatile. The guidewire was placed through this and the needle removed. The guidewire was attached to the drape with a hemostat. Fluoroscopy demonstrated the guidewire to be in the superior vena cava. A 15 blade was used to make a transverse incision in the skin just beneath the guidewire. Using a Bovie, the port pocket was made in the subcutaneous tissue. Any bleeding points were stopped with the Bovie. The dilator and introducer were inserted over the guidewire. The introducer was removed and the port catheter was placed into the sheath, which the catheter was previously flushed.. Fluoroscopy images were obtained ensuring the tip of the port catheter was in the SVC. A rubber shod was placed on the catheter to ensure no blood loss. The sheath was removed. The port was placed on the catheter and the secured with the cap. Sterile saline was used to flush the catheter, after withdrawal showed blood return. The port was placed into the pocket and secured to the chest wall with 2 separate 0 Nurolon stitches. The wound was copiously irrigated with sterile saline. The subcutaneous tissue was closed with 3-0 Vicryl interrupted stitches. The skin was closed with a 4-0 Monocryl running subcuticular stitch. Using a Barriga needle the port was flushed with 500 units of heparin. Fluoroscopy again demonstrated appropriate port and catheter placement. Steri-Strips were applied to the wound and the patient was awoken in the operating suite. Chest xray demonstrated no pneumothorax. The patient tolerated the procedure well and was taken to PACU in stable condition, all lap and instrument counts were correct at the end of the case
[2017-08-11] MEDS ORDERED: *HR* OxyCODONE/APAP 5/325 TABLET ONE (09:27)
[2017-08-11] MEDS ORDERED: Ondansetron 4 MG/2 ML VIAL IVP PRN (10:02)
[2017-08-11] MEDS ORDERED: Clinimix E 5%-20% SOLUTION 2,000 ML with MVI, adult with vitamin K 10 ML IVC SCH (10:02)
[2017-08-11] MEDS ORDERED: D10% in Water 500 ML IVC PRN (10:02)
[2017-08-11] MEDS ORDERED: *HR* Dextrose 50 % in Water (Syg) 50 ML SYRINGE IVP PRN (10:02)
[2017-08-11] MEDS ORDERED: Dextrose Gel 15 GM/37.5 ML TUBE PO PRN ×2 (10:02)
[2017-08-11] MEDS ORDERED: Nicotine 14 MG PATCH.TD24 TD PRN (10:02)
[2017-08-11] MEDS ORDERED: D5% in Water 1,000 ML IVC PRN (10:02)
[2017-08-11] MEDS ORDERED: Naloxone 0.4 MG/ML INJ IVP PRN (10:02)
--- NOTE | 2017-08-11 10:33 | General Surgery Progress Note ---
Date of Encounter: 08/11/17 Time of Encounter: 10:30 - Assessment and Plan (1) Small bowel obstruction Current Visit: Yes Status: Acute POD #6 Exploratory laparotomy, lysis of adhesions, biopsy left para-external iliac lymph node, incidental appedectomy with Dr. Lynn Pathology- Mixed cellularity classical Hodgkin lymphoma Advance to full liquid diet with protein supplements Decrease TPN to 50ml/hour and stop at 1700 Supportive care and pain control per anesthesia Epidural management per anesthesia- NO heparin, continuous pulse oximetry, continuous cardiac monitoring Incentive spirometer every 1 hour while awake PPI therapy twice daily Out of bed to chair and ambulate TID with assistance Repeat am labs- CBC (2) Lymphoma Current Visit: Yes Status: Acute POD #6 Exploratory laparotomy, lysis of adhesions, biopsy left para-external iliac lymph node, incidental appedectomy with Dr. Lynn Pathology- Mixed cellularity classical Hodgkin lymphoma A-port placed today per Dr. Lynn Oncology consulted for recommendations Qualifiers: Lymphoma type: Hodgkin Hodgkin lymphoma type: mixed cellularity Lymphoma site: multiple regions Qualified Code(s): C81.28 - Mixed cellularity Hodgkin lymphoma, lymph nodes of multiple sites (3) Retroperitoneal lymphadenopathy Current Visit: Yes Status: Acute POD #6 Exploratory laparotomy, lysis of adhesions, biopsy left para-external iliac lymph node, incidental appedectomy with Dr. Lynn Pathology- Mixed cellularity classical Hodgkin lymphoma Oncology consulted for recommendations (4) Smoking history Current Visit: No Status: Chronic Smoking cessation education Nicotine patch prn for nicotine cravings (5) History of gastric ulcer Current Visit: Yes Status: Resolved Continue PPI therapy (6) DVT prophylaxis Current Visit: No Status: Acute Heparin discontinued due to epidural and risk of bleeding EPCDs to bilateral lower extremities for DVT prophylaxis Out of bed to chair and ambulation TID with assistance Subjective Patient reports: no new complaints, feels better, still having pain, pain is less, voiding w/o difficulty, flatus, bowel movement, afebrile Objective Vital Signs - Last 8 Hours Temp Pulse Resp BP Pulse Ox 08/11/17 09:45 99.0 F 82 16 134/74 99 08/11/17 06:54 98.9 F 97 16 100/66 100 08/11/17 04:45 99 F 90 16 112/67 99 Intake and Output 08/10/17 08/11/17 08/11/17 23:59 07:59 15:59 Intake Total 370 / 370 1403 / 1403 820 / 820 Output Total 200 / 200 2074 455 / 455 Balance 170 / 170 -672 / -672 365 / 365 Intake: IV Fluids 370 / 370 1403 / 1403 820 / 820 Clinimix E 5%-20% SOLUTION 2, 370 / 370 1153 / 1153 000 ML @ 83.3 mls/hr IVC .Q24H BON[facility] with M.v.i. Adult 10 ml Rx# :[id number] Lactated Ringers 1,000 ML @ 25 800 / 800 mls/hr IVC .Q24H BON[facility] Rx#: [id number] Ancef 2,000 MG In Water for inj 20 / 20 . (sterile) 20 ML @ 200 mls/hr IVP ONCE ONE Rx#:[id number] Intralipid 20% 250 ML @ 21 mls/ 250 / 250 hr IVPB DAILY@1700 BONNIE Rx#: [id number] Oral 0 / 0 0 / 0 Output: Urine 200 / 200 2074 450 / 450 Estimated Blood Loss 5 / 5 Other: Meal NPO Percent of Meal Consumed 0% # Bowel Movements 0 Blood Glucose* 97 101 - General physical appearance well developed, no distress - Eyes PERRL, normal ocular movement - ENT normal mucosa, atraumatic, normocephalic - Neck Neck exam: trachea midline - Respiratory normal respiratory effort, clear to auscultation - Cardiovascular Cardiovascular exam: Present: RRR - Abdomen Abdomen: Present: bowel sounds present, soft, tender (expected post-operative tenderness) - Incision Incision: Present: clean and dry (Midline and A-port), intact (Midline and A- port) - Integumentary no rash, no growths, no abnormal pigmentation - Neurologic CN 2-12 grossly intact, normal coordination, normal sensation - Musculoskeletal normal gait, normal posture - Psychiatric oriented to time, oriented to person, oriented to place, speech is normal, memory intact - Labs 08/11/17 04:47 08/11/17 04:47 Diabetes panel 08/11/17 Range/Units 04:47 Sodium 134 L (136-145) mEq/L Potassium 4.0 (3.5-5.1) mEq/L Chloride 105 (98-107) mEq/L Carbon Dioxide 23 (23-29) mEq/L BUN 17 (6-20) mg/dL Creatinine 0.65 L (0.70-1.30) mg/dL Glucose 88 (70-105) mg/dL Calcium 8.7 (8.6-10.3) mg/dL Calcium panel 08/11/17 Range/Units 04:47 Calcium 8.7 (8.6-10.3) mg/dL Phosphorus 3.9 (2.7-4.5) mg/dL Pituitary panel 08/11/17 Range/Units 04:47 Sodium 134 L (136-145) mEq/L Potassium 4.0 (3.5-5.1) mEq/L Chloride 105 (98-107) mEq/L Carbon Dioxide 23 (23-29) mEq/L BUN 17 (6-20) mg/dL Creatinine 0.65 L (0.70-1.30) mg/dL Glucose 88 (70-105) mg/dL Calcium 8.7 (8.6-10.3) mg/dL Adrenal panel 08/11/17 Range/Units 04:47 Sodium 134 L (136-145) mEq/L Potassium 4.0 (3.5-5.1) mEq/L Chloride 105 (98-107) mEq/L Carbon Dioxide 23 (23-29) mEq/L BUN 17 (6-20) mg/dL Creatinine 0.65 L (0.70-1.30) mg/dL Glucose 88 (70-105) mg/dL Calcium 8.7 (8.6-10.3) mg/dL - VTE Documentation of Mechanical Device: Intermittent pneumatic compression device Consult Discharge Plan - Plan Referrals: Wilber Srinivasan MD [Partnered Physician] - 08/17/17 8:45 am NONE,PCP [Primary Care Provider] - - Attending Attestation For this encounter, I have reviewed the BOTANY TECHNICIAN or PA documentation, treatment plan, and medical decision making; and I have had face to face time with this patient.
--- NOTE | 2017-08-11 12:21 | Anesthesia Evaluation Post Op ---
Date of Encounter: 08/11/17 Time of Encounter: 09:15 - Vital Signs Vital Signs: Last Vital Signs Temp 98.7 F 08/11/17 10:15 Pulse 92 08/11/17 10:15 Resp 16 08/11/17 10:15 BP 116/74 08/11/17 10:15 Pulse Ox 100 08/11/17 10:15 - Lungs Lungs: Clear Ascult./Percussion - Airway Airway: Non-obstructed - Cardiovascular Regular Rate - Mental Status Mental Status: Alert & Oriented, Answers Appropriately - Pain Pain Scale: 4 - Nausea Vomiting Nausea Vomiting: Not Present - Hydration Hydration: NPO, Howard catheter - Discharge PostOp Status: Transfer Patient to floor
[2017-08-11] MEDS ORDERED: Ferumoxytol 510 MG in 0.9 % Sodium Chloride 100 ML IVPB ONE (13:35)
[2017-08-11] MEDS: *HR* OxyCODONE/APAP 5/325 TABLET PO PRN ×3 (13:47→22:07)
--- NOTE | 2017-08-11 14:23 | Oncology Inp Progress Note ---
Date of Encounter: 08/11/17 Time of Encounter: 13:45 (1) Anemia Current Visit: No Status: Acute Assessment and plan: Iron studies reveal serum iron low at <10, hgb 8.0 today. Feraheme has been ordered for parental iron replacement. Discussed with surgical CREDIT BALANCE SPECIALIST. Discussed laboratory values that show iron deficiency with patient and patients significant other along with the need for IV iron replacement. Patient understands there is a rare chance of anaphylactic reaction or hypersensitivity reaction associated with IV iron, although this reaction is rare with this type of iron. States he understands and agrees to IV iron. POD #6 Exploratory laparotomy, lysis of adhesions, biopsy left para-external iliac lymph node, incidental appedectomy with Dr. Lynn. He is recovering well and planned for discharge home potentially tomorrow. 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 He is planned to follow up with Dr. Srinivasan next week to discuss further treatment options and diagnostic/staging testing. He had a left subclavian A-port placed today with Dr. Lynn. Qualifiers: Anemia type: unspecified type Qualified Code(s): D64.9 - Anemia, unspecified Oncology: Subj Interval history: Mr. Barlow is sitting up in bed, significant other at his bedside. He tolerated a full liquid diet at lunch and advancing his diet for dinner. TPN is planned to be turned off this evening. He is ambulating and otherwise feeling well as he continues to recover from recent surgery. - Constitutional Vitals: Vital Signs Temp Pulse Resp BP Pulse Ox 08/11/17 14:00 98.8 F 96 16 115/75 100 08/11/17 10:15 98.7 F 92 16 116/74 100 08/11/17 09:45 99.0 F 82 16 134/74 99 08/11/17 06:54 98.9 F 97 16 100/66 100 08/11/17 04:45 99 F 90 16 112/67 99 08/11/17 00:05 98.9 F 90 18 132/78 99 08/10/17 20:25 99.9 F H 103 18 130/77 100 08/10/17 15:29 99.2 F 101 18 133/79 100 Intake and Output 08/10/17 08/11/17 08/11/17 23:59 07:59 15:59 Intake Total 370 / 370 1403 / 1403 1664 / 1664 Output Total 200 / 200 2074 705 / 705 Balance 170 / 170 -672 / -672 959 / 959 Intake: IV Fluids 370 / 370 1403 / 1403 1184 / 1184 Clinimix E 5%-20% SOLUTION 2, 370 / 370 1153 / 1153 364 / 364 000 ML @ 83.3 mls/hr IVC .Q24H B[facility] with M.v.i. Adult 10 ml Rx# :[id number] Lactated Ringers 1,000 ML @ 25 800 / 800 mls/hr IVC .Q24H [facility] Rx#: [id number] Ancef 2,000 MG In Water for inj 20 / 20 . (sterile) 20 ML @ 200 mls/hr IVP ONCE ONE Rx#:[id number] Intralipid 20% 250 ML @ 21 mls/ 250 / 250 hr IVPB DAILY@1700 [facility] Rx#: [id number] Oral 0 / 0 480 / 480 Output: Urine 200 / 200 2074 700 / 700 Estimated Blood Loss 5 / 5 Other: Meal Lunch Percent of Meal Consumed 100% # Bowel Movements 0 0 Blood Glucose* 97 101 107 General appearance: cooperative, no acute distress, no febrile - Head Head exam: Present: atraumatic - Respiratory Respiratory exam: Present: CTAB - Cardiovascular Cardiovascular exam: Present: RRR, +S1, +S2 - GI/Abdominal GI/Abdominal exam: Present: normal bowel sounds, soft, tenderness Additional comments: post op tenderness as expected, abdominal incision with franchesca LAWN CARETAKER - Extremities Exam Extremities exam: Present: normal inspection. Absent: calf tenderness, pedal edema - Neurological Exam Neurological exam: Present: alert, oriented X3, no focal deficits, strengths equal and symetr throughout - Psychiatric Psychiatric exam: Present: normal affect, normal mood - Skin Skin exam: Present: normal color, warm Oncology: Obj Data - Labs CBC & Chem 7: 08/11/17 04:47 08/11/17 04:47 - Impressions Impressions Chest X-Ray 08/11/17 00:00 IMPRESSION: 1. Left subclavian port tip at the cavoatrial junction. Right PICC tip at the cavoatrial junction as well. No pneumothorax. 2. Hypoinflated lungs. Left basilar atelectasis. D/ / Mikel Wodo MD / Mikel Wood MD Interpreting Provider: Mikel Wood MD - ABG Interpretation ABG results: PT/INR, D-dimer PT 15.3 Seconds (9.4-12.1) H 08/04/17 13:40 Consult Discharge Plan - Plan Referrals: Wilber Srinivasan MD [Partnered Physician] - 08/17/17 8:45 am NONE,PCP [Primary Care Provider] -
[2017-08-11] MEDS: CeFAZolin Premix DUPLEX 2,000 MG/50 ML BAG IVPB SCH ×2 (15:41→23:32)
[2017-08-11] MEDS ORDERED: Pantoprazole 40 MG VIAL IVP SCH (16:30)
[2017-08-12] MEDS: *HR* LORazepam 2 MG/ML VIAL IVP PRN ×3 (02:25→11:04)
[2017-08-12] MEDS: *HR* OxyCODONE/APAP 5/325 TABLET PO PRN ×3 (02:25→11:04)
[2017-08-12] MEDS: Ipratropium/Albuterol Neb 3 ML IH SCH ×2 (04:35→10:47)
--- NOTE | 2017-08-12 09:05 | Discharge Summary ---
Date of Encounter: 08/12/17 Time of Encounter: 09:45 - Discharge Diagnosis (1) Small bowel obstruction Priority: Primary Status: Resolved (2) Lymphoma Priority: Secondary Status: Acute Qualifiers: Lymphoma type: Hodgkin Hodgkin lymphoma type: mixed cellularity Lymphoma site: multiple regions Qualified Code(s): C81.28 - Mixed cellularity Hodgkin lymphoma, lymph nodes of multiple sites (3) Retroperitoneal lymphadenopathy Priority: Secondary Status: Acute (4) Smoking history Priority: Secondary Status: Chronic (5) History of gastric ulcer Priority: Secondary Status: Resolved Comments: Continue PPI therapy BID Carafate QID Schedule outpatient EGD with Dr. Lynn to 2 weeks (6) Protein-calorie malnutrition, moderate Priority: Secondary Status: Acute (7) Iron deficiency anemia Priority: Secondary Status: Acute Qualifiers: Iron deficiency anemia type: unspecified iron deficiency Qualified Code(s) : D50.9 - Iron deficiency anemia, unspecified - Discharge Medications Prescriptions: OxyCODONE/APAP 5/325 [Percocet 5/325 MG] 1 each PO Q4HR PRN 7 Days #30 tablet PRN Reason: Pain Ondansetron ODT [Zofran ODT] 4 mg SL Q6HR PRN #30 tab.rapdis PRN Reason: Nausea Lactose-Reduced Food [Ensure High Protein] 1 bottle PO TID #90 can LORazepam [Ativan] 1 mg PO TID PRN 7 Days #20 tablet PRN Reason: Anxiety Omeprazole [PriLOSEC] 20 mg PO BIDAC #60 capsule. Sucralfate [Carafate] 1 gm PO QIDAC #120 tablet Home Medications: LORazepam [Ativan] 1 mg PO TID PRN 7 Days #20 tablet 08/12/17 [Rx] Lactose-Reduced Food [Ensure High Protein] 1 bottle PO TID #90 can 08/12/17 [Rx] Omeprazole [PriLOSEC] 20 mg PO BIDAC #60 capsule. 08/12/17 [Rx] Ondansetron ODT [Zofran ODT] 4 mg SL Q6HR PRN #30 tab.rapdis 08/12/17 [Rx] OxyCODONE/APAP 5/325 [Percocet 5/325 MG] 1 each PO Q4HR PRN 7 Days #30 tablet [Rx] Sucralfate [Carafate] 1 gm PO QIDA #120 tablet 08/12/17 [Rx] Allergies/Adverse Reactions: 3 Allergy/AdvReac Type Severity Reaction Status Date / Time No Known Allergies Allergy Verified 06/20/17 09:24 General Surgery Exam Initial Vital Signs Temp Pulse Resp BP Pulse Ox 98.0 F 113 18 127/88 100 07/31/17 07:56 07/31/17 07:56 07/31/17 07:56 07/31/17 07:56 07/31/17 07:56 - General physical appearance well developed, well nourished, no distress - Eyes normal ocular movement - ENT normal mucosa, atraumatic, normocephalic - Neck trachea midline - Respiratory normal respiratory effort, clear to auscultation - Cardiovascular Cardiovascular exam: Present: RRR - Abdomen Abdomen general surgery: Present: bowel sounds present, soft, tender (Expected postoperative tenderness) - Incision Incision: Present: clean and dry, intact - Integumentary Integumentary general surgery: Present: warm and dry - Neurologic Present: CN 2-12 grossly intact - Musculoskeletal Present: normal gait, normal posture - Psychiatric Psychiatric general surgery: Present: appropriate, oriented to person, oriented to place, oriented to time, speech is normal, memory intact Date of admission: 07/31/17 13:38 Primary care physician: PCP NONE Consults: 08/07/17 15:10 Consult to Oncology [CONS] Routine Consulting Provider: On[facility] Reason for Consult: Dr Srinivasan, new diagnosis Hodgkin lymphoma, EBV+, report supposed to be available at 6 pm, pt is s/p ex lap for sbo, lysis of adhesions, patient aware Time Notified: 15:11 Call Completed: Yes Discharging clinician: Yoko Lynn (Deanne Andre) Anticipated date of discharge: 08/12/17 - Patient Status Disposition: Home, Self-Care Condition: Good Functional capacity at discharge: independent ambulation Overall status at discharge: patient is progressing back to baseline - Discharge Instructions Follow Up With: NONE,PCP [Primary Care Provider] - Wilber Srinivasan MD [Partnered Physician] - 08/17/17 8:45 am Dina Andre CNP [Advanced Practice Nurse] - 08/20/17 9:15 am (Surgery follow-up; staple removal) Additional Instructions: #1 may shower, no tub bath for 2 weeks #2 wash incisions with soap and water and pat dry daily #3 no lifting, pushing, pulling more than 15 pounds for the next 26weeks #4 no driving until off narcotics for 24 hours and able to safely react in the car #5 may climb stairs - Diet and Activity Activity: other (See additional instructions above) Diet: other (Advance to soft diet with chopped meats as tolerated; avoid tomato based and citrus foods/drinks) - Hospital Course Hospital course: Mr. Barlow is a 42 year old male who presented to the emergency room with complaints of abdominal pain with associated nausea and vomiting. The patient was noted to have a small bowel obstruction and intra-abdominal lymphadenopathy. He was admitted to the hospital and treated with conservative measures. Conservative measures included bowel rest, NG tube to low intermittent wall suction, IV fluids, supportive care. The patient failed conservative measures and had continued evidence of obstruction. He was taken to the operating room on 08/05/[address] Lynn for exploratory laparotomy. He did undergo lysis of adhesions, appendectomy and a lymph node biopsy. The patient remained on bowel rest while awaiting return of bowel function. His postoperative pain was managed per anesthesia. He was started on TPN therapy for nutritional support due to moderate protein calorie malnutrition. With return of bowel function, the patient's NG tube was removed and he was started on a clear liquid diet. He tolerated this without difficulty. He was advanced to a full liquid diet of which she has tolerated. The patient's pathology was consistent with a Hodgkin's lymphoma. Oncology was consulted for recommendations. The patient did have an A port placed prior to discharge on 08/11/[address] Lynn. The patient's vital signs are stable and he is afebrile. His laboratory values are stable. His postoperative pain is well-controlled at this time. He is ambulating and voiding without difficulty. We will begin discharge planning to home and came for follow-up EGD in [address] Lynn. We will plan for follow-up with oncology for treatment of his Hodgkin's lymphoma. - Time Spent with Patient Total time spent providing and/or coordinating discharge services: Less than 30 minutes Labs on day of discharge: Labs from last 24 hours 08/11/17 08/11/17 08/11/17 19:57 16:20 11:21 POC Glucose 114 H 84 107 H - Impressions ITS Impressions Chest X-Ray 08/01/17 11:40 IMPRESSION: NG tube tip projecting over the proximal stomach with the side hole in the esophagus. Consider advancement. Clear lungs. Dilated loops of bowel in the upper abdomen consistent with history of small-bowel obstruction. D/ / Francisco Eubanks MD / Francisco Eubanks MD Interpreting Provider: Francisco Eubanks MD Abdomen X-Ray 08/01/17 12:42 IMPRESSION: 1. Enteric tube in place has retracted since the prior exam with the side port at the level of the distal esophagus and the tip at the cardiac, this should be advanced approximately 9-10 cm. 2. Essentially stable distended proximal to distal small bowel gas pattern which suggests a moderate to high-grade partial obstruction. No free intraperitoneal air. D/ / 08/01/2017 13:39:19 Crow Medina MD / shameka Interpreting Provider: Crow Medina MD Abdomen X-Ray 08/03/17 05:03 IMPRESSION: Several dilated small bowel loops with air-fluid levels are again seen in the left upper quadrant consistent with the patient's known obstruction. These have decreased in size and caliber compared to prior study. D/ / Conchita Parker MD / Conchita Parker MD Interpreting Provider: Conchita Parker MD Chest X-Ray 08/04/17 09:33 IMPRESSION: Minimal discoid atelectasis at the left costophrenic angle. Otherwise no acute cardiopulmonary process. D/ / Jose Neville MD / Jose Neville MD Interpreting Provider: Jose Neville MD Abdomen X-Ray 08/04/17 11:41 IMPRESSION: 1. Enteric tube has been removed. 2. Probable slight interval progression of small bowel obstruction. Several loops of small bowel demonstrate increased wall thickening which may be related to underlying infectious or inflammatory process. However ischemia cannot be excluded. 3. No free air. The findings were sent to the Radiology Results Communication [facility] at 12:47 pm on 08/04/2017to be communicated to a licensed caregiver. D/ / 08/04/2017 13:11:37 Lizz Beebe MD / samuel Interpreting Provider: Lizz Beebe MD Chest X-Ray 08/11/17 00:00 IMPRESSION: 1. Left subclavian port tip at the cavoatrial junction. Right PICC tip at the cavoatrial junction as well. No pneumothorax. 2. Hypoinflated lungs. Left basilar atelectasis. D/ / Mikle Wood MD / Mikel Wood MD Interpreting Provider: Mikel Wood MD - Attending Attestation For this encounter, I have reviewed the FUELER or PA documentation, treatment plan, and medical decision making; and I have had face to face time with this patient.
[2017-08-12 11:32] VITALS: BP 132/75
== END 2017-08-12 16:20 | disposition home or self-care (01) | DRG 224 ==
LOC: EMEROO 07:48 → 3ANU 07:48
PROVIDERS: ADMIT Surgery; ATTEND Surgery